=== PATIENT | female | born 1940 | race Caucasian/White ===

== ENCOUNTER → 2018-05-16 | Outpatient (CLI) | payer BC, MEDICARE ==
[2018-05-16 10:31] VITALS: BP 137/64; PULSE 66; BMI 21.2
--- NOTE | 2018-05-16 11:10 | P.GSHP ---
History of Present Illness H&P Date: 05/16/18 Mrs. Mccauley is a 77-year-old white female who presents with a mammographic abnormality in her right breast. The patient has punctate calcifications in the 9:00 middle position which are considered suspicious BIRADS 4B. Of significance is the fact that the patient is status post left mastectomy approximately 30 years ago, she had an axillary disectionas well done when the patient was 48. She states that this was done for a pea-sized invasive cancer and she did not have any chemo or radiation therapy. She had been taking premarin and her tumor was ER positive. She took tamoxifen for 7 years after her left mastectomy. At this time the patient does not feel anything of concern in her right breast. She has no pain in her breast. She has no nipple discharge or changes of concern. Family history: 1. Only the patient with a left breast cancer Past surgical history: 1. Left mastectomy axillary node dissection 2. 3. Hysterectomy with bilateral oophorectomy for endometriosis at age of 45 4. Cholecystectomy and appendectomy 5. Cervical fusion 6. Hemorrhoidectomy 7. Ureteral surgery to reroute the ureter following her surgery for endometriosis 8. Right kidney stone retrieved with a stone basket Past medical history: 1. Diabetic 2. Hypertension Hormonal History: menarche: 11 2, 2 live births, first at 19, breast fed: none menopause: hysterectomy at 45 BCP: 7 years Hormones: 3 years Social History: smoke: none Alcohol: Negative Drugs: Negative - Constitutional Constitutional: Denies chills, Denies fever - EENT Eyes: denies blurred vision, denies pain Ears: deny: decreased hearing, tinnitus Ears, nose, mouth and throat: Denies headache, Denies sore throat - Breasts Breasts: bilateral: as per HPI - Cardiovascular Comment: Cardiac cath in the past everything was fine Cardiovascular: Denies chest pain, Denies shortness of breath - Respiratory Respiratory: Denies cough, Denies 7 - Gastrointestinal Gastrointestinal: Denies abdominal pain, Denies diarrhea, Denies nausea, Denies vomiting - Genitourinary (Female) Genitourinary: Reports kidney stones - Menstruation Comment: endometriosis Menstruation: Reports post hysterectomy - Musculoskeletal Comment: arthritis, has seen a cardiac technician - Integumentary Integumentary: Denies pruritus, Denies rash - Neurological Comment: 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 Neurological: Reports numbness, Denies weakness - Psychiatric Psychiatric: Denies anxiety, Denies depression - Endocrine Comment: diabetes for 23 years - Hematologic/Lymphatic Comment: none - Allergic/Immunologic Allergic/Immunologic: Reports seasonal allergies Past Medical History Smoking Status: Never smoker Medications and Allergies Home Medications Medication Instructions Recorded Confirmed Type Calcium Citrate 250 mg PO DAILY 05/16/18 05/16/18 History Fosinopril Sodium 10 tab PO DAILY 05/16/18 05/16/18 History Gabapentin [Neurontin] 400 mg PO BID 05/16/18 05/16/18 History Hydrochlorothiazide [Hydrodiuril] 12.5 caplet PO DAILY 05/16/18 05/16/18 History Insulin Glargine,Hum.rec.anlog 20 unit SQ DAILY 05/16/18 05/16/18 History [Lantus Solostar] Insulin Lispro [humaLOG Kwikpen] 100 unit SQ DAILY 05/16/18 05/16/18 History L.acidoph,Paracasei, B.lactis 1 each PO DAILY 05/16/18 05/16/18 History [Probiotic] Montelukast [Singulair] 10 mg PO DAILY 05/16/18 05/16/18 History Propranolol HCl [Inderal LA] 160 caplet PO DAILY 05/16/18 05/16/18 History amLODIPine BESYLATE [Norvasc] 10 tab PO DAILY 05/16/18 05/16/18 History Surgical - Exam Vital Signs Pulse BP Pulse Ox 66 137/64 97 05/16/18 10:23 05/16/18 10:23 05/16/18 10:23 - General well developed, well nourished, no distress - Eyes normal ocular movement, no icteric - ENT no hearing loss, no congestion - Neck no masses, trachea midline - Respiratory normal respiratory effort, clear to auscultation - Cardiovascular Rhythm: regular Heart Sounds: normal: S1, S2 - Abdomen Abdomen: soft, non tender, no guarding, no rigid, no rebound - Neurologic no disoriented, no combative - Musculoskeletal normal gait, normal posture - Psychiatric oriented to time, oriented to person, oriented to place, speech is normal, memory intact Breast Exam: Right breast: Multiple positional exam no dominant masses or nodules of concern Right axilla: No adenopathy of concern Left chest wall: No evidence of recurrent disease Left axilla: No adenopathy of concern Results review reports of mammogram Assessment and Plan Assessment: Impression: 1. diabetic 2. abnormal mammogram right breast 3. history of left breast cancer 4. HTN 5. arthritis 6. history of endometriosis, status post hysterectomy in past 7. history of kidney stones Plan: 1. sterobiopsy of right breast 2. medical management of medical problems The risk and benefits as well as any alternatives of the stereo biopsy were discussed with the patient. Risks include bleeding infection and inability to identify the lesion and possible need for needle local excisional biopsy. The patient understands these and wishes to proceed. CC: Dr. Ramirez
== END | disposition home or self-care (01) ==
LOC: WWCWWP 09:51
PROVIDERS: ATTEND Surgery
DX: Z53.9 Procedure and treatment not carried out, unspecified reason (principal)

== ENCOUNTER → 2018-05-29 | Day surgery (SDC) | payer MEDICARE ==
[2018-05-29 07:20] VITALS: RESP 16; BMI 21.4
--- NOTE | 2018-05-29 09:40 | WWPCN ---
[facility] - PROCEDURE NOTE PRE PROCEDURE DIAGNOSIS: Mammographic abnormality, right breast. POSTPROCEDURE DIAGNOSIS: Mammographic abnormality, right breast. INDICATIONS FOR PROCEDURE: The patient is a 77-year-old white female who is status post left mastectomy for malignancy. She on a routine mammogram was noted to have an increasing calcifications in the 9 o'clock position of the right breast. Stereotactic core biopsy was recommended. On physical examination, no dominant mass or nodules of concern were noted in the right breast. No axillary adenopathy of concern was noted. No evidence of recurrent disease in the left chest wall was identified. The patient was recommended to undergo a stereotactic core biopsy. The risks and benefits of the procedure were discussed with the patient. The patient was taken to the stereotactic suite and the decision was made to approach the lesion as a cc from below. The patient was placed on the stereotactic table and the area of concern was identified. The breast was prepped using Betadine; 1% lidocaine was used to anesthetize the area of concern. The needle was driven to the correct coordinates. The needle was a 9-gauge petite vacuum-assisted core biopsy needle. Approximately 20 mL of 1% lidocaine were utilized. The initial 10 mL at the site of insertion of the needle and the following 10 mL was attached to the tubing and automatically delivered as the procedure was performed. Again, the needle was driven to the correct coordinates and pre-firing films were obtained. The needle was fired and post-fire films were obtained as well. The needle was noted to be in the correct location. Multiple core biopsies were obtained from the 3 to 9 o'clock position. Radiograph of the specimen revealed the calcifications of concern had been adequately sampled. At this point, a top-hat secure marking device was placed. The patient tolerated the procedure in stable condition with no immediate complications. The specimen was sent to Pathology. MMODL / IJN: [id number] /
[2018-05-29 10:10] VITALS: BP 144/71; PULSE 60; TEMP 97.5
--- NOTE | 2018-05-30 17:19 | MM ---
EXAMINATION TYPE: MG stereo VAD BX RT DATE OF EXAM: 05/29/2018 COMPARISON: Outside mammogram 10/15/2017. CLINICAL HISTORY: Abnormal mammogram TECHNIQUE: Stereotactic guided core biopsy of right breast. FINDINGS: Radiology portion of the study was explained to the patient. Timeout was performed. [facility] pathway for biopsy was chosen. Dr. Alvares performed the targeting. Surgery performed in the biopsy. Specimen: Calcifications are within the specimen. IMPRESSION: 1. Successful stereotactic core biopsy right breast calcifications Recommendations: 1. Recommendations are pending pathology results. Pathology Results: Benign BREAST, RIGHT, STEREOTACTIC CORE BIOPSY: Fibroadenoma/fibroadenomatoid hyperplasia with hyalinization and calcifications. Background fibrocystic changes including fibrosis, small cysts and adenosis. Recommendation Follow up mammogram of the right breast in 6 months. LILIAN
== END ==
LOC: RADMAMWWP 07:01
PROVIDERS: ATTEND Surgery
DX: D24.1 Benign neoplasm of right breast (principal); R92.1 Mammographic calcification found on diagnostic imaging of breast; R92.8 Other abnormal and inconclusive findings on diagnostic imaging of breast
CPT/HCPCS: 88305; 19081; A4648; J2001

== ENCOUNTER → 2018-06-06 | Outpatient (CLI) | payer MEDICARE ==
[2018-06-06 11:05] VITALS: BP 123/59; PULSE 63; BMI 21.4
--- NOTE | 2018-06-06 11:09 | P.PN ---
Progress Note - Text Progress Note Date: 06/06/18 Patient is status post stero core biopsy of the right breast. The pathology was benign. Incision clean and dry. No evidence of infection. Impression: 1. benign stero biopsy of the right breast Plan: 1. follow up in 6 months for repeat right diagnostic mammogram and visit cc: Reynaldo Allen ( [place])
== END ==
LOC: WWCWWP 10:50
PROVIDERS: ATTEND Surgery
DX: Z53.9 Procedure and treatment not carried out, unspecified reason (principal)

== ENCOUNTER → 2018-12-23 | Outpatient (CLI) | payer MEDICARE ==
--- NOTE | 2018-12-23 12:23 | MM ---
Reason for exam: additional evaluation requested from prior study. Last mammogram was performed 7 months ago. History: Patient has history of breast cancer at age 48. Benign MG stereo VAD BX RT of the right breast, May 29, 2018. Mastectomy of the left breast, 1988. Took hormonal contraceptives for 6 years. Took estrogen for 3 years beginning at age 45. Physical Findings: Nurse did not find any significant physical abnormalities on exam. MG 3D Diag Mammo W/Cad RT CC and MLO view(s) were taken of the right breast. Prior study comparison: May 29, 2018, mammogram. The breast tissue is extremely dense which could obscure a lesion on mammography. There are benign appearing round calcifications in the right breast. Previous mammotome biopsy in the right breast. There is no discrete abnormality. These results were verbally communicated with the patient and result sheet given to the patient on 12/23/18. ASSESSMENT: Benign, BI-RAD 2 RECOMMENDATION: Follow-up diagnostic mammogram of the right breast in 1 year.
== END | disposition home or self-care (01) ==
LOC: RADMAMWWP 10:56
PROVIDERS: ATTEND Surgery
DX: R92.8 Other abnormal and inconclusive findings on diagnostic imaging of breast (principal)
CPT/HCPCS: 77065; G0279; 77061

== ENCOUNTER → 2019-01-01 | Outpatient (CLI) | payer MEDICARE ==
[2019-01-01 12:53] VITALS: BP 136/70; PULSE 65; RESP 16; BMI 21.2
--- NOTE | 2019-01-01 13:16 | P.PN ---
Subjective Progress Note Date: 01/01/19 Principal diagnosis: fibroadenoma right breast Oma is a 78-year-old white female who presented initially with a mammographic abnormality in her right breast. The patient had punctate calcifications in the 9 o'clock position which were considered suspicious BIRADS 4B. The patient is status post left mastectomy approximately 30 years ago she had an axillary node dissection done when she was 48. She states that this was done for a pea-sized invasive cancer and she did not have any chemo or radiation therapy. She had been taking Premarin and her tumor was ER positive. She then took tamoxifen for 7 years after her left mastectomy. The patient's core biopsy was done on . Pathology revealed fibroadenoma/fibroadenomatoid hyperplasia with hyalinization and calcifications. The patient at this time does not complain of any lumps or masses in her breast. She denies any nipple discharge or pain in her breasts. She does not have any recent history of trauma or infection of the breast. She had a repeat right breast mammogram performed [id number] which was felt to be a benign BIRADS 2. Family History: patient: left breast cancer Past surgical history: 1. Left mastectomy axillary node dissection 2. 3. Hysterectomy with bilateral salpingo-oophorectomy for endometriosis at the age of 45 4. Cholecystectomy and appendectomy 5. Cervical fusion 6. Hemorrhoidectomy 7. Ureteral surgery to remove that the ureter following her surgery for en dometriosis 8. Kidney stone retrieved with a stone basket Past medical history: 1. Diabetes 2. Hypertension ROS: HEENT: none Lungs: negative heart: HTN Gu: status post hysterectomy GI: status post cholcystectomy Musculoskeletal: Arthritis Psychiatric: Negative Social History: Smoking: Negative Alcohol: Occasional Drugs: Negative Objective - Vital Signs Vital signs: Vital Signs Temp Pulse 65 01/01/19 12:47 Resp 16 01/01/19 12:47 BP 136/70 01/01/19 12:47 Pulse Ox 99 01/01/19 12:47 Intake & Output 12/31/18 01/01/19 01/01/19 18:59 06:59 18:59 Weight 49.442 kg - Exam BMI 21.3 - Constitutional General appearance: Present: average body habitus - EENT Eyes: Present: EOMI ENT: Present: hearing grossly normal - Neck Neck: Present: normal ROM - Respiratory Respiratory: - Cardiovascular Rhythm: regular Heart sounds: - Gastrointestinal Gastrointestinal Comment(s): well healed scar from prior surgery General gastrointestinal: Present: soft - Integumentary Integumentary: Present: normal turgor - Musculoskeletal Musculoskeletal: Present: gait normal - Psychiatric Psychiatric: Present: A&O x's 3, appropriate affect, intact judgment & insight - Additional findings Additional findings: Breasts: Multiple positional exam no dominant masses or nodules of concern Well-healed scars from prior biopsies No nipple discharge or skin changes of concern Left chest wall: No evidence of recurrent disease incision clean and dry and well-healed Left axilla: No adenopathy of concern Right axilla: No adenopathy of concern Assessment and Plan Assessment: Treatment impression: 1. Right breast fibrocystic breast changes 2. Right breast fibroadenoma/fibroadenomatoid change 3. Left mastectomy for invasive ductal carcinoma by history 4. Hypertension 5. Arthritis 6. History of endometriosis status post hysterectomy in past 7. History of kidney stones Plan: 1. Repeat left breast mammogram in 1 year 2. Patient to follow up sooner if she sees anything of concern 3. Follow-up. One year 4. Medical management of medical conditions CC: Dr. Reynaldo Allen, Dr. Ramirez
== END | disposition home or self-care (01) ==
LOC: WWCWWP 12:24
PROVIDERS: ATTEND Surgery
DX: Z53.9 Procedure and treatment not carried out, unspecified reason (principal)

== ENCOUNTER 2019-06-15 19:17 | Emergency (ER) | payer MEDICARE ==
[2019-06-15 20:00] VITALS: RESP 18
[2019-06-15] MEDS ORDERED: SODIUM CHLORIDE 0.9% 500 ML 500 ML IV ONE (20:51)
[2019-06-15 21:34] LABS: Appearance,Urine Clear (Clear); Basophils % (A) 0 %; Bilirubin,Urine Negative (Negative); Blood,Urine Negative (Negative); Color,Urine Light Yellow; Eosinophils # (A) 0.1 k/uL (0-0.7); Eosinophils % (A) 1 %; Glucose,Urine (UA) 4+ (Negative); HCT 39.9 % (34.0-46.0); HGB 13.3 gm/dL (11.4-16.0); Ketones,Urine Negative (Negative); Leukocyte Esterase,Urine Negative (Negative); Lymphocytes # (A) 2.3 k/uL (1.0-4.8); Lymphocytes % (A) 24 %; MCH 30.6 pg (25.0-35.0); MCHC 33.3 g/dL (31.0-37.0); MCV 91.8 fL (80.0-100.0); Mean Platelet Volume 7.6; Monocytes # (A) 0.6 k/uL (0-1.0); Monocytes % (A) 6 %; Neutrophils # (A) 6.2 k/uL (1.3-7.7); Neutrophils % (A) 66 %; Nitrite,Urine Negative (Negative); PH, Urine 5.5 (5.0-8.0); Platelet Count 275 k/uL (150-450); Protein,Urine Negative (Negative); RBC 4.34 m/uL (3.80-5.40); RDW 12.4 % (11.5-15.5); Specific Gravity,Urine 1.006 (1.001-1.035); Urobilinogen,Urine <2.0 mg/dL (<2.0); WBC 9.4 k/uL (3.8-10.6)
[2019-06-15 21:42] LABS: ALT 32 U/L (9-52); AST 21 U/L (14-36); African American GFR (CKD) >90 (>60 ml/min/1.73 sqM); Albumin 4.3 g/dL (3.5-5.0); Alkaline Phosphatase 68 U/L (38-126); Anion Gap 11 mmol/L; Blood Urea Nitrogen 24 mg/dL (7-17); Carbon Dioxide 26 mmol/L (22-30); Chloride 90 mmol/L (98-107); Glucose 283 mg/dL (74-99); Potassium 3.9 mmol/L (3.5-5.1); Sodium 127 mmol/L (137-145); Total Bilirubin 0.6 mg/dL (0.2-1.3); Total Protein 7.5 g/dL (6.3-8.2)
--- NOTE | 2019-06-15 23:04 | CT ---
History: ITS.REASON CT Reason: Pain Exam: CT ABDOMEN + PELVIS With Contrast Technique more: CTDI is 6.5 mGy and DLP is 517.6 mGy-cm. Technique more: This CT exam was performed using one or more of the following dose reduction techniques: automated exposure control, adjustment of the mA and/or kV according to patient size, and/or use of iterative reconstruction technique. Comparison: None available FINDINGS: Lung bases are clear. A few hepatic cysts. Sequela of previous granulomatous disease with areas of liver and splenic calcified granulomas. Multiple small low-density foci within the body and tail of the pancreas measuring around 6 mm for example coronal 21, 24 and 30 are nonspecific. Renal cysts. The bladder is partially distended and there is right greater than left renal collecting system dilation. No ureteral stone identified. Right renal atrophy and diffuse cortical thinning. The other abdominal solid organs and abdominal aorta appear within limits. No bowel dilation or free air. Moderate colonic stool without wall thickening or pericolonic inflammatory change. The gallbladder and appendix are not identified, no secondary signs. Status post apparent hysterectomy with pelvic clips. No free fluid. Multilevel lumbar spondylosis/discogenic change. IMPRESSION: The bladder is partially distended and there is right greater than left renal collecting system dilation. No ureteral stone identified. Right renal atrophy and diffuse cortical thinning. Multiple small low-density foci within the body and tail of the pancreas measuring around 6 mm for example coronal 21, 24 and 30 are nonspecific. Moderate colonic stool without wall thickening or pericolonic inflammatory change.
--- NOTE | 2019-06-15 23:37 | ED ---
General Adult HPI - General Chief complaint: Back Pain/Injury Stated complaint: Lower Back/Tailbone Pain Time Seen by Provider: 06/15/19 20:07 Source: patient Mode of arrival: ambulatory Limitations: no limitations - History of Present Illness Initial comments: 78-year-old female patient presents to the emergency department today for evaluation of increased low back pain and dizziness. The patient states that she has been receiving physical therapy for her back over the last several weeks. Patient states that at the beginning of April she had ultrasound therapy done to her back and is concerned there may have been damaged to her spinal cord. States that she is having some radiation of the pain into her upper buttocks. She is reporting radiation down the right leg. Denies any numbness or tingling to the lower extremities. Denies any saddle anesthesia or loss of bowel or bladder control. She states she is having some burning pain to her l ower abdomen. Denies any hematuria, dysuria, urinary frequency, urinary urgency. She denies any fever or chills. Denies any injury to the back. Patient reports that the dizziness started today. States that she just felt like her equilibrium was off. She denies any room spinning or spinning sen sation. Denies any nausea or vomiting. Denies headache, blurred vision, or double vision. Patient denies any recent rash, shortness breath, chest pain, diarrhea, constipation, back pain, dizziness, weakness, hematuria, dysuria, urinary urgency, urinary frequency, headache, visual changes, or any other complaints. - Related Data Home Medications Medication Instructions Recorded Confirmed Fosinopril Sodium 10 mg PO BID 05/16/18 06/15/19 Gabapentin [Neurontin] 400 mg PO TID 05/16/18 06/15/19 Hydrochlorothiazide [Hydrodiuril] 12.5 mg PO DAILY 05/16/18 06/15/19 Insulin Glargine,Hum.rec.anlog 20 unit SQ HS 05/16/18 06/15/19 [Lantus Solostar] Insulin Lispro [humaLOG Kwikpen] 3 unit SQ TID-W/MEALS 05/16/18 06/15/19 L.acidoph,Paracasei, B.lactis 1 cap PO DAILY 05/16/18 06/15/19 [Probiotic] Montelukast [Singulair] 10 mg PO DAILY 05/16/18 06/15/19 Propranolol HCl [Inderal LA] 160 mg PO DAILY 05/16/18 06/15/19 amLODIPine BESYLATE [Norvasc] 10 mg PO DAILY 05/16/18 06/15/19 Calcium/Vit D3 1200mg/1000iu 1 tab PO DAILY 06/15/19 06/15/19 Turmeric 538mg 538 mg PO DAILY 06/15/19 06/15/19 Allergies Allergy/AdvReac Type Severity Reaction Status Date / Time Penicillins Allergy Itching Verified 06/15/19 20:25 acetaminophen AdvReac Nausea & Verified 06/15/19 20:25 [From Darvocet-N] Vomiting codeine AdvReac Nausea & Verified 06/15/19 20:25 [From Tylenol-Codeine #3] Vomiting erythromycin base AdvReac Nausea & Verified 06/15/19 20:25 Vomiting propoxyphene AdvReac Nausea & Verified 06/15/19 20:25 [From Darvocet-N] Vomiting Review of Systems ROS Statement: Those systems with pertinent positive or pertinent negative responses have been documented in the HPI. ROS Other: All systems not noted in ROS Statement are negative. Past Medical History Past Medical History: Cancer, Diabetes Mellitus, Hypertension Additional Past Medical History / Comment(s): Left breast cancer diagnosed in 1987, History of Any Multi-Drug Resistant Organisms: None Reported Past Surgical History: Breast Surgery, Section, Cholecystectomy, Heart Catheterization, Hysterectomy, Orthopedic Surgery Additional Past Surgical History / Comment(s): Cervical Fusion 8 years ago, h emroidectomy, left mastectomy, benign needle biopsys right breast , kidney stone removed, right ureter surgery, Past Anesthesia/Blood Transfusion Reactions: Postoperative Nausea & Vomiting (PONV) Past Psychological History: No Psychological Hx Reported Smoking Status: Never smoker Past Alcohol Use History: None Reported Past Drug Use History: None Reported - Past Family History Mother Family Medical History: No Reported History Father Additional Family Medical History / Comment(s): Stroke, heart disease General Exam Limitations: no limitations General appearance: alert, in no apparent distress, other (Physical well- developed, well-nourished elderly female patient in no acute distress. Vital signs upon presentation are temperature 98.6F, pulse 77, respirations 18, blood pressure 131/71, pulse ox 98% on room air.) Eye exam: Present: normal appearance, PERRL, EOMI. Absent: scleral icterus, conjunctival injection, periorbital swelling ENT exam: Present: normal exam, normal oropharynx, mucous membranes moist Respiratory exam: Present: normal lung sounds bilaterally. Absent: respiratory distress, wheezes, rales, rhonchi, stridor Cardiovascular Exam: Present: regular rate, normal rhythm, normal heart sounds. Absent: systolic murmur, diastolic murmur, rubs, gallop, clicks GI/Abdominal exam: Present: soft, normal bowel sounds. Absent: distended, tenderness, guarding, rebound, rigid Extremities exam: Present: full ROM, normal capillary refill, other (Skin to the lower extremities is pink, warm, dry. Cap refills less than 3 seconds. Pedal and posttibial pulses are 2+ and equal bilaterally.). Absent: normal inspection, tenderness, pedal edema, joint swelling, calf tenderness Back exam: Present: normal inspection. Absent: vertebral tenderness Neurological exam: Present: alert, oriented X3, CN II-XII intact, other (Strength in all 4 extremities is 5/5.) Psychiatric exam: Present: normal affect, normal mood Skin exam: Present: warm, dry, intact, normal color. Absent: rash Course Vital Signs 06/15/19 06/15/19 06/15/19 19:52 21:00 23:00 Temperature 98.6 F Pulse Rate 77 78 69 Respiratory 18 20 18 Rate Blood Pressure 131/71 122/56 113/63 O2 Sat by Pulse 98 98 98 Oximetry 06/15/19 23:57 Temperature 98.2 F Pulse Rate 72 Respiratory 18 Rate Blood Pressure 124/62 O2 Sat by Pulse 98 Oximetry EKG Findings - EKG Comments: EKG Findings:: EKG obtained at 2112 shows sinus rhythm with PACs, ventricular rate of 66, [place] interval 124, QRS duration 94, QTC 440, QTc 461. No evidence of ST elevation or depression. Medical Decision Making - Medical Decision Making 78-year-old female patient percents to the emergency department today for evaluation of low back pain and dizziness. Physical examination is unremarkable. She is neurologically intact with no focal deficits. She has no concerning symptoms for cauda equina. Labs reviewed and did reveal elevated blood sugar at 283 and decreased sodium at 227, corrected sodium is 131. I did discuss findings and results with the patient. She does have degenerative disc disease as seen on computed tomography scan. She is currently receiving physical therapy for this. She is urged to continue this. She is instructed to follow-up with her primary care physician, she does have an appointment on Saturday. Return parameters were discussed in detail. She verbalizes understa nding and agrees this plan. - Lab Data Result diagrams: 06/15/19 20:15 06/15/19 20:15 Lab Results 06/15/19 06/15/19 06/15/19 Range/Units 20:15 20:15 20:15 WBC 9.4 (3.8-10.6) k/uL RBC 4.34 (3.80-5.40) m/uL Hgb 13.3 (11.4-16.0) gm/dL Hct 39.9 (34.0-46.0) % MCV 91.8 (80.0-100.0) fL MCH 30.6 (25.0-35.0) pg MCHC 33.3 (31.0-37.0) g/dL RDW 12.4 (11.5-15.5) % Plt Count 275 (150-450) k/uL Neutrophils % 66 % Lymphocytes % 24 % Monocytes % 6 % Eosinophils % 1 % Basophils % 0 % Neutrophils # 6.2 (1.3-7.7) k/uL Lymphocytes # 2.3 (1.0-4.8) k/uL Monocytes # 0.6 (0-1.0) k/uL Eosinophils # 0.1 (0-0.7) k/uL Basophils # 0.0 (0-0.2) k/uL Sodium 127 L (137-145) mmol/L Potassium 3.9 (3.5-5.1) mmol/L Chloride 90 L (98-107) mmol/L Carbon Dioxide 26 (22-30) mmol/L Anion Gap 11 mmol/L BUN 24 H (7-17) mg/dL Creatinine 0.71 (0.52-1.04) mg/dL Est GFR (CKD-EPI)AfAm >90 (>60 ml/min/1.73 sqM) Est GFR (CKD-EPI)NonAf 82 (>60 ml/min/1.73 sqM) Glucose 283 H (74-99) mg/dL Calcium 10.0 (8.4-10.2) mg/dL Total Bilirubin 0.6 (0.2-1.3) mg/dL AST 21 (14-36) U/L ALT 32 (9-52) U/L Alkaline Phosphatase 68 (38-126) U/L Total Protein 7.5 (6.3-8.2) g/dL Albumin 4.3 (3.5-5.0) g/dL Urine Color Light Yellow Urine Appearance Clear (Clear) Urine pH 5.5 (5.0-8.0) Ur Specific [place] 1.006 (1.001-1.035) Urine Protein Negative (Negative) Urine Glucose (UA) 4+ H (Negative) Urine Ketones Negative (Negative) Urine Blood Negative (Negative) Urine Nitrite Negative (Negative) Urine Bilirubin Negative (Negative) Urine Urobilinogen <2.0 (<2.0) mg/dL Ur Leukocyte Esterase Negative (Negative) - Radiology Data Radiology results: report reviewed, image reviewed Pelvis with contrast was obtained. Report was reviewed in its entirety. Impression by Dr. Wu shows bladder is partially distended and there is right greater than left renal collecting system dilation. No ureteral stone identified. Right renal atrophy and diffuse cortical thinning. Multiple small low density foci within the body and tail of the pancreas measuring about 6 mm for example coronal 21, 24 and 30 are nonspecific. Moderate colonic stool without wall thickening or pericolonic inflammatory change. Disposition Clinical Impression: Low back pain, Dizziness, Hyponatremia Disposition: HOME SELF-CARE Condition: Good Instructions (If sedation given, give patient instructions): Hyponatremia (ED), Acute Low Back Pain (ED), Dizziness (ED) Additional Instructions: Add salt to meals. Increase fluid intake. Follow-up with your primary care physician for recheck in 1-2 days. Return to the emergency department immediately for any new, worsening, or concerning symptoms. Is patient prescribed a controlled substance at d/c from ED?: No Referrals: Reynaldo Putnam MD [Primary Care Provider] - 1-2 days Time of Disposition: 23:36
[2019-06-15 23:59] VITALS: BP 124/62; PULSE 72; TEMP 98.2
== END 2019-06-15 23:57 | disposition home or self-care (01) ==
LOC: EC 19:17
DX: M54.5 Low back pain (principal); R42 Dizziness and giddiness; E87.1 Hypo-osmolality and hyponatremia; E11.65 Type 2 diabetes mellitus with hyperglycemia; I10 Essential (primary) hypertension; Z79.4 Long term (current) use of insulin; Z79.899 Other long term (current) drug therapy; Z88.0 Allergy status to penicillin; Z88.6 Allergy status to analgesic agent; Z88.1 Allergy status to other antibiotic agents; Z88.5 Allergy status to narcotic agent; Z85.3 Personal history of malignant neoplasm of breast; Z95.818 Presence of other cardiac implants and grafts; Z90.12 Acquired absence of left breast and nipple
CPT/HCPCS: 36415; 93005; 80053; 85025; 81003; 74177; 99284; Q9967

== ENCOUNTER 2019-09-17 17:11 | Inpatient (IN) | payer MEDICARE ==
[2019-09-17] MEDS ORDERED: MAG HYDROX/AL HYDROX/SIMETH 30 ML CUP PO PRN (19:28)
[2019-09-17 20:04] LABS: Glucose,Whole Blood 274 mg/dL (75-99)
[2019-09-17] MEDS ORDERED: TRIAMCINOLONE ACET 0.1% OINTMENT 15 GM TUBE TOPICAL PRN (20:42)
[2019-09-17] MEDS ORDERED: INSULIN DETEMIR (LEVEMIR) 100 UNIT/ML SYR SQ SCH (21:00)
[2019-09-17] MEDS: INSULIN ASPART (NovoLOG) 100 UNIT/ML VIAL SQ SCH ×2 (21:13→21:15)
[2019-09-17] MEDS: LISINOPRIL 20 MG TAB PO SCH (21:18)
[2019-09-17] MEDS: INSULIN DETEMIR (LEVEMIR) 100 UNIT/ML SYR SQ SCH (22:13)
[2019-09-18] MEDS ORDERED: cloNIDine HCL 0.1 MG TAB PO STA ×2 (00:28→09:04)
[2019-09-18] MEDS ORDERED: traZODone HCL 50 MG TAB PO STA (00:28)
[2019-09-18] MEDS ORDERED: BENZOCAINE/MENTHOL LOZENG 1 EACH LOZENGE MUCOUS MEM PRN (01:52)
--- NOTE | 2019-09-18 02:17 | P.CONS ---
History of Present Illness - Reason for Consult Consult date: 09/18/19 - History of Present Illness The patient is a 79 yo F with a PMH of HTN and DM who was transferred from another facility due to suspected suicidal ideation with xanax overdose. The patient notes that she "accidentally" took too many of her xanax pills. She denied suicidal ideation. She isn't able to recall exactly how many she may have taken. She otherwise noted feeling well and denied any additional complaints. Denied chest pain, SOB, fever, chills, nausea, vomiting, abdominal pain, or diarrhea. She notes compliance with her other medications at home including her insulin. Review of Systems Pertinent positives and negatives as discussed in HPI, a complete review of systems was performed and all other systems are negative. Past Medical History Past Medical History: Cancer, Diabetes Mellitus, Hypertension Additional Past Medical History / Comment(s): Left breast cancer diagnosed in 1987, History of Any Multi-Drug Resistant Organisms: None Reported Past Surgical History: Breast Surgery, Section, Cholecystectomy, Heart Catheterization, Hysterectomy, Orthopedic Surgery Additional Past Surgical History / Comment(s): Cervical Fusion 8 years ago, hemroidectomy, left mastectomy, benign needle biopsys right breast , kidney stone removed, right ureter surgery, Past Anesthesia/Blood Transfusion Reactions: Postoperative Nausea & Vomiting (PONV) Smoking Status: Never smoker - Past Family History Mother Family Medical History: No Reported History Father Additional Family Medical History / Comment(s): Stroke, heart disease Medications and Allergies Home Medications Medication Instructions Recorded Confirmed Type Fosinopril Sodium 10 mg PO BID 05/16/18 09/17/19 History Gabapentin [Neurontin] 400 mg PO TID 05/16/18 09/17/19 History Hydrochlorothiazide [Hydrodiuril] 12.5 mg PO DAILY 05/16/18 09/17/19 History Insulin Glargine,Hum.rec.anlog See Protocol SQ HS 05/16/18 09/17/19 History [Lantus Solostar] Insulin Lispro [humaLOG Kwikpen] 3 unit SQ TID-W/MEALS 05/16/18 09/17/19 History Propranolol HCl [Inderal LA] 160 mg PO DAILY 05/16/18 09/17/19 History amLODIPine BESYLATE [Norvasc] 10 mg PO DAILY 05/16/18 09/17/19 History Calcium/Vit D3 1200mg/1000iu 1 tab PO DAILY 06/15/19 09/17/19 History Doxycycline Hyclate 100 mg PO BID 09/17/19 09/17/19 History Triamcinolone 0.1% Ointment 1 applic TOPICAL BID PRN 09/17/19 09/17/19 History [Kenalog 0.1% Ointment] Allergies Allergy/AdvReac Type Severity Reaction Status Date / Time Penicillins Allergy Itching Verified 09/17/19 20:03 acetaminophen AdvReac Nausea & Verified 09/17/19 20:03 [From Darvocet-N] Vomiting codeine AdvReac Nausea & Verified 09/17/19 20:03 [From Tylenol-Codeine #3] Vomiting erythromycin base AdvReac Nausea & Verified 09/17/19 20:03 Vomiting propoxyphene AdvReac Nausea & Verified 09/17/19 20:03 [From Darvocet-N] Vomiting Physical Exam Vitals: Vital Signs Temp Pulse Pulse Resp BP BP Pulse Ox 09/18/19 00:22 98.0 F 75 14 164/73 09/17/19 21:15 97 F L 66 16 119/62 97 09/17/19 19:34 98.3 F 78 16 143/88 97 Intake and Output 09/17/19 09/17/19 09/18/19 14:59 22:59 06:59 Other: Weight 49.7 kg General: non toxic, no distress, appears at stated age, normal weight Derm: no unusual rashes/lesions no unusual ecchymoses, warm, dry Head: atraumatic, normocephalic, symmetric Eyes: EOMI, no lid lag, anicteric sclera, pupils equal round reactive to light ENT: Nose and ears atraumatic, no thrush, no pharyngeal erythema Neck: No thyromegaly, no cervical lymphadenopathy, trachea midline, supple Mouth: no lip lesion, mucus membranes moist Cardiovascular: S1S2 reg, no murmur, positive posterior tibial pulse bilateral, no edema, capillary refill less than 2 seconds Lungs: CTA bilateral, no rhonchi, no rales , no accessory muscle use Abdominal: soft, nontender to palpation, no guarding, no appreciable organomegaly, normal bowel sounds Ext: no gross muscle atrophy, muscle strength 5 out of 5 in all 4 extremities grossly, no contractures, Neuro: CN II-XI grossly intact, light touch intact all 4 extremities, finger to nose within normal limits, Psych: Alert, oriented, appropriate affect Results Labs: Abnormal Lab Results - Last 24 Hours (Table) 09/17/19 Range/Units 20:02 POC Glucose (mg/dL) 274 H (75-99) mg/dL Assessment and Plan Plan: HTN -C/w home meds: Norvasc, HCTZ and ACEI Type 2 DM -Pt reports taking 10-20 U of Lantus qhs with 3 U TIDAC Lispro at home -Will c/w Levemir 10 U qhs with 3 U TIDAC Lispro for now ?Depression w/ overdose -As per psychiatry Thank you for allowing us to participate in the care of this patient. We will follow peripherally. Do not hesitate to contact us with questions. Someone can be reached from the [facility] hospitalist group at all hours of the day at [phone].
[2019-09-18 07:42] LABS: Glucose,Whole Blood 70 mg/dL (75-99)
[2019-09-18] MEDS: amLODIPine 10 MG TAB PO SCH (07:46)
[2019-09-18] MEDS: CALCIUM CARB-VIT D 500MG-200UN 1 EACH TAB PO SCH (07:47)
[2019-09-18] MEDS: PROPRANOLOL LA 60 MG CAP.SA.24H PO SCH (07:47)
[2019-09-18] MEDS: INSULIN ASPART (NovoLOG) 100 UNIT/ML VIAL SQ SCH ×7 (07:48→21:37)
[2019-09-18 09:22] LABS: Basophils % (A) 0 %; Eosinophils % (A) 1 %; HCT 37.7 % (34.0-46.0); Lymphocytes % (A) 15 %; MCH 32.9 pg (25.0-35.0); MCHC 34.5 g/dL (31.0-37.0); MCV 95.3 fL (80.0-100.0); Mean Platelet Volume 7.2; Monocytes # (A) 0.3 k/uL (0-1.0); Monocytes % (A) 5 %; Neutrophils % (A) 77 %; Platelet Count 237 k/uL (150-450); RBC 3.95 m/uL (3.80-5.40); RDW 12.8 % (11.5-15.5); WBC 6.4 k/uL (3.8-10.6)
[2019-09-18 09:37] LABS: ALT 54 U/L (9-52); AST 35 U/L (14-36); African American GFR (CKD) >90 (>60 ml/min/1.73 sqM); Albumin 3.8 g/dL (3.5-5.0); Alkaline Phosphatase 55 U/L (38-126); Anion Gap 8 mmol/L; Blood Urea Nitrogen 12 mg/dL (7-17); Calcium 9.7 mg/dL (8.4-10.2); Carbon Dioxide 33 mmol/L (22-30); Chloride 96 mmol/L (98-107); Cholesterol 163 mg/dL (<200); Glucose 172 mg/dL (74-99); HDL Cholesterol 56 mg/dL (40-60); LDL Cholesterol,Calculated 82 mg/dL (0-99); Non-African American GFR(CKD) 87 (>60 ml/min/1.73 sqM); Potassium 3.3 mmol/L (3.5-5.1); Sodium 137 mmol/L (137-145); Total Bilirubin 0.6 mg/dL (0.2-1.3); Triglycerides 127 mg/dL (<150)
[2019-09-18] MEDS: POTASSIUM CHLORIDE ER 20 MEQ TAB.ER PO STA ×2 (10:54→11:40)
[2019-09-18] MEDS ORDERED: busPIRone HCl 5 MG TAB PO PRN (12:10)
[2019-09-18] MEDS: SERTRALINE 25 MG TAB PO SCH (12:24)
[2019-09-18 12:31] LABS: Glucose,Whole Blood 210 mg/dL (75-99)
--- NOTE | 2019-09-18 12:36 | P.HP ---
Psychiatric H&P - . H&P Date: 09/18/19 History & Physical: Allergies Allergy/AdvReac Type Severity Reaction Status Date / Time Penicillins Allergy Itching Verified 09/17/19 20:03 acetaminophen AdvReac Nausea & Verified 09/17/19 20:03 From Darvocet-N Vomiting codeine AdvReac Nausea & Verified 09/17/19 20:03 From Tylenol-Codeine #3 Vomiting erythromycin base AdvReac Nausea & Verified 09/17/19 20:03 Vomiting propoxyphene AdvReac Nausea & Verified 09/17/19 20:03 From Darvocet-N Vomiting Vital Signs Temp 98.0 F 09/18/19 00:22 Pulse 77 09/18/19 10:38 Resp 16 09/18/19 07:49 BP 153/69 09/18/19 10:38 Pulse Ox 97 09/17/19 21:15 Intake & Output 09/17/19 09/18/19 09/18/19 18:59 06:59 18:59 Weight 49.7 kg Laboratory Last Values WBC 6.4 k/uL (3.8-10.6) 09/18/19 08:40 RBC 3.95 m/uL (3.80-5.40) 09/18/19 08:40 Hgb 13.0 gm/dL (11.4-16.0) 09/18/19 08:40 Hct 37.7 % (34.0-46.0) 09/18/19 08:40 MCV 95.3 fL (80.0-100.0) 09/18/19 08:40 MCH 32.9 pg (25.0-35.0) 09/18/19 08:40 MCHC 34.5 g/dL (31.0-37.0) 09/18/19 08:40 RDW 12.8 % (11.5-15.5) 09/18/19 08:40 Plt Count 237 k/uL (150-450) 09/18/19 08:40 Neutrophils % 77 % 09/18/19 08:40 Lymphocytes % 15 % 09/18/19 08:40 Monocytes % 5 % 09/18/19 08:40 Eosinophils % 1 % 09/18/19 08:40 Basophils % 0 % 09/18/19 08:40 Neutrophils # 5.0 k/uL (1.3-7.7) 09/18/19 08:40 Lymphocytes # 1.0 k/uL (1.0-4.8) 09/18/19 08:40 Monocytes # 0.3 k/uL (0-1.0) 09/18/19 08:40 Eosinophils # 0.0 k/uL (0-0.7) 09/18/19 08:40 Basophils # 0.0 k/uL (0-0.2) 09/18/19 08:40 Sodium 137 mmol/L (137-145) 09/18/19 08:40 Potassium 3.3 mmol/L (3.5-5.1) L 09/18/19 08:40 Chloride 96 mmol/L (98-107) L 09/18/19 08:40 Carbon Dioxide 33 mmol/L (22-30) H 09/18/19 08:40 Anion Gap 8 mmol/L 09/18/19 08:40 BUN 12 mg/dL (7-17) 09/18/19 08:40 Creatinine 0.60 mg/dL (0.52-1.04) 09/18/19 08:40 Est GFR (CKD-EPI)AfAm >90 (>60 ml/min/1.73 sqM) 09/18/19 08:40 Est GFR (CKD-EPI)NonAf 87 (>60 ml/min/1.73 sqM) 09/18/19 08:40 Glucose 172 mg/dL (74-99) H 09/18/19 08:40 POC Glucose (mg/dL) 70 mg/dL (75-99) L 09/18/19 07:40 POC Glu Trucking Contractor Sangeetha Engle 09/18/19 07:40 Calcium 9.7 mg/dL (8.4-10.2) 09/18/19 08:40 Total Bilirubin 0.6 mg/dL (0.2-1.3) 09/18/19 08:40 AST 35 U/L (14-36) 09/18/19 08:40 ALT 54 U/L (9-52) H 09/18/19 08:40 Alkaline Phosphatase 55 U/L (38-126) 09/18/19 08:40 Total Protein 7.0 g/dL (6.3-8.2) 09/18/19 08:40 Albumin 3.8 g/dL (3.5-5.0) 09/18/19 08:40 Triglycerides 127 mg/dL (<150) 09/18/19 08:40 Cholesterol 163 mg/dL (<200) 09/18/19 08:40 LDL Cholesterol, Calc 82 mg/dL (0-99) 09/18/19 08:40 HDL Cholesterol 56 mg/dL (40-60) 09/18/19 08:40 TSH 0.697 mIU/L (0.465-4.680) 09/18/19 08:40 09/18/19 12:25 IDENTIFYING DATA: Patient is a 79-year-old female who currently lives alone in a house is and has 2 kids and for grandchildren collects Social Security and pension and works part-time as a ballroom golf instructor. HPI: Patient presented to the hospital as a transfer from [facility] due to an overdose on her medications. Patient was transferred on petition and certification yesterday. Patient's petition was filled out by a nurse who states that patient talk 5 Xanax and tramadol with the intent to to kill herself and that patient has been going through financial and personal stressors. When assembly instructions writer spoke with patient, she was calm and directable however denied what was stated in the petition. Patient states that she has a difficult time remembering what occurred prior to coming to the hospital. She states that she was planning a birthday democrat for herself and a daughter and made dinner re servations in [facility] for the next day however patient states that she was not sleeping well and decided to take more of her Xanax to help her sleep. Patient states that she did not remember what occurred afterwards and woke up in the hospital confused. She states that "all I wanted to do was have a good night rest for the next day" and denies it being a suicide attempt. Patient did endorse having depression and anxiety and states that she has been having poor sleep approximately 3-4 hours per night. Patient claims that she has a decrease in her appetite. She endorses other stressors regarding her health as she had recent back injury and also plantar fasciitis and dealing with the pain. She admitted to some financial stressors. Patient claims that she started taking Xanax 2 weeks ago prescribed by her PCP. Patient denies any suicidal or homicidal ideations intent or plan. At this time patient denies any auditory or visual hallucinations. Patient denies any flight of ideas racing thoughts and increased in goal directed behavior. Patient denies using any recreational drugs at this time and denies any alcohol or nicotine products. PAST PSYCHIATRIC HISTORY: Patient states that she has a history of depression and anxiety along with difficulty sleeping. Patient denies seeing a psychiatrist in the past and denies any previous psychiatric hospitalizations. She denies any previous suicide attempts. Patient claims that she's been on Xanax for the past 2 weeks prescribed by her PCP for anxiety. PMH: Hypertension, diabetes mellitus, history of breast cancer with a mastectomy 31 years ago, currently in remission. ALLERGIES: as per EMR CHEMICAL DEPENDENCY HISTORY: Denies FAMILY PSYCHIATRIC/SUBSTANCE USE HISTORY: denies SOCIAL HISTORY: She states that she was born and raised in [place] [facility] and completed up to the 12th grade of school. 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 She has 2 kids and 4 grandchildren. She currently lives alone in a house is collects Social Security and pension and teaches ballroom dancing. MENTAL STATUS EXAM: General Appearance: Patient appears to be stated age is thin and short in stature, alert, and directable. Fair hygiene and grooming. Behavior: Patient is calmly seated without any agitated behavior. Speech: Patient's speech is fluent and nonpressured. Soft tone. Mood/Affect: Patient reports their mood is depressed and anxious, affect is congruent and constricted. Suicidality/Homicidality: Patient denies having any suicidal or homicidal ideation intent or plan. Perceptions: Patient denies any auditory or visual hallucinations. Though content/process: There is no evidence of any delusional thought content and thought process is linear and goal-directed. Anxious about being on the unit and focused on discharge. Memory and concentration: AOX3, grossly intact for the purposes of this session. Can spell "WORLD" backwards Judgment and insight: Limited STRENGTHS/WEAKNESSES: strength is that patient has good support system, weaknesses that patient has limited insight. INTELLECT: average IMPRESSIONS: Major depressive disorder, without psychotic features Anxiety disorder unspecified PLAN: -Patient is admitted under voluntary status to [facility] for stabilization of psychiatric symptoms and safety. Patient signed adult voluntary form and m edication consent and is placed in patient's chart. -Medications : Will start patient on Zoloft 25 mg daily for mood/anxiety. We'll also start patient on trazodone 25 mg daily at bedtime for insomnia/mood. BuSpar 7.5 mg twice a day when necessary for anxiety. Melatonin when necessary for sleep. -Patient's blood pressure has been elevated since admission, restarted home medications as per medicine recommendations however still remains elevated. Patient has been given 2 doses of Catapres 0.1 mg with mild improvement. Will ask medicine to give further recommendations to improve blood pressure control and to continue monitoring closely. -Patient was informed of the risks, benefits and side effects of the medication and patient verbally consented to taking the medications. Patient signed med consent form and was placed in chart. -NRT -not need his patient does not smoke. -VIC on board for discharge planning
[2019-09-18 15:33] VITALS: BMI 19.5
[2019-09-18 17:44] LABS: Glucose,Whole Blood 252 mg/dL (75-99)
[2019-09-18 18:39] LABS: Hemoglobin A1C 8.2 % (4.0-6.0)
[2019-09-18 20:23] LABS: Glucose,Whole Blood 219 mg/dL (75-99)
[2019-09-18] MEDS: INSULIN DETEMIR (LEVEMIR) 100 UNIT/ML SYR SQ SCH (21:40)
[2019-09-18] MEDS: traZODone HCL 50 MG TAB PO SCH (21:40)
[2019-09-18] MEDS: LISINOPRIL 20 MG TAB PO SCH (21:41)
[2019-09-19] MEDS: amLODIPine 10 MG TAB PO SCH (06:16)
[2019-09-19 07:34] LABS: Glucose,Whole Blood 87 mg/dL (75-99)
[2019-09-19] MEDS: INSULIN ASPART (NovoLOG) 100 UNIT/ML VIAL SQ SCH ×7 (07:40→21:20)
[2019-09-19] MEDS: PROPRANOLOL LA 60 MG CAP.SA.24H PO SCH (08:49)
[2019-09-19] MEDS: CALCIUM CARB-VIT D 500MG-200UN 1 EACH TAB PO SCH (08:49)
[2019-09-19] MEDS: SERTRALINE 25 MG TAB PO SCH (08:49)
--- NOTE | 2019-09-19 11:01 | P.PN ---
Progress Note - Text Progress Note Date: 09/19/19 Over history: Patient seen in cross coverage today. She says she slept better last night. She says she has been eating here on the unit. She talks of circumstances regarding her admission. She relates she took too many pills. Mental status exam: She is alert and cooperative with the interview. Her mood is described as" anxious." She denies any thoughts of harm to self others. They have seen the evidence of psychosis symptoms. Her thought processes are organized. She does not show any agitation. Plan: Patient will be maintained on current psychotropic medication regimen. Continue to monitor for any medication side effects and monitor her ongoing response to treatment.
[2019-09-19 12:36] LABS: Glucose,Whole Blood 219 mg/dL (75-99)
[2019-09-19 17:26] LABS: Glucose,Whole Blood 281 mg/dL (75-99)
[2019-09-19 20:09] LABS: Glucose,Whole Blood 261 mg/dL (75-99)
[2019-09-19] MEDS: INSULIN DETEMIR (LEVEMIR) 100 UNIT/ML SYR SQ SCH (21:22)
[2019-09-19] MEDS: LISINOPRIL 20 MG TAB PO SCH (21:22)
[2019-09-19] MEDS: traZODone HCL 50 MG TAB PO SCH (21:22)
[2019-09-19] MEDS: MAGNESIUM HYDROXIDE 2,400 MG/10 ML CUP PO PRN (21:22)
[2019-09-19] MEDS: MELATONIN 5 MG TABLET PO PRN (23:43)
[2019-09-20 01:51] LABS: Glucose,Whole Blood 44 mg/dL (75-99)
[2019-09-20 02:06] LABS: Glucose,Whole Blood 74 mg/dL (75-99)
[2019-09-20] MEDS: INSULIN ASPART (NovoLOG) 100 UNIT/ML VIAL SQ SCH ×7 (07:51→20:29)
[2019-09-20 07:56] LABS: Glucose,Whole Blood 130 mg/dL (75-99)
[2019-09-20] MEDS: CALCIUM CARB-VIT D 500MG-200UN 1 EACH TAB PO SCH (08:26)
[2019-09-20] MEDS: amLODIPine 10 MG TAB PO SCH (08:26)
[2019-09-20] MEDS: SERTRALINE 25 MG TAB PO SCH (08:27)
[2019-09-20] MEDS: PROPRANOLOL LA 60 MG CAP.SA.24H PO SCH (08:27)
[2019-09-20 12:37] LABS: Glucose,Whole Blood 260 mg/dL (75-99)
--- NOTE | 2019-09-20 14:50 | P.PN ---
Progress Note - Text Progress Note Date: 09/20/19 Interval history: Patient is seen again in cross coverage today. She says she slept only about 3 hours last night so kind of had a difficult night. She describes she had some anxiety about goal setting this morning and was concerned about how she filled out the paperwork for a certain time. We discussed that she is able to ask questions if she needs to. She says she feels less anxious now and her mood is improved currently. She also makes reference to her blood sugar dropping last night and was given something to help it. Mental status exam: She is alert and cooperative with the interview. She does not show any agitation. Her mood she describes currently is better. She denies any thoughts of harm to self or others. There is no evidence of active psychosis. Plan: Patient will be maintained on current psychotropic medication regimen. Continue to monitor for any medication side effects and monitor her ongoing response to treatment.
[2019-09-20 17:31] LABS: Glucose,Whole Blood 251 mg/dL (75-99)
[2019-09-20 20:06] LABS: Glucose,Whole Blood 246 mg/dL (75-99)
[2019-09-20] MEDS: INSULIN DETEMIR (LEVEMIR) 100 UNIT/ML SYR SQ SCH (20:31)
[2019-09-20] MEDS: LISINOPRIL 20 MG TAB PO SCH (20:31)
[2019-09-20] MEDS: traZODone HCL 50 MG TAB PO SCH (20:31)
[2019-09-20] MEDS: MAGNESIUM HYDROXIDE 2,400 MG/10 ML CUP PO PRN (21:55)
[2019-09-20] MEDS: MELATONIN 5 MG TABLET PO PRN (23:55)
[2019-09-21 07:46] LABS: Glucose,Whole Blood 199 mg/dL (75-99)
[2019-09-21] MEDS: INSULIN ASPART (NovoLOG) 100 UNIT/ML VIAL SQ SCH ×7 (07:52→19:54)
[2019-09-21] MEDS: amLODIPine 10 MG TAB PO SCH (08:02)
[2019-09-21] MEDS: PROPRANOLOL LA 60 MG CAP.SA.24H PO SCH (08:02)
[2019-09-21] MEDS: CALCIUM CARB-VIT D 500MG-200UN 1 EACH TAB PO SCH (08:02)
[2019-09-21] MEDS: SERTRALINE 25 MG TAB PO SCH (08:02)
--- NOTE | 2019-09-21 09:02 | CT ---
EXAMINATION TYPE: CT brain wo con DATE OF EXAM: 09/21/2019 COMPARISON: None INDICATION: Rt facial droop DLP: 1036 mGycm, Automated exposure control for dose reduction was used. CONTRAST: None CT of the brain is performed utilizing 3 mm thick sections through the posterior fossa and 3 mm thick sections through the remaining calvarium. Study is performed within 24 hours of arrival to the hosp ital. No abnormal hyperdensity is present to suggest an acute intracranial hemorrhage. No mass lesion is evident. No acute infarcts are evident. Some periventricular white matter hypodensity is present, likely on th e basis of chronic white matter ischemic changes. Ventricles and sulci are appropriate for the patient age. Paranasal sinuses and mastoid air cells within the [id number] are clear. IMPRESSIONS: 1. Chronic appearing periventricular white matter ischemic type changes.
--- NOTE | 2019-09-21 10:49 | US ---
EXAMINATION TYPE: US carotid duplex BILAT DATE OF EXAM: 09/21/2019 COMPARISON: CT CLINICAL HISTORY: facial droop. EXAM MEASUREMENTS: RIGHT: Peak Systolic Velocity (PSV) cm/sec ----- Right CCA: 72.8 ----- Right ICA: 72.8 ----- Right ECA: 91.5 ICA/CCA ratio: 1.0 RIGHT: End Diastole cm/sec ----- Right CCA: 13.4 ----- Right ICA: 15.9 ----- Right ECA: 0.0 LEFT: Peak Systolic Velocity (PSV) cm/sec ----- Left CCA: 71.1 ----- Left ICA: 74.5 ----- Left ECA: 83.3 ICA/CCA ratio: 1.0 LEFT: End Diastole cm/sec ----- Left CCA: 12.8 ----- Left ICA: 12.8 ----- Left ECA: 10.6 VERTEBRALS (direction of flow): Right Vertebral: Antegrade Left Vertebral: Antegrade Rhythm: Normal Mild, calcified wall plaques noted a bilateral carotid bifurcation, but PSV is wnl bilaterally. Incidental finding of bilateral thyroid nodules seen: largest right complex cystic thyroid nodule = 0 .9 x 1.0 x 0.9cm; largest left thyroid mixed nodule = 1.1 x 1.0 x 1.2cm. IMPRESSION: 1. Atheromatous plaquing appears greatest at the left carotid bifurcation. Significant flow-limiting stenosis however is not evident. 2. Note is made of thyroid nodules, the largest on the left measuring 1.0 cm. Complete thyroid evalua tion with ultrasound is recommended. Criteria for Assigning % of Stenosis / Diameter reduction (Estimation based on the indirect measurements of the internal carotid artery velocities (ICA PSV). 1. Normal (no stenosis)=ICA PSV < 125 cm/s: ratio < 2.0: ICA EDV<40 cm/s. 2. Less than 50% stenosis=ICA PSV < 125 cm/s: ratio < 2.0: ICA EDV<40 cm/s. 3. 50 to 69% stenosis=ICA PSV of 125 to 230 cm/s: ration 2.0 ? 4.0: ICA EDV 40-100 cm/s. 4. Greater than 70% stenosis to near occlusion= ICA PSV > 230 cm/s: ratio > 4.0: ICA EDV > 100 cm/s. 5. Near occlusion= ICA PSV velocities may be low or undetectable: variable ratio and ICA EDV. 6. Total occlusion=unable to detect flow.
[2019-09-21] MEDS ORDERED: SERTRALINE 25 MG TAB PO ONE (11:30)
--- NOTE | 2019-09-21 11:41 | P.PN ---
Progress Note - Text Progress Note Date: 09/21/19 Interval History: Patient was seen taking part in group this morning and was directable and agre eable to speak to feature writer. Patient was reflecting on her weekend with feature writer and states that she is attending to participate more with groups and finding it helpful. She complimented the nursing staff and other staff on the unit and states that everyone has been very nice to her. She did state that on Saturday or Saturday she noted that she did have a very mild left lip droop and claims that she didn't tell anybody until Saturday and denied any other neurological symptoms. Patient was concerned about her appearance and the mirror and spoke about usually taking better care of her appearance and states that it is difficult to do so on the unit. She states that she is feeling much better with regards to her mood and anxiety. She claims that she is sleeping approximately 3-4 hours a night and requested to have her melatonin increased. She claims to have good energy and fair appetite at this time. At this time patient denies any suicidal or homical ideations, intent or plan. Patient denies any auditory, visual hallucinations and denies any paranoia or delusions. Patient denies any side effects from the medications and has been compliant with meds. Mental Status Exam: General Appearance: Patient appears to be stated age is thin and short in stature, alert, and directable. Fair hygiene and grooming. Behavior: Patient is calmly seated without any agitated behavior. Speech: Patient's speech is fluent and nonpressured. Soft tone. Mood/Affect: Patient reports their mood is improving, affect is congruent Suicidality/Homicidality: Patient denies having any suicidal or homicidal i deation intent or plan. Perceptions: Patient denies any auditory or visual hallucinations. Though content/process: There is no evidence of any delusional thought content and thought process is linear and goal-directed. Focused on discharge. Memory and concentration: AOX3, grossly intact for the purposes of this session. Judgment and insight: improving mildly. Assessment Major depressive disorder, without psychotic features Anxiety disorder unspecified Plan: -Patient continues to meet criteria for inpatient psychiatric admission for symptom stabilization and safety. Patient has signed adult voluntary form and medication consent and was placed in patient's chart. -Medications: Will increase Zoloft to 50 mg daily for mood/anxiety. We'll continue with trazodone 25 mg nightly for insomnia/mood. Continue with BuSpar 7.5 mg twice a day for anxiety PRN. Melatonin increased to 10 mg daily at bedtime for sleep at patient's request. -Patient had a carotid Doppler and computed tomography scan of her head completed on 09/21/19. Doppler showed atheromatous plaquing her greatest on the left carotid bifurcation and also a thyroid nodule on the left side which may require further thyroid evaluation with ultrasound. CT head showed chronic appearing periventricular white matter with ischemic changes. -Will consult neurology for left facial droop. Will await clearance for discharge. -NRT - not need his patient does not smoke. -Patient's blood pressure has improved significantly over the weekend. Continue to monitor. -SW on board for discharge planning. Manufacturer will attempt to speak with patient's son Eldon at [phone] at patient's request. Likely plan for discharge tomorrow if patient is cleared by neurology
[2019-09-21] MEDS ORDERED: ASPIRIN 325 MG TAB PO STA (11:57)
[2019-09-21 12:43] LABS: Glucose,Whole Blood 208 mg/dL (75-99)
--- NOTE | 2019-09-21 13:21 | P.PN ---
Subjective Progress Note Date: 09/21/19 Notified early this morning by nursing that the patient was complaining of left- sided facial droop. Patient seen and examined she is a [id number] 79-year-old female that reported onset of left-sided facial droop yesterday evening, she denied any slurred speech, denied confusion, denied any weakness of her extremities. The patient reported that her daughter was visiting but did not notice any facial droop, this a.m. the patient reported that the facial droop was still there and then I was subsequently notified. Patient having intermittent episodes of elevated blood pressure, reports that she is stressed out at being admitted to the mental health unit. She reports history of panic disorder Objective - Vital Signs Vital signs: Vital Signs Temp 97.9 F 09/21/19 05:13 Pulse 79 09/21/19 10:37 Resp 18 09/21/19 10:37 BP 130/57 09/21/19 10:37 Pulse Ox 97 09/21/19 08:00 - Exam Constitutional: No acute distress, conversant, pleasant Eyes: Anicteric sclerae, moist conjunctiva, no lid-lag, PERRLA ENMT: NC/AT,Oropharynx clear, no erythema, exudates Neck:Supple, FROM, no masses, or JVD, No carotid bruits; No thyromegaly Lungs: Clear to auscultation, Clear to percussion, Normal respiratory effort, no accessory muscle use Cardiovascular: Heart regular in rate and rhythm, No murmurs, gallops, or rubs no peripheral edema Abdominal: Soft Nontender, nom distended, no guarding, no rebound or rigidity, Normoactive bowel sounds No hepatomegaly, No splenomegaly, No palpable mass No abdominal wall hernia noted Skin: Normal temperature, tone, texture, turgor, No induration No subcutaneous nodules, No rash, lesions, No ulcers Extremities:No digital cyanosis No clubbing, Pedal pulses intact and symmetrical Radial pulses intact and symmetrical Normal gait and station, No calf tenderness Psychiatric: Alert and oriented to person, place and time, Appropriate affect Intact judgement Neuro: Muscles Strength 5/5 in all 4 extremities, Sensation to light touch grossly present throughout, Cranial nerves II-XII grossly intact. No dysarthria or expressive aphasia, left-sided facial droop mild - Labs CBC & Chem 7: 09/18/19 08:40 09/18/19 08:40 Labs: Abnormal Lab Results - Last 24 Hours (Table) 09/20/19 09/20/19 09/21/19 Range/Units 17:26 20:04 07:45 POC Glucose (mg/dL) 251 H 246 H 199 H (75-99) mg/dL 09/21/19 Range/Units 12:42 POC Glucose (mg/dL) 208 H (75-99) mg/dL Assessment and Plan Assessment: Left-sided facial droop * CT of the head without contrast ordered to rule out CVA and chronic appearing periventricular white matter ischemic type changes were noted * The patient was started on aspirin , will check lipid panel, neurology consultation, will order carotid Dopplers * We'll continue her antihypertensive regimen that she was taken home and monitor her blood pressures more closely * Patient CVA risk factors include diabetes hypertension essential HTN * continue current regimen * monitor BP more closely q 4
[2019-09-21 17:38] LABS: Glucose,Whole Blood 267 mg/dL (75-99)
--- NOTE | 2019-09-21 19:35 | P.CNNES ---
History of Present Illness Consult date: 09/21/19 Reason for Consult: L facial weakness Chief complaint: Mild L lip droop since Saturday/Saturday History of Present Illness: HISTORY OF PRESENT ILLNESS: Thank you for allowing me to evaluate Ms. Prisca Mccauley. Ms. Mccauley is a 79-year-old woman with past medical history of diabetes, hypertension, left breast cancer diagnosed in 1987, who presented to [facility] for a major depressive episode, admitted to the psychiatric [facility], consulting neurology for a new onset left facial droop. Patient states that she thinks she started seeing L facial droop on Saturday. Her daughter was visiting, a nd her daughter did not mention anything about her face being asymmetric, so she didn't bother to tell her physicians about it. Patient denies ever having similar symptoms. Patient denies having slurred speech, word-finding difficulty. Denies any recent sickness, headache, double/blurry vision, weakness, numbness or tingling. Patient does report that she had noticed that her LE were looking for swollen than before. Patient also has some burning sensation in her LE, which patient states is from her DM PAST MEDICAL HISTORY: diabetes, hypertension, left breast cancer diagnosed in 1987 PAST SURGICAL HISTORY: , cholecystectomy, heart catheterization, hysterectomy, cervical fusion, hemorrhoidectomy, left mastectomy, right ureter surgery HOME MEDICATIONS: Fosinopril, gabapentin, hydrochlorothiazide, insulin, montelukast, propranolol, amlodipine, calcium/vitamin D, turmeric ALLERGIES: Penicillin, acetaminophen, codeine, erythromycin, propoxyphene SOCIAL HISTORY: Never smoker FAMILY HISTORY: Father had a stroke, heart disease. REVIEW OF SYSTEMS: The 14 systems are reviewed and no additional points are identified compared to the review of systems documented history and physical PHYSICAL EXAMINATION: VITAL SIGNS: T 97.9 HR 85 RR 14 BP 147/64 O2 sat 97% on RA GEN.: NAD, pleasant and cooperative HEENT: NCAT, sclera without icterus NECK: Supple SKIN AND EXTREMITIES: Warm to touch, no edema NEURO: MENTAL STATUS: Patient alert and oriented to self, place, time. Able to name the current president. Speech fluent, able to name and repeat, following all commands readily. No right and left disorientation, neglect CRANIAL NERVES II THROUGH XII: II: Pupils are equal and reactive to light symmetrically. No afferent pupillary defect. Visual gill are intact. III, IV, : No ptosis. Extraocular movements full. No nystagmus. V: Facial sensation intact from V1-3. VII. L facial droop. Eyebrow raise, frowning face symmetric. VIII: Hearing intact to finger rub bilaterally. IX, X: Symmetric palate elevation. XI: Shoulder shrug intact. XII: Tongue midline without fasciculation or atrophy. MOTOR: Normal bulk/tone. No pronator drift or tremor. Strength is 5/5 throughout all 4 extremities. SENSORY: Intact to light touch in all 4 extremities. Reports burning sensation below mid dove bilaterally. Romberg is negative. REFLEXES: 2+ throughout. Toes are downgoing. COORDINATION: Finger to nose intact. No dysmetria. GAIT: Narrow-based and stable. Able to toe/heel/tandem walk DIAGNOSTIC TESTING: LABORATORY: 09/18/19: WBC 6.4 hemoglobin 13.0 platelet 237 sodium 137 potassium 3.3 chloride 96 bicarb 33 BUN and CREATININE 0.60 glucose 172 A1c 8.2 AST 35 ALT 54 alk phos 55 Total cholesterol 163 LDL 82 HDL 56 triglycerides 127 TSH 0.697 IMAGING: CT head without contrast 09/21/2019: Chronic appearing periventricular white matter ischemic changes. Carotid ultrasound bilateral 09/21/2019: Atheromatous plaquing appears greatest at the left carotid bifurcation. Significant flow limiting stenosis however is not evident. Thyroid nodules, the largest on the left measuring 1.0 cm. Complete thyroid ev aluation with ultrasound is recommended ASSESSMENT: 79-year-old woman with past medical history of diabetes, hypertension, left breast cancer diagnosed in 1987, who presented to [facility] for a major depressive episode, admitted to the psychiatric [facility], consulting neurology for a new onset left facial droop. Droop only involves lower face. No other neuro deficits. Patient has been having the symptom for ~3 days. Patient with risk factors for stroke such as DM, HTN and hx of breast cancer. Will initiate stroke work-up and management. Okay to transfer patient to telemetry unit on 09/22/19. RECOMMENDATIONS: 1. MRI brain without contrast 2. Transthoracic echocardiogram 3. Cardiac monitoring 4. ASA 81mg qday and Plavix 75mg qday (dual antiplatelet therapy for 3 weeks per POINT trial, then Aspirin 81mg qday only) 5. Atorvastatin 80mg qhs (patient refusing atorvastatin until there's MRI brain finding of stroke) 6. Discussed with patient about stroke prevention guidelines. Medication compliance, hypertension/diabetes control, lifestyle changes including no smoking, drinking in moderation, losing weight, exercising, eating healthier 7. Neurology will continue to follow 8. Patient needs to follow up with neurologist as outpatient with her 1-2 weeks of discharge Past Medical History Past Medical History: Cancer, Diabetes Mellitus, Hypertension Additional Past Medical History / Comment(s): Left breast cancer diagnosed in 1987, History of Any Multi-Drug Resistant Organisms: None Reported Past Surgical History: Breast Surgery, Section, Cholecystectomy, Heart Catheterization, Hysterectomy, Orthopedic Surgery Additional Past Surgical History / Comment(s): Cervical Fusion 8 years ago, hemroidectomy, left mastectomy, benign needle biopsys right breast , kid feliciano stone removed, right ureter surgery, Past Anesthesia/Blood Transfusion Reactions: Postoperative Nausea & Vomiting (PONV) Smoking Status: Never smoker - Past Family History Mother Family Medical History: No Reported History Father Additional Family Medical History / Comment(s): Stroke, heart disease Medications and Allergies Home Medications Medication Instructions Recorded Confirmed Type Fosinopril Sodium 10 mg PO BID 05/16/18 09/17/19 History Gabapentin [Neurontin] 400 mg PO TID 05/16/18 09/17/19 History Hydrochlorothiazide [Hydrodiuril] 12.5 mg PO DAILY 05/16/18 09/17/19 History Insulin Glargine,Hum.rec.anlog See Protocol SQ HS 05/16/18 09/17/19 History [Lantus Solostar] Insulin Lispro [humaLOG Kwikpen] 3 unit SQ TID-W/MEALS 05/16/18 09/17/19 History Propranolol HCl [Inderal LA] 160 mg PO DAILY 05/16/18 09/17/19 History amLODIPine BESYLATE [Norvasc] 10 mg PO DAILY 05/16/18 09/17/19 History Calcium/Vit D3 1200mg/1000iu 1 tab PO DAILY 06/15/19 09/17/19 History Doxycycline Hyclate 100 mg PO BID 09/17/19 09/17/19 History Triamcinolone 0.1% Ointment 1 applic TOPICAL BID PRN 09/17/19 09/17/19 History [Kenalog 0.1% Ointment] Allergies Allergy/AdvReac Type Severity Reaction Status Date / Time Penicillins Allergy Itching Verified 09/17/19 20:03 acetaminophen AdvReac Nausea & Verified 09/17/19 20:03 [From Darvocet-N] Vomiting codeine AdvReac Nausea & Verified 09/17/19 20:03 [From Tylenol-Codeine #3] Vomiting erythromycin base AdvReac Nausea & Verified 09/17/19 20:03 Vomiting propoxyphene AdvReac Nausea & Verified 09/17/19 20:03 [From Darvocet-N] Vomiting Physical Examination - Vital Signs Vital Signs: Vital Signs Temp Pulse Pulse Resp BP Pulse Ox 09/21/19 10:37 79 18 130/57 09/21/19 08:00 80 16 187/83 97 09/21/19 05:13 97.9 F 85 14 147/64 09/20/19 20:37 97 F L 66 132/68 Results - Laboratory Findings CBC and BMP: 09/18/19 08:40 09/18/19 08:40 Abnormal Lab Findings: Abnormal Labs 09/17/19 09/18/19 09/18/19 20:02 07:40 08:40 Potassium Chloride Carbon Dioxide Glucose POC Glucose (mg/dL) 274 H 70 L Hemoglobin A1c 8.2 H ALT 09/18/19 09/18/19 09/18/19 08:40 12:28 17:36 Potassium 3.3 L Chloride 96 L Carbon Dioxide 33 H Glucose 172 H POC Glucose (mg/dL) 210 H 252 H Hemoglobin A1c ALT 54 H 09/18/19 09/19/19 09/19/19 20:18 12:34 17:20 Potassium Chloride Carbon Dioxide Glucose POC Glucose (mg/dL) 219 H 219 H 281 H Hemoglobin A1c ALT 09/19/19 09/20/19 09/20/19 20:07 01:47 02:04 Potassium Chloride Carbon Dioxide Glucose POC Glucose (mg/dL) 261 H 44 L 74 L Hemoglobin A1c ALT 09/20/19 09/20/19 09/20/19 07:44 12:36 17:26 Potassium Chloride Carbon Dioxide Glucose POC Glucose (mg/dL) 130 H 260 H 251 H Hemoglobin A1c ALT 09/20/19 09/21/19 09/21/19 20:04 07:45 12:42 Potassium Chloride Carbon Dioxide Glucose POC Glucose (mg/dL) 246 H 199 H 208 H Hemoglobin A1c ALT
[2019-09-21 19:41] LABS: Glucose,Whole Blood 287 mg/dL (75-99)
[2019-09-21] MEDS: INSULIN DETEMIR (LEVEMIR) 100 UNIT/ML SYR SQ SCH (19:54)
[2019-09-21] MEDS ORDERED: MELATONIN 5 MG TABLET PO SCH (21:00)
[2019-09-21] MEDS: LISINOPRIL 20 MG TAB PO SCH (21:11)
[2019-09-22 05:02] LABS: Glucose,Whole Blood 114 mg/dL (75-99)
[2019-09-22 05:02] LABS: Glucose,Whole Blood 60 mg/dL (75-99)
[2019-09-22 05:37] VITALS: RESP 16
[2019-09-22 07:42] LABS: Glucose,Whole Blood 146 mg/dL (75-99)
[2019-09-22] MEDS: INSULIN ASPART (NovoLOG) 100 UNIT/ML VIAL SQ SCH ×2 (07:56→07:57)
[2019-09-22] MEDS ORDERED: ASPIRIN 81 MG PO SCH (09:00)
[2019-09-22] MEDS ORDERED: CLOPIDOGREL 75 MG TAB PO SCH (09:00)
[2019-09-22] MEDS ORDERED: ASPIRIN 325 MG TAB PO SCH (09:00)
[2019-09-22] MEDS ORDERED: SERTRALINE 50 MG TAB PO SCH (09:00)
[2019-09-22] MEDS: amLODIPine 10 MG TAB PO SCH (09:01)
[2019-09-22] MEDS: CALCIUM CARB-VIT D 500MG-200UN 1 EACH TAB PO SCH (09:01)
[2019-09-22] MEDS: PROPRANOLOL LA 60 MG CAP.SA.24H PO SCH (09:02)
--- NOTE | 2019-09-22 09:54 | P.DS ---
Providers Date of admission: 09/17/19 19:01 Expected date of discharge: 09/22/19 Attending physician: Prince Pimentel MD Consults: 09/17/19 19:28 Consult Physician Routine Consulting Provider: Rina Rondon Consult Reason/Comments: Medical Management Do you want consulting provider notified?: Already Contacted 09/21/19 11:03 Consult Physician Routine Consulting Provider: Nuvia Kathleen Consult Reason/Comments: left sided facial droop Do you want consulting provider notified?: Yes Primary care physician: Reynaldo Putnam - Discharge Diagnosis(es) (1) Major depressive disorder without psychotic features Current Visit: Yes Status: Acute Priority: High (2) Anxiety disorder Current Visit: Yes Status: Acute Priority: Medium Hospital Course: Admission HPI: Patient is a 79-year-old female who currently lives alone in a house is and has 2 kids and for grandchildren collects Social Security and pension and works part-time as a ballroom sociology instructor. Patient presented to the hospital as a transfer from [facility] due to an overdose on her medications. Patient was transferred on petition and certification yesterday. Patient's petition was filled out by a nurse who states that patient took 5 Xanax and tramadol with the intent to to kill herself and that patient has been going through financial and personal stressors. When mortgage underwriter spoke with patient, she was calm and directable however denied what was stated in the petition. Patient states that she has a difficult time remembering what occurred prior to coming to the hospital. She states that she was planning a birthday alliance party for herself and a daughter and made dinner reservations in [facility] for the next day however patient states that she was not sleeping w ell and decided to take more of her Xanax to help her sleep. Patient states that she did not remember what occurred afterwards and woke up in the hospital confused. She states that "all I wanted to do was have a good night rest for the next day" and denies it being a suicide attempt. Patient did endorse having depression and anxiety and states that she has been having poor sleep approximately 3-4 hours per night. Patient claims that she has a decrease in her appetite. She endorses other stressors regarding her health as she had recent back injury and also plantar fasciitis and dealing with the pain. She admitted to some financial stressors. Patient claims that she started taking Xanax 2 weeks ago prescribed by her PCP. Patient denies any suicidal or homicidal ideations intent or plan. At this time patient denies any auditory or visual hallucinations. Patient denies any flight of ideas racing thoughts and increased in goal directed behavior. Patient denies using any recreational drugs at this time and denies any alcohol or nicotine products. Hospital course: Upon admission to the unit patient was initially depressed & anxious. Patient was however directable and agreeable to commence treatment. Patient got along well with other patients on the unit and followed unit protocol. Patient was compliant with the medications and denied any side effects throughout hospital course. Patient was started on Zoloft and titrated up to a dose of 50 mg daily for mood/anxiety. Patient was also started on trazodone 25 mg nightly for insomnia/mood. Patient was started on BuSpar 7.5 mg twice a day for anxiety when necessary however patient did not take any of this medication. Patient was also started on melatonin which dose was increased to 10 mg daily at bedtime for sleep. Patient spoke of her stressors and engaged in therapy both group and individual. Patient was also seen by medical team for history and physical exam. Patient was noted to have a left lip droop during her hospitalization and medicine and neurology were asked to evaluate the patient. Patient had a carotid Doppler which showed atheromatous plaquing her greatest on the left carotid bifurcation and also a thyroid nodule on the left side which may require further thyroid evaluation with ultrasound. Patient also had a computed tomography scan of her head which showed chronic appearing periventricular white matter ischemic changes. Neurology consultation on 09/21/[address] Kathleen recommended to initiate stroke workup and management along with transfer to telemetry unit upon discharge. Further recommendations by neurology included MRI brain without contrast, transthoracic echocardiogram, cardiac monitoring, aspirin 81 mg daily, Plavix 75 mg daily, atorvastatin 80 mg daily at bedtime and diabetes/hypertension control. Throughout the course of the hospitalization patient gradually improved with regards to mood, anxiety, sleep and became future oriented with improved insight and judgment. On the day of discharge patient denied any suicidal or homicidal ideations intent or plan denied any auditory or visual hallucinations. Patient endorsed wanting to live for her health and her supportive family. The patient denied any access to guns or weapons. Patient denied any paranoia and did not endorse any delusions. Patient does not have a significant history of substance abuse however was counseled on abstaining from all substances including alcohol and marijuana. Patient was also counseled on the medications and need for regular compliance and was encouraged to follow-up with their outpatient appointment for mental health and also for primary care. Mental status exam: General Appearance: Patient appears to be stated age is thin and short in stature, alert, pleasant, and cooperative. Patient is in no acute distress and has fair hygiene and grooming Behavior: Patient is calmly seated without any agitated behavior. Appropriate. Speech: Patient's speech is fluent and nonpressured. Mood/Affect: Patient reports their mood is "good", affect is congruent and euthymic. Suicidality/Homicidality: Patient denies having any suicidal or homicidal ideation intent or plan. Perceptions: Patient denies any auditory or visual hallucinations. Though content/process: There is no evidence of any delusional thought content and thought process is linear and goal-directed. Memory and concentration: AOX3, grossly intact for the purposes of this session. Can spell "WORLD" backwards correctly. Judgment and insight: fair, improved Impression: Major depressive disorder without psychotic features Anxiety disorder unspecified Plan: -Continue with discharge today as patient has improved and stabilized psychiatrically and is not currently an imminent threat to herself and/or others. -Continue medications: Zoloft 50 mg daily for mood/anxiety, trazodone 25 mg daily at bedtime for insomnia/mood. Melatonin 10 mg nightly for sleep. -Patient was counseled on the need for medication compliance and appropriate follow-up at mental health and also primary care for medical issues. Patient verbalized understanding and agreed. -Social work also to arrange for patients follow up appointments for psychiatric care along with follow up with primary care provider. -Patient will be arranged to be transferred to the medical floors for further stroke workup/management as recommended by neurology and internal medicine. -Patient counseled on abstaining from recreational drugs and marijuana and alcohol. Was informed/educated on the adverse effects on their physical and mental health. Patient was also counseled on lifestyle and care for her hypertension and diabetes along with appropriate diet. Patient verbally agreed and understood. -Patient was instructed to return to the hospital or seek immediate medical care if their psychiatric or medical symptoms do worsen or reoccur. Allergies Allergy/AdvReac Type Severity Reaction Status Date / Time Penicillins Allergy Itching Verified 09/17/19 20:03 acetaminophen AdvReac Nausea & Verified 09/17/19 20:03 [From Darvocet-N] Vomiting codeine AdvReac Nausea & Verified 09/17/19 20:03 [From Tylenol-Codeine #3] Vomiting erythromycin base AdvReac Nausea & Verified 09/17/19 20:03 Vomiting propoxyphene AdvReac Nausea & Verified 09/17/19 20:03 [From Darvocet-N] Vomiting Laboratory Results WBC 6.4 k/uL (3.8-10.6) 09/18/19 08:40 RBC 3.95 m/uL (3.80-5.40) 09/18/19 08:40 Hgb 13.0 gm/dL (11.4-16.0) 09/18/19 08:40 Hct 37.7 % (34.0-46.0) 09/18/19 08:40 MCV 95.3 fL (80.0-100.0) 09/18/19 08:40 MCH 32.9 pg (25.0-35.0) 09/18/19 08:40 MCHC 34.5 g/dL (31.0-37.0) 09/18/19 08:40 RDW 12.8 % (11.5-15.5) 09/18/19 08:40 Plt Count 237 k/uL (150-450) 09/18/19 08:40 Neutrophils % 77 % 09/18/19 08:40 Lymphocytes % 15 % 09/18/19 08:40 Monocytes % 5 % 09/18/19 08:40 Eosinophils % 1 % 09/18/19 08:40 Basophils % 0 % 09/18/19 08:40 Neutrophils # 5.0 k/uL (1.3-7.7) 09/18/19 08:40 Lymphocytes # 1.0 k/uL (1.0-4.8) 09/18/19 08:40 Monocytes # 0.3 k/uL (0-1.0) 09/18/19 08:40 Eosinophils # 0.0 k/uL (0-0.7) 09/18/19 08:40 Basophils # 0.0 k/uL (0-0.2) 09/18/19 08:40 Sodium 137 mmol/L (137-145) 09/18/19 08:40 Potassium 3.3 mmol/L (3.5-5.1) L 09/18/19 08:40 Chloride 96 mmol/L (98-107) L 09/18/19 08:40 Carbon Dioxide 33 mmol/L (22-30) H 09/18/19 08:40 Anion Gap 8 mmol/L 09/18/19 08:40 BUN 12 mg/dL (7-17) 09/18/19 08:40 Creatinine 0.60 mg/dL (0.52-1.04) 09/18/19 08:40 Est GFR (CKD-EPI)AfAm >90 (>60 ml/min/1.73 sqM) 09/18/19 08:40 Est GFR (CKD-EPI)NonAf 87 (>60 ml/min/1.73 sqM) 09/18/19 08:40 Glucose 172 mg/dL (74-99) H 09/18/19 08:40 POC Glucose (mg/dL) 146 mg/dL (75-99) H 09/22/19 07:34 POC Glu [employer] Control Clerk ID Marcella Daugherty 09/22/19 07:[address] Glu mg/dL 189 09/18/19 08:40 Hemoglobin A1c 8.2 % (4.0-6.0) H 09/18/19 08:40 Calcium 9.7 mg/dL (8.4-10.2) 09/18/19 08:40 Total Bilirubin 0.6 mg/dL (0.2-1.3) 09/18/19 08:40 AST 35 U/L (14-36) 09/18/19 08:40 ALT 54 U/L (9-52) H 09/18/19 08:40 Alkaline Phosphatase 55 U/L (38-126) 09/18/19 08:40 Total Protein 7.0 g/dL (6.3-8.2) 09/18/19 08:40 Albumin 3.8 g/dL (3.5-5.0) 09/18/19 08:40 Triglycerides 127 mg/dL (<150) 09/18/19 08:40 Cholesterol 163 mg/dL (<200) 09/18/19 08:40 LDL Cholesterol, Calc 82 mg/dL (0-99) 09/18/19 08:40 HDL Cholesterol 56 mg/dL (40-60) 09/18/19 08:40 TSH 0.697 mIU/L (0.465-4.680) 09/18/19 08:40 Vital Signs Temp 98.1 F 09/22/19 06:12 Pulse 80 09/22/19 06:12 Resp 16 09/22/19 06:12 BP 149/72 09/22/19 06:12 Pulse Ox 98 09/22/19 06:12 Patient Condition at Discharge: Stable Plan - Discharge Summary Discharge Rx Participant: No New Discharge Prescriptions: No Action Gabapentin [Neurontin] 400 mg PO TID Insulin Lispro [humaLOG Kwikpen] 3 unit SQ TID-W/MEALS Fosinopril Sodium 10 mg PO BID Hydrochlorothiazide [Hydrodiuril] 12.5 mg PO DAILY amLODIPine BESYLATE [Norvasc] 10 mg PO DAILY Propranolol HCl [Inderal LA] 160 mg PO DAILY Insulin Glargine,Hum.rec.anlog [Lantus Solostar] See Protocol SQ HS Calcium/Vit D3 1200mg/1000iu 1 tab PO DAILY Triamcinolone 0.1% Ointment [Kenalog 0.1% Ointment] 1 applic TOPICAL BID PRN PRN Reason: DRY HANDS Doxycycline Hyclate 100 mg PO BID Discharge Medication List Fosinopril Sodium 10 mg PO BID 05/16/18 [History] Gabapentin [Neurontin] 400 mg PO TID 05/16/18 [History] Hydrochlorothiazide [Hydrodiuril] 12.5 mg PO DAILY 05/16/18 [History] Insulin Glargine,Hum.rec.anlog [Lantus Solostar] See Protocol SQ HS 05/16/18 [History] Insulin Lispro [humaLOG Kwikpen] 3 unit SQ TID-W/MEALS 05/16/18 [History] Propranolol HCl [Inderal LA] 160 mg PO DAILY 05/16/18 [History] amLODIPine BESYLATE [Norvasc] 10 mg PO DAILY 05/16/18 [History] Calcium/Vit D3 1200mg/1000iu 1 tab PO DAILY 06/15/19 [History] Doxycycline Hyclate 100 mg PO BID 09/17/19 [History] Triamcinolone 0.1% Ointment [Kenalog 0.1% Ointment] 1 applic TOPICAL BID PRN 09/17/19 [History] Discharge Disposition: OTHER INSTITUTION NOT DEFINED
[2019-09-22 11:29] VITALS: BP 138/68; PULSE 77; TEMP 97.6
--- NOTE | 2019-09-22 11:48 | P.PN ---
Progress Note - Text Progress Note Date: 09/22/19 SUBJECTIVE/INTERVAL EVENTS: No acute overnight events. Patient with no complaints. She doesn't believe that she had a stroke. Discussed with patient about how I am concerned about patient having had a stroke even if the MRI brain were to be negative, and I would like for patient to continue taking ASA and atorvastatin. PHYSICAL EXAMINATION: VITAL SIGNS: T 98.1 HR 80 RR 16 BP 149/72 O2 sat 98% on RA GEN.: NAD, pleasant and cooperative HEENT: NCAT, sclera without icterus NECK: Supple SKIN AND EXTREMITIES: Warm to touch, no edema NEURO: MENTAL STATUS: Patient alert and oriented to self, place, time. Able to name the current president. Speech fluent, able to name and repeat, following all commands readily. No right and left disorientation, neglect CRANIAL NERVES II THROUGH XII: II: Pupils are equal and reactive to light symmetrically. No afferent pupillary defect. Visual gill are intact. III, IV, : No ptosis. Extraocular movements full. No nystagmus. V: Facial sensation intact from V1-3. VII. L facial droop. Eyebrow raise, frowning face symmetric. VIII: Hearing intact to finger rub bilaterally. IX, X: Symmetric palate elevation. XI: Shoulder shrug intact. XII: Tongue midline without fasciculation or atrophy. MOTOR: Normal bulk/tone. No pronator drift or tremor. Strength is 5/5 throughout all 4 extremities. SENSORY: Intact to light touch in all 4 extremities. Reports burning sensation below mid dove bilaterally. Romberg is negative. REFLEXES: 2+ throughout. Toes are downgoing. COORDINATION: Finger to nose intact. No dysmetria. GAIT: Narrow-based and stable. Able to toe/heel/tandem walk DIAGNOSTIC TESTING: LABORATORY: 09/18/19: WBC 6.4 hemoglobin 13.0 platelet 237 sodium 137 potassium 3.3 chloride 96 bicarb 33 BUN and CREATININE 0.60 glucose 172 A1c 8.2 AST 35 ALT 54 alk phos 55 Total cholesterol 163 LDL 82 HDL 56 triglycerides 127 TSH 0.697 IMAGING: CT head without contrast 09/21/2019: Chronic appearing periventricular white matter ischemic changes. Carotid ultrasound bilateral 09/21/2019: Atheromatous plaquing appears greatest at the left carotid bifurcation. Significant flow limiting stenosis however is not evident. Thyroid nodules, the largest on the left measuring 1.0 cm. Complete thyroid evaluation with ultrasound is recommended ASSESSMENT: 79-year-old woman with past medical history of diabetes, hypertension, left breast cancer diagnosed in 1987, who presented to [facility] for a major depressive episode, admitted to the psychiatric [facility], consulting neurology for a new onset left facial droop. Droop only involves lower face. No other neuro deficits. Patient has been having the symptom for ~3 days. Patient with risk factors for stroke such as DM, HTN and hx of breast cancer. Will initiate stroke work-up and management. RECOMMENDATIONS: 1. MRI brain without contrast 2. Transthoracic echocardiogram 3. Cardiac monitoring 4. ASA 81mg qday and Plavix 75mg qday (dual antiplatelet therapy for 3 weeks per POINT trial, then Aspirin 81mg qday only) 5. Atorvastatin 80mg qhs (patient refusing atorvastatin until there's MRI brain finding of stroke) 6. Discussed with patient about stroke prevention guidelines. Medication compliance, hypertension/diabetes control, lifestyle changes including no smoking, drinking in moderation, losing weight, exercising, eating healthier 7. Neurology will continue to follow 8. Patient needs to follow up with neurologist as outpatient with her 1-2 weeks of discharge
--- NOTE | 2019-09-22 17:18 | ECHOF ---
Referral Reason:L facial droop, concern for stroke MEASUREMENTS -------- HEIGHT: 152.4 cm WEIGHT: 49.4 kg BP: 149/72 RVIDd: 2.8 cm (< 3.3) IVSd: 1.0 cm (0.6 - 1.1) LVIDd: 3.6 cm (3.9 - 5.3) LVPWd: 0.8 cm (0.6 - 1.1) IVSs: 1.1 cm LVIDs: 2.3 cm LVPWs: 1.3 cm LA Diam: 3.2 cm (2.7 - 3.8) Ao Diam: 2.5 cm (2.0 - 3.7) AV Cusp: 1.6 cm (1.5 - 2.6) LA Diam: 2.9 cm (2.7 - 3.8) MV EXCURSION: 14.794 mm (> 18.000) MV EF SLOPE: 57 mm/s (70 - 150) EPSS: 0.2 cm MV E Fercho: 1.02 m/s MV DecT: 173 ms MV A Fercho: 1.08 m/s MV E/A Ratio: 0.94 RAP: 5.00 mmHg RVSP: 53.32 mmHg TAPSE: 23.69 mm FINDINGS -------- Sinus rhythm. This was a technically good study. LV size, wall thickness and systolic function are normal, with an EF greater than 55%. The left ariana tricular size is normal. The right ventricle is normal in size. The left atrial size is normal. The right atrial size is normal. There is mild aortic valve sclerosis. There is mild aortic regurgitation. Mild mitral annular calcification present. [id number] mitral regurgitation is present. Moderate tricuspid regurgitation present. There is moderate pulmonary hypertension. The right ariana tricular systolic pressure, as measured by Doppler, is 53.32mmHg. There is no pulmonic regurgitation present. The aortic root size is normal. There is no pericardial effusion. CONCLUSIONS -------- 1. Sinus rhythm. 2. This was a technically good study. 3. LV size, wall thickness and systolic function are normal, with an EF greater than 55%. 4. The left ventricular size is normal. 5. The right ventricle is normal in size. 6. The left atrial size is normal. 7. The right atrial size is normal. 8. There is mild aortic valve sclerosis. 9. There is mild aortic regurgitation. 10. Mild mitral annular calcification present. 11. Mpda-tl-wealyezd mitral regurgitation is present. 12. Moderate tricuspid regurgitation present. 13. There is moderate pulmonary hypertension. 14. The right ventricular systolic pressure, as measured by Doppler, is 53.32mmHg. 15. There is no pulmonic regurgitation present. 16. The aortic root size is normal. 17. There is no pericardial effusion. [employer]CHANIC: Dana Sage RDCS
== END 2019-09-22 11:55 | disposition home health service (06) | DRG 881 ==
LOC: 3MHU 19:01
PROVIDERS: ADMIT Psychiatry & Neurology Psychiatry; ATTEND Psychiatry & Neurology Psychiatry
DX: F32.9 Major depressive disorder, single episode, unspecified (principal); E11.9 Type 2 diabetes mellitus without complications; F41.0 Panic disorder [episodic paroxysmal anxiety]; G47.00 Insomnia, unspecified; I10 Essential (primary) hypertension; R29.810 Facial weakness; Z79.02 Long term (current) use of antithrombotics/antiplatelets; Z79.4 Long term (current) use of insulin; Z79.82 Long term (current) use of aspirin; Z88.1 Allergy status to other antibiotic agents; Z88.5 Allergy status to narcotic agent; Z88.0 Allergy status to penicillin; Z88.8 Allergy status to other drugs, medicaments and biological substances; Z79.899 Other long term (current) drug therapy; Z82.3 Family history of stroke; Z85.3 Personal history of malignant neoplasm of breast; Z87.442 Personal history of urinary calculi; Z90.12 Acquired absence of left breast and nipple; Z90.710 Acquired absence of both cervix and uterus
CPT/HCPCS: 70450; 80053; 80061; 83036; 84443; 85025; 93306; 93880

== ENCOUNTER 2019-09-22 09:01 | Inpatient (IN) | payer MEDICARE ==
[2019-09-22] MEDS ORDERED: ONDANSETRON 4 MG/2 ML VIAL IVP PRN (12:55)
[2019-09-22] MEDS ORDERED: ACETAMINOPHEN TAB 325 MG TAB PO PRN (12:55)
[2019-09-22] MEDS ORDERED: NALOXONE 0.4 MG/ML 1 ML VIAL IV PRN (12:55)
[2019-09-22 13:50] LABS: Basophils # (A) 0.1 k/uL (0-0.2); Basophils % (A) 1 %; Eosinophils # (A) 0.1 k/uL (0-0.7); Eosinophils % (A) 1 %; HCT 38.8 % (34.0-46.0); HGB 12.7 gm/dL (11.4-16.0); Lymphocytes # (A) 1.1 k/uL (1.0-4.8); Lymphocytes % (A) 12 %; MCH 31.8 pg (25.0-35.0); MCHC 32.7 g/dL (31.0-37.0); MCV 97.5 fL (80.0-100.0); Mean Platelet Volume 7.3; Monocytes # (A) 0.4 k/uL (0-1.0); Monocytes % (A) 5 %; Neutrophils # (A) 7.2 k/uL (1.3-7.7); Neutrophils % (A) 79 %; Platelet Count 288 k/uL (150-450); RBC 3.98 m/uL (3.80-5.40); RDW 12.9 % (11.5-15.5); WBC 9.1 k/uL (3.8-10.6)
[2019-09-22 14:08] LABS: ALT 68 U/L (9-52); AST 34 U/L (14-36); African American GFR (CKD) >90 (>60 ml/min/1.73 sqM); Albumin 4.5 g/dL (3.5-5.0); Alkaline Phosphatase 72 U/L (38-126); Anion Gap 11 mmol/L; Blood Urea Nitrogen 18 mg/dL (7-17); Calcium 9.9 mg/dL (8.4-10.2); Carbon Dioxide 30 mmol/L (22-30); Chloride 92 mmol/L (98-107); Glucose 197 mg/dL (74-99); Non-African American GFR(CKD) 87 (>60 ml/min/1.73 sqM); Potassium 3.4 mmol/L (3.5-5.1); Sodium 133 mmol/L (137-145); Total Bilirubin 0.7 mg/dL (0.2-1.3); Total Protein 7.6 g/dL (6.3-8.2)
[2019-09-22 14:31] VITALS: BMI 19.7
[2019-09-22] MEDS ORDERED: Potassium Replacement Protocol 1 EACH MISC MISCELLANE PRN (15:04)
--- NOTE | 2019-09-22 15:37 | P.HPIM ---
History of Present Illness H&P Date: 09/22/19 Chief Complaint: Left facial droop 79-year-old female with PMH of diabetes, hypertension, left breast cancer diagnosed in 1987, cervical fusion surgery was initially admitted to mental health unit for major depressive episode on 09/18/2019. She was visited by her granddaughter on Saturday who did not notice anything out of the ordinary. Patient states that after her granddaughter left, she developed left-sided facial droop which has been ongoing since Saturday. Patient denies any slurred speech, difficulty finding words. She denies any difficulty swallowing or confusion. She denies any dizziness, numbness/weakness/tingling of the extremities. Patient denies any headaches, nausea or vomiting, fever or chills, cough, chest pain, shortness of breath, palpitations, changes in urination or bowel habits. No changes in appetite or weight. Neurology did evaluate the patient while in mental health and recommended stroke workup. Review of Systems Pertinent positives and negatives as discussed in HPI, a complete review of systems was performed and all other systems are negative. Past Medical History Past Medical History: Cancer, Diabetes Mellitus, Hypertension Additional Past Medical History / Comment(s): Left breast cancer diagnosed in , History of Any Multi-Drug Resistant Organisms: None Reported Past Surgical History: Breast Surgery, Section, Cholecystectomy, Heart Catheterization, Hysterectomy, Orthopedic Surgery Additional Past Surgical History / Comment(s): Cervical Fusion 8 years ago, hemroidectomy, left mastectomy, benign needle biopsys right breast , kidney stone removed, right ureter surgery, Past Anesthesia/Blood Transfusion Reactions: Postoperative Nausea & Vomiting (PONV) Past Psychological History: No Psychological Hx Reported Additional Psychological History / Comment(s): Newly stressed;since retiring in 2015 Smoking Status: Never smoker Past Alcohol Use History: None Reported Past Drug Use History: None Reported - Past Family History Mother Family Medical History: No Reported History Father Additional Family Medical History / Comment(s): Stroke, heart disease Medications and Allergies Home Medications Medication Instructions Recorded Confirmed Type Aspirin 81 mg PO DAILY chew 09/22/19 09/22/19 Rx Benzocaine/Menthol Lozeng [Cepacol 1 lozenge MUCOUS MEM Q4HR PRN 09/22/19 09/22/19 History lozenge] Calcium Carb-Vit D 500Mg-200Un 1 tab PO DAILY 09/22/19 09/22/19 History [Oscal 500+D] Clopidogrel [Plavix] 75 mg PO DAILY tab 09/22/19 09/22/19 Rx INSULIN ASPART (NovoLOG) [NovoLOG 3 unit SQ TID-W/MEALS vial 09/22/19 09/22/19 Rx (formulary)] INSULIN ASPART (NovoLOG) [NovoLOG See Protocol SQ ACHS 09/22/19 09/22/19 History (formulary)] Insulin Detemir (Levemir) [Levemir] 7 unit SQ HS syr 09/22/19 09/22/19 Rx Lisinopril [Zestril] 20 mg PO HS tab 09/22/19 09/22/19 Rx Melatonin 10 mg PO HS 28 Days tablet 09/22/19 09/22/19 Rx Propranolol LA [Inderal LA] 60 mg PO DAILY #0 cap.sa.24h 09/22/19 09/22/19 Rx Sertraline [Zoloft] 50 mg PO DAILY 28 Days tab 09/22/19 09/22/19 Rx amLODIPine [Norvasc] 10 mg PO DAILY tab 09/22/19 09/22/19 Rx Allergies Allergy/AdvReac Type Severity Reaction Status Date / Time Penicillins Allergy Itching Verified 09/22/19 13:37 acetaminophen AdvReac Nausea & Verified 09/22/19 13:37 [From Darvocet-N] Vomiting codeine AdvReac Nausea & Verified 09/22/19 13:37 [From Tylenol-Codeine #3] Vomiting erythromycin base AdvReac Nausea & Verified 09/22/19 13:37 Vomiting propoxyphene AdvReac Nausea & Verified 09/22/19 13:37 [From Darvocet-N] Vomiting Physical Exam Vitals: Vital Signs Temp Pulse Resp BP Pulse Ox 09/22/19 12:22 96.0 F L 96 18 174/70 99 Intake and Output 09/21/19 09/22/19 09/22/19 22:59 06:59 14:59 Other: Weight 45.813 kg General: [non toxic], [no distress], [appears at stated age] Derm: [warm], [dry] Head: [atraumatic], [normocephalic], [symmetric] Eyes: [EOMI], [no lid lag], [anicteric sclera] Mouth: [no lip lesion], [mucus membranes moist] Cardiovascular: [S1S2 reg], [no murmur], [positive DP pulse bilateral], Lungs: [CTA bilateral], [no rhonchi, no rales] , [no accessory muscle use] Abdominal: [soft], [ nontender to palpation], [no guarding], [no appreciable organomegaly] Ext: [no gross muscle atrophy], [no edema], [no contractures] Neuro: [ CN II-XI grossly intact except left sided lower facial droop], [no focal neuro deficits, strength 5/5 and sensation intact in all 4 extremities] Psych: [Alert], [oriented], [appropriate affect] Results CBC & Chem 7: 09/22/19 13:26 09/22/19 13:26 Thrombosis Risk Factor Assmnt - Choose All That Apply Other Risk Factors: Yes Each Risk Factor Represents 3 Points: Age 75 years or older Other congenital or acquired thrombophilia - If yes, enter type in comment: No Thrombosis Risk Factor Assessment Total Risk Factor Score: 3 Thrombosis Risk Factor Assessment Level: Moderate Risk Assessment and Plan Assessment: Assessment and plan Left-sided facial droop rule out CVA Hypokalemia Diabetes mellitus Hypertension Major depression CT brain showing chronic findings. Carotid duplex negative. Lipid panel within normal limits. A1c 8.2. Plans: Initiate stroke workup. Follow-up MRI brain. Follow carotid ultrasound. Telemetry monitoring. Follow PT/OT/ST. Follow neurology consultation. Potassium 3.4. Plans: Replace via protocol. A1c 8.2. Plans: Insulin sliding scale. Continue Levamir 7 units at bedtime. Hypoglycemic precautions. Regular Accu-Cheks. BP 174/70. Plans: Continue amlodipine, lisinopril and propranolol. Monitor vitals, adjust medications as necessary. Plans: Cleared by Psychiatry for discharge. DVT prophylaxis: [Heparin] Discussed with: [Patient] Anticipated discharge: [1-2 days] Anticipated discharge place: [Mental health unit] A total of [45] minutes was spent on the care of this complex patient more than 50% of the time was spent in counseling and care coordination. Patient will be full code at this time.
--- NOTE | 2019-09-22 15:42 | MR ---
MR brain without contrast HISTORY: Facial numbness Multiplanar multisequence imaging through the brain. Fast brain protocol utilized due to patient's in ability to cooperate with exam. Correlation to CT brain 09/21/2019 There is no restricted diffusion to suggest subacute ischemia. Cerebellopontine angles, corpus callos um, pituitary, cervical medullary junction are normal. There is no hemorrhage or hydrocephalus. Orbit s show symmetric appearance. There are normal vascular flow voids. Paranasal sinuses are well aerated with only minimal inflammatory change inferior aspect left maxillary sinus, mastoid air cells show m inimal inflammatory change on the left. There is mild cortical atrophy. Periventricular confluent and scattered hyperintensities on inversion recovery and T2-weighted sequences are noted. IMPRESSION: Age-related atrophy and nonspecific white matter demyelination likely due to chronic smal l vessel ischemic changes
[2019-09-22] MEDS: ATORVASTATIN 40 MG TAB PO SCH (16:12)
[2019-09-22 17:12] LABS: Glucose,Whole Blood 411 mg/dL (75-99)
[2019-09-22] MEDS ORDERED: INSULIN ASPART (NovoLOG) 100 UNIT/ML VIAL SQ ONE (17:32)
[2019-09-22 20:59] LABS: Glucose,Whole Blood 88 mg/dL (75-99)
[2019-09-22] MEDS ORDERED: LISINOPRIL 20 MG TAB PO SCH (21:00)
[2019-09-22] MEDS ORDERED: MELATONIN 5 MG TABLET PO SCH (21:00)
[2019-09-22] MEDS ORDERED: INSULIN DETEMIR (LEVEMIR) 100 UNIT/ML SYR SQ SCH (21:00)
[2019-09-22] MEDS: HEPARIN SODIUM,PORCINE 5,000 UNIT/ML 1 ML VIAL SQ SCH (21:38)
[2019-09-22] MEDS: INSULIN ASPART (NovoLOG) 100 UNIT/ML VIAL SQ SCH (21:43)
[2019-09-23 02:08] LABS: Cholesterol 180 mg/dL (<200); HDL Cholesterol 77 mg/dL (40-60); LDL Cholesterol,Calculated 78 mg/dL (0-99); Triglycerides 124 mg/dL (<150)
[2019-09-23 06:31] LABS: Glucose,Whole Blood 87 mg/dL (75-99)
[2019-09-23 07:53] VITALS: BP 133/62; PULSE 79; RESP 16; TEMP 96.6
[2019-09-23] MEDS: INSULIN ASPART (NovoLOG) 100 UNIT/ML VIAL SQ SCH ×2 (07:55→12:38)
[2019-09-23] MEDS ORDERED: CLOPIDOGREL 75 MG TAB PO SCH (09:00)
[2019-09-23] MEDS ORDERED: SERTRALINE 50 MG TAB PO SCH (09:00)
[2019-09-23] MEDS ORDERED: ASPIRIN 81 MG PO SCH (09:00)
[2019-09-23] MEDS ORDERED: PROPRANOLOL LA 60 MG CAP.SA.24H PO SCH (09:00)
[2019-09-23] MEDS ORDERED: amLODIPine 10 MG TAB PO SCH (09:00)
[2019-09-23] MEDS: ATORVASTATIN 40 MG TAB PO SCH (09:44)
[2019-09-23] MEDS: HEPARIN SODIUM,PORCINE 5,000 UNIT/ML 1 ML VIAL SQ SCH (09:44)
[2019-09-23] MEDS ORDERED: POTASSIUM CHLORIDE ER 20 MEQ TAB.ER PO STA (09:45)
[2019-09-23 11:55] LABS: Glucose,Whole Blood 266 mg/dL (75-99)
--- NOTE | 2019-09-23 12:03 | P.DS ---
Providers Date of admission: 09/22/19 12:09 Expected date of discharge: 09/23/19 Attending physician: Rachel Friedman DO Consults: 09/22/19 12:56 Consult Physician Routine Consulting Provider: Nuvia Kathleen Reason/Comments: CVA Do you want consulting provider notified?: Yes Primary care physician: Stated None Hospital Course: Discharge diagnoses left facial droop Type 2 diabetes with hyperglycemia Essential hypertension Hypokalemia Major depression thyroid nodules Valve disease Hospital course The patient is a 79-year-old female that was admitted to telemetry and put on observation status for concern for acute CVA after she presented with left-sided facial droop. The patient complained of onset of her symptoms outside of the window for which TPA was indicated hence it was felt inappropriate to call the code stroke. Workup with CT of the head only showed chronic appearing periventricular white matter ischemic type changes, carotid Dopplers were negative for any clinically significant stenosis, but did show some thyroid nodules. MRI showed age-related atrophy and nonspecific white matter demyelination likely due to his chronic small vessel ischemic changes. Echocardiogram showed an ejection fraction of 55% without any intracardiac shunt, there is moderate pulmonary hypertension and moderate TR and mild to moderate MR. patient was continued on her home medications her blood pressure was relatively well controlled, her potassium was replaced and she was subsequently discharged home in stable condition after previously being cleared and discharged by psychiatry. Discharge process took approximately 35 minutes focused exam Neuro: Left facial droop otherwise cranial nerves grossly intact Patient Condition at Discharge: Good Plan - Discharge Summary Discharge Rx Participant: No New Discharge Prescriptions: Continue Propranolol LA [Inderal LA] 60 mg PO DAILY #0 cap.sa.24h Insulin Detemir (Levemir) [Levemir] 7 unit SQ HS syr Melatonin 10 mg PO HS 28 Days tablet amLODIPine [Norvasc] 10 mg PO DAILY tab INSULIN ASPART (NovoLOG) [NovoLOG (formulary)] 3 unit SQ TID-W/MEALS vial Clopidogrel [Plavix] 75 mg PO DAILY tab Lisinopril [Zestril] 20 mg PO HS tab Sertraline [Zoloft] 50 mg PO DAILY 28 Days tab INSULIN ASPART (NovoLOG) [NovoLOG (formulary)] See Protocol SQ ACHS Calcium Carb-Vit D 500Mg-200Un [Oscal 500+D] 1 tab PO DAILY Benzocaine/Menthol Lozeng [Cepacol lozenge] 1 lozenge MUCOUS MEM Q4HR PRN PRN Reason: Sore Throat Discontinued Aspirin 81 mg PO DAILY chew Discharge Medication List Benzocaine/Menthol Lozeng [Cepacol lozenge] 1 lozenge MUCOUS MEM Q4HR PRN 09/22/19 [History] Calcium Carb-Vit D 500Mg-200Un [Oscal 500+D] 1 tab PO DAILY 09/22/19 [History] Clopidogrel [Plavix] 75 mg PO DAILY tab 09/22/19 [Rx] INSULIN ASPART (NovoLOG) [NovoLOG (formulary)] 3 unit SQ TID-W/MEALS vial 09/22/19 [Rx] INSULIN ASPART (NovoLOG) [NovoLOG (formulary)] See Protocol SQ ACHS 09/22/19 [History] Insulin Detemir (Levemir) [Levemir] 7 unit SQ HS syr 09/22/19 [Rx] Lisinopril [Zestril] 20 mg PO HS tab 09/22/19 [Rx] Melatonin 10 mg PO HS 28 Days tablet 09/22/19 [Rx] Propranolol LA [Inderal LA] 60 mg PO DAILY #0 cap.sa.24h 09/22/19 [Rx] Sertraline [Zoloft] 50 mg PO DAILY 28 Days tab 09/22/19 [Rx] amLODIPine [Norvasc] 10 mg PO DAILY tab 09/22/19 [Rx]
--- NOTE | 2019-09-23 14:02 | P.PN ---
Progress Note - Text Progress Note Date: 09/23/19 SUBJECTIVE/INTERVAL EVENTS: No acute overnight events. Patient with no complaints. She doesn't believe that she had a stroke. Discussed with patient about how I am concerned about patient having had a stroke even if the MRI brain were to be negative, and I would like for patient to continue taking ASA and atorvastatin. PHYSICAL EXAMINATION: VITAL SIGNS: T 96.6 HR 79 RR 16 BP 133/62 P2 sat 98% on RA GEN.: NAD, pleasant and cooperative HEENT: NCAT, sclera without icterus NECK: Supple SKIN AND EXTREMITIES: Warm to touch, no edema NEURO: MENTAL STATUS: Patient alert and oriented to self, place, time. Able to name the current president. Speech fluent, able to name and repeat, following all commands readily. No right and left disorientation, neglect CRANIAL NERVES II THROUGH XII: II: Pupils are equal and reactive to light symmetrically. No afferent pupillary defect. Visual gill are intact. III, IV, : No ptosis. Extraocular movements full. No nystagmus. V: Facial sensation intact from V1-3. VII. L facial droop. Eyebrow raise, frowning face symmetric. VIII: Hearing intact to finger rub bilaterally. IX, X: Symmetric palate elevation. XI: Shoulder shrug intact. XII: Tongue midline without fasciculation or atrophy. MOTOR: Normal bulk/tone. No pronator drift or tremor. Strength is 5/5 throughout all 4 extremities. SENSORY: Intact to light touch in all 4 extremities. Reports burning sensation below mid dove bilaterally. Romberg is negative. REFLEXES: 2+ throughout. Toes are downgoing. COORDINATION: Finger to nose intact. No dysmetria. GAIT: Narrow-based and stable. Able to toe/heel/tandem walk DIAGNOSTIC TESTING: LABORATORY: 09/18/19: WBC 6.4 hemoglobin 13.0 platelet 237 sodium 137 potassium 3.3 chloride 96 bicarb 33 BUN and CREATININE 0.60 glucose 172 A1c 8.2 AST 35 ALT 54 alk phos 55 Total cholesterol 163 LDL 82 HDL 56 triglycerides 127 TSH 0.697 IMAGING: CT head without contrast 09/21/2019: Chronic appearing periventricular white matter ischemic changes. Carotid ultrasound bilateral 09/21/2019: Atheromatous plaquing appears greatest at the left carotid bifurcation. Significant flow limiting stenosis however is not evident. Thyroid nodules, the largest on the left measuring 1.0 cm. Complete thyroid evaluation with ultrasound is recommended TTE 09/22/19: SR. LV, RV, LA, RA sizes are normal. EF <55%. Cardiac monitoring: no atrial arrhythmia since admission ASSESSMENT: 79-year-old woman with past medical history of diabetes, hypertension, left breast cancer diagnosed in 1987, who presented to [facility] for a major depressive episode, [facility] the [facility], consulting neurology for a new onset left facial droop. Droop only involves lower face. No other neuro deficits. Patient has been having the symptom for ~3 days. Patient with risk factors for stroke such as DM, HTN and hx of breast cancer. Will initiate stroke work-up and management. MRI brain w/o contrast with no acute or old stroke. However, patient with noticeable L lower face drop, concerning for a small stroke and patient with risk factors. Discussed with patient about medical management for stroke prevention. Patient agrees to ASA and plavix but no atorvastatin. RECOMMENDATIONS: 1. ASA 81mg qday and Plavix 75mg qday (dual antiplatelet therapy for 3 weeks per POINT trial, then Aspirin 81mg qday only) 2. Atorvastatin 80mg qhs (patient refusing atorvastatin until there's MRI brain finding of stroke) 3. Discussed with patient about stroke prevention guidelines. Medication compliance, hypertension/diabetes control, lifestyle changes including no smoking, drinking in moderation, losing weight, exercising, eating healthier 4. Neurology will sign off at this time. Please feel free to contact Neurology again if with additional questions or concerns. 5. Patient needs to follow up with neurologist as outpatient with her 1-2 weeks of discharge
== END 2019-09-23 15:59 | disposition home or self-care (01) | DRG 93 ==
LOC: 3SCARD 12:09
PROVIDERS: ADMIT Internal Medicine; ATTEND Internal Medicine
DX: R29.810 Facial weakness (principal); E04.2 Nontoxic multinodular goiter; E11.65 Type 2 diabetes mellitus with hyperglycemia; E87.6 Hypokalemia; F32.9 Major depressive disorder, single episode, unspecified; I10 Essential (primary) hypertension; Z79.02 Long term (current) use of antithrombotics/antiplatelets; Z79.4 Long term (current) use of insulin; Z79.82 Long term (current) use of aspirin; Z79.899 Other long term (current) drug therapy; Z82.3 Family history of stroke; Z85.3 Personal history of malignant neoplasm of breast; Z87.442 Personal history of urinary calculi; Z90.12 Acquired absence of left breast and nipple; Z90.710 Acquired absence of both cervix and uterus; Z98.1 Arthrodesis status; Z90.49 Acquired absence of other specified parts of digestive tract; Z88.1 Allergy status to other antibiotic agents; Z88.5 Allergy status to narcotic agent; Z88.0 Allergy status to penicillin; Z88.8 Allergy status to other drugs, medicaments and biological substances
CPT/HCPCS: 70551; 80053; 80061; 85025

== ENCOUNTER 2019-09-26 11:25 | Emergency (ER) | payer MEDICARE ==
[2019-09-26 11:35] VITALS: BP 137/71; RESP 18; TEMP 98.1
--- NOTE | 2019-09-26 12:07 | ED ---
Psych HPI - General Chief Complaint: Psychiatric Symptoms Stated Complaint: MENTAL HEALTH Time Seen by Provider: 09/26/19 11:39 Source: patient, RN notes reviewed Mode of arrival: ambulatory - History of Present Illness Initial Comments: This is a 78-year-old female with a recent admission to [facility] for evaluation and was performed by psychiatry who is back today with family she complains that she has been feeling upset recently. She feels like she may have some contagious disease on her skin she apparently has been telling family members she may soon she also complains of feeling like she has cancer though apparently she's been worked up and that has been found thus far. She did call family today's stated she was concerned about her mental health. She states her whole body was burning. She was just discharged 2 days ago from the [facility]. No changes in her status other than she apparently was feeling somewhat weak per family members. MD Complaint: other - Related Data Home Medications Medication Instructions Recorded Confirmed Benzocaine/Menthol Lozeng [Cepacol 1 lozenge MUCOUS MEM Q4HR PRN 09/22/19 09/22/19 lozenge] Calcium Carb-Vit D 500Mg-200Un 1 tab PO DAILY 09/22/19 09/22/19 [Oscal 500+D] INSULIN ASPART (NovoLOG) [NovoLOG See Protocol SQ ACHS 09/22/19 09/22/19 (formulary)] Previous Rx's Medication Instructions Recorded INSULIN ASPART (NovoLOG) [NovoLOG 3 unit SQ TID-W/MEALS vial 09/22/19 (formulary)] Insulin Detemir (Levemir) [Levemir] 7 unit SQ HS syr 09/22/19 Melatonin 10 mg PO HS 28 Days tablet 09/22/19 amLODIPine [Norvasc] 10 mg PO DAILY tab 09/22/19 Aspirin 81 mg PO DAILY #30 chew 09/23/19 Clopidogrel [Plavix] 75 mg PO DAILY #21 tab 09/23/19 Lisinopril [Zestril] 20 mg PO HS #30 tab 09/23/19 Propranolol LA [Inderal LA] 60 mg PO DAILY #30 cap.sa.24h 09/23/19 Sertraline [Zoloft] 50 mg PO DAILY 28 Days #28 tab 09/23/19 Allergies Allergy/AdvReac Type Severity Reaction Status Date / Time Penicillins Allergy Itching Verified 09/26/19 11:30 acetaminophen AdvReac Nausea & Verified 09/26/19 11:30 [From Darvocet-N] Vomiting codeine AdvReac Nausea & Verified 09/26/19 11:30 [From Tylenol-Codeine #3] Vomiting erythromycin base AdvReac Nausea & Verified 09/26/19 11:30 Vomiting propoxyphene AdvReac Nausea & Verified 09/26/19 11:30 [From Darvocet-N] Vomiting Review of Systems ROS Statement: Those systems with pertinent positive or pertinent negative responses have been documented in the HPI. ROS Other: All systems not noted in ROS Statement are negative. Past Medical History Past Medical History: Cancer, Diabetes Mellitus, Hypertension Additional Past Medical History / Comment(s): Left breast cancer diagnosed in 1987, History of Any Multi-Drug Resistant Organisms: None Reported Past Surgical History: Breast Surgery, Section, Cholecystectomy, Heart Catheterization, Hysterectomy, Orthopedic Surgery Additional Past Surgical History / Comment(s): Cervical Fusion 8 years ago, hemroidectomy, left mastectomy, benign needle biopsys right breast , kidney stone removed, right ureter surgery, Past Anesthesia/Blood Transfusion Reactions: Postoperative Nausea & Vomiting (PO NV) Past Psychological History: Anxiety, Depression Smoking Status: Never smoker Past Alcohol Use History: None Reported Past Drug Use History: None Reported - Past Family History Mother Family Medical History: No Reported History Father Additional Family Medical History / Comment(s): Stroke, heart disease General Exam - General Exam Comments Initial Comments: This is a well-developed asthenic appearing female who is awake alert oriented 3 Limitations: no limitations General appearance: alert, in no apparent distress Head exam: Present: atraumatic, normocephalic, normal inspection Eye exam: Present: normal appearance, PERRL, EOMI. Absent: scleral icterus, conjunctival injection, periorbital swelling ENT exam: Present: mucous membranes dry Neck exam: Present: normal inspection. Absent: tenderness, meningismus, lymphadenopathy Respiratory exam: Present: normal lung sounds bilaterally. Absent: respiratory distress, wheezes, rales, rhonchi, stridor Cardiovascular Exam: Present: regular rate, normal rhythm, normal heart sounds. Absent: systolic murmur, diastolic murmur, rubs, gallop, clicks GI/Abdominal exam: Present: soft, normal bowel sounds. Absent: distended, tenderness, guarding, rebound, rigid Extremities exam: Present: full ROM, normal capillary refill, other (Arthritic changes). Absent: tenderness, pedal edema, joint swelling, calf tenderness Back exam: Present: normal inspection Neurological exam: Present: alert, oriented X3, CN II-XII intact Psychiatric exam: Present: depressed, flat affect. Absent: suicidal ideation Skin exam: Present: warm, dry, intact, other (Couple small bruises noted on her dorsal forearms. The patient does have some small petechial hemorrhages noted on the ankles with trace edema. This is improved the patient states). Absent: rash Course Vital Signs 09/26/19 11:31 Temperature 98.1 F Pulse Rate 80 Respiratory 18 Rate Blood Pressure 137/71 O2 Sat by Pulse 97 Oximetry Medical Decision Making - Medical Decision Making The patient was evaluated by the psychiatric service he is not a resource of renal else he'll be discharged home with outpatient follow-up she has been on Zoloft for a short period time. She will follow-up with her doctor and her family is in agreement. - Lab Data Lab Results 09/26/19 Range/Units 12:00 Urine Opiates Screen Not Detected (NotDetected) Ur Oxycodone Screen Not Detected (NotDetected) Urine Methadone Screen Not Detected (NotDetected) Ur Propoxyphene Screen Not Detected (NotDetected) Ur Barbiturates Screen Not Detected (NotDetected) U Tricyclic Antidepress Not Detected (NotDetected) Ur Phencyclidine Scrn Not Detected (NotDetected) Ur Amphetamines Screen Not Detected (NotDetected) U Methamphetamines Scrn Not Detected (NotDetected) U Benzodiazepines Scrn Not Detected (NotDetected) Urine Cocaine Screen Not Detected (NotDetected) U Marijuana (THC) Screen Not Detected (NotDetected) Disposition Clinical Impression: Depression Disposition: HOME SELF-CARE Condition: Good Instructions (If sedation given, give patient instructions): Depression (ED) Is patient prescribed a controlled substance at d/c from ED?: No Referrals: Reynaldo Putnam MD [Primary Care Provider] - 1-2 days
[2019-09-26 12:58] LABS: Amphetamine Screen,Urine Not Detected (NotDetected); Barbiturate Screen,Urine Not Detected (NotDetected); Benzodiazepines Screen,Urine Not Detected (NotDetected); Cocaine Screen,Urine Not Detected (NotDetected); Methadone Screen, Urine Not Detected (NotDetected); Opiate Screen,Urine Not Detected (NotDetected); Oxycodone Screen, Urine Not Detected (NotDetected); Phencyclidine Screen,Urine Not Detected (NotDetected); Tricyclic Antidepressant,Urine Not Detected (NotDetected); Urn Cannabinoid Scrn Not Detected (NotDetected)
[2019-09-26 13:41] VITALS: PULSE 88
== END 2019-09-26 13:30 | disposition home or self-care (01) ==
LOC: EC 11:25
DX: F32.9 Major depressive disorder, single episode, unspecified (principal); E11.9 Type 2 diabetes mellitus without complications; I10 Essential (primary) hypertension; Z79.4 Long term (current) use of insulin; Z88.0 Allergy status to penicillin; Z88.1 Allergy status to other antibiotic agents; Z88.5 Allergy status to narcotic agent; Z88.6 Allergy status to analgesic agent; Z85.3 Personal history of malignant neoplasm of breast; Z90.12 Acquired absence of left breast and nipple
CPT/HCPCS: 80306; 82075; 99283

== ENCOUNTER 2019-10-25 17:18 | Emergency (ER) | payer MEDICARE ==
[2019-10-25 17:26] VITALS: TEMP 97.5
[2019-10-25] MEDS ORDERED: SODIUM CHLORIDE 0.9% 1,000 ML IV ONE (17:40)
[2019-10-25] MEDS ORDERED: SODIUM CHLORIDE 0.9% 500 ML 500 ML IV ONE (17:40)
[2019-10-25 17:46] LABS: Glucose,Whole Blood 255 mg/dL (75-99)
--- NOTE | 2019-10-25 17:48 | ED ---
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 Patient had recent hospital admission at an outside hospital with overdose on benzodiazepines and Lexapro. She was apneic at that time she was resuscitated and transferred to this facility for psychiatric evaluation. Patient has had hallucinations and delusions for approximately one month. She denies any pain complaints. Denies focal numbness or weakness. Denies headache. Denies chest pain or abdominal pain. No nausea vomiting. She is accompanied by her daughter who states she has not been eating or drinking at all. She is increased weakness and difficulty ambulating. - Related Data Home Medications Medication Instructions Recorded Confirmed Benzocaine/Menthol Lozeng [Cepacol 1 lozenge MUCOUS MEM Q4HR PRN 09/22/19 10/26/19 lozenge] Calcium Carb-Vit D 500Mg-200Un 1 tab PO DAILY 09/22/19 10/26/19 [Oscal 500+D] INSULIN ASPART (NovoLOG) [NovoLOG See Protocol SQ ACHS 09/22/19 10/26/19 (formulary)] INSULIN ASPART (NovoLOG) [NovoLOG 3 unit SQ AC-TID 10/26/19 10/26/19 (formulary)] Previous Rx's Medication Instructions Recorded Insulin Detemir (Levemir) [Levemir] 7 unit SQ HS syr 09/22/19 Melatonin 10 mg PO HS 28 Days tablet 09/22/19 amLODIPine [Norvasc] 10 mg PO DAILY tab 09/22/19 Aspirin 81 mg PO DAILY #30 chew 09/23/19 Clopidogrel [Plavix] 75 mg PO DAILY #21 tab 09/23/19 Lisinopril [Zestril] 20 mg PO HS #30 tab 09/23/19 Propranolol LA [Inderal LA] 60 mg PO DAILY #30 cap.sa.24h 09/23/19 Sertraline [Zoloft] 50 mg PO DAILY 28 Days #28 tab 09/23/19 Allergies Allergy/AdvReac Type Severity Reaction Status Date / Time Penicillins Allergy Itching Verified 10/26/19 09:33 acetaminophen AdvReac Nausea & Verified 10/26/19 09:33 [From Darvocet-N] Vomiting codeine AdvReac Nausea & Verified 10/26/19 09:33 [From Tylenol-Codeine #3] Vomiting erythromycin base AdvReac Nausea & Verified 10/26/19 09:33 Vomiting propoxyphene AdvReac Nausea & Verified 10/26/19 09:33 [From Darvocet-N] Vomiting Review of Systems ROS Statement: Those systems with pertinent positive or pertinent negative responses have been documented in the HPI. ROS Other: All systems not noted in ROS Statement are negative. Past Medical History Past Medical History: Cancer, Diabetes Mellitus, Hypertension Additional Past Medical History / Comment(s): Left breast cancer diagnosed in 1987, History of Any Multi-Drug Resistant Organisms: None Reported Past Surgical History: Breast Surgery, Section, Cholecystectomy, Heart Catheterization, Hysterectomy, Orthopedic Surgery Additional Past Surgical History / Comment(s): Cervical Fusion 8 years ago, hemr oidectomy, left mastectomy, benign needle biopsys right breast , kidney stone removed, right ureter surgery, Past Anesthesia/Blood Transfusion Reactions: Postoperative Nausea & Vomiting (PONV) Past Psychological History: Anxiety, Depression Smoking Status: Never smoker Past Alcohol Use History: None Reported Past Drug Use History: None Reported - Past Family History Mother Family Medical History: No Reported History Father Additional Family Medical History / Comment(s): Stroke, heart disease General Exam Limitations: altered mental status General appearance: alert, in no apparent distress Head exam: Present: atraumatic, normocephalic Eye exam: Present: normal appearance, PERRL ENT exam: Present: mucous membranes dry Neck exam: Present: normal inspection. Absent: tenderness, meningismus Respiratory exam: Present: normal lung sounds bilaterally. Absent: respiratory distress, wheezes Cardiovascular Exam: Present: regular rate, normal rhythm GI/Abdominal exam: Present: soft. Absent: distended, tenderness, guarding, rebound Extremities exam: Present: normal inspection, normal capillary refill. Absent: pedal edema Neurological exam: Present: alert, oriented X3. Absent: motor sensory deficit Psychiatric exam: Present: flat affect Skin exam: Present: warm, dry, intact. Absent: cyanosis, diaphoretic Course Vital Signs 10/25/19 10/25/19 10/25/19 17:23 18:23 23:00 Temperature 97.5 F L Pulse Rate 100 82 89 Respiratory 16 16 18 Rate Blood Pressure 151/71 157/66 121/61 O2 Sat by Pulse 98 99 98 Oximetry 10/26/19 10/26/19 10/26/19 02:00 06:00 12:45 Temperature Pulse Rate 89 89 71 Respiratory 18 17 16 Rate Blood Pressure 120/65 132/92 132/41 O2 Sat by Pulse 99 98 99 Oximetry - Reevaluation(s) Reevaluation #1: 10/25/19 19:07 Patient presenting with symptoms concerning for dementia with psychotic features. She is medically cleared, no metabolic evidence for mental status changes. Will be evaluated by [facility]. Reevaluation #2: 10/25/19 20:15 Patient later does admit to suicidal ideation. She is evaluated by [facility]. EKG Findings - EKG Comments: EKG Findings:: EKG: Sinus rhythm, short MN, rate of 87, MN interval 92, QRS duration 74 to QTC 469, no ST segment elevation Medical Decision Making - Medical Decision Making Patient will be transferred to geriatric psychiatric facility. She had been evaluated by [facility] emergency department and felt that she would benefit from inpatient psychiatric evaluation treatment. Family is agreeable with this plan. I completed a clinical certification on this patient as she is suicidal and has features of acute psychosis. - Lab Data Result diagrams: 10/25/19 17:44 10/25/19 17:44 Lab Results 10/25/19 10/25/19 10/25/19 Range/Units 16:27 17:44 17:44 WBC 8.0 (3.8-10.6) k/uL RBC 4.96 (3.80-5.40) m/uL Hgb 15.5 (11.4-16.0) gm/dL Hct 47.5 H (34.0-46.0) % MCV 95.7 (80.0-100.0) fL MCH 31.3 (25.0-35.0) pg MCHC 32.7 (31.0-37.0) g/dL RDW 11.9 (11.5-15.5) % Plt Count 181 (150-450) k/uL Neutrophils % 83 % Lymphocytes % 10 % Monocytes % 4 % Eosinophils % 1 % Basophils % 0 % Neutrophils # 6.6 (1.3-7.7) k/uL Lymphocytes # 0.8 L (1.0-4.8) k/uL Monocytes # 0.3 (0-1.0) k/uL Eosinophils # 0.1 (0-0.7) k/uL Basophils # 0.0 (0-0.2) k/uL PT (9.0-12.0) sec INR (<1.2) APTT (22.0-30.0) sec Sodium (137-145) mmol/L Potassium (3.5-5.1) mmol/L Chloride (98-107) mmol/L Carbon Dioxide (22-30) mmol/L Anion Gap mmol/L BUN (7-17) mg/dL Creatinine (0.52-1.04) mg/dL Est GFR (CKD-EPI)AfAm (>60 ml/min/1.73 sqM) Est GFR (CKD-EPI)NonAf (>60 ml/min/1.73 sqM) Glucose (74-99) mg/dL POC Glucose (mg/dL) 255 H (75-99) mg/dL POC Glu [employer] ID Kaylene Llanos Calcium (8.4-10.2) mg/dL Total Bilirubin (0.2-1.3) mg/dL AST (14-36) U/L ALT (4-34) U/L Alkaline Phosphatase (38-126) U/L Total Protein (6.3-8.2) g/dL Albumin (3.5-5.0) g/dL Urine Color Yellow Urine Appearance Clear (Clear) Urine pH 6.0 (5.0-8.0) Ur Specific [place] 1.021 (1.001-1.035) Urine Protein Negative (Negative) Urine Glucose (UA) 4+ H (Negative) Urine Ketones 2+ H (Negative) Urine Blood Negative (Negative) Urine Nitrite Negative (Negative) Urine Bilirubin Negative (Negative) Urine Urobilinogen <2.0 (<2.0) mg/dL Ur Leukocyte Esterase Negative (Negative) Urine Opiates Screen Not Detected (NotDetected) Ur Oxycodone Screen Not Detected (NotDetected) Urine Methadone Screen Not Detected (NotDetected) Ur Propoxyphene Screen Not Detected (NotDetected) Ur Barbiturates Screen Not Detected (NotDetected) U Tricyclic Antidepress Not Detected (NotDetected) Ur Phencyclidine Scrn Not Detected (NotDetected) Ur Amphetamines Screen Not Detected (NotDetected) U Methamphetamines Scrn Not Detected (NotDetected) U Benzodiazepines Scrn Not Detected (NotDetected) Urine Cocaine Screen Not Detected (NotDetected) U Marijuana (THC) Screen Not Detected (NotDetected) 10/25/19 10/25/19 Range/Units 17:44 17:44 WBC (3.8-10.6) k/uL RBC (3.80-5.40) m/uL Hgb (11.4-16.0) gm/dL Hct (34.0-46.0) % MCV (80.0-100.0) fL MCH (25.0-35.0) pg MCHC (31.0-37.0) g/dL RDW (11.5-15.5) % Plt Count (150-450) k/uL Neutrophils % % Lymphocytes % % Monocytes % % Eosinophils % % Basophils % % Neutrophils # (1.3-7.7) k/uL Lymphocytes # (1.0-4.8) k/uL Monocytes # (0-1.0) k/uL Eosinophils # (0-0.7) k/uL Basophils # (0-0.2) k/uL PT 10.5 (9.0-12.0) sec INR 1.0 (<1.2) APTT 20.2 L (22.0-30.0) sec Sodium 137 (137-145) mmol/L Potassium 4.8 (3.5-5.1) mmol/L Chloride 99 (98-107) mmol/L Carbon Dioxide 24 (22-30) mmol/L Anion Gap 14 mmol/L BUN 27 H (7-17) mg/dL Creatinine 0.66 (0.52-1.04) mg/dL Est GFR (CKD-EPI)AfAm >90 (>60 ml/min/1.73 sqM) Est GFR (CKD-EPI)NonAf 84 (>60 ml/min/1.73 sqM) Glucose 285 H (74-99) mg/dL POC Glucose (mg/dL) (75-99) mg/dL POC Glu [employer] ID Calcium 9.8 (8.4-10.2) mg/dL Total Bilirubin 1.3 (0.2-1.3) mg/dL AST 27 (14-36) U/L ALT 28 (4-34) U/L Alkaline Phosphatase 87 (38-126) U/L Total Protein 8.0 (6.3-8.2) g/dL Albumin 4.7 (3.5-5.0) g/dL Urine Color Urine Appearance (Clear) Urine pH (5.0-8.0) Ur Specific [place] (1.001-1.035) Urine Protein (Negative) Urine Glucose (UA) (Negative) Urine Ketones (Negative) Urine Blood (Negative) Urine Nitrite (Negative) Urine Bilirubin (Negative) Urine Urobilinogen (<2.0) mg/dL Ur Leukocyte Esterase (Negative) Urine Opiates Screen (NotDetected) Ur Oxycodone Screen (NotDetected) Urine Methadone Screen (NotDetected) Ur Propoxyphene Screen (NotDetected) Ur Barbiturates Screen (NotDetected) U Tricyclic Antidepress (NotDetected) Ur Phencyclidine Scrn (NotDetected) Ur Amphetamines Screen (NotDetected) U Methamphetamines Scrn (NotDetected) U Benzodiazepines Scrn (NotDetected) Urine Cocaine Screen (NotDetected) U Marijuana (THC) Screen (NotDetected) Disposition Clinical Impression: Depression, Dementia, Suicidal ideation Disposition: OTHER INSTITUTION NOT DEFINED Condition: Stable Is patient prescribed a controlled substance at d/c from ED?: No Referrals: Reynaldo Putnam MD [Primary Care Provider] - 1-2 days - Out of Hospital Transfer - Req. Specs Out of Hospital Transfer - Requested Specifics: Psychiatric Non-ICU ([facility])
[2019-10-25 18:06] LABS: ALT 28 U/L (4-34); AST 27 U/L (14-36); African American GFR (CKD) >90 (>60 ml/min/1.73 sqM); Albumin 4.7 g/dL (3.5-5.0); Alkaline Phosphatase 87 U/L (38-126); Anion Gap 14 mmol/L; Blood Urea Nitrogen 27 mg/dL (7-17); Calcium 9.8 mg/dL (8.4-10.2); Carbon Dioxide 24 mmol/L (22-30); Chloride 99 mmol/L (98-107); Glucose 285 mg/dL (74-99); Non-African American GFR(CKD) 84 (>60 ml/min/1.73 sqM); Potassium 4.8 mmol/L (3.5-5.1); Sodium 137 mmol/L (137-145); Total Bilirubin 1.3 mg/dL (0.2-1.3)
[2019-10-25 18:17] LABS: Basophils % (A) 0 %; Eosinophils # (A) 0.1 k/uL (0-0.7); Eosinophils % (A) 1 %; HCT 47.5 % (34.0-46.0); HGB 15.5 gm/dL (11.4-16.0); Lymphocytes # (A) 0.8 k/uL (1.0-4.8); Lymphocytes % (A) 10 %; MCH 31.3 pg (25.0-35.0); MCHC 32.7 g/dL (31.0-37.0); MCV 95.7 fL (80.0-100.0); Mean Platelet Volume 9.8; Monocytes # (A) 0.3 k/uL (0-1.0); Monocytes % (A) 4 %; Neutrophils # (A) 6.6 k/uL (1.3-7.7); Neutrophils % (A) 83 %; Platelet Count 181 k/uL (150-450); RBC 4.96 m/uL (3.80-5.40); RDW 11.9 % (11.5-15.5)
[2019-10-25 18:21] LABS: Partial Thromboplastin Time 20.2 sec (22.0-30.0); Prothrombin Time 10.5 sec (9.0-12.0)
--- NOTE | 2019-10-25 18:24 | XR ---
EXAMINATION TYPE: XR chest 2V DATE OF EXAM: 10/25/2019 COMPARISON: NONE HISTORY: Altered mental status TECHNIQUE: 2 views FINDINGS: There is no heart failure nor confluent pneumonic infiltrate. There is spur slight blunting left costophrenic angle. There are no hilar masses. There are chest leads. There is cervical spine f usion surgery. IMPRESSION: Minimal fluid or pleural reaction lateral left lung base. Normal heart.
--- NOTE | 2019-10-25 18:26 | CT ---
EXAMINATION TYPE: CT brain wo con DATE OF EXAM: 10/25/2019 COMPARISON: 09/21/2019 HISTORY: Weakness, confusion CT DLP: 1099.4 mGycm Automated exposure control for dose reduction was used. There is mild cerebral atrophy. There is no mass effect nor midline shift. There is no sign of intrac ranial hemorrhage. Calvarium is intact. IMPRESSION: Mild atrophy. No acute intracranial abnormality. No change.
[2019-10-25 18:53] LABS: Appearance,Urine Clear (Clear); Bilirubin,Urine Negative (Negative); Blood,Urine Negative (Negative); Color,Urine Yellow; Glucose,Urine (UA) 4+ (Negative); Leukocyte Esterase,Urine Negative (Negative); Nitrite,Urine Negative (Negative); Protein,Urine Negative (Negative); Specific Gravity,Urine 1.021 (1.001-1.035); Urobilinogen,Urine <2.0 mg/dL (<2.0)
[2019-10-25 19:00] LABS: Amphetamine Screen,Urine Not Detected (NotDetected); Barbiturate Screen,Urine Not Detected (NotDetected); Benzodiazepines Screen,Urine Not Detected (NotDetected); Cocaine Screen,Urine Not Detected (NotDetected); Methadone Screen, Urine Not Detected (NotDetected); Opiate Screen,Urine Not Detected (NotDetected); Oxycodone Screen, Urine Not Detected (NotDetected); Phencyclidine Screen,Urine Not Detected (NotDetected); Tricyclic Antidepressant,Urine Not Detected (NotDetected); Urn Cannabinoid Scrn Not Detected (NotDetected)
[2019-10-25 19:05] LABS: Ketones,Urine 2+ (Negative)
[2019-10-25] MEDS ORDERED: LORazepam 2 MG/ML INJ IV STA (20:46)
[2019-10-26 12:47] VITALS: BP 132/41; PULSE 71; RESP 16
== END 2019-10-26 12:45 | disposition short-term general hospital (02) ==
LOC: EC 17:18
DX: F32.9 Major depressive disorder, single episode, unspecified (principal); F03.90 Unspecified dementia, unspecified severity, without behavioral disturbance, psychotic disturbance, mood disturbance, and anxiety; R45.851 Suicidal ideations; F23 Brief psychotic disorder; R53.1 Weakness; R26.2 Difficulty in walking, not elsewhere classified; E11.9 Type 2 diabetes mellitus without complications; Z88.0 Allergy status to penicillin; Z88.1 Allergy status to other antibiotic agents; Z88.5 Allergy status to narcotic agent; Z88.6 Allergy status to analgesic agent; Z79.4 Long term (current) use of insulin; Z85.3 Personal history of malignant neoplasm of breast; Z90.12 Acquired absence of left breast and nipple
CPT/HCPCS: 36415; 93005; 80053; 85025; 85610; 85730; 81003; 80306; 71046; 70450; 99285; 96374; 96361 ×3; J2060

== ENCOUNTER 2020-03-06 06:49 | Emergency (ER) | payer MEDICARE ==
[2020-03-06 07:09] VITALS: TEMP 98.1
--- NOTE | 2020-03-06 07:25 | ED ---
General Adult HPI - General Chief complaint: Abdominal Pain Stated complaint: abd pain Time Seen by Provider: 03/06/20 07:00 Source: patient, RN notes reviewed, old records reviewed Mode of arrival: ambulatory Limitations: no limitations - History of Present Illness Initial comments: This is a 79-year-old female presents emergency Department complaining of a three-day history of abdominal bloating and some urinary frequency. Patient states she is a diabetic and her sugars been running in the 200s. Patient denies any nausea vomiting or diarrhea. Patient denies any fever chills or cough. Patient states the bloating is in the suprapubic region. Patient denies any chest pain difficulty breathing. Patient states it feels like gas pains. Patient denies any lightheadedness dizziness. Patient isn't swollen to the legs. Patient states she is eating and drinking normally. - Related Data Home Medications Medication Instructions Recorded Confirmed Benzocaine/Menthol Lozeng [Cepacol 1 lozenge MUCOUS MEM Q4HR PRN 09/22/19 10/26/19 lozenge] Calcium Carb-Vit D 500Mg-200Un 1 tab PO DAILY 09/22/19 10/26/19 [Oscal 500+D] INSULIN ASPART (NovoLOG) [NovoLOG See Protocol SQ ACHS 09/22/19 10/26/19 (formulary)] INSULIN ASPART (NovoLOG) [NovoLOG 3 unit SQ AC-TID 10/26/19 10/26/19 (formulary)] Previous Rx's Medication Instructions Recorded Insulin Detemir (Levemir) [Levemir] 7 unit SQ HS syr 09/22/19 Melatonin 10 mg PO HS 28 Days tablet 09/22/19 amLODIPine [Norvasc] 10 mg PO DAILY tab 09/22/19 Aspirin 81 mg PO DAILY #30 chew 09/23/19 Clopidogrel [Plavix] 75 mg PO DAILY #21 tab 09/23/19 Lisinopril [Zestril] 20 mg PO HS #30 tab 09/23/19 Propranolol LA [Inderal LA] 60 mg PO DAILY #30 cap.sa.24h 09/23/19 Sertraline [Zoloft] 50 mg PO DAILY 28 Days #28 tab 09/23/19 Allergies Allergy/AdvReac Type Severity Reaction Status Date / Time Penicillins Allergy Itching Verified 03/06/20 06:58 acetaminophen AdvReac Nausea & Verified 03/06/20 06:58 [From Darvocet-N] Vomiting codeine AdvReac Nausea & Verified 03/06/20 06:58 [From Tylenol-Codeine #3] Vomiting erythromycin base AdvReac Nausea & Verified 03/06/20 06:58 Vomiting propoxyphene AdvReac Nausea & Verified 03/06/20 06:58 [From Darvocet-N] Vomiting Review of Systems ROS Statement: Those systems with pertinent positive or pertinent negative responses have been documented in the HPI. ROS Other: All systems not noted in ROS Statement are negative. Past Medical History Past Medical History: Cancer, Diabetes Mellitus, Hypertension Additional Past Medical History / Comment(s): Left breast cancer diagnosed in 1987, History of Any Multi-Drug Resistant Organisms: None Reported Past Surgical History: Breast Surgery, Section, Cholecystectomy, Heart Catheterization, Hysterectomy, Orthopedic Surgery Additional Past Surgical History / Comment(s): Cervical Fusion 8 years ago, hemroidectomy, left mastectomy, benign needle biopsys right breast , kidney stone removed, right ureter surgery, Past Anesthesia/Blood Transfusion Reactions: Postoperative Nausea & Vomiting (PONV) Past Psychological History: Anxiety, Depression Smoking Status: Never smoker Past Alcohol Use History: None Reported Past Drug Use History: None Reported - Past Family History Mother Family Medical History: No Reported History Father Additional Family Medical History / Comment(s): Stroke, heart disease General Exam - General Exam Comments Initial Comments: GENERAL: Patient is well-developed and well-nourished. Patient is nontoxic and well- hydrated and is in mild distress. ENT: Neck is soft and supple. No significant lymphadenopathy is noted. Oropharynx is clear. Moist mucous membranes. Neck has full range of motion without elici ting any pain. EYES: The sclera were anicteric and conjunctiva were pink and moist. Extraocular mo vements were intact and pupils were equal round and reactive to light. Eyelids were unremarkable. PULMONARY: Unlabored respirations. Good breath sounds bilaterally. No audible rales rhonchi or wheezing was noted. CARDIOVASCULAR: There is a regular rate and rhythm without any murmurs gallops or rubs. ABDOMEN: Suprapubic distention mild tenderness no rebound SKIN: Skin is clear with no lesions or rashes and otherwise unremarkable. NEUROLOGIC: Patient is alert and oriented x3. Cranial nerves II through XII are grossly intact. Motor and sensory are also intact. Normal speech, volume and content. Symmetrical smile. MUSCULOSKELETAL: Normal extremities with adequate strength and full range of motion. No lower extremity swelling or edema. No calf tenderness. LYMPHATICS: No significant lymphadenopathy is noted PSYCHIATRIC: Normal psychiatric evaluation. Limitations: no limitations Course Vital Signs 03/06/20 06:55 Temperature 98.1 F Pulse Rate 80 Respiratory 18 Rate Blood Pressure 204/96 O2 Sat by Pulse 100 Oximetry Medical Decision Making - Medical Decision Making Patient's sugar was elevated emergency department she received 4 units of NovoLog. Patient states she was recently taken off of insulin home and put on Januvia and metformin. I will begin the room to reexamine the patient abdomen was nontender to palpation and she stated this has been ongoing for over a month but worse the last 3 days. Patient states she already sees Dr. Ramirez she'll follow-up with Dr. zavaleta. - Lab Data Result diagrams: 03/06/20 07:28 03/06/20 07:28 Lab Results 03/06/20 03/06/20 03/06/20 Range/Units 07:28 07:28 07:28 WBC 8.8 (3.8-10.6) k/uL RBC 4.49 (3.80-5.40) m/uL Hgb 13.1 (11.4-16.0) gm/dL Hct 39.6 (34.0-46.0) % MCV 88.2 (80.0-100.0) fL MCH 29.2 (25.0-35.0) pg MCHC 33.1 (31.0-37.0) g/dL RDW 13.2 (11.5-15.5) % Plt Count 246 (150-450) k/uL Neutrophils % 80 % Lymphocytes % 10 % Monocytes % 5 % Eosinophils % 2 % Basophils % 0 % Neutrophils # 7.1 (1.3-7.7) k/uL Lymphocytes # 0.9 L (1.0-4.8) k/uL Monocytes # 0.4 (0-1.0) k/uL Eosinophils # 0.2 (0-0.7) k/uL Basophils # 0.0 (0-0.2) k/uL Sodium 131 L (137-145) mmol/L Potassium 4.1 (3.5-5.1) mmol/L Chloride 95 L (98-107) mmol/L Carbon Dioxide 26 (22-30) mmol/L Anion Gap 10 mmol/L BUN 21 H (7-17) mg/dL Creatinine 0.39 L (0.52-1.04) mg/dL Est GFR (CKD-EPI)AfAm >90 (>60 ml/min/1.73 sqM) Est GFR (CKD-EPI)NonAf >90 (>60 ml/min/1.73 sqM) Glucose 314 H (74-99) mg/dL POC Glucose (mg/dL) (75-99) mg/dL POC Glu [employer] ID Plasma Lactic Acid Colin (0.7-2.0) mmol/L Calcium 9.2 (8.4-10.2) mg/dL Total Bilirubin 0.4 (0.2-1.3) mg/dL AST 19 (14-36) U/L ALT 19 (4-34) U/L Alkaline Phosphatase 118 (38-126) U/L Total Protein 7.5 (6.3-8.2) g/dL Albumin 4.0 (3.5-5.0) g/dL Amylase 83 (30-110) U/L Lipase 170 (23-300) U/L Urine Color Light Yellow Urine Appearance Cloudy H (Clear) Urine pH 8.0 (5.0-8.0) Ur Specific [place] 1.010 (1.001-1.035) Urine Protein 1+ H (Negative) Urine Glucose (UA) 4+ H (Negative) Urine Ketones Negative (Negative) Urine Blood Negative (Negative) Urine Nitrite Negative (Negative) Urine Bilirubin Negative (Negative) Urine Urobilinogen <2.0 (<2.0) mg/dL Ur Leukocyte Esterase Negative (Negative) Urine RBC 1 (0-5) /hpf Urine WBC 1 (0-5) /hpf Ur Squamous Epith Cells <1 (0-4) /hpf Amorphous Sediment Occasional H (None) /hpf Acetone, Qual Negative (Negative) 03/06/20 03/06/20 Range/Units 07:28 07:38 WBC (3.8-10.6) k/uL RBC (3.80-5.40) m/uL Hgb (11.4-16.0) gm/dL Hct (34.0-46.0) % MCV (80.0-100.0) fL MCH (25.0-35.0) pg MCHC (31.0-37.0) g/dL RDW (11.5-15.5) % Plt Count (150-450) k/uL Neutrophils % % Lymphocytes % % Monocytes % % Eosinophils % % Basophils % % Neutrophils # (1.3-7.7) k/uL Lymphocytes # (1.0-4.8) k/uL Monocytes # (0-1.0) k/uL Eosinophils # (0-0.7) k/uL Basophils # (0-0.2) k/uL Sodium (137-145) mmol/L Potassium (3.5-5.1) mmol/L Chloride (98-107) mmol/L Carbon Dioxide (22-30) mmol/L Anion Gap mmol/L BUN (7-17) mg/dL Creatinine (0.52-1.04) mg/dL Est GFR (CKD-EPI)AfAm (>60 ml/min/1.73 sqM) Est GFR (CKD-EPI)NonAf (>60 ml/min/1.73 sqM) Glucose (74-99) mg/dL POC Glucose (mg/dL) 278 H (75-99) mg/dL POC Glu [employer] ID Isabella Borrego Plasma Lactic Acid Colin 0.9 (0.7-2.0) mmol/L Calcium (8.4-10.2) mg/dL Total Bilirubin (0.2-1.3) mg/dL AST (14-36) U/L ALT (4-34) U/L Alkaline Phosphatase (38-126) U/L Total Protein (6.3-8.2) g/dL Albumin (3.5-5.0) g/dL Amylase (30-110) U/L Lipase (23-300) U/L Urine Color Urine Appearance (Clear) Urine pH (5.0-8.0) Ur Specific [place] (1.001-1.035) Urine Protein (Negative) Urine Glucose (UA) (Negative) Urine Ketones (Negative) Urine Blood (Negative) Urine Nitrite (Negative) Urine Bilirubin (Negative) Urine Urobilinogen (<2.0) mg/dL Ur Leukocyte Esterase (Negative) Urine RBC (0-5) /hpf Urine WBC (0-5) /hpf Ur Squamous Epith Cells (0-4) /hpf Amorphous Sediment (None) /hpf Acetone, Qual (Negative) Disposition Clinical Impression: Abdominal pain, Hyperglycemia Disposition: HOME SELF-CARE Instructions (If sedation given, give patient instructions): Abdominal Pain (ED) Is patient prescribed a controlled substance at d/c from ED?: No Referrals: Reynaldo Putnam MD [Primary Care Provider] - 1-2 days Time of Disposition: 08:29
[2020-03-06 07:38] LABS: Basophils % (A) 0 %; Eosinophils # (A) 0.2 k/uL (0-0.7); Eosinophils % (A) 2 %; HCT 39.6 % (34.0-46.0); HGB 13.1 gm/dL (11.4-16.0); Lymphocytes # (A) 0.9 k/uL (1.0-4.8); Lymphocytes % (A) 10 %; MCH 29.2 pg (25.0-35.0); MCHC 33.1 g/dL (31.0-37.0); MCV 88.2 fL (80.0-100.0); Mean Platelet Volume 8.8; Monocytes # (A) 0.4 k/uL (0-1.0); Monocytes % (A) 5 %; Neutrophils # (A) 7.1 k/uL (1.3-7.7); Neutrophils % (A) 80 %; Platelet Count 246 k/uL (150-450); RBC 4.49 m/uL (3.80-5.40); RDW 13.2 % (11.5-15.5); WBC 8.8 k/uL (3.8-10.6)
[2020-03-06 07:40] LABS: Glucose,Whole Blood 278 mg/dL (75-99)
[2020-03-06 07:44] LABS: Amorphous Sediment,Urine Occasional /hpf; Appearance,Urine Cloudy (Clear); Bilirubin,Urine Negative (Negative); Blood,Urine Negative (Negative); Color,Urine Light Yellow; Glucose,Urine (UA) 4+ (Negative); Ketones,Urine Negative (Negative); Leukocyte Esterase,Urine Negative (Negative); Nitrite,Urine Negative (Negative); Protein,Urine 1+ (Negative); RBC,Urine 1 /hpf (0-5); Squamous Epithelial Cell,Urine <1 /hpf (0-4); Urobilinogen,Urine <2.0 mg/dL (<2.0); WBC,Urine 1 /hpf (0-5)
--- NOTE | 2020-03-06 07:46 | XR ---
EXAMINATION TYPE: XR KUB , ONE VIEW DATE OF EXAM ORDERED: 03/06/2020 HISTORY: abdominal pain. COMPARISON: None. FINDINGS: The lung bases are clear. Within the abdomen, there is been previous right lower quadrant surgery. The abdominal gas pattern is normal. There is no evidence of obstruction or free air. No unusual calcifications are seen. IMPRESSION: NO ACUTE INTRA-ABDOMINAL ABNORMALITY.
[2020-03-06] MEDS ORDERED: MAG HYDROX/AL HYDROX/SIMETH 30 ML, HYOSCYAMINE ELIXIR 10 ML, LIDOCAINE VISCOUS 2% 10 ML PO STA ×3 (07:59)
[2020-03-06 08:03] LABS: ALT 19 U/L (4-34); AST 19 U/L (14-36); African American GFR (CKD) >90 (>60 ml/min/1.73 sqM); Alkaline Phosphatase 118 U/L (38-126); Amylase 83 U/L (30-110); Anion Gap 10 mmol/L; Blood Urea Nitrogen 21 mg/dL (7-17); Calcium 9.2 mg/dL (8.4-10.2); Carbon Dioxide 26 mmol/L (22-30); Chloride 95 mmol/L (98-107); Glucose 314 mg/dL (74-99); Non-African American GFR(CKD) >90 (>60 ml/min/1.73 sqM); Potassium 4.1 mmol/L (3.5-5.1); Sodium 131 mmol/L (137-145); Total Bilirubin 0.4 mg/dL (0.2-1.3); Total Protein 7.5 g/dL (6.3-8.2)
[2020-03-06] MEDS ORDERED: DICYCLOMINE 10 MG/ML 2 ML AMP IM STA (08:26)
[2020-03-06] MEDS ORDERED: INSULIN ASPART (NovoLOG) 100 UNIT/ML VIAL SQ ONE (08:26)
[2020-03-06 08:41] VITALS: BP 132/76; PULSE 76; RESP 16
== END 2020-03-06 08:54 | disposition home or self-care (01) ==
LOC: EC 06:49
DX: E11.65 Type 2 diabetes mellitus with hyperglycemia (principal); R10.9 Unspecified abdominal pain; R14.0 Abdominal distension (gaseous); I10 Essential (primary) hypertension; Z79.4 Long term (current) use of insulin; Z88.0 Allergy status to penicillin; Z88.6 Allergy status to analgesic agent; Z88.1 Allergy status to other antibiotic agents; Z88.5 Allergy status to narcotic agent; Z88.8 Allergy status to other drugs, medicaments and biological substances; Z98.1 Arthrodesis status; Z85.3 Personal history of malignant neoplasm of breast; Z90.12 Acquired absence of left breast and nipple
CPT/HCPCS: 51798; 36415; 80053; 82150; 82009; 83605; 83690; 85025; 81001; 74018; 99284; 96372; J0500

== ENCOUNTER 2020-03-10 07:43 | Inpatient (IN) | payer MEDICARE ==
[2020-03-10] MEDS ORDERED: DICYCLOMINE 10 MG CAP PO STA (08:21)
--- NOTE | 2020-03-10 08:33 | ED ---
Abdominal Pain HPI - General Chief Complaint: Abdominal Pain Stated Complaint: Abd pain Time Seen by Provider: 03/10/20 07:50 Source: patient Mode of arrival: wheelchair - History of Present Illness Initial Comments: The patient is a 79-year-old female presents emergency department with reported epigastric abdominal pain that radiates around to her back. The patient was seen in the emergency department on the for similar complaint. She states that her pain started one week prior. Evaluation in the ER failed to diagnose any pathology. She states that her pain has become constant and worsens in severity. States it feels as a sharp shooting pain which radiates up into her chest. She has associated nausea. Denies any vomiting. No cough or hemoptysis. No fevers or chills. Admits to constipation. No rectal bleeding. Denies to dysuria, hematuria or difficulty voiding. No lower extremity edema. No back or flank pain. No previous history of cardiac disease. There are no alleviating, precipitating or modifying factors - Related Data Home Medications Medication Instructions Recorded Confirmed Furosemide [Lasix] 20 mg PO DAILY 03/10/20 03/10/20 Lisinopril [Zestril] 40 mg PO DAILY 03/10/20 03/10/20 Propranolol HCl [Propranolol HCl 60 mg PO DAILY 03/10/20 03/10/20 ER] Rivastigmine Tartrate [Exelon] 3 mg PO BID 03/10/20 03/10/20 Sertraline [Zoloft] 200 mg PO DAILY 03/10/20 03/10/20 metFORMIN HCL [Glucophage] 500 mg PO TID 03/10/20 03/10/20 risperiDONE 3 mg PO BID 03/10/20 03/10/20 sitaGLIPtin PHOSPHATE [Januvia] 100 mg PO DAILY 03/10/20 03/10/20 traZODone HCL [Desyrel] 50 mg PO HS 03/10/20 03/10/20 Previous Rx's Medication Instructions Recorded Clopidogrel [Plavix] 75 mg PO DAILY #21 tab 09/23/19 Allergies Allergy/AdvReac Type Severity Reaction Status Date / Time Penicillins Allergy Itching Verified 03/10/20 10:35 codeine AdvReac Nausea & Verified 03/10/20 10:35 [From Tylenol-Codeine #3] Vomiting erythromycin base AdvReac Nausea & Verified 03/10/20 10:35 Vomiting propoxyphene AdvReac Nausea & Verified 03/10/20 10:35 [From Darvocet-N] Vomiting Review of Systems ROS Statement: Those systems with pertinent positive or pertinent negative responses have been documented in the HPI. ROS Other: All systems not noted in ROS Statement are negative. Past Medical History Past Medical History: Cancer, Diabetes Mellitus, Hypertension Additional Past Medical History / Comment(s): Left breast cancer diagnosed in 1987, History of Any Multi-Drug Resistant Organisms: None Reported Past Surgical History: Breast Surgery, Section, Cholecystectomy, Heart Catheterization, Hysterectomy, Orthopedic Surgery Additional Past Surgical History / Comment(s): Cervical Fusion 8 years ago, hemroidectomy, left mastectomy, benign needle biopsys right breast , kidney stone removed, right ureter surgery, Past Anesthesia/Blood Transfusion Reactions: Postoperative Nausea & Vomiting (PONV) Past Psychological History: Anxiety, Depression Smoking Status: Never smoker Past Alcohol Use History: None Reported Past Drug Use History: None Reported - Past Family History Mother Family Medical History: No Reported History Father Additional Family Medical History / Comment(s): Stroke, heart disease General Exam General appearance: alert, in no apparent distress Head exam: Present: atraumatic, normocephalic, normal inspection Eye exam: Present: normal appearance, PERRL, EOMI. Absent: scleral icterus, conjunctival injection, periorbital swelling ENT exam: Present: normal exam, mucous membranes moist Neck exam: Present: normal inspection. Absent: tenderness, meningismus, lymphadenopathy Respiratory exam: Present: normal lung sounds bilaterally. Absent: respiratory distress, wheezes, rales, rhonchi, stridor Cardiovascular Exam: Present: regular rate, normal rhythm, normal heart sounds. Absent: systolic murmur, diastolic murmur, rubs, gallop, clicks GI/Abdominal exam: Present: soft, tenderness (epigastric region. No peritoneal signs. No pulsatile mass. No palpable hernias. ). Absent: distended, guarding, rebound, rigid Extremities exam: Present: normal inspection, full ROM, normal capillary refill, other (2+ radial and DP pulses bilaterally). Absent: tenderness, pedal edema, joint swelling, calf tenderness Back exam: Present: normal inspection Neurological exam: Present: alert, oriented X3, CN II-XII intact Psychiatric exam: Present: normal affect, normal mood Skin exam: Present: warm, dry, intact, normal color. Absent: rash Course Vital Signs 03/10/20 03/10/20 03/10/20 07:48 08:51 09:39 Temperature 98.0 F Pulse Rate 73 71 75 Respiratory 18 16 16 Rate Blood Pressure 221/87 205/89 203/87 O2 Sat by Pulse 100 97 97 Oximetry 03/10/20 03/10/20 10:08 11:31 Temperature Pulse Rate 69 76 Respiratory 16 16 Rate Blood Pressure 183/87 174/82 O2 Sat by Pulse 98 98 Oximetry Medical Decision Making - Medical Decision Making Upon arrival the patient was placed into room 1. A thorough history and physical exam is performed. She does report to chest pain with nausea. Also has abdominal pain. Peripheral IV was established. The patient is requesting medication that she "received during last ER visit. The patient had been given Bentyl and therefore I did give her a dose here in the emergency department. Laboratory studies were ordered as well as a urine. Lab studies are remarkable for sodium of 1:30. Likely pseudohyponatremia secondary to an elevated glucose of 355. Recently had changes made to her regimen. Patient went off of insulin and started Januvia and metformin. The patient did receive a 500 mL bolus followed by 75 mL per hour. Lipase mildly elevated at 533. First troponin is negative. Urinalysis shows 4+ glucose. I did perform a CT of the patient's thorax because of her elevated high blood pressure with chest and abdominal pain. Imaging shows fracture of L1 and possible sacral fracture. No aortic aneurysm or dissection. Atelectatic changes in the right lower lobe. Because the patient's chest pain I did recommend hospital admission to trend troponins. I will give the patient lactulose for her constipation. The patient agreed to this. I discussed the case with Dr. Mitchell who accepted admission. Patient awaiting a bed on the floor - Lab Data Result diagrams: 03/11/20 06:01 03/11/20 06:01 Lab Results 03/10/20 03/10/20 03/10/20 Range/Units 08:30 08:30 08:30 WBC 7.5 (3.8-10.6) k/uL RBC 4.43 (3.80-5.40) m/uL Hgb 13.3 (11.4-16.0) gm/dL Hct 39.1 (34.0-46.0) % MCV 88.3 (80.0-100.0) fL MCH 30.0 (25.0-35.0) pg MCHC 34.0 (31.0-37.0) g/dL RDW 13.1 (11.5-15.5) % Plt Count 234 (150-450) k/uL Neutrophils % 81 % Lymphocytes % 11 % Monocytes % 4 % Eosinophils % 1 % Basophils % 1 % Neutrophils # 6.1 (1.3-7.7) k/uL Lymphocytes # 0.8 L (1.0-4.8) k/uL Monocytes # 0.3 (0-1.0) k/uL Eosinophils # 0.1 (0-0.7) k/uL Basophils # 0.0 (0-0.2) k/uL PT 10.3 (9.0-12.0) sec INR 1.0 (<1.2) APTT 22.0 (22.0-30.0) sec Sodium 130 L (137-145) mmol/L Potassium 4.1 (3.5-5.1) mmol/L Chloride 95 L (98-107) mmol/L Carbon Dioxide 28 (22-30) mmol/L Anion Gap 7 mmol/L BUN 18 H (7-17) mg/dL Creatinine 0.42 L (0.52-1.04) mg/dL Est GFR (CKD-EPI)AfAm >90 (>60 ml/min/1.73 sqM) Est GFR (CKD-EPI)NonAf >90 (>60 ml/min/1.73 sqM) Glucose 355 H (74-99) mg/dL Plasma Lactic Acid Colin (0.7-2.0) mmol/L Calcium 9.0 (8.4-10.2) mg/dL Total Bilirubin 0.6 (0.2-1.3) mg/dL AST 26 (14-36) U/L ALT 22 (4-34) U/L Alkaline Phosphatase 87 (38-126) U/L Troponin I (0.000-0.034) ng/mL Total Protein 7.4 (6.3-8.2) g/dL Albumin 3.9 (3.5-5.0) g/dL Amylase 156 H (30-110) U/L Lipase 533 H (23-300) U/L Urine Color Urine Appearance (Clear) Urine pH (5.0-8.0) Ur Specific [place] (1.001-1.035) Urine Protein (Negative) Urine Glucose (UA) (Negative) Urine Ketones (Negative) Urine Blood (Negative) Urine Nitrite (Negative) Urine Bilirubin (Negative) Urine Urobilinogen (<2.0) mg/dL Ur Leukocyte Esterase (Negative) Urine RBC (0-5) /hpf Urine WBC (0-5) /hpf Amorphous Sediment (None) /hpf Urine Mucus (None) /hpf 03/10/20 03/10/20 03/10/20 Range/Units 08:30 08:30 08:30 WBC (3.8-10.6) k/uL RBC (3.80-5.40) m/uL Hgb (11.4-16.0) gm/dL Hct (34.0-46.0) % MCV (80.0-100.0) fL MCH (25.0-35.0) pg MCHC (31.0-37.0) g/dL RDW (11.5-15.5) % Plt Count (150-450) k/uL Neutrophils % % Lymphocytes % % Monocytes % % Eosinophils % % Basophils % % Neutrophils # (1.3-7.7) k/uL Lymphocytes # (1.0-4.8) k/uL Monocytes # (0-1.0) k/uL Eosinophils # (0-0.7) k/uL Basophils # (0-0.2) k/uL PT (9.0-12.0) sec INR (<1.2) APTT (22.0-30.0) sec Sodium (137-145) mmol/L Potassium (3.5-5.1) mmol/L Chloride (98-107) mmol/L Carbon Dioxide (22-30) mmol/L Anion Gap mmol/L BUN (7-17) mg/dL Creatinine (0.52-1.04) mg/dL Est GFR (CKD-EPI)AfAm (>60 ml/min/1.73 sqM) Est GFR (CKD-EPI)NonAf (>60 ml/min/1.73 sqM) Glucose (74-99) mg/dL Plasma Lactic Acid Colin 1.1 (0.7-2.0) mmol/L Calcium (8.4-10.2) mg/dL Total Bilirubin (0.2-1.3) mg/dL AST (14-36) U/L ALT (4-34) U/L Alkaline Phosphatase (38-126) U/L Troponin I <0.012 (0.000-0.034) ng/mL Total Protein (6.3-8.2) g/dL Albumin (3.5-5.0) g/dL Amylase (30-110) U/L Lipase (23-300) U/L Urine Color Yellow Urine Appearance Cloudy H (Clear) Urine pH 7.5 (5.0-8.0) Ur Specific [place] 1.017 (1.001-1.035) Urine Protein 1+ H (Negative) Urine Glucose (UA) 4+ H (Negative) Urine Ketones Trace H (Negative) Urine Blood Negative (Negative) Urine Nitrite Negative (Negative) Urine Bilirubin Negative (Negative) Urine Urobilinogen <2.0 (<2.0) mg/dL Ur Leukocyte Esterase Negative (Negative) Urine RBC 1 (0-5) /hpf Urine WBC 1 (0-5) /hpf Amorphous Sediment Rare H (None) /hpf Urine Mucus Rare H (None) /hpf - EKG Data EKG Comments: EKG demonstrates a normal sinus rhythm with a ventricular rate of 73. KS inte rval 122. QRS 84. QTC 42. Mild J-point elevation in V2 and V3 with P T-wave in V3. No reciprocal depressions. Disposition Clinical Impression: Chest pain, Hyperglycemia, Abdominal pain, Constipation, L1 vertebral fracture, Hypertension Disposition: ADMITTED IP TO THIS HOSP Condition: Stable Is patient prescribed a controlled substance at d/c from ED?: No Decision to Admit Reason: Admit from EC Decision Date: 03/10/20 Decision Time: 10:47
[2020-03-10 08:57] LABS: Basophils % (A) 1 %; Eosinophils # (A) 0.1 k/uL (0-0.7); Eosinophils % (A) 1 %; HCT 39.1 % (34.0-46.0); HGB 13.3 gm/dL (11.4-16.0); Lymphocytes # (A) 0.8 k/uL (1.0-4.8); Lymphocytes % (A) 11 %; MCV 88.3 fL (80.0-100.0); Mean Platelet Volume 9.1; Monocytes # (A) 0.3 k/uL (0-1.0); Monocytes % (A) 4 %; Neutrophils # (A) 6.1 k/uL (1.3-7.7); Neutrophils % (A) 81 %; Platelet Count 234 k/uL (150-450); RBC 4.43 m/uL (3.80-5.40); RDW 13.1 % (11.5-15.5); WBC 7.5 k/uL (3.8-10.6)
[2020-03-10 08:59] LABS: Prothrombin Time 10.3 sec (9.0-12.0)
[2020-03-10 09:00] LABS: Amorphous Sediment,Urine Rare /hpf; Appearance,Urine Cloudy (Clear); Bilirubin,Urine Negative (Negative); Blood,Urine Negative (Negative); Color,Urine Yellow; Glucose,Urine (UA) 4+ (Negative); Ketones,Urine Trace (Negative); Leukocyte Esterase,Urine Negative (Negative); Mucus,Urine Rare /hpf; Nitrite,Urine Negative (Negative); PH, Urine 7.5 (5.0-8.0); Protein,Urine 1+ (Negative); RBC,Urine 1 /hpf (0-5); Specific Gravity,Urine 1.017 (1.001-1.035); Urobilinogen,Urine <2.0 mg/dL (<2.0); WBC,Urine 1 /hpf (0-5)
[2020-03-10 09:09] LABS: ALT 22 U/L (4-34); AST 26 U/L (14-36); African American GFR (CKD) >90 (>60 ml/min/1.73 sqM); Albumin 3.9 g/dL (3.5-5.0); Alkaline Phosphatase 87 U/L (38-126); Amylase 156 U/L (30-110); Anion Gap 7 mmol/L; Blood Urea Nitrogen 18 mg/dL (7-17); Carbon Dioxide 28 mmol/L (22-30); Chloride 95 mmol/L (98-107); Glucose 355 mg/dL (74-99); Non-African American GFR(CKD) >90 (>60 ml/min/1.73 sqM); Sodium 130 mmol/L (137-145); Total Bilirubin 0.6 mg/dL (0.2-1.3); Total Protein 7.4 g/dL (6.3-8.2)
[2020-03-10 09:13] LABS: Potassium 4.1 mmol/L (3.5-5.1)
[2020-03-10] MEDS ORDERED: SODIUM CHLORIDE 0.9% 500 ML 500 ML IV ONE (09:20)
[2020-03-10] MEDS ORDERED: MORPHINE SULFATE 4 MG/ML SYRINGE IVP STA (09:27)
[2020-03-10] MEDS ORDERED: ONDANSETRON 4 MG/2 ML VIAL IVP STA (09:27)
--- NOTE | 2020-03-10 10:38 | CT ---
EXAMINATION TYPE: CT angio thor/abd pel aorta DATE OF EXAM: 03/10/2020 COMPARISON: Prior CT 06/15/2019 HISTORY: Abd pain CT DLP: 759.2 mGycm. Automated Exposure Control for Dose Reduction was Utilized. CONTRAST: CT scan of the thorax, abdomen and pelvis is performed without and with IV Contrast, patient injected with 100 mL of Isovue 370. Three-dimensional reconstructions on an alternate workstation. FINDINGS: Postop changes noted in the cervical spine. LUNGS: The lungs are remarkable for a bandlike area of increased attenuation within the right lower l obe likely some atelectatic change along the fissure.. There is no pleural effusion or pneumothorax seen. The tracheobronchial tree is patent. MEDIASTINUM: There are no greater than 1 cm hilar or mediastinal lymph nodes. No pericardial effusi on is seen. No filling defect within the visualized pulmonary arteries to suggest pulmonary embolism . There are coronary artery calcifications. Calcifications present in the right hilum. OTHER: Aorta shows atheromatous change. There is no evident aneurysm or dissection. There are 3 super aortic branch vessels. Left and right common carotid, left and right clavian, innominate, left and r ight vertebral arteries are patent. The celiac axis, renal arteries, superior mesenteric artery, infe rior mesenteric artery are patent, the common iliac, internal and external iliac arteries are patent. LIVER/GB: No significant abnormality is appreciated. PANCREAS: No significant interval change is seen, cystic foci are noted associated with the body the pancreas and in the pancreatic tail. SPLEEN: No significant abnormality is seen. ADRENALS: No significant abnormality is seen. KIDNEYS: No significant interval change is seen. BOWEL: No significant abnormality is seen. GENITAL ORGANS: No gross abnormality seen. LYMPH NODES: No greater than 1cm abdominal or pelvic lymph nodes are appreciated. OSSEOUS STRUCTURES: No significant abnormality is seen.No significant abnormality is seen. Compression deformity is noted at L1 with some retropulsion of the superior endplate of approximately 6-7 mm which has developed in the interval. Loss of height of approximately 50% of the superior endp late. Degenerative disc changes are present in the visualized spine. Some cortical irregularity at th e sacrococcygeal junction seen on sagittal image #55, difficult to exclude a fracture at this level. OTHER: Urinary bladder is distended. IMPRESSION: Interval fractures as described, L1, possible sacrum, bone scan or MRI may be of benefit. No aortic aneurysm or dissection. There are probable atelectatic changes in the right lower lobe. A dditional findings above.
[2020-03-10] MEDS ORDERED: MAGNESIUM CITRATE 296 ML BOTTLE PO ONE (10:48)
[2020-03-10] MEDS ORDERED: NALOXONE 0.4 MG/ML 1 ML VIAL IV PRN (10:57)
[2020-03-10] MEDS ORDERED: LACTULOSE 20 GM/30 ML CUP PO ONE (10:57)
[2020-03-10] MEDS ORDERED: hydrALAZINE HCL 20 MG/ML 1 ML VIAL IVP STA (11:23)
[2020-03-10] MEDS: SODIUM CHLORIDE 0.9% 1,000 ML IV SCH ×2 (11:37→18:20)
[2020-03-10 12:13] LABS: Glucose,Whole Blood 320 mg/dL (75-99)
[2020-03-10] MEDS: ACETAMINOPHEN TAB 325 MG TAB PO PRN ×2 (13:47→20:51)
[2020-03-10] MEDS: metFORMIN 500 MG TAB PO SCH ×2 (13:51→18:18)
[2020-03-10 17:19] LABS: Glucose,Whole Blood 327 mg/dL (75-99)
[2020-03-10] MEDS: CALCIUM CARBONATE LIQUID 500 MG/5 ML CUP PO SCH ×2 (18:18→20:42)
[2020-03-10] MEDS: INSULIN ASPART (NovoLOG) 100 UNIT/ML VIAL SQ SCH ×2 (18:18→20:42)
[2020-03-10 20:35] LABS: Glucose,Whole Blood 375 mg/dL (75-99)
[2020-03-10] MEDS: traZODone HCL 50 MG TAB PO SCH (20:42)
[2020-03-10] MEDS: risperiDONE 1 MG TAB PO SCH (20:42)
[2020-03-10] MEDS ORDERED: IOPAMIDOL CONTRAST (ORAL USE) VIAL PO PRN (21:35)
--- NOTE | 2020-03-10 21:35 | P.HPIM ---
History of Present Illness H&P Date: 03/10/20 Chief Complaint: Abdominal pain Presenting complaint: Abdominal pain History of presenting complaint: This is a 79-year-old patient of Dr. Reynaldo Allen. Chronic stable medical conditions include diabetes, hypertension, depression. Patient for 6 weeks for depression and anxiety was at [facility]. In the mental unit. And she was discharged from the on January 27 and came to stay with her son and [id number]. She notices that her abdomen has been bloated for about a month. She has a bowel movement every other day. Her appetite has not been good. Has lost about 4-5 pounds. Patient been having epigastric pain more so localized to some diet is going to the back. Denies any nausea vomiting. No fever no chills. No edema. No diarrhea. Presented to the ER. Review of systems: GEN.: Tired, some weight loss EYES: None HEENT: None NECK: None RESPIRATORY: None CARDIOVASCULAR: None GASTROINTESTINAL: As above GENITOURINARY: None MUSCULOSKELETAL: None LYMPHATICS: None HEMATOLOGICAL: None PSYCHIATRY: Depression and anxiety, controlled NEUROLOGICAL: None Past medical history to include: Diabetes, hypertension, left breast cancer, anxiety, depression Social history: Currently living with her son and [id number]. Does not smoke or drink a lcohol. Physical examination: VITAL SIGNS: 98, 85, 16, heart and 30/72, 98% on room air GENERAL: BMI 30.8, sitting up, tired. EYES: [Pupils equal. Conjunctiva pale. HEENT: External appearance of nose and ears normal, oral cavity grossly normal. NECK: JVD not raised; masses not palpable. HEART: First and second heart sounds are normal; no edema. LUNGS: Respiratory rate normal; clear to auscultation. ABDOMEN: Soft, distended, mild diffuse tenderness, no guarding or rigidity, liver spleen not palpable, no masses palpable. PSYCH: [Alert and oriented x3; mood and affect slightly anxious l. NEUROLOGICAL: Cranial nerves grossly intact; no facial asymmetry, power and sensation grossly intact. LYMPHATICS: No lymph nodes palpable in the axilla and neck INVESTIGATIONS, reviewed in the clinical context: White count 7.5 hemoglobin 13.3 sodium 1:30 progression 4.1 bun 18 and creatinin e 0.4 to glucose 355 amylase 156 lipase 533 EKG tracing personally reviewed by me-normal sinus rhythm Thoracic aorta. Computed tomography scan-interval fracture of L1 possible sacrum Assessment: -This is a patient presents with abdominal bloating for about a month some "constipation t recently, decreased appetite as well as weight loss. Need to rule out underlying malignancy. -Mild pancreatitis but need to rule out any obstruction -Mild protein calorie malnutrition with a BMI of 17.8 -Diabetes mellitus type 2, uncontrolled with hyperglycemia -Essential hypertension -Depression and anxiety not otherwise specified -L1 and compression fracture possibly chronic Plan: We'll do a computed tomography scan of the abdomen and pelvis with contrast. Home medications are renewed. Lovenox for DVT prophylaxis. GI service consulted. We need a endoscopy depending on the computed tomography scan results. Care was discussed with the patient. Questions were answered. Past Medical History Past Medical History: Cancer, Diabetes Mellitus, Hypertension Additional Past Medical History / Comment(s): Left breast cancer diagnosed in History of Any Multi-Drug Resistant Organisms: None Reported Past Surgical History: Breast Surgery, Section, Cholecystectomy, Heart Catheterization, Hysterectomy, Orthopedic Surgery Additional Past Surgical History / Comment(s): Cervical Fusion 8 years ago, hemroidectomy, left mastectomy 1987, benign needle biopsys right breast , kidney stone removed, right ureter surgery Past Anesthesia/Blood Transfusion Reactions: Postoperative Nausea & Vomiting (PONV) Past Psychological History: Anxiety, Depression Additional Psychological History / Comment(s): takes medication for depression - zoloft Smoking Status: Never smoker Past Alcohol Use History: None Reported Past Drug Use History: None Reported - Past Family History Mother Family Medical History: No Reported History Father Additional Family Medical History / Comment(s): Stroke, heart disease Medications and Allergies Home Medications Medication Instructions Recorded Confirmed Type Clopidogrel [Plavix] 75 mg PO DAILY #21 tab 09/23/19 03/10/20 Rx Furosemide [Lasix] 20 mg PO DAILY 03/10/20 03/10/20 History Lisinopril [Zestril] 40 mg PO DAILY 03/10/20 03/10/20 History Propranolol HCl [Propranolol HCl 60 mg PO DAILY 03/10/20 03/10/20 History ER] Rivastigmine Tartrate [Exelon] 3 mg PO BID 03/10/20 03/10/20 History Sertraline [Zoloft] 200 mg PO DAILY 03/10/20 03/10/20 History metFORMIN HCL [Glucophage] 500 mg PO TID 03/10/20 03/10/20 History risperiDONE 3 mg PO BID 03/10/20 03/10/20 History sitaGLIPtin PHOSPHATE [Januvia] 100 mg PO DAILY 03/10/20 03/10/20 History traZODone HCL [Desyrel] 50 mg PO HS 03/10/20 03/10/20 History Allergies Allergy/AdvReac Type Severity Reaction Status Date / Time Penicillins Allergy Itching Verified 03/10/20 10:35 codeine AdvReac Nausea & Verified 03/10/20 10:35 [From Tylenol-Codeine #3] Vomiting erythromycin base AdvReac Nausea & Verified 03/10/20 10:35 Vomiting propoxyphene AdvReac Nausea & Verified 03/10/20 10:35 [From Darvocet-N] Vomiting Physical Exam Vitals: Vital Signs Temp Pulse Pulse Resp BP BP Pulse Ox 03/10/20 20:32 98.8 F 92 20 171/77 97 03/10/20 13:00 98.0 F 85 16 130/72 98 03/10/20 11:31 76 16 174/82 98 03/10/20 10:08 69 16 183/87 98 03/10/20 09:39 75 16 203/87 97 03/10/20 08:51 71 16 205/89 97 03/10/20 07:48 98.0 F 73 18 221/87 100 Intake and Output 03/10/20 03/10/20 03/10/20 06:59 14:59 22:59 Intake Total 80 Balance 80 Intake: Intake, IV Titration 80 Amount Sodium Chloride 0.9% 1, 80 000 ml @ 80 mls/hr IV . [id number] [facility] Rx#:[id number] Other: # Voids 1 Weight 41.277 kg 41.277 kg Results CBC & Chem 7: 03/10/20 08:30 03/10/20 08:30 Labs: Abnormal Lab Results - Last 24 Hours (Table) 03/10/20 03/10/20 03/10/20 Range/Units 08:30 08:30 08:30 Lymphocytes # 0.8 L (1.0-4.8) k/uL Sodium 130 L (137-145) mmol/L Chloride 95 L (98-107) mmol/L BUN 18 H (7-17) mg/dL Creatinine 0.42 L (0.52-1.04) mg/dL Glucose 355 H (74-99) mg/dL POC Glucose (mg/dL) (75-99) mg/dL Amylase 156 H (30-110) U/L Lipase 533 H (23-300) U/L Urine Appearance Cloudy H (Clear) Urine Protein 1+ H (Negative) Urine Glucose (UA) 4+ H (Negative) Urine Ketones Trace H (Negative) Amorphous Sediment Rare H (None) /hpf Urine Mucus Rare H (None) /hpf 03/10/20 03/10/20 03/10/20 Range/Units 12:12 17:18 20:35 Lymphocytes # (1.0-4.8) k/uL Sodium (137-145) mmol/L Chloride (98-107) mmol/L BUN (7-17) mg/dL Creatinine (0.52-1.04) mg/dL Glucose (74-99) mg/dL POC Glucose (mg/dL) 320 H 327 H 375 H (75-99) mg/dL Amylase (30-110) U/L Lipase (23-300) U/L Urine Appearance (Clear) Urine Protein (Negative) Urine Glucose (UA) (Negative) Urine Ketones (Negative) Amorphous Sediment (None) /hpf Urine Mucus (None) /hpf Thrombosis Risk Factor Assmnt - Choose All That Apply Any of the Below Risk Factors Present?: No Other Risk Factors: Yes Each Risk Factor Represents 3 Points: Age 75 years or older Other congenital or acquired thrombophilia - If yes, enter type in comment: No Thrombosis Risk Factor Assessment Total Risk Factor Score: 3 Thrombosis Risk Factor Assessment Level: Moderate Risk
[2020-03-11] MEDS: SODIUM CHLORIDE 0.9% 1,000 ML IV SCH ×3 (04:51→17:57)
[2020-03-11 06:42] LABS: Basophils % (A) 0 %; Eosinophils # (A) 0.1 k/uL (0-0.7); Eosinophils % (A) 2 %; HCT 35.5 % (34.0-46.0); HGB 11.2 gm/dL (11.4-16.0); Lymphocytes % (A) 11 %; MCH 28.4 pg (25.0-35.0); MCHC 31.6 g/dL (31.0-37.0); MCV 89.8 fL (80.0-100.0); Mean Platelet Volume 8.5; Monocytes # (A) 0.4 k/uL (0-1.0); Monocytes % (A) 5 %; Neutrophils # (A) 7.1 k/uL (1.3-7.7); Neutrophils % (A) 80 %; Platelet Count 212 k/uL (150-450); RBC 3.96 m/uL (3.80-5.40); RDW 13.4 % (11.5-15.5); WBC 8.8 k/uL (3.8-10.6)
[2020-03-11 06:57] LABS: African American GFR (CKD) >90 (>60 ml/min/1.73 sqM); Anion Gap 1 mmol/L; Blood Urea Nitrogen 16 mg/dL (7-17); Calcium 9.6 mg/dL (8.4-10.2); Carbon Dioxide 33 mmol/L (22-30); Chloride 98 mmol/L (98-107); Glucose 87 mg/dL (74-99); Non-African American GFR(CKD) 87 (>60 ml/min/1.73 sqM); Sodium 132 mmol/L (137-145)
[2020-03-11 07:01] LABS: Glucose,Whole Blood 112 mg/dL (75-99)
[2020-03-11] MEDS: INSULIN ASPART (NovoLOG) 100 UNIT/ML VIAL SQ SCH ×4 (08:55→20:56)
[2020-03-11] MEDS: risperiDONE 1 MG TAB PO SCH ×2 (08:59→20:55)
[2020-03-11] MEDS: CALCIUM CARBONATE LIQUID 500 MG/5 ML CUP PO SCH ×4 (08:59→20:55)
[2020-03-11] MEDS: SERTRALINE 100 MG TAB PO SCH (08:59)
[2020-03-11] MEDS: LINAGLIPTIN 5 MG TABLET PO SCH (08:59)
[2020-03-11] MEDS: CLOPIDOGREL 75 MG TAB PO SCH (08:59)
[2020-03-11] MEDS: PROPRANOLOL LA 60 MG CAP.SA.24H PO SCH (08:59)
[2020-03-11] MEDS: metFORMIN 500 MG TAB PO SCH ×3 (08:59→17:54)
[2020-03-11] MEDS: FUROSEMIDE 20 MG TAB PO SCH (08:59)
[2020-03-11] MEDS: LISINOPRIL 20 MG TAB PO SCH (08:59)
[2020-03-11] MEDS: DONEPEZIL 10 MG TAB PO SCH (08:59)
[2020-03-11] MEDS ORDERED: DOCUSATE 100 MG CAP PO SCH (09:00)
[2020-03-11] MEDS: ACETAMINOPHEN TAB 325 MG TAB PO PRN ×2 (09:06→21:01)
[2020-03-11 09:41] VITALS: BMI 17.7
--- NOTE | 2020-03-11 10:58 | XR ---
EXAMINATION TYPE: XR abdomen 1V DATE OF EXAM: 03/11/2020 COMPARISON: 03/06/2020 HISTORY: : TECHNIQUE: One view abdominal series FINDINGS: The osseous structures are intact. The bowel gas pattern is nonspecific. Curvature the spine with mu ltilevel degenerative disc disease. Surgical clips are noted. Calcifications in the pelvis are nonspe cific but likely vascular. IMPRESSION: 1. Nonspecific abdomen. Extensive retained fecal debris throughout the colon correlate for constipat ion.
[2020-03-11 11:21] LABS: Glucose,Whole Blood 278 mg/dL (75-99)
[2020-03-11] MEDS ORDERED: PEG 3350-NA SULF,BICARB,CL/KCL 4,000 ML BOTTLE PO ONE (11:23)
[2020-03-11] MEDS: PANTOPRAZOLE 40 MG TABLET PO SCH ×2 (12:28→17:54)
[2020-03-11 16:54] LABS: Glucose,Whole Blood 203 mg/dL (75-99)
[2020-03-11 20:14] LABS: Glucose,Whole Blood 244 mg/dL (75-99)
--- NOTE | 2020-03-11 20:15 | P.PN ---
Progress Note - Text Progress Note Date: 03/11/20 Presenting complaint: Abdominal pain History of presenting complaint: This is a 79-year-old patient of Dr. Reynaldo Allen. Chronic stable medical conditions include diabetes, hypertension, depression. Patient for 6 weeks for depression and anxiety was at [facility]. In the mental unit. And she was discharged from the on January 27 and came to stay with her son and [id number]. She notices that her abdomen has been bloated for about a month. She has a bowel movement every other day. Her appetite has not been good. Has lost about 4-5 pounds. Patient been having epigastric pain more so localized to some diet is going to the back. Denies any nausea vomiting. No fever no chills. No edema. No diarrhea. Presented to the ER. Today-still has some, bloating. Had a bowel movement. Some abdominal discomfort. No nausea vomiting. Review of systems: Was done for constitutional, cardiovascular, GI, pulmonary. relevant finding as above Active Medications Acetaminophen (Tylenol Tab) 650 mg PO Q4HR PRN PRN Reason: Fever and/ or Pain Last Admin: 03/11/20 09:06 Dose: 650 mg Documented by: Calcium Carbonate/Glycine (Tums Liquid) 500 mg PO [facility] Last Admin: 03/11/20 17:54 Dose: 500 mg Documented by: Clopidogrel Bisulfate (Plavix) 75 mg PO DAILY [facility] Last Admin: 03/11/20 08:59 Dose: 75 mg Documented by: Donepezil HCl (Aricept) 10 mg PO DAILY [facility] Last Admin: 03/11/20 08:59 Dose: 10 mg Documented by: Furosemide (Lasix) 20 mg PO DAILY [facility] Last Admin: 03/11/20 08:59 Dose: 20 mg Documented by: Sodium Chloride (Saline 0.9%) 1,000 mls @ 100 mls/hr IV .Q10H [facility] Last Admin: 03/11/20 17:57 Dose: 100 mls/hr Documented by: Insulin Aspart (Novolog) 0 unit SQ [facility]; Protocol Last Admin: 03/11/20 17:54 Dose: 2 unit Documented by: Iopamidol (Isovue-300 (For Oral Use)) 30 ml PO Q60M PRN PRN Reason: CT Scan Stop: 03/11/20 21:36 Linagliptin (Tradjenta) 5 mg PO DAILY [facility] Last Admin: 03/11/20 08:59 Dose: 5 mg Documented by: Lisinopril (Zestril) 40 mg PO DAILY [facility] Last Admin: 03/11/20 08:59 Dose: 40 mg Documented by: Metformin HCl (Glucophage) 500 mg PO AC-TID [facility] Last Admin: 03/11/20 17:54 Dose: 500 mg Documented by: Naloxone HCl (Narcan) 0.2 mg IV Q2M PRN PRN Reason: Opioid Reversal Pantoprazole Sodium (Protonix) 40 mg PO AC-BID [facility] Last Admin: 03/11/20 17:54 Dose: 40 mg Documented by: Propranolol HCl (Inderal La) 60 mg PO DAILY [facility] Last Admin: 03/11/20 08:59 Dose: 60 mg Documented by: Risperidone (Risperdal) 3 mg PO BID [facility] Last Admin: 03/11/20 08:59 Dose: 3 mg Documented by: Sertraline HCl (Zoloft) 200 mg PO DAILY [facility] Last Admin: 03/11/20 08:59 Dose: 200 mg Documented by: Trazodone HCl (Desyrel) 50 mg PO HS [facility] Last Admin: 03/10/20 20:42 Dose: 50 mg Documented by: Physical examination: VITAL SIGNS: 97.9, 81, 18, 155/72, peripheral percent on room air GENERAL: Sitting up, awake. EYES: [Pupils equal. Conjunctiva pale. HEENT: External appearance of nose and ears normal, oral cavity grossly normal. NECK: JVD not raised; masses not palpable. HEART: First and second heart sounds are normal; no edema. LUNGS: Respiratory rate normal; clear to auscultation. ABDOMEN: Soft, distended, mild diffuse tenderness, no guarding or rigidity, liver spleen not palpable, no masses palpable. PSYCH: [Alert and oriented x3; mood and affect slightly anxious l. INVESTIGATIONS, reviewed in the clinical context: White count 8.8 hemoglobin 11.2 progression 4 creatinine 0.60 Previous testing White count 7.5 hemoglobin 13.3 sodium 1:30 progression 4.1 bun 18 and creatinine 0.4 to glucose 355 amylase 156 lipase 533 EKG tracing personally reviewed by me-normal sinus rhythm Thoracic aorta. Computed tomography scan-interval fracture of L1 possible sacrum Assessment: -This is a patient presents with abdominal bloating for about a month some " constipation t recently, decreased appetite as well as weight loss. -Mild pancreatitis but need to rule out any obstruction -Mild protein calorie malnutrition with a BMI of 17.8 -Diabetes mellitus type 2, uncontrolled with hyperglycemia -Essential hypertension -Depression and anxiety not otherwise specified -L1 and compression fracture possibly chronic Plan: Discussed the patient. Continue current medication due to plan. Awaiting GI input.
[2020-03-11] MEDS: traZODone HCL 50 MG TAB PO SCH (20:55)
[2020-03-12] MEDS: SODIUM CHLORIDE 0.9% 1,000 ML IV SCH ×3 (05:47→23:12)
[2020-03-12 07:14] LABS: Glucose,Whole Blood 142 mg/dL (75-99)
[2020-03-12] MEDS: PROPRANOLOL LA 60 MG CAP.SA.24H PO SCH (08:05)
[2020-03-12] MEDS: PANTOPRAZOLE 40 MG TABLET PO SCH ×2 (08:05→17:32)
[2020-03-12] MEDS: SERTRALINE 100 MG TAB PO SCH (08:05)
[2020-03-12] MEDS: CALCIUM CARBONATE LIQUID 500 MG/5 ML CUP PO SCH ×4 (08:05→20:05)
[2020-03-12] MEDS: risperiDONE 1 MG TAB PO SCH ×2 (08:06→20:06)
[2020-03-12] MEDS: CLOPIDOGREL 75 MG TAB PO SCH (08:06)
[2020-03-12] MEDS: INSULIN ASPART (NovoLOG) 100 UNIT/ML VIAL SQ SCH ×4 (08:06→20:05)
[2020-03-12] MEDS: LISINOPRIL 20 MG TAB PO SCH (08:06)
[2020-03-12] MEDS: metFORMIN 500 MG TAB PO SCH ×3 (08:06→17:32)
[2020-03-12] MEDS: DONEPEZIL 10 MG TAB PO SCH (08:06)
[2020-03-12] MEDS: FUROSEMIDE 20 MG TAB PO SCH (08:07)
[2020-03-12] MEDS: LINAGLIPTIN 5 MG TABLET PO SCH (08:07)
[2020-03-12] MEDS: PSYLLIUM HUSK 100% 6 GM PACKET PO SCH ×2 (11:05→20:06)
[2020-03-12 11:39] LABS: Glucose,Whole Blood 291 mg/dL (75-99)
[2020-03-12 11:57] VITALS: RESP 16
[2020-03-12] MEDS: ACETAMINOPHEN TAB 325 MG TAB PO PRN (11:57)
[2020-03-12 17:26] LABS: Glucose,Whole Blood 204 mg/dL (75-99)
--- NOTE | 2020-03-12 18:49 | P.CONS ---
History of Present Illness - Reason for Consult Consult date: 03/12/20 Abdominal pain Requesting physician: Yeison Mitchell - Chief Complaint Bloated, abdominal pain - History of Present Illness 79-year-old female with medical history significant for diabetes mellitus, hypertension and depression who presented to the hospital after recent hosp italization where she was seen in the mental health unit for anxiety and depression with complaints of abdominal pain and bloating. The patient reports increasing abdominal distention and bloating over the past month. She feels that this is been worsening. She reports that at baseline her bowel movements are every day however bowel movements have become less frequent and are occurring every 2-3 days. She is not had a bowel movement in 3 days prior to presentation. Last colonoscopy was approximately 56 years ago and normal per her recollection. No associated nausea or vomiting. CT of the chest on presentation was unremarkable. X-ray performed in evaluation did showed extensive colonic debris Review of Systems REVIEW OF SYSTEMS: CONSTITUTIONAL: Denies any fevers, chills, weight change or fatigue. CARDIOVASCULAR: Denies any chest pain, palpitations high or low blood pressures RESPIRATORY: Denies any shortness of breath, hemoptysis or cough. GENITOURINARY: No dysuria or hematuria. MUSCULOSKELETAL: No weakness reported. SKIN: Denies any new rashes or lesions, jaundice or pallor. PSYCHIATRIC: History of anxiety and depression with recent hospitalization for the same. NEUROLOGY: Denies headache, denies any new focal deficits. EARS/NOSE/THROAT: No recent hearing change, congestion, nasal discharge or sore throat. EYES: No pain in eyes, discharge or change in vision. GASTROINTESTINAL: As per HPI. Past Medical History Past Medical History: Cancer, Diabetes Mellitus, Hypertension Additional Past Medical History / Comment(s): Left breast cancer diagnosed in 1987, History of Any Multi-Drug Resistant Organisms: None Reported Past Surgical History: Breast Surgery, Section, Cholecystectomy, Heart Catheterization, Hysterectomy, Orthopedic Surgery Additional Past Surgical History / Comment(s): Cervical Fusion 8 years ago, hemroidectomy, left mastectomy, benign needle biopsys right breast , kidney stone removed, right ureter surgery, Past Anesthesia/Blood Transfusion Reactions: Postoperative Nausea & Vomiting (PONV) Past Psychological History: Anxiety, Depression Smoking Status: Never smoker Past Alcohol Use History: None Reported Past Drug Use History: None Reported - Past Family History Mother Family Medical History: No Reported History Father Additional Family Medical History / Comment(s): Stroke, heart disease Medications and Allergies Home Medications Medication Instructions Recorded Confirmed Type Clopidogrel [Plavix] 75 mg PO DAILY #21 tab 09/23/19 03/10/20 Rx Furosemide [Lasix] 20 mg PO DAILY 03/10/20 03/10/20 History Lisinopril [Zestril] 40 mg PO DAILY 03/10/20 03/10/20 History Propranolol HCl [Propranolol HCl 60 mg PO DAILY 03/10/20 03/10/20 History ER] Rivastigmine Tartrate [Exelon] 3 mg PO BID 03/10/20 03/10/20 History Sertraline [Zoloft] 200 mg PO DAILY 03/10/20 03/10/20 History metFORMIN HCL [Glucophage] 500 mg PO TID 03/10/20 03/10/20 History risperiDONE 3 mg PO BID 03/10/20 03/10/20 History sitaGLIPtin PHOSPHATE [Januvia] 100 mg PO DAILY 03/10/20 03/10/20 History traZODone HCL [Desyrel] 50 mg PO HS 03/10/20 03/10/20 History Allergies Allergy/AdvReac Type Severity Reaction Status Date / Time Penicillins Allergy Itching Verified 03/10/20 10:35 codeine AdvReac Nausea & Verified 03/10/20 10:35 [From Tylenol-Codeine #3] Vomiting erythromycin base AdvReac Nausea & Verified 03/10/20 10:35 Vomiting propoxyphene AdvReac Nausea & Verified 03/10/20 10:35 [From Darvocet-N] Vomiting Physical Exam Vitals: Vital Signs Temp Pulse Resp BP Pulse Ox 03/12/20 06:30 98.3 F 104 H 20 177/76 96 03/11/20 21:07 98.9 F 77 16 163/76 97 03/11/20 12:20 97.9 F 81 18 155/72 95 Intake and Output 03/11/20 03/12/20 03/12/20 22:59 06:59 14:59 Intake Total 350 800 Output Total 1 Balance 350 799 Intake: Intake, IV Titration 350 800 Amount Sodium Chloride 0.9% 1, 350 800 000 ml @ 100 mls/hr IV . Q10H [facility] Rx#:[id number] Output: Urine 1 Other: Voiding Method Toilet # Voids 1 # Bowel Movements 1 1 1 On physical examination, patient appears comfortable in no apparent distress. HEAD: Normocephalic, atraumatic. EYES: No scleral icterus. No conjunctival injection. MOUTH: No lesions, tongue midline. NECK: Trachea midline, no gross abnormalities. CHEST: Clear to auscultation with no wheezing or rhonchi appreciated. HEART: Regular rate and rhythm. ABDOMEN: Soft, moderately distended. Bowel sounds are positive. No organomegaly. No guarding or rigidity. EXTREMITIES: No pedal edema. SKIN: No rashes, no jaundice. NEUROLOGIC: Alert and oriented x3. No focal deficits. Results CBC & Chem 7: 03/11/20 06:01 03/11/20 06:01 Labs: Abnormal Lab Results - Last 24 Hours (Table) 03/11/20 03/11/20 03/11/20 Range/Units 11:20 16:53 20:13 POC Glucose (mg/dL) 278 H 203 H 244 H (75-99) mg/dL 03/12/20 Range/Units 07:12 POC Glucose (mg/dL) 142 H (75-99) mg/dL Abdominal x-ray: report reviewed (Extensive colonic debris on x-ray of the abdomen) Assessment and Plan (1) Abdominal pain Narrative/Plan: 79-year-old female who presented to the hospital with complaints of increasing abdominal pain and swelling. The patient reports daily bowel movements at baseline however has been increasingly constipated over the past month. No bowel movements 3-4 days prior to presentation she had x-ray of the abdomen with extensive colonic debris noted. Current Visit: Yes Status: Acute Code(s): R10.9 - UNSPECIFIED ABDOMINAL PAIN SNOMED Code(s): 78997851 (2) Constipation Current Visit: Yes Status: Acute Code(s): K59.00 - CONSTIPATION, UNSPECIFIED SNOMED Code(s): 79610940 Plan: Supportive care Okay for diet X-ray abdomen reviewed GoLYTELY bowel prep and enema ordered yesterday with patient reporting multiple bowel movements Nightly MiraLAX added Will repeat x-ray of the abdomen tomorrow for evaluation of fecal debris Follow-up after discharge with consideration for colonoscopy Protonix twice daily Thank you for allowing us to participate in the care of this patient
[2020-03-12 19:55] LABS: Glucose,Whole Blood 236 mg/dL (75-99)
[2020-03-12 19:56] LABS: Glucose,Whole Blood 224 mg/dL (75-99)
[2020-03-12] MEDS: traZODone HCL 50 MG TAB PO SCH (20:06)
--- NOTE | 2020-03-12 20:07 | P.PN ---
Progress Note - Text Progress Note Date: 03/12/20 Presenting complaint: Abdominal pain History of presenting complaint: This is a 79-year-old patient of Dr. Reynaldo Allen. Chronic stable medical conditions include diabetes, hypertension, depression. Patient for 6 weeks for depression and anxiety was at [facility]. In the mental unit. And she was discharged from the on January 27 and came to stay with her son and [id number]. She notices that her abdomen has been bloated for about a month. She has a bowel movement every other day. Her appetite has not been good. Has lost about 4-5 pounds. Patient been having epigastric pain more so localized to some diet is going to the back. Denies any nausea vomiting. No fever no chills. No edema. No diarrhea. Presented to the ER. Admitted with a diagnosis of severe constipation Today-patient received laxatives yesterday. Had good bowel movements. Abdomen less distended. Started to eat better Review of systems: Was done for constitutional, cardiovascular, GI, pulmonary. relevant finding as above Active Medications Acetaminophen (Tylenol Tab) 650 mg PO Q4HR PRN PRN Reason: Fever and/ or Pain Last Admin: 03/12/20 11:57 Dose: 650 mg Documented by: Calcium Carbonate/Glycine (Tums Liquid) 500 mg PO [facility] Last Admin: 03/12/20 17:31 Dose: 500 mg Documented by: Clopidogrel Bisulfate (Plavix) 75 mg PO DAILY [facility] Last Admin: 03/12/20 08:06 Dose: 75 mg Documented by: Donepezil HCl (Aricept) 10 mg PO DAILY [facility] Last Admin: 03/12/20 08:06 Dose: 10 mg Documented by: Sodium Chloride (Saline 0.9%) 1,000 mls @ 100 mls/hr IV .Q10H [facility] Last Admin: 03/12/20 12:00 Dose: 100 mls/hr Documented by: Insulin Aspart (Novolog) 0 unit SQ [facility]; Protocol Last Admin: 03/12/20 17:31 Dose: 2 unit Documented by: Linagliptin (Tradjenta) 5 mg PO DAILY [facility] Last Admin: 03/12/20 08:07 Dose: 5 mg Documented by: Lisinopril (Zestril) 40 mg PO DAILY [facility] Last Admin: 03/12/20 08:06 Dose: 40 mg Documented by: Metformin HCl (Glucophage) 500 mg PO AC-TID [facility] Last Admin: 03/12/20 17:32 Dose: 500 mg Documented by: Naloxone HCl (Narcan) 0.2 mg IV Q2M PRN PRN Reason: Opioid Reversal Pantoprazole Sodium (Protonix) 40 mg PO AC-BID [facility] Last Admin: 03/12/20 17:32 Dose: 40 mg Documented by: Polyethylene Glycol (Miralax) 17 gm PO [facility] Propranolol HCl (Inderal La) 60 mg PO DAILY [facility] Last Admin: 03/12/20 08:05 Dose: 60 mg Documented by: Psyllium Hydrophilic Mucilloid (Metamucil) 6 gm PO BID [facility] Last Admin: 03/12/20 11:05 Dose: 6 gm Documented by: Risperidone (Risperdal) 3 mg PO BID [facility] Last Admin: 03/12/20 08:06 Dose: 3 mg Documented by: Sertraline HCl (Zoloft) 200 mg PO DAILY [facility] Last Admin: 03/12/20 08:05 Dose: 200 mg Documented by: Trazodone HCl (Desyrel) 50 mg PO [facility] Last Admin: 03/11/20 20:55 Dose: 50 mg Documented by: Physical examination: VITAL SIGNS: 98, 99, 16, 158-70, 96% on room air GENERAL: Propped up in bed, more comfortable. EYES: [Pupils equal. Conjunctiva pale. HEENT: External appearance of nose and ears normal, oral cavity grossly normal. NECK: JVD not raised; masses not palpable. HEART: First and second heart sounds are normal; no edema. LUNGS: Respiratory rate normal; clear to auscultation. ABDOMEN: Soft, distention gone down,, no guarding or rigidity, liver spleen not palpable, no masses palpable. PSYCH: [Alert and oriented x3; mood and affect slightly anxious l. INVESTIGATIONS, reviewed in the clinical context: White count 8.8 hemoglobin 11.2 progression 4 creatinine 0.60 Previous testing White count 7.5 hemoglobin 13.3 sodium 1:30 progression 4.1 bun 18 and creatinine 0.4 to glucose 355 amylase 156 lipase 533 EKG tracing personally reviewed by me-normal sinus rhythm Thoracic aorta. Computed tomography scan-interval fracture of L1 possible sacrum Assessment: -Abdominal distention from severe constipation which has responded well to laxatives. After multiple bowel movements yesterday. -Mild pancreatitis -Mild protein calorie malnutrition with a BMI of 17.8 -Diabetes mellitus type 2, uncontrolled with hyperglycemia -Essential hypertension -Depression and anxiety not otherwise specified -L1 and compression fracture possibly chronic Plan: Discussed with Dr. Pelletier from GI. Okay to discharge the patient. Discussed with the patient. She feels a bit weak we'll like to go home tomorrow.
[2020-03-12] MEDS ORDERED: POLYETHYLENE GLYCOL 3350 17 GM POWD.PACK PO SCH (21:00)
[2020-03-12] MEDS: METOPROLOL TARTRATE 50 MG TAB PO SCH (21:44)
[2020-03-13] MEDS: ACETAMINOPHEN TAB 325 MG TAB PO PRN (00:40)
[2020-03-13 06:33] LABS: African American GFR (CKD) >90 (>60 ml/min/1.73 sqM); Anion Gap 6 mmol/L; Blood Urea Nitrogen 11 mg/dL (7-17); Carbon Dioxide 29 mmol/L (22-30); Chloride 99 mmol/L (98-107); Glucose 201 mg/dL (74-99); Non-African American GFR(CKD) >90 (>60 ml/min/1.73 sqM); Potassium 3.2 mmol/L (3.5-5.1); Sodium 134 mmol/L (137-145)
[2020-03-13 07:07] LABS: Glucose,Whole Blood 240 mg/dL (75-99)
[2020-03-13] MEDS: SERTRALINE 100 MG TAB PO SCH (08:04)
[2020-03-13] MEDS: METOPROLOL TARTRATE 50 MG TAB PO SCH (08:04)
[2020-03-13] MEDS: LISINOPRIL 20 MG TAB PO SCH (08:04)
[2020-03-13] MEDS: metFORMIN 500 MG TAB PO SCH ×2 (08:04→12:23)
[2020-03-13] MEDS: CLOPIDOGREL 75 MG TAB PO SCH (08:04)
[2020-03-13] MEDS: PANTOPRAZOLE 40 MG TABLET PO SCH (08:04)
[2020-03-13] MEDS: PSYLLIUM HUSK 100% 6 GM PACKET PO SCH (08:04)
[2020-03-13] MEDS: LINAGLIPTIN 5 MG TABLET PO SCH (08:05)
[2020-03-13] MEDS: CALCIUM CARBONATE LIQUID 500 MG/5 ML CUP PO SCH ×2 (08:05→12:23)
--- NOTE | 2020-03-13 08:05 | XR ---
EXAMINATION TYPE: XR abdomen 1V , ONE VIEW DATE OF EXAM ORDERED: 03/13/2020 HISTORY: Abdominal pain,stool burden. COMPARISON: Previous study dated 03/11/2020. FINDINGS: The lung bases are clear. Within the abdomen, there are multiple surgical clips in the rig ht side of the pelvis. The abdominal gas pattern is within normal limits. There is no evidence of obs truction or free air. There is a mild dextroscoliosis. No unusual calcifications are seen. IMPRESSION: NO ACUTE INTRA-ABDOMINAL ABNORMALITY.
[2020-03-13] MEDS: risperiDONE 1 MG TAB PO SCH (08:06)
[2020-03-13] MEDS: DONEPEZIL 10 MG TAB PO SCH (08:07)
[2020-03-13] MEDS: INSULIN ASPART (NovoLOG) 100 UNIT/ML VIAL SQ SCH ×2 (08:07→12:23)
[2020-03-13 11:16] LABS: Glucose,Whole Blood 371 mg/dL (75-99)
[2020-03-13] MEDS: SODIUM CHLORIDE 0.9% 1,000 ML IV SCH (11:16)
[2020-03-13 11:44] VITALS: BP 168/74
[2020-03-13 11:58] VITALS: PULSE 77; TEMP 96.2
[2020-03-13] MEDS ORDERED: REPAGLINIDE 1 MG TAB PO SCH (12:30)
--- NOTE | 2020-03-13 13:16 | P.PN ---
Subjective Progress Note Date: 03/13/20 Principal diagnosis: Abdominal pain, constipation Lying in bed reporting that she is tolerating her diet. Did report further small bowel movement this morning. No nausea or vomiting. Objective - Vital Signs Vital signs: Vital Signs Temp 96.2 F L 03/13/20 11:12 Pulse 77 03/13/20 11:12 Resp 16 03/13/20 11:12 BP 168/74 03/13/20 11:43 Pulse Ox 97 03/13/20 11:12 Intake & Output 03/12/20 03/13/20 03/13/20 18:59 06:59 18:59 Intake Total 2790 1280 Output Total 1 Balance 2789 1280 Intake: Intake, IV Titration 1200 Amount Sodium Chloride 0.9% 1, 1200 000 ml @ 100 mls/hr IV . Q10H [facility] Rx#:[id number] Oral 1590 1280 Output: Urine 1 Other: Voiding Method Bedside Commode Toilet # Voids 2 1 # Bowel Movements 1 1 - Exam On physical examination, patient appears comfortable in no apparent distress. HEAD: Normocephalic, atraumatic. EYES: No scleral icterus. No conjunctival injection. MOUTH: No lesions, tongue midline. NECK: Trachea midline, no gross abnormalities. ABDOMEN: Soft, nontender to palpation. Bowel sounds are positive. No organomegaly. No guarding or rigidity. EXTREMITIES: No pedal edema. SKIN: No rashes, no jaundice. NEUROLOGIC: Alert and oriented. No focal deficits. - Labs CBC & Chem 7: 03/11/20 06:01 03/13/20 05:20 Labs: Abnormal Lab Results - Last 24 Hours (Table) 03/12/20 03/12/20 03/12/20 Range/Units 17:22 19:53 19:55 Sodium (137-145) mmol/L Potassium (3.5-5.1) mmol/L Creatinine (0.52-1.04) mg/dL Glucose (74-99) mg/dL POC Glucose (mg/dL) 204 H 236 H 224 H (75-99) mg/dL 03/13/20 03/13/20 03/13/20 Range/Units 05: 07:06 11:15 Sodium 134 L (137-145) mmol/L Potassium 3.2 L (3.5-5.1) mmol/L Creatinine 0.51 L (0.52-1.04) mg/dL Glucose 201 H (74-99) mg/dL POC Glucose (mg/dL) 240 H 371 H (75-99) mg/dL Assessment and Plan (1) Abdominal pain Narrative/Plan: 79-year-old female who presented to the hospital with complaints of increasing abdominal pain and swelling. The patient reports daily bowel movements at base line however has been increasingly constipated over the past month. No bowel movements 3-4 days prior to presentation she had x-ray of the abdomen with extensive colonic debris noted. Status: Acute Code(s): R10.9 - UNSPECIFIED ABDOMINAL PAIN SNOMED Code(s): 92769692 (2) Constipation Status: Acute Code(s): K59.00 - CONSTIPATION, UNSPECIFIED SNOMED Code(s): 63984323 Plan: Supportive care Okay for diet X-ray abdomen with less stool today Nightly MiraLAX Follow-up after discharge with consideration for colonoscopy Protonix twice daily Thank you for allowing us to participate in the care of this patient
--- NOTE | 2020-03-13 18:02 | P.DS ---
Providers Date of admission: 03/12/20 09:36 Expected date of discharge: 03/13/20 Attending physician: Yeison Mitchell Consults: 03/10/20 13:44 Consult Physician Routine Consulting Provider: Manisha Ramirez Consult Reason/Comments: acute epigastric pain Do you want consulting provider notified?: Yes Primary care physician: [facility] Course: Presenting complaint: Abdominal pain History of presenting complaint: This is a 79-year-old patient of Dr. Reynaldo Allen. Chronic stable medical conditions include diabetes, hypertension, depression. Patient for 6 weeks for depression and anxiety was at [facility]. In the mental unit. And she was discharged from the on January 27 and came to stay with her son and [id number]. She notices that her abdomen has been bloated for about a month. She has a bowel movement every other day. Her appetite has not been good. Has lost about 4-5 pounds. Patient been having epigastric pain more so localized to some diet is going to the back. Denies any nausea vomiting. No fever no chills. No edema. No diarrhea. Presented to the ER. Admitted with a diagnosis of severe constipation. Also mild pancreatitis. Responded well to laxatives. Had multiple bowel movements. Also uncontrolled blood pressure. Medications adjusted. Today-Feeling better. Discussed with the patient. Cleared by GI for discharge. Abdominal pain. Abdomen soft. The discharged on Lopressor and Zestoretic. Discussed with the nurse. Discussion and discharge planning more than 35 minutes Consultation: Dr. Pelletier from GI Physical examination: VITAL SIGNS: On 6.2, 77, 16, 168/74, 97% on room air GENERAL: Propped up in bed, more comfortable. EYES: [Pupils equal. Conjunctiva pale. HEENT: External appearance of nose and ears normal, oral cavity grossly normal. NECK: JVD not raised; masses not palpable. HEART: First and second heart sounds are normal; no edema. LUNGS: Respiratory rate normal; clear to auscultation. ABDOMEN: Soft, distention gone down,, no guarding or rigidity, liver spleen not palpable, no masses palpable. PSYCH: [Alert and oriented x3; mood and affect slightly anxious l. INVESTIGATIONS, reviewed in the clinical context: White count 8.8 hemoglobin 11.2 progression 4 creatinine 0.60 Previous testing White count 7.5 hemoglobin 13.3 sodium 1:30 progression 4.1 bun 18 and creatinine 0.4 to glucose 355 amylase 156 lipase 533 EKG tracing personally reviewed by me-normal sinus rhythm Thoracic aorta. Computed tomography scan-interval fracture of L1 possible sacrum Assessment: -Abdominal distention from severe constipation which has responded well to laxatives. After multiple bowel movements yesterday. -Mild pancreatitis -Mild protein calorie malnutrition with a BMI of 17.8 -Diabetes mellitus type 2, uncontrolled with hyperglycemia -Essential hypertension-acute urgency -Depression and anxiety not otherwise specified -L1 and compression fracture possibly chronic Disposition: Home Patient Condition at Discharge: Stable Plan - Discharge Summary Discharge Rx Participant: No New Discharge Prescriptions: New Metoprolol Tartrate [Lopressor] 50 mg PO BID #60 tab Psyllium Husk 100% [Metamucil Packet] 6 gm PO BID #60 packet metFORMIN HCL 1,000 mg PO BID #60 tab Repaglinide [Prandin] 1 mg PO AC-TID #90 tablet Lisinopril-Hctz 20-12.5 mg [Zestoretic 20-12.5] 1 tab PO BID #60 tab Continue Clopidogrel [Plavix] 75 mg PO DAILY #21 tab Sertraline [Zoloft] 200 mg PO DAILY risperiDONE 3 mg PO BID traZODone HCL [Desyrel] 50 mg PO HS sitaGLIPtin PHOSPHATE [Januvia] 100 mg PO DAILY Rivastigmine Tartrate [Exelon] 3 mg PO BID Discontinued metFORMIN HCL [Glucophage] 500 mg PO TID Propranolol HCl [Propranolol HCl ER] 60 mg PO DAILY Lisinopril [Zestril] 40 mg PO DAILY Furosemide [Lasix] 20 mg PO DAILY Discharge Medication List Clopidogrel [Plavix] 75 mg PO DAILY #21 tab 09/23/19 [Rx] Rivastigmine Tartrate [Exelon] 3 mg PO BID 03/10/20 [History] Sertraline [Zoloft] 200 mg PO DAILY 03/10/20 [History] risperiDONE 3 mg PO BID 03/10/20 [History] sitaGLIPtin PHOSPHATE [Januvia] 100 mg PO DAILY 03/10/20 [History] traZODone HCL [Desyrel] 50 mg PO HS 03/10/20 [History] Lisinopril-Hctz 20-12.5 mg [Zestoretic 20-12.5] 1 tab PO BID #60 tab 03/13/20 [Rx] Metoprolol Tartrate [Lopressor] 50 mg PO BID #60 tab 03/13/20 [Rx] Psyllium Husk 100% [Metamucil Packet] 6 gm PO BID #60 packet 03/13/20 [Rx] Repaglinide [Prandin] 1 mg PO AC-TID #90 tablet 03/13/20 [Rx] metFORMIN HCL 1,000 mg PO BID #60 tab 03/13/20 [Rx] Follow up Appointment(s)/Referral(s): Reynaldo [facility] MD [Primary Care Provider] - 1-2 Days (call on Saturday to schedule hospital follow up appointment) King Perales MD [STAFF PHYSICIAN] - 1 Week Patient Instructions/Handouts: Metoprolol (By mouth), Laxative, Bulk-forming (By mouth), Metformin (By mouth), Repaglinide (By mouth), Lisinopril/Hydrochlorothiazide (By mouth), Chest Pain (DC), Constipation (DC), Acute Abdominal Pain (DC), Diabetic Hyperglycemia (DC) Discharge Disposition: HOME SELF-CARE
== END 2020-03-13 12:48 | disposition home or self-care (01) | DRG 391 ==
LOC: EC 07:43 → 5NMEDONC 10:57 → OBSVTOIN 03-12 09:36
PROVIDERS: ADMIT Hospitalist; ATTEND Hospitalist
DX: K59.00 Constipation, unspecified (principal); K85.90 Acute pancreatitis without necrosis or infection, unspecified; E44.1 Mild protein-calorie malnutrition; Z68.1 Body mass index [BMI] 19.9 or less, adult; S32.019A Unspecified fracture of first lumbar vertebra, initial encounter for closed fracture; E11.65 Type 2 diabetes mellitus with hyperglycemia; Z11.59 Encounter for screening for other viral diseases; I16.0 Hypertensive urgency; I10 Essential (primary) hypertension; F32.9 Major depressive disorder, single episode, unspecified; F41.9 Anxiety disorder, unspecified; Z79.02 Long term (current) use of antithrombotics/antiplatelets; Z79.84 Long term (current) use of oral hypoglycemic drugs; Z79.899 Other long term (current) drug therapy; Z90.12 Acquired absence of left breast and nipple; Z85.3 Personal history of malignant neoplasm of breast; Z87.442 Personal history of urinary calculi; Z90.49 Acquired absence of other specified parts of digestive tract; Z90.710 Acquired absence of both cervix and uterus; Z98.891 History of uterine scar from previous surgery; Z98.890 Other specified postprocedural states; Z98.1 Arthrodesis status; Z88.1 Allergy status to other antibiotic agents; Z88.5 Allergy status to narcotic agent; Z88.0 Allergy status to penicillin; Z82.3 Family history of stroke; Z82.49 Family history of ischemic heart disease and other diseases of the circulatory system
CPT/HCPCS: 36415; 71275; 74018; 74174; 80048; 80053; 81001; 82150; 83036; 83605; 83690; 84484; 85025; 85610; 85730; 87635; 93005; 96361; 96374; 96375; 99285

== ENCOUNTER 2020-04-13 07:53 | Emergency (ER) | payer MEDICARE ==
[2020-04-13 08:02] VITALS: RESP 18; TEMP 97.7
[2020-04-13] MEDS ORDERED: SODIUM CHLORIDE 0.9% 1,000 ML IV STA (08:28)
[2020-04-13] MEDS ORDERED: MORPHINE SULFATE 2 MG/ML SYRINGE IVP ONE (08:29)
[2020-04-13] MEDS ORDERED: ONDANSETRON 4 MG/2 ML VIAL IVP STA (08:29)
--- NOTE | 2020-04-13 08:59 | ED ---
Abdominal Pain HPI - General Chief Complaint: Abdominal Pain Stated Complaint: weakness Time Seen by Provider: 04/13/20 08:09 Source: patient, RN notes reviewed Mode of arrival: wheelchair Limitations: no limitations - History of Present Illness Initial Comments: This a 79-year-old female presents emergency dept chief complaint abdominal pain. Patient's been seen several times for this abdominal pain worsening pain. Patient is here with family states that she is not eating or drinking any more she's been falling multiple times. Patient states that she's been diagnosed with IBS for the pain is worsened that uncontrolled Bentyl. Patient denies any melena hematochezia. No dysuria no hematuria. She's been having chronic nausea and vomiting. Patient has had hospitalization for dehydration and hyponatremia. Patient also states from her falls that she had struck her face recently increased. Routine, on Plavix. - Related Data Home Medications Medication Instructions Recorded Confirmed Rivastigmine Tartrate [Exelon] 3 mg PO BID 03/10/20 04/13/20 Sertraline [Zoloft] 200 mg PO DAILY 03/10/20 04/13/20 risperiDONE 3 mg PO BID 03/10/20 04/13/20 sitaGLIPtin PHOSPHATE [Januvia] 100 mg PO DAILY 03/10/20 04/13/20 traZODone HCL [Desyrel] 50 mg PO HS 03/10/20 04/13/20 Dicyclomine [Bentyl] 10 mg PO QID 04/13/20 04/13/20 Previous Rx's Medication Instructions Recorded Clopidogrel [Plavix] 75 mg PO DAILY #21 tab 09/23/19 Lisinopril-Hctz 20-12.5 mg 1 tab PO BID #60 tab 03/13/20 [Zestoretic 20-12.5] Metoprolol Tartrate [Lopressor] 50 mg PO BID #60 tab 03/13/20 Psyllium Husk 100% [Metamucil 6 gm PO BID #60 packet 03/13/20 Packet] Repaglinide [Prandin] 1 mg PO AC-TID #90 tablet 03/13/20 metFORMIN HCL 1,000 mg PO BID #60 tab 03/13/20 Docusate [Colace] 100 mg PO BID #14 capsule 04/13/20 Allergies Allergy/AdvReac Type Severity Reaction Status Date / Time Penicillins Allergy Itching Verified 04/13/20 11:09 codeine AdvReac Nausea & Verified 04/13/20 11:09 [From Tylenol-Codeine #3] Vomiting erythromycin base AdvReac Nausea & Verified 04/13/20 11:09 Vomiting propoxyphene AdvReac Nausea & Verified 04/13/20 11:09 [From Darvocet-N] Vomiting Review of Systems ROS Statement: Those systems with pertinent positive or pertinent negative responses have been documented in the HPI. ROS Other: All systems not noted in ROS Statement are negative. Past Medical History Past Medical History: Cancer, Diabetes Mellitus, Hypertension Additional Past Medical History / Comment(s): Left breast cancer diagnosed in 1987, IBS History of Any Multi-Drug Resistant Organisms: None Reported Past Surgical History: Breast Surgery, Section, Cholecystectomy, Heart Catheterization, Hysterectomy, Orthopedic Surgery Additional Past Surgical History / Comment(s): Cervical Fusion 8 years ago, hemroidectomy, left mastectomy, benign needle biopsys right breast , kidney stone removed, right ureter surgery, Past Anesthesia/Blood Transfusion Reactions: Postoperative Nausea & Vomiting (PONV) Past Psychological History: Anxiety, Depression Smoking Status: Never smoker Past Alcohol Use History: None Reported Past Drug Use History: None Reported - Past Family History Mother Family Medical History: No Reported History Father Additional Family Medical History / Comment(s): Stroke, heart disease General Exam Limitations: no limitations General appearance: alert, in no apparent distress Head exam: Present: atraumatic, normocephalic, normal inspection Eye exam: Present: normal appearance, PERRL, EOMI. Absent: scleral icterus, conjunctival injection, periorbital swelling ENT exam: Present: normal exam, normal oropharynx, mucous membranes moist, other Neck exam: Present: normal inspection, full ROM. Absent: tenderness, meningismus, lymphadenopathy Respiratory exam: Present: normal lung sounds bilaterally. Absent: respiratory distress, wheezes, rales, rhonchi, stridor Cardiovascular Exam: Present: regular rate, normal rhythm, normal heart sounds. Absent: systolic murmur, diastolic murmur, rubs, gallop, clicks GI/Abdominal exam: Present: soft, tenderness, normal bowel sounds. Absent: distended, guarding, rebound, rigid Back exam: Absent: CVA tenderness (R), CVA tenderness (L) Neurological exam: Present: alert, oriented X3 Skin exam: Present: warm, dry, intact, normal color. Absent: rash Course Vital Signs 04/13/20 04/13/20 07:59 11:44 Temperature 97.7 F Pulse Rate 93 82 Respiratory 18 18 Rate Blood Pressure 173/71 159/72 O2 Sat by Pulse 98 97 Oximetry Medical Decision Making - Medical Decision Making 79-year-old female presented to [facility] from for abdominal pain, decreased oral intake. Patient was hydrated she has mild hyponatremia to though she has no symptoms of treatment. Patient CT her brain and C-spine are negative CT abdomen and pelvis shows severe constipation, old fracture patient knows about. She has no red flag symptoms. Patient did receive an enema which he graded feels improved. I do feel that she has some underlying IBS with constipation. Patient will be started on a stool softener she is advised to increase her oral intake and follow-up with her PCP. - Lab Data Result diagrams: 04/13/20 08:19 04/13/20 08:19 Lab Results 04/13/20 04/13/20 04/13/20 Range/Units 08:19 08:19 08:19 WBC 6.3 (3.8-10.6) k/uL RBC 4.30 (3.80-5.40) m/uL Hgb 13.1 (11.4-16.0) gm/dL Hct 37.8 (34.0-46.0) % MCV 87.8 (80.0-100.0) fL MCH 30.5 (25.0-35.0) pg MCHC 34.7 (31.0-37.0) g/dL RDW 13.9 (11.5-15.5) % Plt Count 270 (150-450) k/uL Neutrophils % 82 % Lymphocytes % 11 % Monocytes % 5 % Eosinophils % 1 % Basophils % 0 % Neutrophils # 5.1 (1.3-7.7) k/uL Lymphocytes # 0.7 L (1.0-4.8) k/uL Monocytes # 0.3 (0-1.0) k/uL Eosinophils # 0.1 (0-0.7) k/uL Basophils # 0.0 (0-0.2) k/uL Sodium 128 L (137-145) mmol/L Potassium 4.3 (3.5-5.1) mmol/L Chloride 89 L (98-107) mmol/L Carbon Dioxide 29 (22-30) mmol/L Anion Gap 10 mmol/L BUN 20 H (7-17) mg/dL Creatinine 0.41 L (0.52-1.04) mg/dL Est GFR (CKD-EPI)AfAm >90 (>60 ml/min/1.73 sqM) Est GFR (CKD-EPI)NonAf >90 (>60 ml/min/1.73 sqM) Glucose 358 H (74-99) mg/dL Plasma Lactic Acid Colin 1.9 (0.7-2.0) mmol/L Calcium 9.3 (8.4-10.2) mg/dL Magnesium 1.0 L (1.6-2.3) mg/dL Total Bilirubin 0.6 (0.2-1.3) mg/dL AST 26 (14-36) U/L ALT 25 (4-34) U/L Alkaline Phosphatase 72 (38-126) U/L Total Protein 7.4 (6.3-8.2) g/dL Albumin 4.0 (3.5-5.0) g/dL Amylase 141 H (30-110) U/L Lipase 207 (23-300) U/L Urine Color Urine Appearance (Clear) Urine pH (5.0-8.0) Ur Specific [place] (1.001-1.035) Urine Protein (Negative) Urine Glucose (UA) (Negative) Urine Ketones (Negative) Urine Blood (Negative) Urine Nitrite (Negative) Urine Bilirubin (Negative) Urine Urobilinogen (<2.0) mg/dL Ur Leukocyte Esterase (Negative) 04/13/20 Range/Units 10:11 WBC (3.8-10.6) k/uL RBC (3.80-5.40) m/uL Hgb (11.4-16.0) gm/dL Hct (34.0-46.0) % MCV (80.0-100.0) fL MCH (25.0-35.0) pg MCHC (31.0-37.0) g/dL RDW (11.5-15.5) % Plt Count (150-450) k/uL Neutrophils % % Lymphocytes % % Monocytes % % Eosinophils % % Basophils % % Neutrophils # (1.3-7.7) k/uL Lymphocytes # (1.0-4.8) k/uL Monocytes # (0-1.0) k/uL Eosinophils # (0-0.7) k/uL Basophils # (0-0.2) k/uL Sodium (137-145) mmol/L Potassium (3.5-5.1) mmol/L Chloride (98-107) mmol/L Carbon Dioxide (22-30) mmol/L Anion Gap mmol/L BUN (7-17) mg/dL Creatinine (0.52-1.04) mg/dL Est GFR (CKD-EPI)AfAm (>60 ml/min/1.73 sqM) Est GFR (CKD-EPI)NonAf (>60 ml/min/1.73 sqM) Glucose (74-99) mg/dL Plasma Lactic Acid Colin (0.7-2.0) mmol/L Calcium (8.4-10.2) mg/dL Magnesium (1.6-2.3) mg/dL Total Bilirubin (0.2-1.3) mg/dL AST (14-36) U/L ALT (4-34) U/L Alkaline Phosphatase (38-126) U/L Total Protein (6.3-8.2) g/dL Albumin (3.5-5.0) g/dL Amylase (30-110) U/L Lipase (23-300) U/L Urine Color Light Yellow Urine Appearance Clear (Clear) Urine pH 7.0 (5.0-8.0) Ur Specific [place] 1.027 (1.001-1.035) Urine Protein Negative (Negative) Urine Glucose (UA) 4+ H (Negative) Urine Ketones Negative (Negative) Urine Blood Negative (Negative) Urine Nitrite Negative (Negative) Urine Bilirubin Negative (Negative) Urine Urobilinogen <2.0 (<2.0) mg/dL Ur Leukocyte Esterase Negative (Negative) Disposition Clinical Impression: Constipation, L1 vertebral fracture Disposition: HOME SELF-CARE Condition: Stable Instructions (If sedation given, give patient instructions): Constipation (ED) Additional Instructions: Please return to the Emergency Department if symptoms worsen or any other concerns. Prescriptions: Docusate [Colace] 100 mg PO BID #14 capsule Is patient prescribed a controlled substance at d/c from ED?: No Referrals: Reynaldo Putnam MD [Primary Care Provider] - 1-2 days Time of Disposition: 12:43
[2020-04-13 09:08] LABS: ALT 25 U/L (4-34); AST 26 U/L (14-36); African American GFR (CKD) >90 (>60 ml/min/1.73 sqM); Alkaline Phosphatase 72 U/L (38-126); Amylase 141 U/L (30-110); Anion Gap 10 mmol/L; Blood Urea Nitrogen 20 mg/dL (7-17); Calcium 9.3 mg/dL (8.4-10.2); Carbon Dioxide 29 mmol/L (22-30); Chloride 89 mmol/L (98-107); Glucose 358 mg/dL (74-99); Non-African American GFR(CKD) >90 (>60 ml/min/1.73 sqM); Potassium 4.3 mmol/L (3.5-5.1); Sodium 128 mmol/L (137-145); Total Bilirubin 0.6 mg/dL (0.2-1.3); Total Protein 7.4 g/dL (6.3-8.2)
[2020-04-13 09:09] LABS: Basophils % (A) 0 %; Eosinophils # (A) 0.1 k/uL (0-0.7); Eosinophils % (A) 1 %; HCT 37.8 % (34.0-46.0); HGB 13.1 gm/dL (11.4-16.0); Lymphocytes # (A) 0.7 k/uL (1.0-4.8); Lymphocytes % (A) 11 %; MCH 30.5 pg (25.0-35.0); MCHC 34.7 g/dL (31.0-37.0); MCV 87.8 fL (80.0-100.0); Mean Platelet Volume 7.5; Monocytes # (A) 0.3 k/uL (0-1.0); Monocytes % (A) 5 %; Neutrophils # (A) 5.1 k/uL (1.3-7.7); Neutrophils % (A) 82 %; Platelet Count 270 k/uL (150-450); RDW 13.9 % (11.5-15.5); WBC 6.3 k/uL (3.8-10.6)
[2020-04-13] MEDS ORDERED: MORPHINE SULFATE 4 MG/ML SYRINGE IVP STA (09:29)
--- NOTE | 2020-04-13 10:24 | CT ---
EXAMINATION TYPE: CT abdomen pelvis w con DATE OF EXAM: 04/13/2020 HISTORY: Fall,pain CT DLP: 449.7mGycm Automated Exposure Control for Dose Reduction was Utilized. CONTRAST: CT scan of the abdomen and pelvis is performed with IV Contrast, patient injected with 100 ml mL of I sovue 300. COMPARISON: CT February 13, 2019 FINDINGS: LUNG BASES: Stable 3 mm calcified lateral right lower lobe nodule image 4. Linear and slightly more t hicker right lower lobe atelectasis and/or consolidation. Trace right pleural fluid collection near t his level. Trace left-sided basilar pleural fusion LIVER/GB: Stable 1.5 x 0.9 cm oval hypodense lesion right hepatic lobe axial image 15 favoring simple thin-walled cyst. Subcentimeter lesion right hepatic axial image 28 also redemonstrated presumed destinee ign. Gallbladder not identified presumably surgically absent similar to prior. There is new mild cent ral and left-sided intrahepatic lung with extrahepatic biliary dilatation for reference measuring up to 14 mm near apoorva hepatis on image 26. There is abrupt cut off near the duodenal ampulla. Ampulla measures roughly 6 mm coronal image 30 similar to prior study. Liver overall upper limits of normal in size and stable. PANCREAS: Persistent visualization of pancreatic duct in both coronal image 23 measuring upper limits of normal in size to perhaps mildly dilated. There are few subcentimeter hypodense lesions throughou t the pancreas redemonstrated for reference anterior distal body axial 21. They were present on prior study. Additional lesion for reference midbody axial image 28. SPLEEN: Scattered tiny calcifications throughout the spleen consistent with old granulomatous disease . ADRENALS: Low-dose technique and both adrenal glands reveals benign lipid rich hyperplasia. KIDNEYS: Asymmetric diminished size to right kidney with cortical volume loss redemonstrated. Symmetr ic cortical medullary uptake and excretion without hydronephrosis seen bilaterally. Simple appearing thin-walled cysts scattered throughout both kidneys greater in number in the right kidney. BOWEL: No suspicious small or large bowel dilatation. Moderate prominence of fecal material througho ut the colon on current study. UTERUS/ADNEXA: Uterus surgically absent or markedly atrophic similar to prior. Surgical clips in the right pelvis are redemonstrated. LYMPH NODES: No greater than 1cm abdominal or pelvic lymph nodes are appreciated. OSSEOUS STRUCTURES: Lucency and sclerosis consistent with moderate compression type fracture superior L1 endplate. Some posterior retropulsion measures 6 mm into the anterior spinal canal sagittal image 63 noted. Persistent dextroconvex convex scoliosis centered at L3 level. Persistent moderate to jordan re spurring and disc space narrowing greatest left L3-L4 level. Persistent multilevel disc herniation s efface the anterior thecal sac to lower lumbar spine. Facet arthropathy lower lumbar levels redemon strated. OTHER: Moderate calcified plaque of the aorta extends into branch vessels. Mild diffuse soft tissue a nasarca on current study IMPRESSION: 1. No acute posttraumatic finding identified. 2. New trace bilateral pleural effusions. New Right basilar atelectasis and/or limited consolidation, correlate clinically. 3. Stable several subcentimeter low dense lesions throughout pancreas, differential includes cystic m asses or neoplasm, follow-up advised. No significant change from prior. 4. New mild central intrahepatic and extrahepatic biliary dilatation is thought present, correlate cl inically and with liver lab values to determine need for possible further workup with MRCP/ERCP study . 5. Overall nonobstructive bowel gas pattern. Fairly marked to borderline severe diffuse colonic fecal stasis noted. Correlate clinically. 6. Suspected subacute moderate compression type fracture L1 level with 6 mm posterior retropulsion in to the spinal canal. 7. Evidence of chronic medical renal disease with increased findings to the right kidney versus left kidney redemonstrated.
--- NOTE | 2020-04-13 10:24 | CT ---
EXAMINATION TYPE: CT brain tomaszine wo con DATE OF EXAM: 04/13/2020 COMPARISON: CT brain 10/25/2019 HISTORY: Pain, fall, trauma CT DLP: 1101.3 mGycm Automated exposure control for dose reduction was used. TECHNIQUE: CT scan of the head and cervical spine are performed without contrast. FINDINGS: There is no acute intracranial hemorrhage, mass effect, or midline shift identified. The ventricles and sulci are within normal limits in size. White matter demyelination changes are again noted. The globes are intact and the visualized sinuses are clear. Cervical spine is visualized in its entirety from C1 through upper thoracic levels and demonstrates n ear anatomic alignment without evidence of acute fracture or dislocation. Patient is status post ante rior cervical fusion and discectomy at C5-C7. There is minimal anterolisthesis grade 1 C2-3, C3-4, re trolisthesis grade 1 C4-5, anterolisthesis grade 1 C7-T1. Loss of disc height is present C2-3, C3-4, C4-5, C7-T1, T1-T2 and T2-3. There is a spinal curvature present. Multilevel uncovertebral joint hype rtrophy changes are present. There is multilevel foraminal encroachment. Posterior disc herniation is present at C4-5, C3-4 shows posterior extension of endplate disc complex. Prevertebral soft tissue a ppears within normal limits. The C1-C2 articulation is unremarkable. IMPRESSION: 1. There is no acute fracture or dislocation evident in the cervical spine. Postop changes, degenerat papo disc disease, foraminal encroachment and spinal curvature. 2. No acute intracranial hemorrhage, mass effect, or midline shift is seen.
[2020-04-13 10:37] LABS: Appearance,Urine Clear (Clear); Bilirubin,Urine Negative (Negative); Blood,Urine Negative (Negative); Color,Urine Light Yellow; Glucose,Urine (UA) 4+ (Negative); Ketones,Urine Negative (Negative); Leukocyte Esterase,Urine Negative (Negative); Nitrite,Urine Negative (Negative); Protein,Urine Negative (Negative); Specific Gravity,Urine 1.027 (1.001-1.035); Urobilinogen,Urine <2.0 mg/dL (<2.0)
[2020-04-13] MEDS ORDERED: MAGNESIUM SULFATE-D5W PMX 1 GM in DEXTROSE/WATER 1 100ML.BAG IVPB ONE (10:53)
[2020-04-13 11:45] VITALS: PULSE 82
[2020-04-13 13:54] VITALS: BP 152/72
== END 2020-04-13 13:47 | disposition home or self-care (01) ==
LOC: EC 07:53
DX: K59.00 Constipation, unspecified (principal); K58.9 Irritable bowel syndrome, unspecified; M48.56XD Collapsed vertebra, not elsewhere classified, lumbar region, subsequent encounter for fracture with routine healing; A49.02 Methicillin resistant Staphylococcus aureus infection, unspecified site; E87.1 Hypo-osmolality and hyponatremia; E11.9 Type 2 diabetes mellitus without complications; I10 Essential (primary) hypertension; F41.9 Anxiety disorder, unspecified; F32.9 Major depressive disorder, single episode, unspecified; Z79.84 Long term (current) use of oral hypoglycemic drugs; Z79.899 Other long term (current) drug therapy; Z90.12 Acquired absence of left breast and nipple; Z88.0 Allergy status to penicillin; Z88.5 Allergy status to narcotic agent; Z88.1 Allergy status to other antibiotic agents; Z88.8 Allergy status to other drugs, medicaments and biological substances; Z85.3 Personal history of malignant neoplasm of breast; Z98.1 Arthrodesis status; Z90.49 Acquired absence of other specified parts of digestive tract; Z95.5 Presence of coronary angioplasty implant and graft
CPT/HCPCS: 99284; 96365; 96375 ×2; 96376; 96361 ×3; 36415; 80053; 82150; 83605; 83690; 83735; 85025; 81003; 72125; 70450; 74177; J2270 ×2; J2405; J3475; Q9967

== ENCOUNTER 2020-04-19 08:33 | Emergency (ER) | payer MEDICARE ==
[2020-04-19 08:39] VITALS: TEMP 98.8
[2020-04-19] MEDS ORDERED: DOCUSATE 283 MG/5 ML ENEMA RECTAL STA (08:51)
--- NOTE | 2020-04-19 08:56 | ED ---
Abdominal Pain HPI - General Chief Complaint: Abdominal Pain Stated Complaint: Constipation, Abd pain Time Seen by Provider: 04/19/20 08:41 Source: patient, RN notes reviewed, old records reviewed Mode of arrival: ambulatory Limitations: no limitations - History of Present Illness Initial Comments: Patient is a 79 year old female with CC of constipation and nausea. Patient reports that she's had multiple stool softeners and milk of magnesia at home but has not been able have a bowel movement. She reports she feels very full. She denies vomiting. Patient denies any fevers or chills. She reports she feels a hard ball of stool in her rectum.Patient denies any recent fever, chills, shortness of breath, chest pain, back pain, numbness or tingling, dysuria or hematuria, constipation or diarrhea, headaches or visual changes, or any other current symptoms - Related Data Home Medications Medication Instructions Recorded Confirmed Rivastigmine Tartrate [Exelon] 3 mg PO BID 03/10/20 04/13/20 Sertraline [Zoloft] 200 mg PO DAILY 03/10/20 04/13/20 risperiDONE 3 mg PO BID 03/10/20 04/13/20 sitaGLIPtin PHOSPHATE [Januvia] 100 mg PO DAILY 03/10/20 04/13/20 traZODone HCL [Desyrel] 50 mg PO HS 03/10/20 04/13/20 Dicyclomine [Bentyl] 10 mg PO QID 04/13/20 04/13/20 Previous Rx's Medication Instructions Recorded Clopidogrel [Plavix] 75 mg PO DAILY #21 tab 09/23/19 Lisinopril-Hctz 20-12.5 mg 1 tab PO BID #60 tab 03/13/20 [Zestoretic 20-12.5] Metoprolol Tartrate [Lopressor] 50 mg PO BID #60 tab 03/13/20 Psyllium Husk 100% [Metamucil 6 gm PO BID #60 packet 03/13/20 Packet] Repaglinide [Prandin] 1 mg PO AC-TID #90 tablet 03/13/20 metFORMIN HCL 1,000 mg PO BID #60 tab 03/13/20 Docusate [Colace] 100 mg PO BID #14 capsule 04/13/20 Allergies Allergy/AdvReac Type Severity Reaction Status Date / Time Penicillins Allergy Itching Verified 04/19/20 08:39 codeine AdvReac Nausea & Verified 04/19/20 08:39 [From Tylenol-Codeine #3] Vomiting erythromycin base AdvReac Nausea & Verified 04/19/20 08:39 Vomiting propoxyphene AdvReac Nausea & Verified 04/19/20 08:39 [From Darvocet-N] Vomiting Review of Systems ROS Statement: Those systems with pertinent positive or pertinent negative responses have been documented in the HPI. ROS Other: All systems not noted in ROS Statement are negative. Past Medical History Past Medical History: Cancer, Diabetes Mellitus, Hypertension Additional Past Medical History / Comment(s): Left breast cancer diagnosed in 1987, IBS History of Any Multi-Drug Resistant Organisms: None Reported Past Surgical History: Breast Surgery, Section, Cholecystectomy, Heart Catheterization, Hysterectomy, Orthopedic Surgery Additional Past Surgical History / Comment(s): Cervical Fusion 8 years ago, hemroidectomy, left mastectomy, benign needle biopsys right breast , kidney stone removed, right ureter surgery, Past Anesthesia/Blood Transfusion Reactions: Postoperative Nausea & Vomiting (PONV) Past Psychological History: Anxiety, Depression Smoking Status: Never smoker Past Alcohol Use History: None Reported Past Drug Use History: None Reported - Past Family History Mother Family Medical History: No Reported History Father Additional Family Medical History / Comment(s): Stroke, heart disease General Exam - General Exam Comments Initial Comments: 79-year-old female. Alert and oriented 3. Limitations: no limitations General appearance: alert, in no apparent distress Head exam: Present: atraumatic, normocephalic, normal inspection Eye exam: Present: normal appearance, PERRL, EOMI. Absent: scleral icterus, conjunctival injection, periorbital swelling ENT exam: Present: normal exam, mucous membranes moist Neck exam: Present: normal inspection. Absent: tenderness, meningismus, lymphadenopathy Respiratory exam: Present: normal lung sounds bilaterally. Absent: respiratory distress, wheezes, rales, rhonchi, stridor Cardiovascular Exam: Present: regular rate, normal rhythm, normal heart sounds. Absent: systolic murmur, diastolic murmur, rubs, gallop, clicks GI/Abdominal exam: Present: soft, distended Extremities exam: Present: normal inspection, full ROM, normal capillary refill. Absent: tenderness, pedal edema, joint swelling, calf tenderness Back exam: Present: normal inspection Neurological exam: Present: alert Psychiatric exam: Present: normal affect, normal mood Skin exam: Present: warm, dry, intact, normal color. Absent: rash Course Vital Signs 04/19/20 08:35 Temperature 98.8 F Pulse Rate 87 Respiratory 18 Rate Blood Pressure 187/85 O2 Sat by Pulse 99 Oximetry - Reevaluation(s) Reevaluation #1: 04/19/20 09:47 Patient had Therevac enema and when I went to disimpact Patient she had a large bowel movement all over the bed and on her legs. Patient's been clean off, cyanosis or milk and molasses enema. Medical Decision Making - Medical Decision Making 79-year-old female presents emergency room today with complaints of constipation. Patient has been using at home oral stool softeners and had a hard ball of stool in the rectum. She is given Therevac enema. Patient was reevaluated and had a large bowel movement. She is somewhat better with complaint of some nausea. Her x-ray did show still moderate stool pattern but no sign of obstruction. Patient is feeling better after an Therevac and having a large bowel movement. I advised Patient to just use the daily fiber Metamucil forward. I discussed the Patient should follow-up with her primary care doctor. Questions were answered. - Radiology Data Radiology results: report reviewed Disposition Clinical Impression: Constipation Disposition: HOME SELF-CARE Condition: Good Instructions (If sedation given, give patient instructions): Constipation (ED) Additional Instructions: Patient is to continue daily fiber supplement. Increase her water intake. Return to the emergency department if any alarming signs or symptoms occur. Is patient prescribed a controlled substance at d/c from ED?: No Referrals: Reynaldo Putnam MD [Primary Care Provider] - 1-2 days Time of Disposition: 10:13
--- NOTE | 2020-04-19 09:10 | XR ---
EXAMINATION TYPE: XR KUB DATE OF EXAM: 04/19/2020 9:03 AM CLINICAL HISTORY: Abdominal pain and bloating. TECHNIQUE: Single supine KUB upright image of the abdomen is obtained. COMPARISON: CT abdomen and pelvis 6 days ago.. FINDINGS: Air-fluid level in nondistended stomach. Scattered gas is seen in non-distended small bowel loops. Gas and fecal material is seen in non-distended colon. Improvement in amount of colonic fecal material noted from recent CT. Correlate clinically. Surgical clips redemonstrated over the right pe lvis. Underlying scoliotic curvature with moderate compression type fracture superior L1 endplate red emonstrated. No pneumoperitoneum. IMPRESSION: Overall nonobstructive bowel gas pattern currently.
[2020-04-19] MEDS ORDERED: ONDANSETRON 4 MG TAB PO STA (09:11)
[2020-04-19 10:39] VITALS: BP 122/86; PULSE 80; RESP 16
== END 2020-04-19 10:38 | disposition home or self-care (01) ==
LOC: EC 08:33
DX: K59.00 Constipation, unspecified (principal); R11.0 Nausea; E11.9 Type 2 diabetes mellitus without complications; F32.9 Major depressive disorder, single episode, unspecified; K58.9 Irritable bowel syndrome, unspecified; F41.9 Anxiety disorder, unspecified; Z79.899 Other long term (current) drug therapy; Z79.84 Long term (current) use of oral hypoglycemic drugs; Z88.0 Allergy status to penicillin; Z88.5 Allergy status to narcotic agent; Z88.1 Allergy status to other antibiotic agents; Z88.6 Allergy status to analgesic agent; Z87.442 Personal history of urinary calculi; Z90.49 Acquired absence of other specified parts of digestive tract; Z90.710 Acquired absence of both cervix and uterus; Z85.3 Personal history of malignant neoplasm of breast; Z90.12 Acquired absence of left breast and nipple
CPT/HCPCS: 74018; 99284

== ENCOUNTER 2020-04-25 15:14 | Inpatient (IN) | payer MEDICARE ==
[2020-04-25] MEDS ORDERED: SODIUM CHLORIDE 0.9% 500 ML 500 ML IV STA (17:22)
[2020-04-25 17:39] LABS: Basophils % (A) 0 %; Eosinophils % (A) 0 %; HCT 41.2 % (34.0-46.0); HGB 13.7 gm/dL (11.4-16.0); Lymphocytes # (A) 0.7 k/uL (1.0-4.8); Lymphocytes % (A) 10 %; MCH 29.9 pg (25.0-35.0); MCHC 33.3 g/dL (31.0-37.0); MCV 89.5 fL (80.0-100.0); Mean Platelet Volume 7.3; Monocytes # (A) 0.3 k/uL (0-1.0); Monocytes % (A) 4 %; Neutrophils # (A) 6.5 k/uL (1.3-7.7); Neutrophils % (A) 84 %; Platelet Count 356 k/uL (150-450); RDW 14.6 % (11.5-15.5); WBC 7.7 k/uL (3.8-10.6)
[2020-04-25 17:49] LABS: Partial Thromboplastin Time 22.1 sec (22.0-30.0); Prothrombin Time 10.6 sec (9.0-12.0)
[2020-04-25 17:51] LABS: ALT 30 U/L (4-34); AST 28 U/L (14-36); African American GFR (CKD) >90 (>60 ml/min/1.73 sqM); Albumin 4.6 g/dL (3.5-5.0); Alkaline Phosphatase 61 U/L (38-126); Anion Gap 14 mmol/L; Blood Urea Nitrogen 22 mg/dL (7-17); Calcium 10.1 mg/dL (8.4-10.2); Carbon Dioxide 25 mmol/L (22-30); Chloride 93 mmol/L (98-107); Glucose 73 mg/dL (74-99); Magnesium 1.3 mg/dL (1.6-2.3); Non-African American GFR(CKD) 81 (>60 ml/min/1.73 sqM); Potassium 3.4 mmol/L (3.5-5.1); Sodium 132 mmol/L (137-145); Total Bilirubin 0.7 mg/dL (0.2-1.3); Total Protein 8.1 g/dL (6.3-8.2)
--- NOTE | 2020-04-25 18:01 | XR ---
EXAMINATION TYPE: XR chest 2V DATE OF EXAM: 04/25/2020 COMPARISON: 10/25/2019 HISTORY: Chest pain TECHNIQUE: FINDINGS: There is no heart failure nor confluent pneumonic infiltrate. There is some linear density over the right midlung field that could be some pleural or pulmonary scarring. There are no hilar mas ses. There are chest leads. There is no sign of pleural effusion. There is mild pulmonary hyperinflat ion. Thoracic aorta is atheromatous. IMPRESSION: COPD. Minimal linear density in the right lung appears new compared to old exam and could be some pleural and pulmonary scarring.
--- NOTE | 2020-04-25 18:03 | XR ---
EXAMINATION TYPE: XR Hip LT and AP Pelvis DATE OF EXAM: 04/25/2020 COMPARISON: NONE HISTORY: Left hip pain TECHNIQUE: 3 views FINDINGS: The pelvic ring is intact. Proximal left femur and hip joint appear intact. There is no sig n of hip dysplasia. Sacroiliac joints appear intact. IMPRESSION: Negative pelvis and left hip exam. No fracture.
[2020-04-25 19:13] LABS: Appearance,Urine Clear (Clear); Bilirubin,Urine Negative (Negative); Blood,Urine Negative (Negative); Color,Urine Yellow; Glucose,Urine (UA) Negative (Negative); Hyaline Casts,Urine 8 /lpf (0-2); Ketones,Urine 1+ (Negative); Leukocyte Esterase,Urine Negative (Negative); Mucus,Urine Rare /hpf; Nitrite,Urine Negative (Negative); PH, Urine 5.5 (5.0-8.0); Protein,Urine 1+ (Negative); RBC,Urine <1 /hpf (0-5); Specific Gravity,Urine 1.019 (1.001-1.035); Squamous Epithelial Cell,Urine 1 /hpf (0-4); Urobilinogen,Urine <2.0 mg/dL (<2.0); WBC,Urine 1 /hpf (0-5)
[2020-04-25 19:14] LABS: Amphetamine Screen,Urine Not Detected (NotDetected); Benzodiazepines Screen,Urine Not Detected (NotDetected); Cocaine Screen,Urine Not Detected (NotDetected); Opiate Screen,Urine Not Detected (NotDetected); Phencyclidine Screen,Urine Not Detected (NotDetected); Tricyclic Antidepressant,Urine Not Detected (NotDetected); Urn Cannabinoid Scrn Detected (NotDetected)
[2020-04-25 19:15] LABS: Barbiturate Screen,Urine Not Detected (NotDetected); Methadone Screen, Urine Not Detected (NotDetected); Oxycodone Screen, Urine Not Detected (NotDetected)
--- NOTE | 2020-04-25 19:29 | XR ---
EXAMINATION TYPE: XR KUB DATE OF EXAM: 04/25/2020 COMPARISON: 04/19/2020 HISTORY: Constipation left side pain TECHNIQUE: FINDINGS: Single view supine shows no sign of intestinal obstruction or pneumoperitoneum. Fecal patte rn is normal. There is no evidence of a mass. There are surgical clips in the pelvis on the right sydni e. IMPRESSION: Nonacute abdomen. No evidence of constipation. There is decreased fecal material compared to old exam.
--- NOTE | 2020-04-25 19:31 | XR ---
EXAMINATION TYPE: XR ribs LT DATE OF EXAM: 04/25/2020 COMPARISON: Chest x-ray 10/25/2019 HISTORY: Pain TECHNIQUE: 4 views FINDINGS: There is no pleural effusion or pneumothorax. Left lung is clear of infiltrate. I see no ev idence of a rib fracture. IMPRESSION: Negative left rib exam.
[2020-04-25] MEDS ORDERED: ACETAMINOPHEN TAB 325 MG TAB PO STA (20:24)
--- NOTE | 2020-04-25 20:25 | ED ---
General Adult HPI - General Source: patient, family, RN notes reviewed, old records reviewed Mode of arrival: wheelchair Limitations: physical limitation <Cristobal Mcfadden - Last Filed: 04/25/20 22:18> <Kimo Marie - Last Filed: 04/25/20 23:49> - General Chief complaint: Fall Stated complaint: falls,bowel issues,and altered Time Seen by Provider: 04/25/20 16:39 - History of Present Illness Initial comments: 79-year-old female patient presents to ED for multiple complaints. Patient reports that she has had multiple falls within the last few weeks. She reports that she has poor balance. She states that approximately 2 weeks ago she fell on her left side. She has had left rib pain since then. Also reports that she has frequent constipaton. Son is with patient in the room. He states that she is paranoid in delusional. She states that patient is not eating at all. Has been losing weight. She is to eat or drink. Denies any other complaints. Systemic: Pt denies fatigue, fever/chills, rash. Pt denies weakness, night sweats, weight loss. Neuro: Pt denies headache, visual disturbances, syncope or pre-syncope. HEENT: Pt denies ocular discharge or irritation, otalgia, rhinorrhea, pharyngitis or notable lymphadenopathy. Cardiopulmonary: Pt denies chest pain, SOB, heart palpitations, dyspnea on exertion. Abdominal/GI: Pt denies abdominal pain, n/v/d. : Pt denies dysuria, burning w/ urination, frequency/urgency. Denies new onset urinary or bowel incontinence. MSK: Pt denies myalgia, loss of strength or function in extremities. Neuro: Pt denies new onset weakness, paresthesias. (Cristobal Mcfadden) - Related Data Home Medications Medication Instructions Recorded Confirmed Sertraline [Zoloft] 200 mg PO DAILY 03/10/20 04/25/20 risperiDONE 3 mg PO BID 03/10/20 04/25/20 sitaGLIPtin PHOSPHATE [Januvia] 100 mg PO DAILY 03/10/20 04/25/20 traZODone HCL [Desyrel] 50 mg PO HS 03/10/20 04/25/20 Dicyclomine [Bentyl] 10 mg PO QID 04/13/20 04/25/20 Rivastigmine Tartrate [Exelon] 3 mg PO BID 04/25/20 04/25/20 Previous Rx's Medication Instructions Recorded Clopidogrel [Plavix] 75 mg PO DAILY #21 tab 09/23/19 Lisinopril-Hctz 20-12.5 mg 1 tab PO BID #60 tab 03/13/20 [Zestoretic 20-12.5] Metoprolol Tartrate [Lopressor] 50 mg PO BID #60 tab 03/13/20 Psyllium Husk 100% [Metamucil 6 gm PO BID #60 packet 03/13/20 Packet] Repaglinide [Prandin] 1 mg PO AC-TID #90 tablet 03/13/20 metFORMIN HCL 1,000 mg PO BID #60 tab 03/13/20 Docusate [Colace] 100 mg PO BID #14 capsule 04/13/20 Allergies Allergy/AdvReac Type Severity Reaction Status Date / Time Penicillins Allergy Itching Verified 04/25/20 18:29 codeine AdvReac Nausea & Verified 04/25/20 18:29 [From Tylenol-Codeine #3] Vomiting erythromycin base AdvReac Nausea & Verified 04/25/20 18:29 Vomiting propoxyphene AdvReac Nausea & Verified 04/25/20 18:29 [From Darvocet-N] Vomiting Review of Systems ROS Other: All systems not noted in ROS Statement are negative. <Cristobal Mcfadden - Last Filed: 04/25/20 22:18> ROS Other: All systems not noted in ROS Statement are negative. <Kimo Marie - Last Filed: 04/25/20 23:49> ROS Statement: Those systems with pertinent positive or pertinent negative responses have been documented in the HPI. Past Medical History Past Medical History: Cancer, Diabetes Mellitus, Hypertension Additional Past Medical History / Comment(s): Left breast cancer diagnosed in 1987, IBS History of Any Multi-Drug Resistant Organisms: None Reported Past Surgical History: Breast Surgery, Section, Cholecystectomy, Heart Catheterization, Hysterectomy, Orthopedic Surgery Additional Past Surgical History / Comment(s): Cervical Fusion 8 years ago, hemroidectomy, left mastectomy, benign needle biopsys right breast , kidney stone removed, right ureter surgery, Past Anesthesia/Blood Transfusion Reactions: Postoperative Nausea & Vomiting (PONV) Past Psychological History: Anxiety, Depression Smoking Status: Never smoker Past Alcohol Use History: None Reported Past Drug Use History: None Reported - Past Family History Mother Family Medical History: No Reported History Father Additional Family Medical History / Comment(s): Stroke, heart disease <Cristobal Mcfadden - Last Filed: 04/25/20 22:18> General Exam Limitations: physical limitation <Cristobal Mcfadden - Last Filed: 04/25/20 22:18> - General Exam Comments Initial Comments: Constitutional: NAD, AOX3, Pt has pleasant affect. HEENT: NC/AT, trachea midline, neck supple, no lymphadenopathy. Posterior pharynx non erythematous, without exudates. External ears appear normal, without discharge. Mucous membranes moist. Eyes PERRLA, EOM intact. There is no scleral icterus. No pallor noted. Cardiopulmonary: RRR, no murmurs, rubs or gallops, no JVD noted. Lungs CTAB in anterior and posterior gill. No peripheral edema. Abdominal exam: Abdomen soft and non-distended. Abdomen non-tender to palpation in all 4 quadrants. Bowel sounds active in LLQ. No hepatosplenomegaly. No ecchymosis Neuro: CN II-XII intact. No nuchal rigidity. No raccon eyes, no nolasco sign, no hemotympanum. No cervical spinal tenderness. Some older appearing ecchymosis to left temporal region. MSK: Left lateral rib region nontender palpation. No external skin changes. Full active ROM in upper and lower extremities, 5/5 stregnth. (Cristobal Mcfadden) Course <FrankKimo - Last Filed: 04/25/20 23:49> Vital Signs 04/25/20 04/25/20 04/25/20 16:05 16:28 17:00 Temperature 98.3 F Pulse Rate 92 80 Respiratory 18 17 Rate Blood Pressure 175/86 170/66 O2 Sat by Pulse 99 99 100 Oximetry 04/25/20 04/25/20 04/25/20 18:42 19:59 23:00 Temperature 98 F 98 F Pulse Rate 80 85 81 Respiratory 16 17 17 Rate Blood Pressure 157/73 171/77 159/81 O2 Sat by Pulse 98 99 81 L Oximetry - Reevaluation(s) Reevaluation #1: 04/25/20 23:46 Patient was endorsed me at our shift change pending EPS evaluation patient currently is not a candidate for [facility] inpatient treatment she will be admitted to medicine. Case is discussed with Dr. Franco. Patient does demonstrate evidence of failure to thrive and dehydration hypokalemia hypomagnesemia. (Kimo Marie) Medical Decision Making - Lab Data Result diagrams: 04/25/20 17:26 04/25/20 17:26 - EKG Data -: EKG Interpreted by Me (and Dr. Marie ) <Cristobal Mcfadden - Last Filed: 04/25/20 22:18> - Lab Data Result diagrams: 04/25/20 17:26 04/25/20 17:26 - Radiology Data Radiology results: report reviewed (I did review the imaging and report no acute findings), image reviewed <Kimo Marie - Last Filed: 04/25/20 23:49> - Medical Decision Making 79-year-old female patient presents to ED for multiple complaints. Patient rep orts that she has had multiple falls within the last few weeks. She reports that she has poor balance. She states that approximately 2 weeks ago she fell on her left side. She has had left rib pain since then. Also reports that she has frequent constipaton. Son is with patient in the room. He states that she is paranoid in delusional. She states that patient is not eating at all. Has been losing weight. She is to eat or drink. Denies any other complaints. Patient also has a stable, afebrile. Physical exam is a mild tenderness left lateral rib region. No skin changes. Neurologic exam is intact. EKG is nonischemic. Laboratory investigations were noncompressive. Plain films dis played no acute fracture. Patient denies any recent trauma to head or neck. Patient did have a fall and she hit her head a number of weeks ago, she reportedly did have a CT after that. Patient will be evaluated by emergency psychiatric services. Signed out to Dr. Marie pending EPS evaluation. (Cristobal Mcfadden) - Lab Data Lab Results 04/25/20 04/25/20 04/25/20 Range/Units 17:26 17:26 17:26 WBC 7.7 (3.8-10.6) k/uL RBC 4.60 (3.80-5.40) m/uL Hgb 13.7 (11.4-16.0) gm/dL Hct 41.2 (34.0-46.0) % MCV 89.5 (80.0-100.0) fL MCH 29.9 (25.0-35.0) pg MCHC 33.3 (31.0-37.0) g/dL RDW 14.6 (11.5-15.5) % Plt Count 356 (150-450) k/uL Neutrophils % 84 % Lymphocytes % 10 % Monocytes % 4 % Eosinophils % 0 % Basophils % 0 % Neutrophils # 6.5 (1.3-7.7) k/uL Lymphocytes # 0.7 L (1.0-4.8) k/uL Monocytes # 0.3 (0-1.0) k/uL Eosinophils # 0.0 (0-0.7) k/uL Basophils # 0.0 (0-0.2) k/uL PT 10.6 (9.0-12.0) sec INR 1.0 (<1.2) APTT 22.1 (22.0-30.0) sec Sodium 132 L (137-145) mmol/L Potassium 3.4 L (3.5-5.1) mmol/L Chloride 93 L (98-107) mmol/L Carbon Dioxide 25 (22-30) mmol/L Anion Gap 14 mmol/L BUN 22 H (7-17) mg/dL Creatinine 0.72 (0.52-1.04) mg/dL Est GFR (CKD-EPI)AfAm >90 (>60 ml/min/1.73 sqM) Est GFR (CKD-EPI)NonAf 81 (>60 ml/min/1.73 sqM) Glucose 73 L (74-99) mg/dL POC Glucose (mg/dL) (75-99) mg/dL POC Glu [employer] ID Calcium 10.1 (8.4-10.2) mg/dL Magnesium 1.3 L (1.6-2.3) mg/dL Total Bilirubin 0.7 (0.2-1.3) mg/dL AST 28 (14-36) U/L ALT 30 (4-34) U/L Alkaline Phosphatase 61 (38-126) U/L Troponin I (0.000-0.034) ng/mL Total Protein 8.1 (6.3-8.2) g/dL Albumin 4.6 (3.5-5.0) g/dL Urine Color Urine Appearance (Clear) Urine pH (5.0-8.0) Ur Specific [place] (1.001-1.035) Urine Protein (Negative) Urine Glucose (UA) (Negative) Urine Ketones (Negative) Urine Blood (Negative) Urine Nitrite (Negative) Urine Bilirubin (Negative) Urine Urobilinogen (<2.0) mg/dL Ur Leukocyte Esterase (Negative) Urine RBC (0-5) /hpf Urine WBC (0-5) /hpf Ur Squamous Epith Cells (0-4) /hpf Hyaline Casts (0-2) /lpf Urine Mucus (None) /hpf Urine Opiates Screen (NotDetected) Ur Oxycodone Screen (NotDetected) Urine Methadone Screen (NotDetected) Ur Propoxyphene Screen (NotDetected) Ur Barbiturates Screen (NotDetected) U Tricyclic Antidepress (NotDetected) Ur Phencyclidine Scrn (NotDetected) Ur Amphetamines Screen (NotDetected) U Methamphetamines Scrn (NotDetected) U Benzodiazepines Scrn (NotDetected) Urine Cocaine Screen (NotDetected) U Marijuana (THC) Screen (NotDetected) Serum Alcohol mg/dL 04/25/20 04/25/20 04/25/20 Range/Units 17:26 18:11 18:50 WBC (3.8-10.6) k/uL RBC (3.80-5.40) m/uL Hgb (11.4-16.0) gm/dL Hct (34.0-46.0) % MCV (80.0-100.0) fL MCH (25.0-35.0) pg MCHC (31.0-37.0) g/dL RDW (11.5-15.5) % Plt Count (150-450) k/uL Neutrophils % % Lymphocytes % % Monocytes % % Eosinophils % % Basophils % % Neutrophils # (1.3-7.7) k/uL Lymphocytes # (1.0-4.8) k/uL Monocytes # (0-1.0) k/uL Eosinophils # (0-0.7) k/uL Basophils # (0-0.2) k/uL PT (9.0-12.0) sec INR (<1.2) APTT (22.0-30.0) sec Sodium (137-145) mmol/L Potassium (3.5-5.1) mmol/L Chloride (98-107) mmol/L Carbon Dioxide (22-30) mmol/L Anion Gap mmol/L BUN (7-17) mg/dL Creatinine (0.52-1.04) mg/dL Est GFR (CKD-EPI)AfAm (>60 ml/min/1.73 sqM) Est GFR (CKD-EPI)NonAf (>60 ml/min/1.73 sqM) Glucose (74-99) mg/dL POC Glucose (mg/dL) (75-99) mg/dL POC Glu [employer] ID Calcium (8.4-10.2) mg/dL Magnesium (1.6-2.3) mg/dL Total Bilirubin (0.2-1.3) mg/dL AST (14-36) U/L ALT (4-34) U/L Alkaline Phosphatase (38-126) U/L Troponin I <0.012 (0.000-0.034) ng/mL Total Protein (6.3-8.2) g/dL Albumin (3.5-5.0) g/dL Urine Color Yellow Urine Appearance Clear (Clear) Urine pH 5.5 (5.0-8.0) Ur Specific [place] 1.019 (1.001-1.035) Urine Protein 1+ H (Negative) Urine Glucose (UA) Negative (Negative) Urine Ketones 1+ H (Negative) Urine Blood Negative (Negative) Urine Nitrite Negative (Negative) Urine Bilirubin Negative (Negative) Urine Urobilinogen <2.0 (<2.0) mg/dL Ur Leukocyte Esterase Negative (Negative) Urine RBC <1 (0-5) /hpf Urine WBC 1 (0-5) /hpf Ur Squamous Epith Cells 1 (0-4) /hpf Hyaline Casts 8 H (0-2) /lpf Urine Mucus Rare H (None) /hpf Urine Opiates Screen Not Detected (NotDetected) Ur Oxycodone Screen Not Detected (NotDetected) Urine Methadone Screen Not Detected (NotDetected) Ur Propoxyphene Screen Not Detected (NotDetected) Ur Barbiturates Screen Not Detected (NotDetected) U Tricyclic Antidepress Not Detected (NotDetected) Ur Phencyclidine Scrn Not Detected (NotDetected) Ur Amphetamines Screen Not Detected (NotDetected) U Methamphetamines Scrn Not Detected (NotDetected) U Benzodiazepines Scrn Not Detected (NotDetected) Urine Cocaine Screen Not Detected (NotDetected) U Marijuana (THC) Screen Detected H (NotDetected) Serum Alcohol <10 mg/dL 04/25/20 Range/Units 21:10 WBC (3.8-10.6) k/uL RBC (3.80-5.40) m/uL Hgb (11.4-16.0) gm/dL Hct (34.0-46.0) % MCV (80.0-100.0) fL MCH (25.0-35.0) pg MCHC (31.0-37.0) g/dL RDW (11.5-15.5) % Plt Count (150-450) k/uL Neutrophils % % Lymphocytes % % Monocytes % % Eosinophils % % Basophils % % Neutrophils # (1.3-7.7) k/uL Lymphocytes # (1.0-4.8) k/uL Monocytes # (0-1.0) k/uL Eosinophils # (0-0.7) k/uL Basophils # (0-0.2) k/uL PT (9.0-12.0) sec INR (<1.2) APTT (22.0-30.0) sec Sodium (137-145) mmol/L Potassium (3.5-5.1) mmol/L Chloride (98-107) mmol/L Carbon Dioxide (22-30) mmol/L Anion Gap mmol/L BUN (7-17) mg/dL Creatinine (0.52-1.04) mg/dL Est GFR (CKD-EPI)AfAm (>60 ml/min/1.73 sqM) Est GFR (CKD-EPI)NonAf (>60 ml/min/1.73 sqM) Glucose (74-99) mg/dL POC Glucose (mg/dL) 71 L (75-99) mg/dL POC Glu [employer] ID LalitNic Calcium (8.4-10.2) mg/dL Magnesium (1.6-2.3) mg/dL Total Bilirubin (0.2-1.3) mg/dL AST (14-36) U/L ALT (4-34) U/L Alkaline Phosphatase (38-126) U/L Troponin I (0.000-0.034) ng/mL Total Protein (6.3-8.2) g/dL Albumin (3.5-5.0) g/dL Urine Color Urine Appearance (Clear) Urine pH (5.0-8.0) Ur Specific [place] (1.001-1.035) Urine Protein (Negative) Urine Glucose (UA) (Negative) Urine Ketones (Negative) Urine Blood (Negative) Urine Nitrite (Negative) Urine Bilirubin (Negative) Urine Urobilinogen (<2.0) mg/dL Ur Leukocyte Esterase (Negative) Urine RBC (0-5) /hpf Urine WBC (0-5) /hpf Ur Squamous Epith Cells (0-4) /hpf Hyaline Casts (0-2) /lpf Urine Mucus (None) /hpf Urine Opiates Screen (NotDetected) Ur Oxycodone Screen (NotDetected) Urine Methadone Screen (NotDetected) Ur Propoxyphene Screen (NotDetected) Ur Barbiturates Screen (NotDetected) U Tricyclic Antidepress (NotDetected) Ur Phencyclidine Scrn (NotDetected) Ur Amphetamines Screen (NotDetected) U Methamphetamines Scrn (NotDetected) U Benzodiazepines Scrn (NotDetected) Urine Cocaine Screen (NotDetected) U Marijuana (THC) Screen (NotDetected) Serum Alcohol mg/dL - EKG Data EKG Comments: Ventricular rate 83, NM interval 112, QRS 86, QT/QTc 412/44. No concern, normal EKG, no concern for acute ischemia. (Cristobal Mcfadden) Disposition <Cristobal Mcfadden - Last Filed: 04/25/20 22:18> <Kimo Marie - Last Filed: 04/25/20 23:49> Clinical Impression: Fall, Depression, Failure to thrive in adult, Dehydration, Hypokalemia, Hypomagnesemia Disposition: ADMITTED IP TO THIS [facility] Condition: Fair Referrals: Reynaldo Putnam MD [Primary Care Provider] - 1-2 days
[2020-04-25] MEDS ORDERED: POTASSIUM CHLORIDE ER 10 MEQ TAB.ER.PRT PO STA (20:35)
[2020-04-25] MEDS ORDERED: MAGNESIUM OXIDE 400 MG TAB PO STA (20:35)
[2020-04-25 21:12] LABS: Glucose,Whole Blood 71 mg/dL (75-99)
[2020-04-25] MEDS ORDERED: DEXTROSE 50% SYRINGE 50 ML IVP STA (21:18)
--- NOTE | 2020-04-25 21:34 | CT ---
EXAMINATION TYPE: CT brain wo con DATE OF EXAM: 04/25/2020 COMPARISON: 04/13/2020 HISTORY: Altered mental status. CT DLP: 1099.4 mGycm Automated exposure control for dose reduction was used. There is some cerebral cortical atrophy. There is no mass effect nor midline shift. There is no sign of intracranial hemorrhage. Calvarium is intact. There is no evidence of cerebral edema. IMPRESSION: Mild atrophy appropriate for age. Otherwise negative exam. No change.
[2020-04-25] MEDS ORDERED: MORPHINE SULFATE 4 MG/ML SYRINGE IV STA (22:07)
[2020-04-25] MEDS ORDERED: MAGNESIUM SULFATE-D5W PMX 1 GM in DEXTROSE/WATER 1 100ML.BAG IVPB ONE (23:45)
[2020-04-25] MEDS ORDERED: NALOXONE 0.4 MG/ML 1 ML VIAL IV PRN (23:49)
[2020-04-26] MEDS: 0.9% NACL WITH KCL 20 MEQ/L 1,000 ML IV SCH ×2 (00:49→15:02)
[2020-04-26] MEDS: ACETAMINOPHEN TAB 325 MG TAB PO PRN ×2 (03:03→10:00)
[2020-04-26] MEDS ORDERED: ONDANSETRON 4 MG/2 ML VIAL IVP PRN (05:34)
[2020-04-26] MEDS ORDERED: metFORMIN 500 MG TAB PO SCH (09:00)
[2020-04-26] MEDS ORDERED: DOCUSATE 100 MG CAP PO SCH (09:00)
[2020-04-26] MEDS ORDERED: CLOPIDOGREL 75 MG TAB PO SCH (09:00)
[2020-04-26] MEDS: REPAGLINIDE 1 MG TAB PO SCH ×3 (09:27→16:54)
[2020-04-26] MEDS: LINAGLIPTIN 5 MG TABLET PO SCH ×2 (09:29→12:24)
[2020-04-26] MEDS: PSYLLIUM HUSK 100% 6 GM PACKET PO SCH ×2 (09:30→20:01)
[2020-04-26] MEDS: SERTRALINE 100 MG TAB PO SCH (09:32)
[2020-04-26] MEDS: DICYCLOMINE 10 MG CAP PO SCH ×4 (09:32→22:57)
[2020-04-26] MEDS: DONEPEZIL 10 MG TAB PO SCH (09:32)
[2020-04-26] MEDS: LISINOPRIL-HCTZ 20-12.5 MG 1 EACH TAB PO SCH ×2 (09:32→22:12)
[2020-04-26] MEDS: risperiDONE 1 MG TAB PO SCH ×2 (09:32→22:13)
[2020-04-26] MEDS: METOPROLOL TARTRATE 50 MG TAB PO SCH ×2 (09:33→22:11)
[2020-04-26 12:13] LABS: Glucose,Whole Blood 209 mg/dL (75-99)
[2020-04-26] MEDS: PANTOPRAZOLE 40 MG/10 ML VIAL IVP SCH ×2 (12:22→22:12)
[2020-04-26] MEDS: CALCIUM CARBONATE LIQUID 500 MG/5 ML CUP PO SCH ×3 (12:48→22:12)
--- NOTE | 2020-04-26 14:06 | P.CN ---
Psychiatric Consult - . Consult date: 04/26/20 Consult:: IDENTIFYING DATA: She is a 79-year-old female who presented to the emergency room with multiple complaints including abdominal pain and falling. According to her family she has not been eating, losing weight and not drinking fluids. The hospitalist consult to psychiatry for "depression and failure to thrive." HISTORY OF PRESENT ILLNESS: I reviewed the medical record and interviewed the patient. She described increasing pain, distress and disability over the last 3-4 months. During the interview she primary complained of gastrointestinal distress including abdominal pain, bloating, poor appetite, nausea and gas. When asked about her mood she talked about feeling frightened about her future. She is aware that her overall physical condition has deteriorated markedly over the last 8 months. Where she was formerly independent living in her own home she had to move in with her son and his in January of this year due to her inability to care for herself. She complained that her son told her that he could not "do this" anymore. She took this to mean that he and his could no longer provide her with personal care and she will go to a assisted. She stated that she needs assistance with dressing, washing herself and "sometimes" toileting. She is unable to shop, assist with housekeeping duties, wash clothing or cook. She expressed feelings of sadness regarding her increasing disability and expressed feelings of hopelessness about the future. She spontaneously remarked that she believes that "this is the end" i.e., that she is nearing the end of her life. She denied that she is experiencing suicidal ideation or wishes. She denied suicide intent or plan. She admitted to several symptoms of depression but attributed to the symptoms (including anhedonia, anergy, impaired concentration etc.,) to her general infirmity. She feels anxious about the future but denied periods of increased anxiety consistent with panic attack. She denied experiencing obsessions or compulsions. During our interview, she denied experiencing auditory, visual or olfactory hallucinations, ideas reference, thought insertion, thought broadcasting or thought control. She did not express paranoid ideation or delusional thoughts. She denied use of alcohol and other drugs including marijuana (her UDS was positive for marijuana). PAST PSYCHIATRIC HISTORY: She denied a history of of psychiatric illness prior to her admission to our psychiatric unit August 2019. Since her discharge she had 2 other admissions one of which was to [facility] in [place] where he received ECT. She complained that she developed double vision and foot drop as a result of the ECT. According to record she has history of depression and anxiety as well as impaired sleep treated by her primary care provider with [facility]. PAST MEDICAL HISTORY: According to the record, she has history of diabetes, hypertension and breast cancer. During her admission to psychiatric unit she developed left facial droop. We consulted neurologist who recommended MRI, transthoracic echocardiogram and cardiac monitoring. He also recommended dual platelet therapy. An MRI of brain was completed in August 2019 and showed age-related atrophic and nonspecific white matter white matter demyelination due to chronic small vessel ischemic changes. ALLERGIES: Penicillins, codeine and erythromycin propoxyphene SUBSTANCE USE HISTORY: As she denied a history of substance use problems. She's never been any substance abuse treatment program. FAMILY PSYCHIATRIC/SUBSTANCE USE HISTORY: Lilia mother had a history of depression SOCIAL HISTORY: She was born and raised in [place]. She graduated from high school. She is and twice. She has 2 children from the first marriage. She's been living independently since 1982. 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 She was living alone in her own home until January 2020. MENTAL STATUS EXAM: She presented as a thin, almost emaciated elderly female who was pleasant on approach. She made eye contact and attended the interview. She had abdominal distention. She had a distressed facial expression. She was aler t and oriented to person, place and time. She was tremulous. Her speech was spontaneous, slow and soft. Her affect was depressed. She denied suicidal ideation and wishes. She denied homicidal ideation. She expressed feelings of hopelessness and helplessness but denied feelings of worthlessness. She ruminated over her physical illness/illnesses as well as her increasing disability. She did not express ideas reference, paranoid ideation or delusions. Her thinking was concrete but his associations were coherent and logical. She denied hallucinations and did not appear to be responding to internal stimuli. We completed the Mini-Mental State Exam. Her total score was 27/30 indicating minimal cognitive impairment. She was fully oriented and had no impairment in attention short-term memory. She had no impairment in language skills. IMPRESSIONS: She is a 79-year-old female who was a history of a depressive disorder. She presented to the emergency room with complaints of falling, increase physical disability, declining ability to care of herself, and poor intake of food and fluids. She was anxious and tremulous and perseverated on her physical disability; particularly her gastrointestinal symptoms. She has symptoms depression accompanied by suicidality but the depressive symptoms are difficult to separate from the severity of her infirmity. I suspect that the primary problem is medical and not related to a primary depressive disorder. DIAGNOSIS: Failure to thrive, dehydration, history of a depressive disorder RECOMMENDATION: I do not recommend transfer to the psychiatric unit at this time. Decrease Risperdal to 1 mg by mouth twice a day but continue sertraline 200 mg daily. Psychiatry will follow. 04/26/20 13:37
[2020-04-26 17:00] LABS: Glucose,Whole Blood 208 mg/dL (75-99)
[2020-04-26 17:19] LABS: Glucose,Whole Blood 217 mg/dL (75-99)
[2020-04-26] MEDS ORDERED: LACTATED RINGERS 1,000 ML IV SCH (19:45)
[2020-04-26] MEDS: POLYETHYLENE GLYCOL 3350 17 GM POWD.PACK PO SCH (20:01)
[2020-04-26 20:13] LABS: Glucose,Whole Blood 328 mg/dL (75-99)
[2020-04-26] MEDS ORDERED: INSULIN ASPART (NovoLOG) 100 UNIT/ML VIAL SQ ONE (21:56)
[2020-04-26] MEDS: traZODone HCL 50 MG TAB PO SCH (22:11)
--- NOTE | 2020-04-26 22:40 | P.HPIM ---
History of Present Illness H&P Date: 04/26/20 Chief Complaint: Abdominal pain Presenting complaint: Abdominal pain History of presenting complaint: This is a 79-year-old patient of Dr. Reynaldo Allen. Chronic stable medical conditions include diabetes, hypertension, depression. Patient for 6 weeks for depression and anxiety was at [facility]- mental unit. discharged from the on January 27 and came to stay with her son and [id number]. She was admitted here in February of this year with mild pancreatitis and severe constipation. Also had uncontrolled blood pressure. Patient now presents with the same chronic abdominal pain is slightly worse. Does not have a good appetite. Some weight loss. Pain is much worse with eating food. Has not had any endoscopy. Has nausea. Normally has about 2 bowel movements a week with laxatives. Feeling rather tired and rundown. Review of systems: GEN.: Tired, weight loss EYES: None HEENT: None NECK: None RESPIRATORY: None CARDIOVASCULAR: None GASTROINTESTINAL: As above GENITOURINARY: None MUSCULOSKELETAL: None LYMPHATICS: None HEMATOLOGICAL: None PSYCHIATRY: Depression and anxiety, controlled NEUROLOGICAL: None Past medical history to include: Diabetes, hypertension, left breast cancer, anxiety, depression, mild pancreatitis Social history: Currently living with her son and [id number]. Does not smoke or drink alcohol. Physical examination: VITAL SIGNS: 97, 76, 18, 142/72, 98% room air GENERAL: BMI 16.4, sitting up in bed, uncomfortable EYES: [Pupils equal. Conjunctiva pale. HEENT: External appearance of nose and ears normal, oral cavity grossly normal. NECK: JVD not raised; masses not palpable. HEART: First and second heart sounds are normal; no edema. LUNGS: Respiratory rate normal; clear to auscultation. ABDOMEN: Soft, distended, mild diffuse tenderness, no guarding or rigidity, liver spleen not palpable, no masses palpable. PSYCH: [Alert and oriented x3; mood and affect slightly anxious NEUROLOGICAL: Cranial nerves grossly intact; no facial asymmetry, power and sensation grossly intact. LYMPHATICS: No lymph nodes palpable in the axilla and neck INVESTIGATIONS, reviewed in the clinical context: White count 7.7 hemoglobin 13.7 potassium 3.4 creatinine 0.7 to glucose 73 Urine drug screen positive for marijuana alcohol less than 10 EKG tracing personally reviewed by me-normal sinus rhythm Chest x-ray film personally reviewed by me-hyperinflation with some scarring Assessment: -Acute on chronic abdominal pain worsening possibly suggest of gastritis and peptic ulcer disease -Mild pancreatitis -Severe protein calorie malnutrition with a BMI of 16.4, from decreased oral intake -Diabetes mellitus type 2, uncontrolled with hypoglycemia from decreased oral intake -Essential hypertension- -Depression and anxiety not otherwise specified -L1 and compression fracture possibly chronic Plan: GI was consulted with a possible repeat EGD. Oral hypoglycemics will be held. Give IV fluids. Patient will need EGD. Start PPIs and liquid Tums. Care was discussed with the patient question answered. IV fluids. Psychiatry also consulted. Past Medical History Past Medical History: Cancer, Diabetes Mellitus, Hypertension Additional Past Medical History / Comment(s): Left breast cancer diagnosed in 1987, IBS History of Any Multi-Drug Resistant Organisms: None Reported Past Surgical History: Breast Surgery, Section, Cholecystectomy, Heart Catheterization, Hysterectomy, Orthopedic Surgery Additional Past Surgical History / Comment(s): Cervical Fusion 8 years ago, hemroidectomy, left mastectomy, benign needle biopsys right breast , kidney stone removed, right ureter surgery, Past Anesthesia/Blood Transfusion Reactions: Postoperative Nausea & Vomiting (PONV) Past Psychological History: Anxiety, Depression Smoking Status: Never smoker Past Alcohol Use History: None Reported Past Drug Use History: None Reported - Past Family History Mother Family Medical History: No Reported History Father Additional Family Medical History / Comment(s): Stroke, heart disease Medications and Allergies Home Medications Medication Instructions Recorded Confirmed Type Clopidogrel [Plavix] 75 mg PO DAILY #21 tab 09/23/19 04/25/20 Rx Sertraline [Zoloft] 200 mg PO DAILY 03/10/20 04/25/20 History risperiDONE 3 mg PO BID 03/10/20 04/25/20 History sitaGLIPtin PHOSPHATE [Januvia] 100 mg PO DAILY 03/10/20 04/25/20 History traZODone HCL [Desyrel] 50 mg PO HS 03/10/20 04/25/20 History Lisinopril-Hctz 20-12.5 mg 1 tab PO BID #60 tab 03/13/20 04/25/20 Rx [Zestoretic 20-12.5] Metoprolol Tartrate [Lopressor] 50 mg PO BID #60 tab 03/13/20 04/25/20 Rx Psyllium Husk 100% [Metamucil 6 gm PO BID #60 packet 03/13/20 04/25/20 Rx Packet] Repaglinide [Prandin] 1 mg PO AC-TID #90 tablet 03/13/20 04/25/20 Rx metFORMIN HCL 1,000 mg PO BID #60 tab 03/13/20 04/25/20 Rx Dicyclomine [Bentyl] 10 mg PO QID 04/13/20 04/25/20 History Docusate [Colace] 100 mg PO BID #14 capsule 04/13/20 04/25/20 Rx Rivastigmine Tartrate [Exelon] 3 mg PO BID 04/25/20 04/25/20 History Allergies Allergy/AdvReac Type Severity Reaction Status Date / Time Penicillins Allergy Itching Verified 04/25/20 18:29 codeine AdvReac Nausea & Verified 04/25/20 18:29 [From Tylenol-Codeine #3] Vomiting erythromycin base AdvReac Nausea & Verified 04/25/20 18:29 Vomiting propoxyphene AdvReac Nausea & Verified 04/25/20 18:29 [From Darvocet-N] Vomiting Physical Exam Vitals: Vital Signs Temp Pulse Resp BP Pulse Ox 04/26/20 08:37 97.0 F L 76 18 142/72 98 04/26/20 05:05 68 15 147/58 95 04/26/20 03:02 73 15 158/60 97 04/26/20 02:05 97.1 F L 78 17 161/70 97 04/25/20 23:00 98 F 81 17 159/81 93 L 04/25/20 19:59 98 F 85 17 171/77 99 04/25/20 18:42 80 16 157/73 98 04/25/20 17:00 80 17 170/66 100 04/25/20 16:28 99 04/25/20 16:05 98.3 F 92 18 175/86 99 Intake and Output 04/25/20 04/26/20 04/26/20 22:59 06:59 14:59 Other: Weight 38.102 kg Results CBC & Chem 7: 04/25/20 17:26 04/25/20 17:26 Labs: Abnormal Lab Results - Last 24 Hours (Table) 04/25/20 04/25/20 04/25/20 Range/Units 17:26 17:26 18:11 Lymphocytes # 0.7 L (1.0-4.8) k/uL Sodium 132 L (137-145) mmol/L Potassium 3.4 L (3.5-5.1) mmol/L Chloride 93 L (98-107) mmol/L BUN 22 H (7-17) mg/dL Glucose 73 L (74-99) mg/dL POC Glucose (mg/dL) (75-99) mg/dL Magnesium 1.3 L (1.6-2.3) mg/dL Urine Protein 1+ H (Negative) Urine Ketones 1+ H (Negative) Hyaline Casts 8 H (0-2) /lpf Urine Mucus Rare H (None) /hpf U Marijuana (THC) Screen Detected H (NotDetected) 04/25/20 Range/Units 21:10 Lymphocytes # (1.0-4.8) k/uL Sodium (137-145) mmol/L Potassium (3.5-5.1) mmol/L Chloride (98-107) mmol/L BUN (7-17) mg/dL Glucose (74-99) mg/dL POC Glucose (mg/dL) 71 L (75-99) mg/dL Magnesium (1.6-2.3) mg/dL Urine Protein (Negative) Urine Ketones (Negative) Hyaline Casts (0-2) /lpf Urine Mucus (None) /hpf U Marijuana (THC) Screen (NotDetected)
[2020-04-26] MEDS: INSULIN ASPART (NovoLOG) 100 UNIT/ML VIAL SQ SCH (22:58)
[2020-04-26] MEDS: LACTATED RINGERS 1,000 ML IV SCH (22:59)
[2020-04-26] MEDS: SODIUM CHLORIDE 0.9% 1,000 ML IV SCH (23:30)
[2020-04-27 01:34] LABS: Glucose,Whole Blood 74 mg/dL (75-99)
[2020-04-27] MEDS ORDERED: DEXTROSE 50% SYRINGE 50 ML IVP STA (01:50)
[2020-04-27 02:37] LABS: Glucose,Whole Blood 116 mg/dL (75-99)
--- NOTE | 2020-04-27 03:33 | P.CONS ---
History of Present Illness - Reason for Consult Consult date: 04/26/20 Abdominal pain, nausea Requesting physician: Yeison Mitchell - Chief Complaint Decreased oral intake, epigastric abdominal pain, weakness - History of Present Illness 79-year-old female with multiple medical comorbidities including GERD, hypertension, dyslipidemia, chronic constipation who presented to the hospital for a constellation of symptoms including poor balance, rib pain, weakness, decreased oral intake. The patient reports decreased oral intake occurring over the past few weeks. She reports decreased appetite. In addition she has epigastric discomfort. She has a known history of reflux disease but is not on any medications for her symptoms. She does take Bentyl at home for abdominal pain. Previously she was seen in the hospital due to concerns over chronic constipation with a large stool burden and MiraLAX therapy was started at that time. Currently she is taking the MiraLAX but feels that it causes some loose bowel movements. X-ray of the abdomen was performed with a nonacute abdomen and no large stool burden noted. Review of Systems REVIEW OF SYSTEMS: CONSTITUTIONAL: Denies any fevers, chills, but does report fatigue and weight loss associated with decreased oral intake.. CARDIOVASCULAR: Denies any chest pain, palpitations high or low blood pressures RESPIRATORY: Denies any shortness of breath, hemoptysis or cough. GENITOURINARY: No dysuria or hematuria. MUSCULOSKELETAL: No weakness reported. SKIN: Denies any new rashes or lesions, jaundice or pallor. PSYCHIATRIC: Does report a depressed mood. NEUROLOGY: Denies headache, denies any new focal deficits. EARS/NOSE/THROAT: No recent hearing change, congestion, nasal discharge or sore throat. EYES: No pain in eyes, discharge or change in vision. GASTROINTESTINAL: As per HPI. Past Medical History Past Medical History: Cancer, Diabetes Mellitus, Eye Disorder, GERD/Reflux, Hypertension, Renal Disease Additional Past Medical History / Comment(s): Pt recently admitted to [facility] on 03/12/20 with abdominal distention from severe constipation/mild pancreatitis, mild protein calorie malnutrition. Other hx: NIDDM type II, neuropathy in bilateral hands/lower legs and feet, falls, poor balance, recent L rib pain/abdominal pain/constipation which she treated with laxatives and now has been having loose stools, past IBS, nephrolithiasis with surgery, 1987 L breast cancer with mastectomy, current diplopia-saw Dr. Wright and is due for followup-not resolved, low back pain, scoliosis, L1 compression fracture, mitral valve disease/murmur, past L facial droop which resolved, thyroid nodules per past medical record/pt unaware. History of Any Multi-Drug Resistant Organisms: None Reported Past Surgical History: Breast Surgery, Section, Cholecystectomy, Heart Catheterization, Hysterectomy, Orthopedic Surgery Additional Past Surgical History / Comment(s): L mastectomy, bilateral breast biopsies, R breast benign lumpectomy x 2, cervical fusion, lithotripsy, R ureter rerouting, hemorrhoidectomy, BMB, EGDs, colonoscopies, bilateral cataract removals Past Anesthesia/Blood Transfusion Reactions: Postoperative Nausea & Vomiting (PONV) Smoking Status: Never smoker - Past Family History Mother Family Medical History: Dementia, Pneumonia Father Family Medical History: Coronary Artery Disease (CAD), CVA/TIA Additional Family Medical History / Comment(s): Stroke, heart disease Medications and Allergies Home Medications Medication Instructions Recorded Confirmed Type Clopidogrel [Plavix] 75 mg PO DAILY #21 tab 09/23/19 04/25/20 Rx Sertraline [Zoloft] 200 mg PO DAILY 03/10/20 04/25/20 History risperiDONE 3 mg PO BID 03/10/20 04/25/20 History sitaGLIPtin PHOSPHATE [Januvia] 100 mg PO DAILY 03/10/20 04/25/20 History traZODone HCL [Desyrel] 50 mg PO HS 03/10/20 04/25/20 History Lisinopril-Hctz 20-12.5 mg 1 tab PO BID #60 tab 03/13/20 04/25/20 Rx [Zestoretic 20-12.5] Metoprolol Tartrate [Lopressor] 50 mg PO BID #60 tab 03/13/20 04/25/20 Rx Psyllium Husk 100% [Metamucil 6 gm PO BID #60 packet 03/13/20 04/25/20 Rx Packet] Repaglinide [Prandin] 1 mg PO AC-TID #90 tablet 03/13/20 04/25/20 Rx metFORMIN HCL 1,000 mg PO BID #60 tab 03/13/20 04/25/20 Rx Dicyclomine [Bentyl] 10 mg PO QID 04/13/20 04/25/20 History Docusate [Colace] 100 mg PO BID #14 capsule 04/13/20 04/25/20 Rx Rivastigmine Tartrate [Exelon] 3 mg PO BID 04/25/20 04/25/20 History Allergies Allergy/AdvReac Type Severity Reaction Status Date / Time Penicillins Allergy Itching Verified 04/25/20 18:29 codeine AdvReac Nausea & Verified 04/25/20 18:29 [From Tylenol-Codeine #3] Vomiting erythromycin base AdvReac Nausea & Verified 04/25/20 18:29 Vomiting propoxyphene AdvReac Nausea & Verified 04/25/20 18:29 [From Darvocet-N] Vomiting Physical Exam Vitals: Vital Signs Temp Pulse Resp BP Pulse Ox 04/26/20 08:37 97.0 F L 76 18 142/72 98 04/26/20 05:05 68 15 147/58 95 04/26/20 03:02 73 15 158/60 97 04/26/20 02:05 97.1 F L 78 17 161/70 97 04/25/20 23:00 98 F 81 17 159/81 93 L 04/25/20 19:59 98 F 85 17 171/77 99 04/25/20 18:42 80 16 157/73 98 04/25/20 17:00 80 17 170/66 100 04/25/20 16:28 99 04/25/20 16:05 98.3 F 92 18 175/86 99 Intake and Output 04/25/20 04/26/20 04/26/20 22:59 06:59 14:59 Other: Weight 38.102 kg 38.102 kg On physical examination, patient appears comfortable in no apparent distress. HEAD: Normocephalic, atraumatic. EYES: No scleral icterus. No conjunctival injection. MOUTH: No lesions, tongue midline. NECK: Trachea midline, no gross abnormalities. CHEST: Decreased air entry in all lung gill. HEART: S1-S2 appreciated. ABDOMEN: Soft, thin. Bowel sounds are positive. No organomegaly. No guarding or rigidity. EXTREMITIES: No pedal edema. SKIN: No rashes, no jaundice. NEUROLOGIC: Alert and oriented. No focal deficits. Results CBC & Chem 7: 04/25/20 17:26 04/25/20 17:26 Labs: Abnormal Lab Results - Last 24 Hours (Table) 04/25/20 04/25/20 04/25/20 Range/Units 17:26 17:26 18:11 Lymphocytes # 0.7 L (1.0-4.8) k/uL Sodium 132 L (137-145) mmol/L Potassium 3.4 L (3.5-5.1) mmol/L Chloride 93 L (98-107) mmol/L BUN 22 H (7-17) mg/dL Glucose 73 L (74-99) mg/dL POC Glucose (mg/dL) (75-99) mg/dL Magnesium 1.3 L (1.6-2.3) mg/dL Urine Protein 1+ H (Negative) Urine Ketones 1+ H (Negative) Hyaline Casts 8 H (0-2) /lpf Urine Mucus Rare H (None) /hpf U Marijuana (THC) Screen Detected H (NotDetected) 04/25/20 04/26/20 Range/Units 21:10 12:10 Lymphocytes # (1.0-4.8) k/uL Sodium (137-145) mmol/L Potassium (3.5-5.1) mmol/L Chloride (98-107) mmol/L BUN (7-17) mg/dL Glucose (74-99) mg/dL POC Glucose (mg/dL) 71 L 209 H (75-99) mg/dL Magnesium (1.6-2.3) mg/dL Urine Protein (Negative) Urine Ketones (Negative) Hyaline Casts (0-2) /lpf Urine Mucus (None) /hpf U Marijuana (THC) Screen (NotDetected) Abdominal x-ray: report reviewed (Nonacute abdomen on KUB x-ray) Assessment and Plan (1) GERD (gastroesophageal reflux disease) Narrative/Plan: 79-year-old female presenting to the hospital with a constellation of symptoms including falls, weakness, decreased oral intake and epigastric discomfort. Patient has a previous history of chronic constipation seen in the hospital on prior admission she was started on MiraLAX therapy. X-ray of the abdomen on current presentation negative for a large stool burden or any acute intra-abdominal process. Patient does have GERD currently not on medical therapy. She also takes Bentyl for abdominal pain. Patient reports decreased oral intake with associated weight loss. Unclear etiology, may be related to uncontrolled reflux, depression, plan for EGD to rule out gastritis, esophagitis, peptic ulcer disease or other cause. Current Visit: Yes Status: Acute Code(s): K21.9 - GASTRO-ESOPHAGEAL REFLUX DISEASE WITHOUT ESOPHAGITIS SNOMED Code(s): 716223872 (2) Constipation Current Visit: No Status: Acute Code(s): K59.00 - CONSTIPATION, UNSPECIFIED SNOMED Code(s): 72798340 Plan: Supportive care Okay for diet as tolerated Continue to monitor CBC, BMP, LFTs Protonix 40 mg twice daily ordered MiraLAX therapy ordered Nothing by mouth after midnight Plan for EGD tomorrow for further evaluation Thank you for allowing us to participate in the care of the patient we will continue to follow
[2020-04-27 06:56] LABS: Glucose,Whole Blood 84 mg/dL (75-99)
[2020-04-27] MEDS ORDERED: INSULIN ASPART (NovoLOG) 100 UNIT/ML VIAL SQ SCH (07:30)
[2020-04-27] MEDS: INSULIN ASPART (NovoLOG) 100 UNIT/ML VIAL SQ SCH ×4 (07:47→22:04)
[2020-04-27] MEDS: LINAGLIPTIN 5 MG TABLET PO SCH (07:48)
[2020-04-27] MEDS: PSYLLIUM HUSK 100% 6 GM PACKET PO SCH ×2 (07:48→22:07)
[2020-04-27] MEDS: SODIUM CHLORIDE 0.9% 1,000 ML IV SCH ×3 (08:46→22:17)
[2020-04-27] MEDS: SERTRALINE 100 MG TAB PO SCH (08:47)
[2020-04-27] MEDS: METOPROLOL TARTRATE 50 MG TAB PO SCH ×2 (08:47→22:05)
[2020-04-27] MEDS: CALCIUM CARBONATE LIQUID 500 MG/5 ML CUP PO SCH ×4 (08:47→22:04)
[2020-04-27] MEDS: DONEPEZIL 10 MG TAB PO SCH (08:47)
[2020-04-27] MEDS: DICYCLOMINE 10 MG CAP PO SCH ×4 (08:47→22:08)
[2020-04-27] MEDS: risperiDONE 1 MG TAB PO SCH ×2 (08:48→22:07)
[2020-04-27] MEDS: PANTOPRAZOLE 40 MG/10 ML VIAL IVP SCH ×2 (08:48→22:05)
[2020-04-27] MEDS: LISINOPRIL-HCTZ 20-12.5 MG 1 EACH TAB PO SCH ×2 (08:49→22:05)
[2020-04-27 10:23] VITALS: BMI 16.4
[2020-04-27 11:39] LABS: Glucose,Whole Blood 227 mg/dL (75-99)
[2020-04-27] MEDS ORDERED: LIDOCAINE 1% INJ 10MG/ML (20 ML MDV) ONE (12:14)
[2020-04-27] MEDS ORDERED: PROPOFOL 10 MG/ML 20 ML VIAL IV ONE (12:14)
[2020-04-27] MEDS ORDERED: IV FLUID CONTINUATION 1,000 ML IV ONE (12:19)
--- NOTE | 2020-04-27 13:11 | P.PCN ---
Date of Procedure: 04/27/20 Description of Procedure: BRIEF HISTORY: 79-year-old female with multiple medical comorbidities including GERD, hypertension, dyslipidemia, chronic constipation who presented to the hospital for a constellation of symptoms including poor balance, rib pain, weakness, decreased oral intake. The patient reports decreased oral intake occurring over the past few weeks. She reports decreased appetite. In addition she has epigastric discomfort. She has a known history of reflux disease but is not on any medications for her symptoms. She does take Bentyl at home for abdominal pain. Previously she was seen in the hospital due to concerns over chronic constipation with a large stool burden and MiraLAX therapy was started at that time. Currently she is taking the MiraLAX but feels that it causes some loose bowel movements. X-ray of the abdomen was performed with a nonacute abdomen and no large stool burden noted. PROCEDURE PERFORMED: Esophagogastroduodenoscopy with biopsy. PREOPERATIVE DIAGNOSIS: Epigastric abdominal pain, nausea. ESTIMATED BLOOD LOSS: Minimal. IV sedation per anesthesia. PROCEDURE: After informed consent was obtained, the patient was brought into the endoscopy unit. IV sedation was administered by Anesthesia under continuous monitoring. In itially the Olympus GIF-190 video endoscope was inserted into the mouth. Esophagus intubated without any difficulty. It was gradually advanced into the stomach and duodenum and carefully examined. The bulb and the second part of the duodenum appeared normal, with biopsies taken to rule out celiac sprue. The scope at this time was withdrawn to the stomach, adequately insufflated with air, and upon careful examination, mucosa of the antrum, body, cardia and the fundus appeared normal, except for some mild scattered erythema in the antrum and body suggestive of mild gastritis with biopsies taken. The scope was then withdrawn into the esophagus. The GE junction was located at 36 cm from the incisors, with a 1 cm hiatal hernia noted and biopsies of the GE junction taken. The esophagus appeared normal. There were no erosions or ulcerations seen and the patient tolerated the procedure well. IMPRESSION: 1. Mild gastritis antrum and body, biopsied. 2. Small hiatal hernia. 3. Biopsies of the duodenum and GE junction. RECOMMENDATIONS: The findings of this examination were discussed with the patient. Okay to resume diet. Continue PPI therapy with Protonix. Continue antiemetics as nee ded. Await pathology from biopsies.
[2020-04-27 17:13] LABS: Glucose,Whole Blood 130 mg/dL (75-99)
[2020-04-27 17:14] LABS: Hemoglobin A1C 7.1 % (4.0-6.0)
--- NOTE | 2020-04-27 20:36 | P.PN ---
Progress Note - Text Progress Note Date: 04/27/20 Presenting complaint: Abdominal pain History of presenting complaint: This is a 79-year-old patient of Dr. Reynaldo Allen. Chronic stable medical conditions include diabetes, hypertension, depression. Patient for 6 weeks for depression and anxiety was at [facility]- mental unit. discharged from the on January 27 and came to stay with her son and [id number]. She was admitted here in February of this year with mild pancreatitis and severe constipation. Also had uncontrolled blood pressure. Patient now presents with the same chronic abdominal pain is slightly worse. Does not have a good appetite. Some weight loss. Pain is much worse with eating food. Has not had any endoscopy. Has nausea. Normally has about 2 bowel movements a week with laxatives. Feeling rather tired and rundown. Patient was started on PPI and liquid Tums. Today-sitting up in bed. Feeling a bit better. Less abdominal discomfort. Awaiting EGD this afternoon. Review of systems: Was done for constitutional, cardiovascular, GI, pulmonary. relevant finding as above Active Medications Acetaminophen (Tylenol Tab) 650 mg PO Q6HR PRN PRN Reason: Mild Pain or Fever > 100.5 Last Admin: 04/26/20 10:00 Dose: 650 mg Documented by: Calcium Carbonate/Glycine (Tums Liquid) 500 mg PO ACHS [facility] Last Admin: 04/27/20 17:05 Dose: 500 mg Documented by: Dicyclomine HCl (Bentyl) 10 mg PO QID [facility] Last Admin: 04/27/20 17:05 Dose: 10 mg Documented by: Donepezil HCl (Aricept) 10 mg PO DAILY [facility] Last Admin: 04/27/20 08:47 Dose: 10 mg Documented by: Lisinopril/HCTZ (Zestoretic 20-12.5) 1 each PO BID [facility] Last Admin: 04/27/20 08:49 Dose: 1 each Documented by: Lactated Ringer's (Lactated Ringers) 1,000 mls @ 20 mls/hr IV .Q24H [facility] Last Admin: 04/26/20 22:59 Dose: 20 mls/hr Documented by: Sodium Chloride (Saline 0.9%) 1,000 mls @ 130 mls/hr IV .Q7H42M [facility] Last Admin: 04/27/20 13:26 Dose: 130 mls/hr Documented by: Insulin Aspart (Novolog) 0 unit SQ ACHS [facility]; Protocol Last Admin: 04/27/20 17:34 Dose: Not Given Documented by: Linagliptin (Tradjenta) 5 mg PO DAILY [facility] Last Admin: 04/27/20 07:48 Dose: Not Given Documented by: Metoprolol Tartrate (Lopressor) 50 mg PO BID [facility] Last Admin: 04/27/20 08:47 Dose: 50 mg Documented by: Naloxone HCl (Narcan) 0.2 mg IV Q2M PRN PRN Reason: Opioid Reversal Ondansetron HCl (Zofran) 4 mg IVP Q6HR PRN PRN Reason: Nausea And Vomiting Last Admin: 04/26/20 05:52 Dose: 4 mg Documented by: Pantoprazole Sodium (Protonix) 40 mg IVP BID [facility] Last Admin: 04/27/20 08:48 Dose: 40 mg Documented by: Polyethylene Glycol (Miralax) 17 gm PO [facility] Last Admin: 04/26/20 20:01 Dose: Not Given Documented by: Psyllium Hydrophilic Mucilloid (Metamucil) 6 gm PO BID [facility] Last Admin: 04/27/20 07:48 Dose: Not Given Documented by: Risperidone (Risperdal) 1 mg PO BID [facility] Last Admin: 04/27/20 08:48 Dose: 1 mg Documented by: Sertraline HCl (Zoloft) 200 mg PO DAILY [facility] Last Admin: 04/27/20 08:47 Dose: 200 mg Documented by: Trazodone HCl (Desyrel) 50 mg PO [facility] Last Admin: 04/26/20 22:11 Dose: 50 mg Documented by: Physical examination: VITAL SIGNS: 97.9, 66, 16, 151/63, 98% room air GENERAL: Sitting up in bed, awake EYES: [Pupils equal. Conjunctiva pale. HEENT: External appearance of nose and ears normal, oral cavity grossly normal. NECK: JVD not raised; masses not palpable. HEART: First and second heart sounds are normal; no edema. LUNGS: Respiratory rate normal; clear to auscultation. ABDOMEN: Soft, distended, mild upper abdominal tenderness, no guarding or rigidity, liver spleen not palpable, no masses palpable. PSYCH: [Alert and oriented x3; mood and affect slightly anxious INVESTIGATIONS, reviewed in the clinical context: Accu-Cheks 84, 227, 130 Previous testing White count 7.7 hemoglobin 13.7 potassium 3.4 creatinine 0.7 to glucose 73 Urine drug screen positive for marijuana alcohol less than 10 EKG tracing personally reviewed by me-normal sinus rhythm Chest x-ray film personally reviewed by me-hyperinflation with some scarring Assessment: -Acute on chronic abdominal pain worsening possibly from gastritis -Mild pancreatitis -Severe protein calorie malnutrition with a BMI of 16.4, from decreased oral intake -Diabetes mellitus type 2, uncontrolled with hypoglycemia from decreased oral intake -Essential hypertension- -Depression and anxiety not otherwise specified -L1 and compression fracture possibly chronic Plan: Patient to be continued on Protonix and Tums. Patient later underwent EGD that showed evidence of some gastritis. Patient clinically is feeling a bit better. Patient does of Risperdal was decreased as per psychiatry.
[2020-04-27 20:56] LABS: Glucose,Whole Blood 255 mg/dL (75-99)
[2020-04-27] MEDS: POLYETHYLENE GLYCOL 3350 17 GM POWD.PACK PO SCH (22:06)
[2020-04-27] MEDS: traZODone HCL 50 MG TAB PO SCH (22:08)
[2020-04-27] MEDS: LACTATED RINGERS 1,000 ML IV SCH (22:18)
[2020-04-27] MEDS: ACETAMINOPHEN TAB 325 MG TAB PO PRN (22:54)
[2020-04-28] MEDS: ACETAMINOPHEN TAB 325 MG TAB PO PRN (05:31)
[2020-04-28] MEDS: SODIUM CHLORIDE 0.9% 1,000 ML IV SCH ×3 (06:17→21:08)
[2020-04-28 07:28] LABS: Glucose,Whole Blood 110 mg/dL (75-99)
[2020-04-28] MEDS: INSULIN ASPART (NovoLOG) 100 UNIT/ML VIAL SQ SCH ×4 (07:48→21:06)
[2020-04-28] MEDS: PANTOPRAZOLE 40 MG/10 ML VIAL IVP SCH ×3 (07:52→21:24)
[2020-04-28] MEDS: SERTRALINE 100 MG TAB PO SCH (07:55)
[2020-04-28] MEDS: CALCIUM CARBONATE LIQUID 500 MG/5 ML CUP PO SCH ×4 (07:55→21:06)
[2020-04-28] MEDS: DICYCLOMINE 10 MG CAP PO SCH ×4 (07:55→21:08)
[2020-04-28] MEDS: risperiDONE 1 MG TAB PO SCH ×2 (07:55→21:07)
[2020-04-28] MEDS: DONEPEZIL 10 MG TAB PO SCH (07:55)
[2020-04-28] MEDS: METOPROLOL TARTRATE 50 MG TAB PO SCH ×2 (07:55→21:07)
[2020-04-28] MEDS: LISINOPRIL-HCTZ 20-12.5 MG 1 EACH TAB PO SCH ×2 (07:55→21:07)
[2020-04-28] MEDS: PSYLLIUM HUSK 100% 6 GM PACKET PO SCH ×2 (07:56→21:24)
[2020-04-28] MEDS: LINAGLIPTIN 5 MG TABLET PO SCH (07:56)
[2020-04-28 11:11] LABS: Glucose,Whole Blood 263 mg/dL (75-99)
[2020-04-28 17:08] LABS: Glucose,Whole Blood 245 mg/dL (75-99)
[2020-04-28 20:47] LABS: Glucose,Whole Blood 240 mg/dL (75-99)
[2020-04-28] MEDS: traZODone HCL 50 MG TAB PO SCH (21:07)
[2020-04-28] MEDS: POLYETHYLENE GLYCOL 3350 17 GM POWD.PACK PO SCH (21:24)
--- NOTE | 2020-04-28 22:38 | P.PN ---
Progress Note - Text Progress Note Date: 04/28/20 Presenting complaint: Abdominal pain History of presenting complaint: This is a 79-year-old patient of Dr. Reynaldo Allen. Chronic stable medical conditions include diabetes, hypertension, depression. Patient for 6 weeks for depression and anxiety was at [facility]- mental unit. discharged from the on January 27 and came to stay with her son and [id number]. She was admitted here in February of this year with mild pancreatitis and severe constipation. Also had uncontrolled blood pressure. Patient now presents with the same chronic abdominal pain is slightly worse. Does not have a good appetite. Some weight loss. Pain is much worse with eating food. Has not had any endoscopy. Has nausea. Normally has about 2 bowel movements a week with laxatives. Feeling rather tired and rundown. Patient was started on PPI and liquid Tums. Admitted with acute and chronic gastritis. EGD confirmed same. Responded well to PPI and Tums. Today-appetite started improved. Getting anywhere from 25-50%. Weak and tired. Looking to go to inpatient rehab. Review of systems: Was done for constitutional, cardiovascular, GI, pulmonary. relevant finding as above Active Medications Acetaminophen (Tylenol Tab) 650 mg PO Q6HR PRN PRN Reason: Mild Pain or Fever > 100.5 Last Admin: 04/28/20 05:31 Dose: 650 mg Documented by: Calcium Carbonate/Glycine (Tums Liquid) 500 mg PO ACHS [facility] Last Admin: 04/28/20 21:06 Dose: 500 mg Documented by: Dicyclomine HCl (Bentyl) 10 mg PO QID [facility] Last Admin: 04/28/20 21:08 Dose: 10 mg Documented by: Donepezil HCl (Aricept) 10 mg PO DAILY [facility] Last Admin: 04/28/20 07:55 Dose: 10 mg Documented by: Lisinopril/HCTZ (Zestoretic 20-12.5) 1 each PO BID [facility] Last Admin: 04/28/20 21:07 Dose: 1 each Documented by: Lactated Ringer's (Lactated Ringers) 1,000 mls @ 20 mls/hr IV .Q24H [facility] Last Admin: 04/27/20 22:18 Dose: Not Given Documented by: Sodium Chloride (Saline 0.9%) 1,000 mls @ 130 mls/hr IV .Q7H42M [facility] Last Admin: 04/28/20 21:08 Dose: 130 mls/hr Documented by: Insulin Aspart (Novolog) 0 unit SQ ACHS [facility]; Protocol Last Admin: 04/28/20 21:06 Dose: 3 unit Documented by: Linagliptin (Tradjenta) 5 mg PO DAILY [facility] Last Admin: 04/28/20 07:56 Dose: 5 mg Documented by: Metoprolol Tartrate (Lopressor) 50 mg PO BID [facility] Last Admin: 04/28/20 21:07 Dose: 50 mg Documented by: Naloxone HCl (Narcan) 0.2 mg IV Q2M PRN PRN Reason: Opioid Reversal Ondansetron HCl (Zofran) 4 mg IVP Q6HR PRN PRN Reason: Nausea And Vomiting Last Admin: 04/26/20 05:52 Dose: 4 mg Documented by: Pantoprazole Sodium (Protonix) 40 mg IVP BID [facility] Last Admin: 04/28/20 21:24 Dose: Not Given Documented by: Polyethylene Glycol (Miralax) 17 gm PO [facility] Last Admin: 04/28/20 21:24 Dose: Not Given Documented by: Psyllium Hydrophilic Mucilloid (Metamucil) 6 gm PO BID [facility] Last Admin: 04/28/20 21:24 Dose: Not Given Documented by: Risperidone (Risperdal) 1 mg PO BID [facility] Last Admin: 04/28/20 21:07 Dose: 1 mg Documented by: Sertraline HCl (Zoloft) 200 mg PO DAILY [facility] Last Admin: 04/28/20 07:55 Dose: 200 mg Documented by: Trazodone HCl (Desyrel) 50 mg PO [facility] Last Admin: 04/28/20 21:07 Dose: 50 mg Documented by: Physical examination: VITAL SIGNS: 98, 78, 18, 1:30 was 6-7, 99% room air GENERAL: Sitting up awake EYES: [Pupils equal. Conjunctiva pale. HEENT: External appearance of nose and ears normal, oral cavity grossly normal. NECK: JVD not raised; masses not palpable. HEART: First and second heart sounds are normal; no edema. LUNGS: Respiratory rate normal; clear to auscultation. ABDOMEN: Soft, distended, decreased abdominal tenderness, no guarding or rigidity, liver spleen not palpable, no masses palpable. PSYCH: [Alert and oriented x3; mood and affect slightly anxious INVESTIGATIONS, reviewed in the clinical context: Accu-Cheks 263, 245, 240 Previous testing White count 7.7 hemoglobin 13.7 potassium 3.4 creatinine 0.7 to glucose 73 Urine drug screen positive for marijuana alcohol less than 10 EKG tracing personally reviewed by me-normal sinus rhythm Chest x-ray film personally reviewed by me-hyperinflation with some scarring Assessment: -Acute on chronic abdominal pain worsening possibly from gastritis -Mild pancreatitis -Severe protein calorie malnutrition with a BMI of 16.4, from decreased oral intake -Diabetes mellitus type 2, uncontrolled with hypoglycemia from decreased oral intake -Essential hypertension- -Depression and anxiety not otherwise specified -L1 and compression fracture possibly chronic Plan: -Patient started to eat better. Spoke to the pediatric social worker. Januvia and Prandin will be resumed.
--- NOTE | 2020-04-29 00:37 | P.PN ---
Subjective Progress Note Date: 04/28/20 Principal diagnosis: GERD, constipation, gastritis Patient is seen sitting bedside. Tolerated diet today. No abdominal pain. Objective - Vital Signs Vital signs: Vital Signs Temp 98.0 F 04/28/20 05:00 Pulse 65 04/28/20 11:49 Resp 16 04/28/20 11:49 BP 130/67 04/28/20 11:49 Pulse Ox 99 04/28/20 11:49 Intake & Output 04/27/20 04/28/20 04/28/20 18:59 06:59 18:59 Intake Total 100 1390 360 Balance 100 1390 360 Weight 38.102 kg Intake: IV 100 Intake, IV Titration 1040 Amount Sodium Chloride 0.9% 1, 1040 000 ml @ 130 mls/hr IV . Q7H42M [facility] Rx#:[id number] Oral 350 360 Other: Voiding Method Toilet Toilet Toilet Bedside Commode Bedside Commode Bedside Commode # Voids 1 2 2 # Bowel Movements 1 1 - Exam On physical examination, patient appears comfortable in no apparent distress. HEAD: Normocephalic, atraumatic. EYES: No scleral icterus. No conjunctival injection. MOUTH: No lesions, tongue midline. NECK: Trachea midline, no gross abnormalities. ABDOMEN: Soft, thin and nontender. Bowel sounds are positive. No organomegaly. No guarding or rigidity. EXTREMITIES: No pedal edema. SKIN: No rashes, no jaundice. NEUROLOGIC: Alert and oriented. - Labs CBC & Chem 7: 04/25/20 17:26 04/25/20 17:26 Labs: Abnormal Lab Results - Last 24 Hours (Table) 04/25/20 04/27/20 04/27/20 Range/Units 17:26 17:11 20:31 POC Glucose (mg/dL) 130 H 255 H (75-99) mg/dL Hemoglobin A1c 7.1 H (4.0-6.0) % 04/28/20 04/28/20 Range/Units 07:25 11:08 POC Glucose (mg/dL) 110 H 263 H (75-99) mg/dL Hemoglobin A1c (4.0-6.0) % Assessment and Plan (1) GERD (gastroesophageal reflux disease) Narrative/Plan: 79-year-old female presenting to the hospital with a constellation of symptoms including falls, weakness, decreased oral intake and epigastric discomfort. Patient has a previous history of chronic constipation seen in the hospital on prior admission she was started on MiraLAX therapy. X-ray of the abdomen on current presentation negative for a large stool burden or any acute intra- abdominal process. Patient does have GERD currently not on medical therapy. She also takes Bentyl for abdominal pain. Patient reports decreased oral intake with associated weight loss. Unclear etiology, may be related to uncontrolled reflux, depression, or other cause. EGD performed significant for small hiatal hernia and gastritis. Current Visit: Yes Status: Acute Code(s): K21.9 - GASTRO-ESOPHAGEAL REFLUX DISEASE WITHOUT ESOPHAGITIS SNOMED Code(s): 502700690 (2) Constipation Current Visit: No Status: Acute Code(s): K59.00 - CONSTIPATION, UNSPECIFIED SNOMED Code(s): 52815464 Plan: Supportive care Okay for diet as tolerated Continue to monitor CBC, BMP, LFTs Protonix 40 mg twice daily MiraLAX therapy ordered Thank you for allowing us to participate in the care of the patient, the GI service will stand by, please call us back with any questions or concerns
[2020-04-29 03:01] LABS: Glucose,Whole Blood 176 mg/dL (75-99)
[2020-04-29] MEDS: SODIUM CHLORIDE 0.9% 1,000 ML IV SCH ×2 (03:20→13:15)
[2020-04-29] MEDS: LACTATED RINGERS 1,000 ML IV SCH (04:07)
[2020-04-29 07:41] LABS: Glucose,Whole Blood 184 mg/dL (75-99)
[2020-04-29] MEDS: INSULIN ASPART (NovoLOG) 100 UNIT/ML VIAL SQ SCH ×2 (08:50→13:14)
[2020-04-29] MEDS: REPAGLINIDE 1 MG TAB PO SCH ×2 (08:50→13:12)
[2020-04-29] MEDS: CALCIUM CARBONATE LIQUID 500 MG/5 ML CUP PO SCH ×2 (08:50→13:12)
[2020-04-29] MEDS: LISINOPRIL-HCTZ 20-12.5 MG 1 EACH TAB PO SCH (08:50)
[2020-04-29] MEDS: METOPROLOL TARTRATE 50 MG TAB PO SCH (08:51)
[2020-04-29] MEDS: risperiDONE 1 MG TAB PO SCH (08:51)
[2020-04-29] MEDS: LINAGLIPTIN 5 MG TABLET PO SCH (08:51)
[2020-04-29] MEDS: SERTRALINE 100 MG TAB PO SCH (08:51)
[2020-04-29] MEDS: DONEPEZIL 10 MG TAB PO SCH (08:51)
[2020-04-29] MEDS: PANTOPRAZOLE 40 MG/10 ML VIAL IVP SCH (08:51)
[2020-04-29] MEDS: DICYCLOMINE 10 MG CAP PO SCH ×2 (08:51→13:14)
[2020-04-29] MEDS: PSYLLIUM HUSK 100% 6 GM PACKET PO SCH (08:52)
[2020-04-29 12:09] LABS: Glucose,Whole Blood 299 mg/dL (75-99)
[2020-04-29 12:57] VITALS: BP 137/70; PULSE 67; RESP 17; TEMP 98.5
--- NOTE | 2020-04-30 18:32 | P.DS ---
Providers Date of admission: 04/25/20 23:49 Expected date of discharge: 04/30/20 Attending physician: Yeison Mitchell Consults: 04/25/20 23:50 Consult Physician Routine Consulting Provider: Feliciano Ambrose Consult Reason/Comments: Depression, failure to thrive Do you want consulting provider notified?: Yes, Notify in am Primary care physician: Reynaldo Green [facility] Course: Presenting complaint: Abdominal pain History of presenting complaint: This is a 79-year-old patient of Dr. Reynaldo Allen. Chronic stable medical conditions include diabetes, hypertension, depression. Patient for 6 weeks for depression and anxiety was at [facility]- mental unit. discharged from the on January 27 and came to stay with her son and [id number]. She was admitted here in February of this year with mild pancreatitis and severe constipation. Also had uncontrolled blood pressure. Patient now presents with the same chronic abdominal pain is slightly worse. Does not have a good appetite. Some weight loss. Pain is much worse with eating food. Has not had any endoscopy. Has nausea. Normally has about 2 bowel movements a week with laxatives. Feeling rather tired and rundown. Patient was started on PPI and liquid Tums. Admitted with acute and chronic gastritis. EGD confirmed same. Responded well to PPI and Tums. Today-doing better. Eating much better. Seen by physical therapy. Will get outpatient therapy. Discussed with the patient. Walking better. Eating about 50%. Consultation: Dr. Pelletier from GI. Physical examination: VITAL SIGNS: 98.5, 67, 17, 137/70, 99% room air GENERAL: Sitting up, comfortable EYES: [Pupils equal. Conjunctiva pale. HEENT: External appearance of nose and ears normal, oral cavity grossly normal. NECK: JVD not raised; masses not palpable. HEART: First and second heart sounds are normal; no edema. LUNGS: Respiratory rate normal; clear to auscultation. ABDOMEN: Soft, distended, decreased abdominal tenderness, no guarding or rigidity, liver spleen not palpable, no masses palpable. PSYCH: [Alert and oriented x3; mood and affect slightly anxious INVESTIGATIONS, reviewed in the clinical context: Accu-Cheks 263, 245, 240 Previous testing White count 7.7 hemoglobin 13.7 potassium 3.4 creatinine 0.7 to glucose 73 Urine drug screen positive for marijuana alcohol less than 10 EKG tracing personally reviewed by me-normal sinus rhythm Chest x-ray film personally reviewed by me-hyperinflation with some scarring Assessment: -Acute on chronic abdominal pain worsening possibly from acute on chronic gastritis -Mild pancreatitis -Severe protein calorie malnutrition with a BMI of 16.4, from decreased oral intake -Diabetes mellitus type 2, uncontrolled with hypoglycemia from decreased oral intake -Essential hypertension- -Depression and anxiety not otherwise specified -L1 and compression fracture possibly chronic Disposition: Home Patient Condition at Discharge: Stable Plan - Discharge Summary Discharge Rx Participant: No New Discharge Prescriptions: New Omeprazole [PriLOSEC] 20 mg PO AC-BID #1 cap risperiDONE [RisperDAL] 1 mg PO BID #6 tab Continue Clopidogrel [Plavix] 75 mg PO DAILY #21 tab Sertraline [Zoloft] 200 mg PO DAILY traZODone HCL [Desyrel] 50 mg PO HS sitaGLIPtin PHOSPHATE [Januvia] 100 mg PO DAILY Metoprolol Tartrate [Lopressor] 50 mg PO BID #60 tab Psyllium Husk 100% [Metamucil Packet] 6 gm PO BID #60 packet Repaglinide [Prandin] 1 mg PO AC-TID #90 tablet Lisinopril-Hctz 20-12.5 mg [Zestoretic 20-12.5] 1 tab PO BID #60 tab Dicyclomine [Bentyl] 10 mg PO QID Rivastigmine Tartrate [Exelon] 3 mg PO BID Discontinued risperiDONE 3 mg PO BID metFORMIN HCL 1,000 mg PO BID #60 tab Docusate [Colace] 100 mg PO BID #14 capsule Discharge Medication List Clopidogrel [Plavix] 75 mg PO DAILY #21 tab 09/23/19 [Rx] Sertraline [Zoloft] 200 mg PO DAILY 03/10/20 [History] sitaGLIPtin PHOSPHATE [Januvia] 100 mg PO DAILY 03/10/20 [History] traZODone HCL [Desyrel] 50 mg PO HS 03/10/20 [History] Lisinopril-Hctz 20-12.5 mg [Zestoretic 20-12.5] 1 tab PO BID #60 tab 03/13/20 [Rx] Metoprolol Tartrate [Lopressor] 50 mg PO BID #60 tab 03/13/20 [Rx] Psyllium Husk 100% [Metamucil Packet] 6 gm PO BID #60 packet 03/13/20 [Rx] Repaglinide [Prandin] 1 mg PO AC-TID #90 tablet 03/13/20 [Rx] Dicyclomine [Bentyl] 10 mg PO QID 04/13/20 [History] Rivastigmine Tartrate [Exelon] 3 mg PO BID 04/25/20 [History] Omeprazole [PriLOSEC] 20 mg PO AC-BID #1 cap 04/28/20 [Rx] risperiDONE [RisperDAL] 1 mg PO BID #6 tab 04/28/20 [Rx] Follow up Appointment(s)/Referral(s): [facility], [NON-STAFF] - Reynaldo Putnam MD [Primary Care Provider] - 1-2 days (please call office to set up appt. time and date.) Activity/Diet/Wound Care/Special Instructions: OP- PT activity as tolerated consistent carb diet as tolerated homecare Discharge Disposition: HOME WITH HOME HEALTH SERVICES
== END 2020-04-29 15:33 | disposition home health service (06) | DRG 391 ==
LOC: EC 15:14 → 5NMEDONC 23:49
PROVIDERS: ADMIT Hospitalist; ATTEND Hospitalist
PROC: 0DB78ZX Excision of Stomach, Pylorus, Via Natural or Artificial Opening Endoscopic, Diagnostic (ICD-10-PCS; principal; 2020-04-27 12:00)
PROC: 0DB98ZX Excision of Duodenum, Via Natural or Artificial Opening Endoscopic, Diagnostic (ICD-10-PCS; principal; 2020-04-27 12:00)
PROC: 0DB68ZX Excision of Stomach, Via Natural or Artificial Opening Endoscopic, Diagnostic (ICD-10-PCS; principal; 2020-04-27 12:00)
DX: K29.00 Acute gastritis without bleeding (principal); E43 Unspecified severe protein-calorie malnutrition; K85.90 Acute pancreatitis without necrosis or infection, unspecified; S32.019A Unspecified fracture of first lumbar vertebra, initial encounter for closed fracture; Z68.1 Body mass index [BMI] 19.9 or less, adult; E11.649 Type 2 diabetes mellitus with hypoglycemia without coma; R62.7 Adult failure to thrive; E11.42 Type 2 diabetes mellitus with diabetic polyneuropathy; K29.50 Unspecified chronic gastritis without bleeding; Z11.59 Encounter for screening for other viral diseases; E78.5 Hyperlipidemia, unspecified; E83.42 Hypomagnesemia; E86.0 Dehydration; E87.6 Hypokalemia; F32.9 Major depressive disorder, single episode, unspecified; F41.9 Anxiety disorder, unspecified; G89.29 Other chronic pain; I05.9 Rheumatic mitral valve disease, unspecified; I10 Essential (primary) hypertension; K21.9 Gastro-esophageal reflux disease without esophagitis; K44.9 Diaphragmatic hernia without obstruction or gangrene; K58.1 Irritable bowel syndrome with constipation; M41.9 Scoliosis, unspecified; E04.2 Nontoxic multinodular goiter; R29.6 Repeated falls; K59.09 Other constipation; H53.2 Diplopia; Z79.02 Long term (current) use of antithrombotics/antiplatelets; Z79.84 Long term (current) use of oral hypoglycemic drugs; Z79.899 Other long term (current) drug therapy; Z88.1 Allergy status to other antibiotic agents; Z88.5 Allergy status to narcotic agent; Z88.0 Allergy status to penicillin; Z91.81 History of falling; Z90.710 Acquired absence of both cervix and uterus; Z90.12 Acquired absence of left breast and nipple; Z85.3 Personal history of malignant neoplasm of breast; Z87.442 Personal history of urinary calculi; Z90.49 Acquired absence of other specified parts of digestive tract; Z82.3 Family history of stroke; Z82.49 Family history of ischemic heart disease and other diseases of the circulatory system; W19.XXXA Unspecified fall, initial encounter
CPT/HCPCS: 36415; 43239; 70450; 71046; 73502; 74018; 80053; 80306; 80320; 81001; 83036; 83735; 84484; 85025; 85610; 85730; 88305; 93005; 96361; 96365; 96366; 96367; 96375; 99285

== ENCOUNTER 2020-06-04 11:18 | Inpatient (IN) | payer MEDICARE ==
[2020-06-04 12:11] LABS: ALT 20 U/L (4-34); AST 17 U/L (14-36); African American GFR (CKD) >90 (>60 ml/min/1.73 sqM); Alkaline Phosphatase 96 U/L (38-126); Anion Gap 11 mmol/L; Blood Urea Nitrogen 25 mg/dL (7-17); Carbon Dioxide 23 mmol/L (22-30); Chloride 92 mmol/L (98-107); Glucose 397 mg/dL (74-99); Non-African American GFR(CKD) 81 (>60 ml/min/1.73 sqM); Potassium 5.1 mmol/L (3.5-5.1); Sodium 126 mmol/L (137-145); Total Bilirubin 0.5 mg/dL (0.2-1.3)
[2020-06-04 12:17] LABS: Basophils % (A) 0 %; Eosinophils # (A) 0.2 k/uL (0-0.7); Eosinophils % (A) 1 %; HCT 41.4 % (34.0-46.0); HGB 13.7 gm/dL (11.4-16.0); Lymphocytes % (A) 7 %; MCH 30.8 pg (25.0-35.0); MCHC 33.2 g/dL (31.0-37.0); MCV 92.9 fL (80.0-100.0); Mean Platelet Volume 8.9; Monocytes # (A) 0.4 k/uL (0-1.0); Monocytes % (A) 3 %; Neutrophils # (A) 11.5 k/uL (1.3-7.7); Neutrophils % (A) 87 %; Platelet Count 320 k/uL (150-450); RBC 4.46 m/uL (3.80-5.40); RDW 13.3 % (11.5-15.5); WBC 13.3 k/uL (3.8-10.6)
[2020-06-04 12:25] LABS: Amorphous Sediment,Urine Occasional /hpf; Appearance,Urine Cloudy (Clear); Bacteria,Urine Occasional /hpf; Bilirubin,Urine Negative (Negative); Blood,Urine Small (Negative); Color,Urine Yellow; Glucose,Urine (UA) 4+ (Negative); Hyaline Casts,Urine 5 /lpf (0-2); Ketones,Urine Negative (Negative); Leukocyte Esterase,Urine Large (Negative); Nitrite,Urine Negative (Negative); PH, Urine 7.5 (5.0-8.0); Protein,Urine 1+ (Negative); RBC,Urine 14 /hpf (0-5); Specific Gravity,Urine 1.013 (1.001-1.035); Urobilinogen,Urine <2.0 mg/dL (<2.0); WBC,Urine >182 /hpf (0-5)
[2020-06-04] MEDS ORDERED: cefTRIAXone IN SWFI 1,000 MG/10 ML SYRINGE IVP STA (12:37)
[2020-06-04 12:39] LABS: Amphetamine Screen,Urine Not Detected (NotDetected); Benzodiazepines Screen,Urine Not Detected (NotDetected); Cocaine Screen,Urine Not Detected (NotDetected); Opiate Screen,Urine Not Detected (NotDetected); Phencyclidine Screen,Urine Not Detected (NotDetected); Tricyclic Antidepressant,Urine Not Detected (NotDetected); Urn Cannabinoid Scrn Detected (NotDetected)
[2020-06-04] MEDS ORDERED: ACETAMINOPHEN TAB 325 MG TAB PO STA (12:39)
[2020-06-04 12:40] LABS: Barbiturate Screen,Urine Not Detected (NotDetected); Methadone Screen, Urine Not Detected (NotDetected); Oxycodone Screen, Urine Not Detected (NotDetected)
[2020-06-04] MEDS ORDERED: SODIUM CHLORIDE 0.9% 1,000 ML IV ONE (12:42)
[2020-06-04] MEDS ORDERED: NALOXONE 0.4 MG/ML 1 ML VIAL IV PRN (12:45)
[2020-06-04] MEDS ORDERED: SODIUM CHLORIDE 0.9% 1,000 ML IV SCH (12:45)
--- NOTE | 2020-06-04 12:45 | ED ---
General Adult HPI - General Chief complaint: Psychiatric Symptoms Stated complaint: Mental Health Time Seen by Provider: 06/04/20 11:37 Source: patient, police, RN notes reviewed Mode of arrival: wheelchair Limitations: no limitations - History of Present Illness Initial comments: 79-year-old female presents emergency Department with police for psychiatric evaluation. Patient was picked up by a pickup order. Patient states that she's not exactly sure why she needs psychiatric treatment. Patient does complain of abdominal pain which is been chronic in nature she's had several admissions and ER visits for this. Patient reports no fevers or chills no chest pain or shortness of breath. Patient does not she does not eat or drink well. - Related Data Home Medications Medication Instructions Recorded Confirmed Sertraline [Zoloft] 200 mg PO DAILY 03/10/20 04/25/20 sitaGLIPtin PHOSPHATE [Januvia] 100 mg PO DAILY 03/10/20 04/25/20 traZODone HCL [Desyrel] 50 mg PO HS 03/10/20 04/25/20 Dicyclomine [Bentyl] 10 mg PO QID 04/13/20 04/25/20 Rivastigmine Tartrate [Exelon] 3 mg PO BID 04/25/20 04/25/20 Previous Rx's Medication Instructions Recorded Clopidogrel [Plavix] 75 mg PO DAILY #21 tab 09/23/19 Lisinopril-Hctz 20-12.5 mg 1 tab PO BID #60 tab 03/13/20 [Zestoretic 20-12.5] Metoprolol Tartrate [Lopressor] 50 mg PO BID #60 tab 03/13/20 Psyllium Husk 100% [Metamucil 6 gm PO BID #60 packet 03/13/20 Packet] Repaglinide [Prandin] 1 mg PO AC-TID #90 tablet 03/13/20 Omeprazole [PriLOSEC] 20 mg PO AC-BID #1 cap 04/28/20 risperiDONE [RisperDAL] 1 mg PO BID #6 tab 04/28/20 Allergies Allergy/AdvReac Type Severity Reaction Status Date / Time Penicillins Allergy Itching Verified 04/25/20 18:29 codeine AdvReac Nausea & Verified 04/25/20 18:29 [From Tylenol-Codeine #3] Vomiting erythromycin base AdvReac Nausea & Verified 04/25/20 18:29 Vomiting propoxyphene AdvReac Nausea & Verified 04/25/20 18:29 [From Rodrigue-N] Vomiting Review of Systems ROS Statement: Those systems with pertinent positive or pertinent negative responses have been documented in the HPI. ROS Other: All systems not noted in ROS Statement are negative. Past Medical History Past Medical History: Cancer, Diabetes Mellitus, Eye Disorder, GERD/Reflux, Hypertension, Renal Disease Additional Past Medical History / Comment(s): Pt recently admitted to [facility] on 03/12/20 with abdominal distention from severe constipation/mild pancreatitis, mild protein calorie malnutrition. Other hx: NIDDM type II, neuropathy in bilateral hands/lower legs and feet, falls, poor balance, recent L rib pain/abdominal pain/constipation which she treated with laxatives and now has been having loose stools, past IBS, nephrolithiasis with surgery, 1988 L breast cancer with mastectomy, current diplopia-saw Dr. Wright and is due for followup- not resolved, low back pain, scoliosis, L1 compression fracture, mitral valve disease/murmur, past L facial droop which resolved, thyroid nodules per past medical record/pt unaware. History of Any Multi-Drug Resistant Organisms: None Reported Past Surgical History: Breast Surgery, Section, Cholecystectomy, Heart Catheterization, Hysterectomy, Orthopedic Surgery Additional Past Surgical History / Comment(s): L mastectomy, bilateral breast biopsies, R breast benign lumpectomy x 2, cervical fusion, lithotripsy, R ureter rerouting, hemorrhoidectomy, BMB, EGDs, colonoscopies, bilateral cataract removals Past Anesthesia/Blood Transfusion Reactions: Postoperative Nausea & Vomiting (PONV) Past Psychological History: Anxiety, Depression Past Alcohol Use History: None Reported Past Drug Use History: None Reported - Past Family History Mother Family Medical History: Dementia, Pneumonia Father Family Medical History: Coronary Artery Disease (CAD), CVA/TIA Additional Family Medical History / Comment(s): Stroke, heart disease General Exam Limitations: no limitations General appearance: alert, in no apparent distress Head exam: Present: atraumatic, normocephalic, normal inspection Eye exam: Present: normal appearance, PERRL, EOMI. Absent: scleral icterus, conjunctival injection, periorbital swelling ENT exam: Present: normal exam, normal oropharynx, mucous membranes moist, TM's normal bilaterally Neck exam: Present: normal inspection, full ROM. Absent: tenderness, meningismus, lymphadenopathy Respiratory exam: Present: normal lung sounds bilaterally. Absent: respiratory distress, wheezes, rales, rhonchi, stridor Cardiovascular Exam: Present: regular rate, normal rhythm, normal heart sounds. Absent: systolic murmur, diastolic murmur, rubs, gallop, clicks GI/Abdominal exam: Present: soft, tenderness, normal bowel sounds. Absent: distended, guarding, rebound, rigid Back exam: Absent: CVA tenderness (R), CVA tenderness (L) Neurological exam: Present: alert, oriented X3, CN II-XII intact Course Vital Signs 06/04/20 11:28 Temperature 98.7 F Pulse Rate 84 Respiratory 16 Rate Blood Pressure 153/72 O2 Sat by Pulse 97 Oximetry Medical Decision Making - Medical Decision Making 70-year-old female presented for psychiatric evaluation upon lab work shows evidence of hyponatremia, urinary tract infection. Culture blood culture ordered Rocephin was ordered. Patient was given IV fluid bolus, IV fluid maintenance. Case discussed with Dr. Mitchell will be admitted with consult to psychiatric services. - Lab Data Result diagrams: 06/04/20 11:52 06/04/20 11:52 Lab Results 06/04/20 06/04/20 06/04/20 Range/Units 11:52 11:52 12:10 WBC 13.3 H (3.8-10.6) k/uL RBC 4.46 (3.80-5.40) m/uL Hgb 13.7 (11.4-16.0) gm/dL Hct 41.4 (34.0-46.0) % MCV 92.9 (80.0-100.0) fL MCH 30.8 (25.0-35.0) pg MCHC 33.2 (31.0-37.0) g/dL RDW 13.3 (11.5-15.5) % Plt Count 320 (150-450) k/uL Neutrophils % 87 % Lymphocytes % 7 % Monocytes % 3 % Eosinophils % 1 % Basophils % 0 % Neutrophils # 11.5 H (1.3-7.7) k/uL Lymphocytes # 1.0 (1.0-4.8) k/uL Monocytes # 0.4 (0-1.0) k/uL Eosinophils # 0.2 (0-0.7) k/uL Basophils # 0.0 (0-0.2) k/uL Sodium 126 L (137-145) mmol/L Potassium 5.1 (3.5-5.1) mmol/L Chloride 92 L (98-107) mmol/L Carbon Dioxide 23 (22-30) mmol/L Anion Gap 11 mmol/L BUN 25 H (7-17) mg/dL Creatinine 0.72 (0.52-1.04) mg/dL Est GFR (CKD-EPI)AfAm >90 (>60 ml/min/1.73 sqM) Est GFR (CKD-EPI)NonAf 81 (>60 ml/min/1.73 sqM) Glucose 397 H (74-99) mg/dL Calcium 11.0 H (8.4-10.2) mg/dL Total Bilirubin 0.5 (0.2-1.3) mg/dL AST 17 (14-36) U/L ALT 20 (4-34) U/L Alkaline Phosphatase 96 (38-126) U/L Total Protein 7.0 (6.3-8.2) g/dL Albumin 4.0 (3.5-5.0) g/dL Urine Color Urine Appearance (Clear) Urine pH (5.0-8.0) Ur Specific [place] (1.001-1.035) Urine Protein (Negative) Urine Glucose (UA) (Negative) Urine Ketones (Negative) Urine Blood (Negative) Urine Nitrite (Negative) Urine Bilirubin (Negative) Urine Urobilinogen (<2.0) mg/dL Ur Leukocyte Esterase (Negative) Urine RBC (0-5) /hpf Urine WBC (0-5) /hpf Amorphous Sediment (None) /hpf Urine Bacteria (None) /hpf Hyaline Casts (0-2) /lpf Urine Opiates Screen Not Detected (NotDetected) Ur Oxycodone Screen Not Detected (NotDetected) Urine Methadone Screen Not Detected (NotDetected) Ur Propoxyphene Screen Not Detected (NotDetected) Ur Barbiturates Screen Not Detected (NotDetected) U Tricyclic Antidepress Not Detected (NotDetected) Ur Phencyclidine Scrn Not Detected (NotDetected) Ur Amphetamines Screen Not Detected (NotDetected) U Methamphetamines Scrn Not Detected (NotDetected) U Benzodiazepines Scrn Not Detected (NotDetected) Urine Cocaine Screen Not Detected (NotDetected) U Marijuana (THC) Screen Detected H (NotDetected) 06/04/20 Range/Units 12:10 WBC (3.8-10.6) k/uL RBC (3.80-5.40) m/uL Hgb (11.4-16.0) gm/dL Hct (34.0-46.0) % MCV (80.0-100.0) fL MCH (25.0-35.0) pg MCHC (31.0-37.0) g/dL RDW (11.5-15.5) % Plt Count (150-450) k/uL Neutrophils % % Lymphocytes % % Monocytes % % Eosinophils % % Basophils % % Neutrophils # (1.3-7.7) k/uL Lymphocytes # (1.0-4.8) k/uL Monocytes # (0-1.0) k/uL Eosinophils # (0-0.7) k/uL Basophils # (0-0.2) k/uL Sodium (137-145) mmol/L Potassium (3.5-5.1) mmol/L Chloride (98-107) mmol/L Carbon Dioxide (22-30) mmol/L Anion Gap mmol/L BUN (7-17) mg/dL Creatinine (0.52-1.04) mg/dL Est GFR (CKD-EPI)AfAm (>60 ml/min/1.73 sqM) Est GFR (CKD-EPI)NonAf (>60 ml/min/1.73 sqM) Glucose (74-99) mg/dL Calcium (8.4-10.2) mg/dL Total Bilirubin (0.2-1.3) mg/dL AST (14-36) U/L ALT (4-34) U/L Alkaline Phosphatase (38-126) U/L Total Protein (6.3-8.2) g/dL Albumin (3.5-5.0) g/dL Urine Color Yellow Urine Appearance Cloudy H (Clear) Urine pH 7.5 (5.0-8.0) Ur Specific [place] 1.013 (1.001-1.035) Urine Protein 1+ H (Negative) Urine Glucose (UA) 4+ H (Negative) Urine Ketones Negative (Negative) Urine Blood Small H (Negative) Urine Nitrite Negative (Negative) Urine Bilirubin Negative (Negative) Urine Urobilinogen <2.0 (<2.0) mg/dL Ur Leukocyte Esterase Large H (Negative) Urine RBC 14 H (0-5) /hpf Urine WBC >182 H (0-5) /hpf Amorphous Sediment Occasional H (None) /hpf Urine Bacteria Occasional H (None) /hpf Hyaline Casts 5 H (0-2) /lpf Urine Opiates Screen (NotDetected) Ur Oxycodone Screen (NotDetected) Urine Methadone Screen (NotDetected) Ur Propoxyphene Screen (NotDetected) Ur Barbiturates Screen (NotDetected) U Tricyclic Antidepress (NotDetected) Ur Phencyclidine Scrn (NotDetected) Ur Amphetamines Screen (NotDetected) U Methamphetamines Scrn (NotDetected) U Benzodiazepines Scrn (NotDetected) Urine Cocaine Screen (NotDetected) U Marijuana (THC) Screen (NotDetected) Disposition Clinical Impression: Hyponatremia, Urinary tract infection, Depression Disposition: ADMITTED IP TO THIS [facility] Condition: Fair Referrals: Reynaldo Putnam MD [Primary Care Provider] - 1-2 days
[2020-06-04] MEDS: PSYLLIUM HUSK 100% 6 GM PACKET PO SCH ×2 (15:16→21:16)
[2020-06-04] MEDS: DICYCLOMINE 10 MG CAP PO SCH ×3 (15:16→21:23)
[2020-06-04] MEDS ORDERED: MELATONIN 3 MG TABLET PO PRN (15:21)
[2020-06-04] MEDS ORDERED: CALCIUM CARBONATE 500 MG CHEWABLE PO PRN (15:21)
[2020-06-04] MEDS ORDERED: MAGNESIUM HYDROXIDE 2,400 MG/10 ML CUP PO PRN (15:21)
[2020-06-04] MEDS ORDERED: ONDANSETRON 4 MG/2 ML VIAL IVP PRN (15:21)
[2020-06-04] MEDS ORDERED: LACTULOSE 20 GM/30 ML CUP PO PRN (15:21)
--- NOTE | 2020-06-04 15:21 | P.HPIM ---
History of Present Illness H&P Date: 06/04/20 Chief Complaint: pickup order Presenting complaint: Abdominal pain History of presenting complaint: This is a 79-year-old patient of Dr. Reynaldo Allen. Chronic stable medical conditions include diabetes, hypertension, depression, protein calorie malnutrition, L1 compression fracture. for 6 weeks for depression and anxiety was at [facility]- mental unit. discharged from on January 27 and came to stay with her son and [id number]. She was admitted here in February of this year with mild pancreatitis and severe constipation. Also had uncontrolled blood pressure. Then admitted from April 25 through April 30 with abdominal pain and found to have acute on chronic gastritis with EGD. Patient was now brought in by the police as a pickup order as apparently patient had not been on psychiatry appointments. Patient states that she is not sure why she needs that. Does not eat much. Has chronic lower back pain. No fever no chills. Weak and tired. Somewhat depressed. Review of systems: GEN.: Tired, weight loss EYES: None HEENT: None NECK: None RESPIRATORY: None CARDIOVASCULAR: None GASTROINTESTINAL: As above GENITOURINARY: None MUSCULOSKELETAL: None LYMPHATICS: None HEMATOLOGICAL: None PSYCHIATRY: Depression and anxiety NEUROLOGICAL: None Past medical history to include: Diabetes, hypertension, left breast cancer, anxiety, depression, mild pancre atitis, L1 compression fracture, protein calorie malnutrition Social history: Currently living with her son and [id number]. Does not smoke or drink alcohol. Physical examination: VITAL SIGNS: 98.7, 84, 16, 153/72, 97% room air GENERAL: BMI 16.2, laying in bed, somewhat depressed appearing EYES: Pupils equal. Conjunctiva pale. HEENT: External appearance of nose and ears normal, oral cavity grossly normal. NECK: JVD not raised; masses not palpable. HEART: First and second heart sounds are normal; no edema. LUNGS: Respiratory rate normal; clear to auscultation. MUSCULAR schedule: Generalized wasting of muscle loss of subcutaneous fat bony prominences ABDOMEN: Soft, nontender t, no guarding or rigidity, liver spleen not palpable, no masses palpable. PSYCH: [Alert and oriented x3; mood and affect depressed NEUROLOGICAL: Cranial nerves grossly intact; no facial asymmetry, power and sensation grossly intact. LYMPHATICS: No lymph nodes palpable in the axilla and neck INVESTIGATIONS, reviewed in the clinical context: White count 3.3 hemoglobin 13.7 platelets 320 sodium 126 creatinine 0.7 to glucose 397 calcium 11 UA positive for leukoesterase, WBC Urine drug screen positive for marijuana Assessment: -Symptomatic hyponatremia causing weakness likely hypoosmolar from decreased solute intake -Patient admitted with pickup order from the [facility] and brought in by the police, apparently not being compliant with her appointments -Chronic gastritis, causing chronic abdominal pain --Severe protein calorie malnutrition with a BMI of 16.2, from decreased oral intake -Diabetes mellitus type 2, uncontrolled with hyperglycemia f -Essential hypertension- -Depression and anxiety not otherwise specified -L1 and compression fracture possibly chronic -Chronic anorexia -Acute UTI from cystitis Plan: Home medications and resume. Add food supplement. Consult dietitian. Fluid restriction 1200 mL a day. Avoid clear liquids. Patient may have salty foods. Would also add salt tablets. Repeat labs in the morning. Add serum osmolality. Lovenox for DVT prophylaxis. Psychiatry consultation. Past Medical History Past Medical History: Cancer, Diabetes Mellitus, Eye Disorder, GERD/Reflux, Hypertension, Renal Disease Additional Past Medical History / Comment(s): Pt recently admitted to [facility] on 03/12/20 with abdominal distention from severe constipation/mild pancreatitis, mild protein calorie malnutrition. Other hx: NIDDM type II, neuropathy in bilateral hands/lower legs and feet, falls, poor balance, recent L rib pain/abdominal pain/constipation which she treated with laxatives and now has been having loose stools, past IBS, nephrolithiasis with surgery, 1987 L breast cancer with mastectomy,dilopia, low back pain, scoliosis, L1 compression fracture, mitral valve disease/murmur, past L facial droop which resolved, thyroid nodules per past medical record/pt unaware. History of Any Multi-Drug Resistant Organisms: None Reported Past Surgical History: Breast Surgery, Section, Cholecystectomy, Heart Catheterization, Hysterectomy, Orthopedic Surgery Additional Past Surgical History / Comment(s): L mastectomy, bilateral breast biopsies, R breast benign lumpectomy x 2, cervical fusion, lithotripsy, R ureter rerouting, hemorrhoidectomy, BMB, EGDs, colonoscopies, bilateral cataract removals Past Anesthesia/Blood Transfusion Reactions: Postoperative Nausea & Vomiting (PONV) Past Psychological History: Anxiety, Depression Additional Psychological History / Comment(s): Pt resides with her son and daughter in law. She uses a walker to ambulate. She no longer drives, family takes her to appts. Pt has depression which she states has been increased lately d/t health issues. She denies any thoughts/plans of suicide. Smoking Status: Never smoker Past Alcohol Use History: None Reported Past Drug Use History: None Reported - Past Family History Mother Family Medical History: Dementia, Pneumonia Father Family Medical History: Coronary Artery Disease (CAD), CVA/TIA Additional Family Medical History / Comment(s): Stroke, heart disease Medications and Allergies Home Medications Medication Instructions Recorded Confirmed Type Clopidogrel [Plavix] 75 mg PO DAILY #21 tab 09/23/19 04/25/20 Rx Sertraline [Zoloft] 200 mg PO DAILY 03/10/20 04/25/20 History sitaGLIPtin PHOSPHATE [Januvia] 100 mg PO DAILY 03/10/20 04/25/20 History traZODone HCL [Desyrel] 50 mg PO HS 03/10/20 04/25/20 History Lisinopril-Hctz 20-12.5 mg 1 tab PO BID #60 tab 03/13/20 04/25/20 Rx [Zestoretic 20-12.5] Metoprolol Tartrate [Lopressor] 50 mg PO BID #60 tab 03/13/20 04/25/20 Rx Psyllium Husk 100% [Metamucil 6 gm PO BID #60 packet 03/13/20 04/25/20 Rx Packet] Repaglinide [Prandin] 1 mg PO AC-TID #90 tablet 03/13/20 04/25/20 Rx Dicyclomine [Bentyl] 10 mg PO QID 04/13/20 04/25/20 History Rivastigmine Tartrate [Exelon] 3 mg PO BID 04/25/20 04/25/20 History Omeprazole [PriLOSEC] 20 mg PO AC-BID #1 cap 04/28/20 Rx risperiDONE [RisperDAL] 1 mg PO BID #6 tab 04/28/20 Rx Allergies Allergy/AdvReac Type Severity Reaction Status Date / Time Penicillins Allergy Itching Verified 04/25/20 18:29 codeine AdvReac Nausea & Verified 04/25/20 18:29 [From Tylenol-Codeine #3] Vomiting erythromycin base AdvReac Nausea & Verified 04/25/20 18:29 Vomiting propoxyphene AdvReac Nausea & Verified 04/25/20 18:29 [From Darvocet-N] Vomiting Physical Exam Vitals: Vital Signs Temp Pulse Resp BP Pulse Ox 06/04/20 11:28 98.7 F 84 16 153/72 97 Intake and Output 06/04/20 06/04/20 06/04/20 06:59 14:59 22:59 Other: Weight 37.648 kg Results CBC & Chem 7: 06/04/20 11:52 06/04/20 11:52 Labs: Abnormal Lab Results - Last 24 Hours (Table) 06/04/20 06/04/20 06/04/20 Range/Units 11:52 11:52 12:10 WBC 13.3 H (3.8-10.6) k/uL Neutrophils # 11.5 H (1.3-7.7) k/uL Sodium 126 L (137-145) mmol/L Chloride 92 L (98-107) mmol/L BUN 25 H (7-17) mg/dL Glucose 397 H (74-99) mg/dL Calcium 11.0 H (8.4-10.2) mg/dL Urine Appearance (Clear) Urine Protein (Negative) Urine Glucose (UA) (Negative) Urine Blood (Negative) Ur Leukocyte Esterase (Negative) Urine RBC (0-5) /hpf Urine WBC (0-5) /hpf Amorphous Sediment (None) /hpf Urine Bacteria (None) /hpf Hyaline Casts (0-2) /lpf U Marijuana (THC) Screen Detected H (NotDetected) 06/04/20 Range/Units 12:10 WBC (3.8-10.6) k/uL Neutrophils # (1.3-7.7) k/uL Sodium (137-145) mmol/L Chloride (98-107) mmol/L BUN (7-17) mg/dL Glucose (74-99) mg/dL Calcium (8.4-10.2) mg/dL Urine Appearance Cloudy H (Clear) Urine Protein 1+ H (Negative) Urine Glucose (UA) 4+ H (Negative) Urine Blood Small H (Negative) Ur Leukocyte Esterase Large H (Negative) Urine RBC 14 H (0-5) /hpf Urine WBC >182 H (0-5) /hpf Amorphous Sediment Occasional H (None) /hpf Urine Bacteria Occasional H (None) /hpf Hyaline Casts 5 H (0-2) /lpf U Marijuana (THC) Screen (NotDetected) Thrombosis Risk Factor Assmnt - Choose All That Apply Any of the Below Risk Factors Present?: Yes Other Risk Factors: Yes Each Risk Factor Represents 3 Points: Age 75 years or older Other congenital or acquired thrombophilia - If yes, enter type in comment: Yes Thrombosis Risk Factor Assessment Total Risk Factor Score: 3 Thrombosis Risk Factor Assessment Level: Moderate Risk
[2020-06-04 16:58] LABS: Glucose,Whole Blood 346 mg/dL (75-99)
[2020-06-04] MEDS: ENOXAPARIN 40 MG/0.4 ML SYRINGE SQ SCH ×2 (17:48→17:57)
[2020-06-04] MEDS: PANTOPRAZOLE 40 MG TABLET PO SCH (17:48)
[2020-06-04] MEDS: REPAGLINIDE 1 MG TAB PO SCH (17:49)
[2020-06-04] MEDS: INSULIN ASPART (NovoLOG) 100 UNIT/ML VIAL SQ SCH ×2 (17:49→21:17)
[2020-06-04] MEDS: SODIUM CHLORIDE 0.9% 1,000 ML IV SCH ×2 (17:51→23:05)
[2020-06-04] MEDS: MAG HYDROX/AL HYDROX/SIMETH 30 ML CUP PO PRN (17:59)
[2020-06-04 20:13] LABS: Glucose,Whole Blood 307 mg/dL (75-99)
[2020-06-04] MEDS ORDERED: traZODone HCL 50 MG TAB PO SCH (21:00)
[2020-06-04] MEDS: METOPROLOL TARTRATE 50 MG TAB PO SCH (21:16)
[2020-06-04] MEDS: DONEPEZIL 10 MG TAB PO SCH (21:16)
[2020-06-04] MEDS: risperiDONE 1 MG TAB PO SCH (21:16)
[2020-06-04] MEDS: LISINOPRIL-HCTZ 20-12.5 MG 1 EACH TAB PO SCH (21:16)
[2020-06-04] MEDS: ACETAMINOPHEN TAB 325 MG TAB PO PRN (21:19)
[2020-06-05 07:56] LABS: African American GFR (CKD) >90 (>60 ml/min/1.73 sqM); Anion Gap 6 mmol/L; Blood Urea Nitrogen 19 mg/dL (7-17); Calcium 9.3 mg/dL (8.4-10.2); Carbon Dioxide 29 mmol/L (22-30); Chloride 98 mmol/L (98-107); Glucose 187 mg/dL (74-99); Non-African American GFR(CKD) 85 (>60 ml/min/1.73 sqM); Potassium 3.7 mmol/L (3.5-5.1); Sodium 133 mmol/L (137-145)
[2020-06-05 08:00] LABS: Glucose,Whole Blood 197 mg/dL (75-99)
[2020-06-05] MEDS: ACETAMINOPHEN TAB 325 MG TAB PO PRN ×2 (08:13→21:40)
[2020-06-05] MEDS: DICYCLOMINE 10 MG CAP PO SCH ×4 (08:13→21:40)
[2020-06-05] MEDS: METOPROLOL TARTRATE 50 MG TAB PO SCH ×2 (08:13→21:40)
[2020-06-05] MEDS: INSULIN ASPART (NovoLOG) 100 UNIT/ML VIAL SQ SCH ×4 (08:14→20:08)
[2020-06-05] MEDS: ENOXAPARIN 40 MG/0.4 ML SYRINGE SQ SCH (08:14)
[2020-06-05] MEDS: SERTRALINE 100 MG TAB PO SCH (08:14)
[2020-06-05] MEDS: LINAGLIPTIN 5 MG TABLET PO SCH (08:14)
[2020-06-05] MEDS: PANTOPRAZOLE 40 MG TABLET PO SCH ×2 (08:14→16:49)
[2020-06-05] MEDS: CLOPIDOGREL 75 MG TAB PO SCH (08:14)
[2020-06-05] MEDS: LISINOPRIL-HCTZ 20-12.5 MG 1 EACH TAB PO SCH ×2 (08:15→21:41)
[2020-06-05] MEDS: PSYLLIUM HUSK 100% 6 GM PACKET PO SCH ×2 (08:15→21:37)
[2020-06-05] MEDS: risperiDONE 1 MG TAB PO SCH (08:15)
[2020-06-05] MEDS: REPAGLINIDE 1 MG TAB PO SCH ×3 (08:16→16:49)
[2020-06-05] MEDS: SODIUM CHLORIDE 0.9% 1,000 ML IV SCH ×2 (08:17→16:48)
[2020-06-05 11:57] VITALS: BMI 16.2
[2020-06-05 12:02] LABS: Glucose,Whole Blood 234 mg/dL (75-99)
--- NOTE | 2020-06-05 13:43 | P.CN ---
Psychiatric Consult - . Consult date: 06/05/20 Consult:: 06/05/20 12:45 IDENTIFYING DATA: Patient is a 79-year-old female who currently lives with her son and qezbwojk-jy-iqz in a house, has 2 kids and for grandchildren collects Social Security and pension. HPI: Patient presented to the hospital yesterday escorted by police for psychiatric evaluation. Patient was on a pickup order for apparently not going to her psychiatric appointment. Patient was found to have hyponatremia and urinary tract infection in the ER and her UDS was positive for marijuana. Patient was admitted to the medical floors and psychiatric consult was placed for evaluation. Patient was seen at the bedside and appeared to have a soft tone of voice however was calm and directable during conversation. She states that her mood has been "down" however states that "it's down on some days but up on other days". She states that she has been dealing with depression for a significant amount of time. She states that she has mild anxiety. She claims that she has discomfort in her back and her abdomen related to her UTI. She states that she missed an appointment with [facility] claiming that she forgot to cancel it. She states that she knows the importance of going to these appointments. She claims that her meds and then changed recently. She claims of a poor appetite and her sleep has been "fine". Patient denies any suicidal or homicidal ideations intent or plan. At this time patient denies any auditory or visual hallucinations. Patient denies any flight of ideas racing thoughts and increased in goal directed behavior. Patient denies using any recreational drugs at this time and denies any alcohol or nicotine products. she claims that she has been compliant with her medications. PAST PSYCHIATRIC HISTORY: Patient states that she has a history of depression and anxiety along with difficulty sleeping. Patient was admitted to the mental health unit last 6 weeks ago in [place]. She states that she follows up at [facility] however does not know the name of her psychiatrist. She denies any previous suicide attempts. Patient claims that she's currently taking Risperdal, Aricept, trazodone and Zoloft. PMH: Hypertension, diabetes mellitus, history of breast cancer with a mastectomy 31 years ago, currently in remission. ALLERGIES: as per EMR CHEMICAL DEPENDENCY HISTORY: Denies FAMILY PSYCHIATRIC/SUBSTANCE USE HISTORY: denies SOCIAL HISTORY: She states that she was born and raised in [place] [place] and completed up to the 12th grade of school. 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 She has 2 kids and 4 grandchildren. She currently lives alone in a house is collects Social Security and pension MENTAL STATUS EXAM: General Appearance: Patient appears to be stated age is thin and short in stature, alert, and directable. Fair hygiene and grooming. Behavior: Patient is laying in bed without any agitated behavior. timid Speech: Patient's speech is fluent and nonpressured. Soft tone. Mood/Affect: Patient reports their mood is "down", affect is congruent and constricted. Suicidality/Homicidality: Patient denies having any suicidal or homicidal ideation intent or plan. Perceptions: Patient denies any auditory or visual hallucinations. Though content/process: There is no evidence of any delusional thought content and thought process is linear and goal-directed. Anxious about being in the hospital. Memory and concentration: AOX3, grossly intact for the purposes of this session. Can spell "WORLD" backwards Judgment and insight: Limited IMPRESSIONS: depressive disorder unspecified PLAN: -At this time patient DOES NOT meet criteria for inpatient psychiatric admission however will continue to follow patient while she is on the medical floors to see if she needs inpatient psychiatric hospitalization. -Delirium precautions recommended with patient including - avoiding use of narcotics and OFFICE ADMINISTRATOR sedatives, limit anticholinergic medications when possible, frequent re-orientation, minimize use of restraints, open window shades during the day and close them at night -Would recommend the following medication changes/additions: continue with Aricept 10 mg at bedtime as a cognitive enhancer, continue Zoloft 200 mg daily for mood, discontinued Risperdal and trazodone and added Seroquel 25 mg daily at bedtime +25 mg daily at bedtime when necessary for insomnia/mood stabilization. -Will continue to follow along. continue with treatment of urinary tract infection and hyponatremia which should improve patient's condition. -Please contact with any questions. 06/05/20 13:41
--- NOTE | 2020-06-05 15:53 | P.PN ---
Progress Note - Text Progress Note Date: 06/05/20 Presenting complaint: Abdominal pain History of presenting complaint: This is a 79-year-old patient of Dr. Reynaldo Allen. Chronic stable medical conditions include diabetes, hypertension, depression, protein calorie malnutrition, L1 compression fracture. for 6 weeks for depression and anxiety was at [facility]- mental unit. discharged from on January 27 and came to stay with her son and [id number]-xze. She was admitted here in February of this year with mild pancreatitis and severe constipation. Also had uncontrolled blood pressure. Then admitted from April 25 through April 30 with abdominal pain and found to have acute on chronic gastritis with EGD. Patient was now brought in by the police as a pickup order as apparently patient had not been on psychiatry appointments. Patient states that she is not sure why she needs that. Does not eat much. Has chronic lower back pain. No fever no chills. Weak and tired. Somewhat depressed. Today-sitting up. Eating better. Sodium better. Review of systems: Was done for constitutional, cardiovascular, GI, pulmonary. relevant finding as above Active Medications Acetaminophen (Tylenol Tab) 650 mg PO Q6HR PRN PRN Reason: Mild Pain or Fever > 100.5 Last Admin: 06/05/20 08:13 Dose: 650 mg Documented by: Al Hydroxide/Mg Hydroxide (Maalox) 15 ml PO Q6HR PRN PRN Reason: Indigestion Last Admin: 06/04/20 17:59 Dose: 15 ml Documented by: Calcium Carbonate/Glycine (Tums) 1,000 mg PO Q4HR PRN PRN Reason: Dyspepsia Clopidogrel Bisulfate (Plavix) 75 mg PO DAILY [facility] Last Admin: 06/05/20 08:14 Dose: 75 mg Documented by: Dicyclomine HCl (Bentyl) 10 mg PO QID [facility] Last Admin: 06/05/20 11:59 Dose: 10 mg Documented by: Donepezil HCl (Aricept) 10 mg PO HS [facility] Last Admin: 06/04/20 21:16 Dose: 10 mg Documented by: Enoxaparin Sodium (Lovenox) 40 mg SQ DAILY [facility] Last Admin: 06/05/20 08:14 Dose: 40 mg Documented by: Lisinopril/HCTZ (Zestoretic 20-12.5) 1 each PO BID [facility] Last Admin: 06/05/20 08:15 Dose: 1 each Documented by: Sodium Chloride (Saline 0.9%) 1,000 mls @ 130 mls/hr IV .Q7H42M [facility] Last Admin: 06/05/20 08:17 Dose: 130 mls/hr Documented by: Insulin Aspart (Novolog) 0 unit SQ ACHS [facility]; Protocol Last Admin: 06/05/20 12:00 Dose: 3 unit Documented by: Lactulose (Cephulac) 20 gm PO DAILY PRN PRN Reason: Constipation Linagliptin (Tradjenta) 5 mg PO DAILY [facility] Last Admin: 06/05/20 08:14 Dose: 5 mg Documented by: Magnesium Hydroxide (Milk Of Magnesia) 2,400 mg PO DAILY PRN PRN Reason: Constipation Melatonin (Melatonin) 3 mg PO HS PRN PRN Reason: Insomnia Metoprolol Tartrate (Lopressor) 50 mg PO BID [facility] Last Admin: 06/05/20 08:13 Dose: 50 mg Documented by: Naloxone HCl (Narcan) 0.2 mg IV Q2M PRN PRN Reason: Opioid Reversal Ondansetron HCl (Zofran) 4 mg IVP Q8HR PRN PRN Reason: Nausea And Vomiting Pantoprazole Sodium (Protonix) 40 mg PO AC-BID [facility] Last Admin: 06/05/20 08:14 Dose: 40 mg Documented by: Psyllium Hydrophilic Mucilloid (Metamucil) 6 gm PO BID [facility] Last Admin: 06/05/20 08:15 Dose: 6 gm Documented by: Quetiapine Fumarate (Seroquel) 25 mg PO HS [facility] Quetiapine Fumarate (Seroquel) 25 mg PO HS PRN PRN Reason: Insomnia Repaglinide (Prandin) 1 mg PO AC-TID [facility] Last Admin: 06/05/20 11:59 Dose: 1 mg Documented by: Sertraline HCl (Zoloft) 200 mg PO DAILY [facility] Last Admin: 06/05/20 08:14 Dose: 200 mg Documented by: Physical examination: VITAL SIGNS: 98, 87, 16, 169/75, 98% on room air GENERAL: Laying in bed, comfortable EYES: Pupils equal. Conjunctiva pale. HEENT: External appearance of nose and ears normal, oral cavity grossly normal. NECK: JVD not raised; masses not palpable. HEART: First and second heart sounds are normal; no edema. LUNGS: Respiratory rate normal; clear to auscultation. MUSCULAR schedule: Generalized wasting of muscle loss of subcutaneous fat bony prominences ABDOMEN: Soft, nontender t, no guarding or rigidity, liver spleen not palpable, no masses palpable. PSYCH: [Alert and oriented x3; mood and affect depressed INVESTIGATIONS, reviewed in the clinical context: Sodium 133 potassium 3.7 creatinine 0.65, glucose 197-234 Previous testing White count 3.3 hemoglobin 13.7 platelets 320 sodium 126 creatinine 0.7 to glucose 397 calcium 11 UA positive for leukoesterase, WBC Urine drug screen positive for marijuana Assessment: -Symptomatic hyponatremia causing weakness likely hypoosmolar from decreased solute intake-improved -Patient admitted with pickup order from the [facility] and brought in by the police, apparently not being compliant with her appointments -Chronic gastritis, causing chronic abdominal pain --Severe protein calorie malnutrition with a BMI of 16.2, from decreased oral intake -Diabetes mellitus type 2, uncontrolled with hyperglycemia f -Essential hypertension- -Depression and anxiety not otherwise specified -L1 and compression fracture possibly chronic -Chronic anorexia -Acute UTI from cystitis Plan: Nurse called me to inform that the patient's son was the patient go to [facility] psychiatry [facility]-not [facility]. Social work's been consulted. 3 days of Keflex. Medically stable otherwise to be discharged.
[2020-06-05] MEDS: CEPHALEXIN 250 MG CAP PO SCH ×2 (16:49→21:40)
[2020-06-05 17:18] LABS: Glucose,Whole Blood 190 mg/dL (75-99)
[2020-06-05 20:06] LABS: Glucose,Whole Blood 110 mg/dL (75-99)
[2020-06-05] MEDS: QUEtiapine 25 MG TAB PO SCH (21:40)
[2020-06-05] MEDS: DONEPEZIL 10 MG TAB PO SCH (21:40)
[2020-06-05] MEDS: MAG HYDROX/AL HYDROX/SIMETH 30 ML CUP PO PRN (21:41)
[2020-06-06 06:52] LABS: Glucose,Whole Blood 184 mg/dL (75-99)
[2020-06-06] MEDS: INSULIN ASPART (NovoLOG) 100 UNIT/ML VIAL SQ SCH ×4 (07:52→21:23)
[2020-06-06] MEDS: ENOXAPARIN 40 MG/0.4 ML SYRINGE SQ SCH (07:52)
[2020-06-06] MEDS: PSYLLIUM HUSK 100% 6 GM PACKET PO SCH ×2 (07:53→21:18)
[2020-06-06] MEDS: PANTOPRAZOLE 40 MG TABLET PO SCH ×2 (07:53→16:55)
[2020-06-06] MEDS: METOPROLOL TARTRATE 50 MG TAB PO SCH ×2 (07:53→21:22)
[2020-06-06] MEDS: CEPHALEXIN 250 MG CAP PO SCH ×3 (07:53→21:23)
[2020-06-06] MEDS: LISINOPRIL-HCTZ 20-12.5 MG 1 EACH TAB PO SCH ×2 (07:53→21:22)
[2020-06-06] MEDS: DICYCLOMINE 10 MG CAP PO SCH ×4 (07:54→21:22)
[2020-06-06] MEDS: LINAGLIPTIN 5 MG TABLET PO SCH (07:54)
[2020-06-06] MEDS: REPAGLINIDE 1 MG TAB PO SCH ×3 (07:54→16:55)
[2020-06-06] MEDS: CLOPIDOGREL 75 MG TAB PO SCH (07:54)
[2020-06-06] MEDS: SERTRALINE 100 MG TAB PO SCH (07:54)
[2020-06-06] MEDS: MAG HYDROX/AL HYDROX/SIMETH 30 ML CUP PO PRN (08:00)
[2020-06-06 11:53] LABS: Glucose,Whole Blood 258 mg/dL (75-99)
--- NOTE | 2020-06-06 14:32 | P.PN ---
Progress Note - Text Progress Note Date: 06/06/20 Interval History: Patient was seen today for psychiatric follow-up. Patient appeared to have a brighter affect today and states that she is feeling "good" however did describe feeling overwhelmed with the court proceedings and papers that she is about to receive about her hearing date on Saturday. Patient had several questions about what happened and why she needs to appear in court and leader writer explained the circumstances. Patient understood verbally. She claims that her mood has been feeling better on the medications and reports optimism in the future. She states that she wants to stay alive for her family. She claims that she gets along well with her son at home. She states that she had a improvement in her appetite today. She did state that she had some difficulties with sleep last night however was informed about the extra when necessary Seroquel which she can ask for. At this time patient denies any suicidal or homical ideations, intent or plan. Patient denies any auditory, visual hallucinations and denies any paranoia or delusions. Patient denies any side effects from the medications and has been compliant with meds. Mental Status Exam: General Appearance: Patient appears to be stated age is thin and short in stature, alert, and directable. Fair hygiene and grooming. Behavior: Patient is laying in bed without any agitated behavior. Speech: Patient's speech is fluent and nonpressured. Soft tone. Mood/Affect: Patient reports their mood is "better", affect is congruent Suicidality/Homicidality: Patient denies having any suicidal or homicidal ideation intent or plan. Perceptions: Patient denies any auditory or visual hallucinations. Though content/process: There is no evidence of any delusional thought content and thought process is linear and goal-directed. More future oriented today. Memory and concentration: AOX3, grossly intact for the purposes of this session. Judgment and insight: Limited, improving mildly Assessment depressive disorder unspecified Plan: -At this time patient DOES NOT meet criteria for inpatient psychiatric admi ssion. Patient is suitable for outpatient treatment at this time for her depression. -Delirium precautions recommended with patient including - avoiding use of narcotics and ELECTRICAL EQUIPMENT TECHNICIAN sedatives, limit anticholinergic medications when possible, frequent re-orientation, minimize use of restraints, open window shades during the day and close them at night -Would recommend the following medication changes/additions: continue with Aricept 10 mg at bedtime as a cognitive enhancer, continue Zoloft 200 mg daily for mood, continue with Seroquel 25 mg daily at bedtime +25 mg daily at bedtime when necessary for insomnia/mood stabilization. Added melatonin 3 mg daily at bedtime for insomnia. -Psychiatry will sign off at this time. Patient is currently on a demand and will be served court papers for hearing set for this Saturday regarding treatment order. -Please contact with any questions.
[2020-06-06 16:32] LABS: Glucose,Whole Blood 292 mg/dL (75-99)
[2020-06-06 20:15] LABS: Glucose,Whole Blood 318 mg/dL (75-99)
[2020-06-06] MEDS: DONEPEZIL 10 MG TAB PO SCH (21:22)
[2020-06-06] MEDS: MELATONIN 3 MG TABLET PO SCH (21:23)
[2020-06-06] MEDS: QUEtiapine 25 MG TAB PO SCH (21:23)
[2020-06-06] MEDS: ACETAMINOPHEN TAB 325 MG TAB PO PRN (21:23)
--- NOTE | 2020-06-07 01:25 | P.PN ---
Subjective Progress Note Date: 06/06/20 Principal diagnosis: Symptomatic hyponatremia causing weakness likely hypoosmolar from decreased solute intake-improved This is a 79-year-old patient of Dr. Reynaldo Allen. Chronic stable medical conditions include diabetes, hypertension, depression, protein calorie malnutrition, L1 compression fracture. for 6 weeks for depression and anxiety was at [facility]- mental unit. discharged from on January 27 and came to stay with her son and [id number]. She was admitted here in February of this year with mild pancreatitis and severe constipation. Also had uncontrolled blood pressure. Then admitted from April 25 through April 30 with abdominal pain and found to have acute on chronic gastritis with EGD. Patient was now brought in by the police as a pickup order as apparently patient had not been on psychiatry appointments. Patient states that she is not sure why she needs that. Does not eat much. Has chronic lower back pain. No fever no chills. Weak and tired. Somewhat depressed. Today-sitting up. Eating better. Sodium better. Review of systems: Was done for constitutional, cardiovascular, GI, pulmonary. relevant finding as above Objective - Vital Signs Vital signs: Vital Signs Temp 98.0 F 06/06/20 14:08 Pulse 83 06/06/20 14:08 Resp 15 06/06/20 14:08 BP 137/64 06/06/20 14:08 Pulse Ox 99 06/06/20 14:08 Intake & Output 06/05/20 06/06/20 06/06/20 18:59 06:59 18:59 Weight 37.648 kg Other: Voiding Method Toilet Toilet Toilet # Voids 2 3 3 - Exam GENERAL: Laying in bed, comfortable EYES: Pupils equal. Conjunctiva pale. HEENT: External appearance of nose and ears normal, oral cavity grossly normal. NECK: JVD not raised; masses not palpable. HEART: First and second heart sounds are normal; no edema. LUNGS: Respiratory rate normal; clear to auscultation. MUSCULAR schedule: Generalized wasting of muscle loss of subcutaneous fat bony prominences ABDOMEN: Soft, nontender t, no guarding or rigidity, liver spleen not palpable, no masses palpable. PSYCH: [Alert and oriented x3; mood and affect depressed - Labs CBC & Chem 7: 06/04/20 11:52 06/05/20 07:12 Labs: Abnormal Lab Results - Last 24 Hours (Table) 06/05/20 06/05/20 06/06/20 Range/Units 17:09 20:05 06:50 POC Glucose (mg/dL) 190 H 110 H 184 H (75-99) mg/dL 06/06/20 Range/Units 11:51 POC Glucose (mg/dL) 258 H (75-99) mg/dL Microbiology - Last 24 Hours (Table) 06/04/20 12:10 Urine Culture - Final Urine,Voided 06/04/20 12:42 Blood Culture - Preliminary Blood No Growth after 24 hours Assessment and Plan Assessment: Previous testing White count 3.3 hemoglobin 13.7 platelets 320 sodium 126 creatinine 0.7 to glucose 397 calcium 11 UA positive for leukoesterase, WBC Urine drug screen positive for marijuana Assessment: -Symptomatic hyponatremia causing weakness likely hypoosmolar from decreased solute intake-improved -Patient admitted with pickup order from the [facility] and brought in by the police, apparently not being compliant with her appointments -Chronic gastritis, causing chronic abdominal pain --Severe protein calorie malnutrition with a BMI of 16.2, from decreased oral intake -Diabetes mellitus type 2, uncontrolled with hyperglycemia f -Essential hypertension- -Depression and anxiety not otherwise specified -L1 and compression fracture possibly chronic -Chronic anorexia -Acute UTI from cystitis Plan: Nurse called me to inform that the patient's son was the patient go [facility]. Social work's been consulted. 3 days of Keflex. Medically stable otherwise to be discharged. Time with Patient: Greater than 30
[2020-06-07] MEDS ORDERED: hydrALAZINE HCL 20 MG/ML 1 ML VIAL IVP STA (02:53)
[2020-06-07] MEDS: ACETAMINOPHEN TAB 325 MG TAB PO PRN ×3 (03:16→17:18)
[2020-06-07 06:47] LABS: Glucose,Whole Blood 188 mg/dL (75-99)
[2020-06-07] MEDS: INSULIN ASPART (NovoLOG) 100 UNIT/ML VIAL SQ SCH ×4 (08:18→21:39)
[2020-06-07] MEDS: LINAGLIPTIN 5 MG TABLET PO SCH (08:18)
[2020-06-07] MEDS: ENOXAPARIN 40 MG/0.4 ML SYRINGE SQ SCH (08:18)
[2020-06-07] MEDS: CLOPIDOGREL 75 MG TAB PO SCH (08:18)
[2020-06-07] MEDS: PANTOPRAZOLE 40 MG TABLET PO SCH ×2 (08:18→17:17)
[2020-06-07] MEDS: SERTRALINE 100 MG TAB PO SCH (08:18)
[2020-06-07] MEDS: PSYLLIUM HUSK 100% 6 GM PACKET PO SCH ×2 (08:18→21:39)
[2020-06-07] MEDS: METOPROLOL TARTRATE 50 MG TAB PO SCH ×2 (08:18→21:39)
[2020-06-07] MEDS: DICYCLOMINE 10 MG CAP PO SCH ×4 (08:19→21:39)
[2020-06-07] MEDS: CEPHALEXIN 250 MG CAP PO SCH (08:19)
[2020-06-07] MEDS: LISINOPRIL-HCTZ 20-12.5 MG 1 EACH TAB PO SCH ×2 (08:20→21:41)
[2020-06-07] MEDS: REPAGLINIDE 1 MG TAB PO SCH ×3 (08:20→17:17)
[2020-06-07] MEDS: MAG HYDROX/AL HYDROX/SIMETH 30 ML CUP PO PRN ×2 (09:49→17:49)
[2020-06-07 10:44] LABS: African American GFR (CKD) >90 (>60 ml/min/1.73 sqM); Anion Gap 10 mmol/L; Blood Urea Nitrogen 15 mg/dL (7-17); Calcium 9.2 mg/dL (8.4-10.2); Carbon Dioxide 30 mmol/L (22-30); Chloride 92 mmol/L (98-107); Glucose 240 mg/dL (74-99); Non-African American GFR(CKD) >90 (>60 ml/min/1.73 sqM); Sodium 132 mmol/L (137-145)
[2020-06-07 10:52] LABS: Basophils % (A) 0 %; Eosinophils % (A) 0 %; HCT 37.6 % (34.0-46.0); Lymphocytes # (A) 0.8 k/uL (1.0-4.8); Lymphocytes % (A) 13 %; MCH 29.7 pg (25.0-35.0); MCV 92.9 fL (80.0-100.0); Monocytes # (A) 0.2 k/uL (0-1.0); Monocytes % (A) 4 %; Neutrophils # (A) 5.2 k/uL (1.3-7.7); Neutrophils % (A) 81 %; Platelet Count 300 k/uL (150-450); RBC 4.05 m/uL (3.80-5.40); RDW 13.2 % (11.5-15.5); WBC 6.4 k/uL (3.8-10.6)
[2020-06-07 11:11] LABS: Potassium 2.6 mmol/L (3.5-5.1)
[2020-06-07] MEDS ORDERED: Potassium Replacement Protocol 1 EACH MISC MISCELLANE PRN (11:24)
[2020-06-07 11:45] LABS: Glucose,Whole Blood 288 mg/dL (75-99)
[2020-06-07] MEDS: POTASSIUM CHLORIDE ER 20 MEQ TAB.ER PO SCH ×3 (11:48→13:55)
[2020-06-07 17:06] LABS: Glucose,Whole Blood 242 mg/dL (75-99)
[2020-06-07 21:27] LABS: Glucose,Whole Blood 194 mg/dL (75-99)
[2020-06-07] MEDS: QUEtiapine 25 MG TAB PO SCH (21:39)
[2020-06-07] MEDS: MELATONIN 3 MG TABLET PO SCH (21:39)
[2020-06-07] MEDS: DONEPEZIL 10 MG TAB PO SCH (21:39)
[2020-06-08] MEDS: ACETAMINOPHEN TAB 325 MG TAB PO PRN ×3 (00:43→22:19)
[2020-06-08] MEDS: QUEtiapine 25 MG TAB PO PRN ×2 (02:55→22:20)
[2020-06-08 07:26] LABS: Glucose,Whole Blood 179 mg/dL (75-99)
[2020-06-08] MEDS: ENOXAPARIN 40 MG/0.4 ML SYRINGE SQ SCH (07:50)
[2020-06-08] MEDS: METOPROLOL TARTRATE 50 MG TAB PO SCH ×2 (07:50→21:03)
[2020-06-08] MEDS: PSYLLIUM HUSK 100% 6 GM PACKET PO SCH ×2 (07:50→21:04)
[2020-06-08] MEDS: INSULIN ASPART (NovoLOG) 100 UNIT/ML VIAL SQ SCH ×4 (07:50→21:04)
[2020-06-08] MEDS: LINAGLIPTIN 5 MG TABLET PO SCH (07:50)
[2020-06-08] MEDS: DICYCLOMINE 10 MG CAP PO SCH ×4 (07:50→21:04)
[2020-06-08] MEDS: SERTRALINE 100 MG TAB PO SCH (07:51)
[2020-06-08] MEDS: PANTOPRAZOLE 40 MG TABLET PO SCH ×2 (07:51→16:23)
[2020-06-08] MEDS: REPAGLINIDE 1 MG TAB PO SCH ×3 (07:51→16:23)
[2020-06-08] MEDS: CLOPIDOGREL 75 MG TAB PO SCH (07:52)
[2020-06-08] MEDS: LISINOPRIL-HCTZ 20-12.5 MG 1 EACH TAB PO SCH ×2 (07:52→21:03)
[2020-06-08 11:35] LABS: Glucose,Whole Blood 297 mg/dL (75-99)
[2020-06-08 16:43] LABS: Glucose,Whole Blood 280 mg/dL (75-99)
[2020-06-08 20:34] LABS: Glucose,Whole Blood 191 mg/dL (75-99)
[2020-06-08] MEDS: MELATONIN 3 MG TABLET PO SCH (21:04)
[2020-06-08] MEDS: MAG HYDROX/AL HYDROX/SIMETH 30 ML CUP PO PRN (21:04)
[2020-06-08] MEDS: DONEPEZIL 10 MG TAB PO SCH (21:04)
[2020-06-08] MEDS: QUEtiapine 25 MG TAB PO SCH (21:04)
[2020-06-09] MEDS: HYDROcodone/APAP 5-325MG 1 EACH TAB PO PRN ×3 (02:43→15:49)
[2020-06-09 05:39] LABS: Appearance,Urine Clear (Clear); Bilirubin,Urine Negative (Negative); Blood,Urine Negative (Negative); Color,Urine Colorless; Glucose,Urine (UA) Negative (Negative); Ketones,Urine Negative (Negative); Leukocyte Esterase,Urine Negative (Negative); Nitrite,Urine Negative (Negative); Protein,Urine Negative (Negative); Specific Gravity,Urine 1.008 (1.001-1.035); Urobilinogen,Urine <2.0 mg/dL (<2.0)
[2020-06-09 06:50] LABS: Glucose,Whole Blood 173 mg/dL (75-99)
[2020-06-09] MEDS: INSULIN ASPART (NovoLOG) 100 UNIT/ML VIAL SQ SCH ×3 (08:30→17:28)
[2020-06-09] MEDS: REPAGLINIDE 1 MG TAB PO SCH ×3 (08:30→17:28)
[2020-06-09] MEDS: PANTOPRAZOLE 40 MG TABLET PO SCH ×2 (08:30→17:28)
[2020-06-09] MEDS: METOPROLOL TARTRATE 50 MG TAB PO SCH (08:31)
[2020-06-09] MEDS: LISINOPRIL-HCTZ 20-12.5 MG 1 EACH TAB PO SCH (08:31)
[2020-06-09] MEDS: ENOXAPARIN 40 MG/0.4 ML SYRINGE SQ SCH (08:31)
[2020-06-09] MEDS: DICYCLOMINE 10 MG CAP PO SCH ×3 (08:31→17:28)
[2020-06-09] MEDS: LINAGLIPTIN 5 MG TABLET PO SCH (08:31)
[2020-06-09] MEDS: CLOPIDOGREL 75 MG TAB PO SCH (08:31)
[2020-06-09] MEDS: SERTRALINE 100 MG TAB PO SCH (08:31)
[2020-06-09] MEDS: PSYLLIUM HUSK 100% 6 GM PACKET PO SCH (08:40)
[2020-06-09] MEDS ORDERED: amLODIPine 5 MG TAB PO SCH (11:15)
[2020-06-09] MEDS ORDERED: POTASSIUM CHLORIDE ER 20 MEQ TAB.ER PO STA (11:25)
[2020-06-09 11:55] LABS: Glucose,Whole Blood 249 mg/dL (75-99)
--- NOTE | 2020-06-09 12:57 | P.PN ---
Subjective Progress Note Date: 06/07/20 Principal diagnosis: Symptomatic hyponatremia causing weakness likely hypoosmolar from decreased solute intake-improved This is a 79-year-old patient of Dr. Reynaldo Allen. Chronic stable medical conditions include diabetes, hypertension, depression, protein calorie malnutrition, L1 compression fracture. for 6 weeks for depression and anxiety was at [facility]- mental unit. discharged from on January 27 and came to stay with her son and [id number]. She was admitted here in February of this year with mild pancreatitis and severe constipation. Also had uncontrolled blood pressure. Then admitted from April 25 through April 30 with abdominal pain and found to have acute on chronic gastritis with EGD. Patient was now brought in by the police as a pickup order as apparently patient had not been on psychiatry appointments. Patient states that she is not sure why she needs that. Does not eat much. Has chronic lower back pain. No fever no chills. Weak and tired. Somewhat depressed. Today-sitting up. Eating better. Sodium better. 06/07/20 Patient is currently sitting in the chair comfortably. No complaints of chest pain or shortness of breath. No nausea vomiting abdominal pain or diarrhea. Potassium was 2.6 today. Replace the potassium. Patient is awaiting for inpatient psychiatric facility transfer. Review of systems: Was done for constitutional, cardiovascular, GI, pulmonary. relevant finding as above Objective - Vital Signs Vital signs: Vital Signs Temp 98.0 F 06/07/20 14:49 Pulse 76 06/07/20 14:49 Resp 16 06/07/20 14:49 BP 116/58 06/07/20 14:49 Pulse Ox 100 06/07/20 14:49 Intake & Output 06/07/20 06/07/20 06/08/20 06:59 18:59 06:59 Other: Voiding Method Toilet Toilet # Voids 2 1 # Bowel Movements 1 1 - Exam GENERAL: Laying in bed, comfortable EYES: Pupils equal. Conjunctiva pale. HEENT: External appearance of nose and ears normal, oral cavity grossly normal. NECK: JVD not raised; masses not palpable. HEART: First and second heart sounds are normal; no edema. LUNGS: Respiratory rate normal; clear to auscultation. MUSCULAR schedule: Generalized wasting of muscle loss of subcutaneous fat bony prominences ABDOMEN: Soft, nontender t, no guarding or rigidity, liver spleen not palpable, no masses palpable. PSYCH: [Alert and oriented x3; mood and affect depressed - Labs CBC & Chem 7: 06/07/20 09:50 06/07/20 16:45 Labs: Abnormal Lab Results - Last 24 Hours (Table) 06/07/20 06/07/20 06/07/20 Range/Units 06:45 09:50 09:50 Lymphocytes # 0.8 L (1.0-4.8) k/uL Sodium 132 L (137-145) mmol/L Potassium 2.6 L* (3.5-5.1) mmol/L Chloride 92 L (98-107) mmol/L Creatinine 0.47 L (0.52-1.04) mg/dL Glucose 240 H (74-99) mg/dL POC Glucose (mg/dL) 188 H (75-99) mg/dL 06/07/20 06/07/20 Range/Units 11:33 17:02 Lymphocytes # (1.0-4.8) k/uL Sodium (137-145) mmol/L Potassium (3.5-5.1) mmol/L Chloride (98-107) mmol/L Creatinine (0.52-1.04) mg/dL Glucose (74-99) mg/dL POC Glucose (mg/dL) 288 H 242 H (75-99) mg/dL Microbiology - Last 24 Hours (Table) 06/04/20 12:42 Blood Culture - Preliminary Blood No Growth after 72 hours Assessment and Plan Assessment: Previous testing White count 3.3 hemoglobin 13.7 platelets 320 sodium 126 creatinine 0.7 to glucose 397 calcium 11 UA positive for leukoesterase, WBC Urine drug screen positive for marijuana Assessment: -Symptomatic hyponatremia causing weakness likely hypoosmolar from decreased solute intake-improved -Patient admitted with pickup order from the [facility] and brought in by the police, apparently not being compliant with her appointments -Chronic gastritis, causing chronic abdominal pain --Severe protein calorie malnutrition with a BMI of 16.2, from decreased oral intake -Diabetes mellitus type 2, uncontrolled with hyperglycemia f -Essential hypertension- -Depression and anxiety not otherwise specified -L1 and compression fracture possibly chronic -Chronic anorexia -Acute UTI from cystitis -Severe hypokalemia. Replaced. Plan: We will be continued on Seroquel for as per psychiatric recommendations. Patient completed 3 days of Keflex. Medically stable otherwise to be discharged. Time with Patient: Greater than 30
--- NOTE | 2020-06-09 12:59 | P.PN ---
Subjective Progress Note Date: 06/08/20 Principal diagnosis: Symptomatic hyponatremia causing weakness likely hypoosmolar from decreased solute intake-improved This is a 79-year-old patient of Dr. Reynaldo Allen. Chronic stable medical conditions include diabetes, hypertension, depression, protein calorie malnutrition, L1 compression fracture. for 6 weeks for depression and anxiety was at [facility]- mental unit. discharged from on January 27 and came to stay with her son and [id number]. She was admitted here in February of this year with mild pancreatitis and severe constipation. Also had uncontrolled blood pressure. Then admitted from April 25 through April 30 with abdominal pain and found to have acute on chronic gastritis with EGD. Patient was now brought in by the police as a pickup order as apparently patient had not been on psychiatry appointments. Patient states that she is not sure why she needs that. Does not eat much. Has chronic lower back pain. No fever no chills. Weak and tired. Somewhat depressed. Today-sitting up. Eating better. Sodium better. 06/07/20 Patient is currently sitting in the chair comfortably. No complaints of chest pain or shortness of breath. No nausea vomiting abdominal pain or diarrhea. Potassium was 2.6 today. Replace the potassium. Patient is awaiting for inpatient psychiatric facility transfer. 06/08/2020 Patient is currently sitting in a chair and tolerating oral diet. Potassium level improved to 3.5 today. Blood pressure is better controlled. Will discontinue hydrochlorothiazide due to hyponatremia on admission and hypokalemia. Titrated his medications. Otherwise psychiatrically not recommending inpatient psychiatric unit transfer anymore. Continue the pain management. No chest pain or shortness of breath. No fever no chills. Review of systems: Was done for constitutional, cardiovascular, GI, pulmonary. relevant finding as above Objective - Vital Signs Vital signs: Vital Signs Temp 98.2 F 06/08/20 20:14 Pulse 79 06/08/20 20:14 Resp 18 06/08/20 20:14 BP 149/69 06/08/20 20:14 Pulse Ox 100 06/08/20 20:14 Intake & Output 06/08/20 06/08/20 06/09/20 06:59 18:59 06:59 Intake Total 240 Output Total 475 Balance -235 Weight 37.648 kg Intake: Oral 240 Output: Urine 475 Other: Voiding Method Toilet Toilet # Voids 1 3 - Exam GENERAL: Laying in bed, comfortable EYES: Pupils equal. Conjunctiva pale. HEENT: External appearance of nose and ears normal, oral cavity grossly normal. NECK: JVD not raised; masses not palpable. HEART: First and second heart sounds are normal; no edema. LUNGS: Respiratory rate normal; clear to auscultation. MUSCULAR schedule: Generalized wasting of muscle loss of subcutaneous fat bony prominences ABDOMEN: Soft, nontender t, no guarding or rigidity, liver spleen not palpable, no masses palpable. PSYCH: [Alert and oriented x3; mood and affect depressed - Labs CBC & Chem 7: 06/07/20 09:50 06/07/20 16:45 Labs: Abnormal Lab Results - Last 24 Hours (Table) 06/08/20 06/08/20 06/08/20 Range/Units 07:25 11:33 16:42 POC Glucose (mg/dL) 179 H 297 H 280 H (75-99) mg/dL 06/08/20 Range/Units 20:31 POC Glucose (mg/dL) 191 H (75-99) mg/dL Microbiology - Last 24 Hours (Table) 06/04/20 12:42 Blood Culture - Preliminary Blood No Growth after 96 hours Assessment and Plan Assessment: Previous testing White count 3.3 hemoglobin 13.7 platelets 320 sodium 126 creatinine 0.7 to glucose 397 calcium 11 UA positive for leukoesterase, WBC Urine drug screen positive for marijuana Assessment: -Symptomatic hyponatremia causing weakness likely hypoosmolar from decreased solute intake-improved -Patient admitted with pickup order from the [facility] and brought in by the police, apparently not being compliant with her appointments -Chronic gastritis, causing chronic abdominal pain --Severe protein calorie malnutrition with a BMI of 16.2, from decreased oral intake -Diabetes mellitus type 2, uncontrolled with hyperglycemia f -Essential hypertension- -Depression and anxiety not otherwise specified -L1 and compression fracture possibly chronic -Chronic anorexia -Acute UTI from cystitis -Severe hypokalemia. Replaced. Plan: We will be continued on Seroquel for as per psychiatric recommendations. Patient completed 3 days of Keflex. Will hold hydrochlorothiazide. Medically stable otherwise to be discharged. Time with Patient: Greater than 30
[2020-06-09 14:01] VITALS: PULSE 76
[2020-06-09 14:46] VITALS: BP 133/69; RESP 15; TEMP 98.6
[2020-06-09 16:59] LABS: Glucose,Whole Blood 159 mg/dL (75-99)
[2020-06-10] MEDS ORDERED: lisinopriL 20 MG TAB PO SCH (09:00)
== END 2020-06-09 18:08 | disposition home or self-care (01) | DRG 640 ==
LOC: EC 11:18 → 4SSUR 13:26
PROVIDERS: ADMIT Hospitalist; ATTEND Hospitalist
DX: E87.1 Hypo-osmolality and hyponatremia (principal); E43 Unspecified severe protein-calorie malnutrition; M48.56XA Collapsed vertebra, not elsewhere classified, lumbar region, initial encounter for fracture; Z68.1 Body mass index [BMI] 19.9 or less, adult; N30.90 Cystitis, unspecified without hematuria; E11.42 Type 2 diabetes mellitus with diabetic polyneuropathy; E11.65 Type 2 diabetes mellitus with hyperglycemia; I10 Essential (primary) hypertension; K21.9 Gastro-esophageal reflux disease without esophagitis; K58.9 Irritable bowel syndrome, unspecified; E04.2 Nontoxic multinodular goiter; H53.2 Diplopia; I34.0 Nonrheumatic mitral (valve) insufficiency; F41.9 Anxiety disorder, unspecified; F32.9 Major depressive disorder, single episode, unspecified; G89.29 Other chronic pain; G47.00 Insomnia, unspecified; M41.9 Scoliosis, unspecified; E87.6 Hypokalemia; K29.50 Unspecified chronic gastritis without bleeding; Z71.3 Dietary counseling and surveillance; Z79.899 Other long term (current) drug therapy; Z79.84 Long term (current) use of oral hypoglycemic drugs; Z79.02 Long term (current) use of antithrombotics/antiplatelets; Z87.19 Personal history of other diseases of the digestive system; Z91.81 History of falling; Z87.442 Personal history of urinary calculi; Z91.19 Patient's noncompliance with other medical treatment and regimen; Z85.3 Personal history of malignant neoplasm of breast; Z90.13 Acquired absence of bilateral breasts and nipples; Z90.710 Acquired absence of both cervix and uterus; Z98.890 Other specified postprocedural states; Z90.49 Acquired absence of other specified parts of digestive tract; Z98.1 Arthrodesis status; Z98.42 Cataract extraction status, left eye; Z98.41 Cataract extraction status, right eye; Z87.448 Personal history of other diseases of urinary system; Z88.1 Allergy status to other antibiotic agents; Z88.5 Allergy status to narcotic agent; Z88.0 Allergy status to penicillin; Z88.8 Allergy status to other drugs, medicaments and biological substances; Z82.0 Family history of epilepsy and other diseases of the nervous system; Z83.6 Family history of other diseases of the respiratory system; Z82.49 Family history of ischemic heart disease and other diseases of the circulatory system; Z82.3 Family history of stroke
CPT/HCPCS: 36415; 80048; 80053; 80306; 81001; 81003; 82075; 83930; 84132; 85025; 87040; 87086; 96374; 99284

== ENCOUNTER 2020-09-30 16:38 | Inpatient (IN) | payer MEDICARE ==
[2020-09-30 18:33] LABS: Basophils % (A) 0 %; Eosinophils # (A) 0.1 k/uL (0-0.7); Eosinophils % (A) 1 %; HCT 37.5 % (34.0-46.0); HGB 13.4 gm/dL (11.4-16.0); Lymphocytes # (A) 1.2 k/uL (1.0-4.8); Lymphocytes % (A) 21 %; MCH 32.9 pg (25.0-35.0); MCHC 35.7 g/dL (31.0-37.0); MCV 92.1 fL (80.0-100.0); Mean Platelet Volume 7.7; Monocytes # (A) 0.2 k/uL (0-1.0); Monocytes % (A) 3 %; Neutrophils # (A) 4.3 k/uL (1.3-7.7); Neutrophils % (A) 73 %; Platelet Count 289 k/uL (150-450); RBC 4.07 m/uL (3.80-5.40); RDW 12.2 % (11.5-15.5); WBC 5.9 k/uL (3.8-10.6)
[2020-09-30 18:41] LABS: Appearance,Urine Clear (Clear); Bacteria,Urine Rare /hpf; Bilirubin,Urine Negative (Negative); Blood,Urine Negative (Negative); Color,Urine Yellow; Glucose,Urine (UA) Negative (Negative); Hyaline Casts,Urine 37 /lpf (0-2); Ketones,Urine Negative (Negative); Leukocyte Esterase,Urine Moderate (Negative); Mucus,Urine Rare /hpf; Nitrite,Urine Negative (Negative); PH, Urine 5.5 (5.0-8.0); Protein,Urine Trace (Negative); RBC,Urine 4 /hpf (0-5); Specific Gravity,Urine 1.019 (1.001-1.035); Squamous Epithelial Cell,Urine 1 /hpf (0-4); Urobilinogen,Urine <2.0 mg/dL (<2.0); WBC,Urine 2 /hpf (0-5)
[2020-09-30 18:43] LABS: INR 1.1 (<1.2); Partial Thromboplastin Time 23.4 sec (22.0-30.0); Prothrombin Time 11.1 sec (9.0-12.0)
[2020-09-30 18:47] LABS: Albumin 4.2 g/dL (3.5-5.0); Calcium 9.7 mg/dL (8.4-10.2); Potassium 3.5 mmol/L (3.5-5.1); Total Bilirubin 0.5 mg/dL (0.2-1.3); Total Protein 7.2 g/dL (6.3-8.2)
--- NOTE | 2020-09-30 19:13 | XR ---
EXAMINATION TYPE: XR chest 2V DATE OF EXAM: 09/30/2020 COMPARISON: 04/25/2020 HISTORY: Fall. Pain. TECHNIQUE: FINDINGS: There is some linear density in the right lower lobe consistent with atelectasis. The other lung gill are clear. Heart is normal. There are no hilar masses. Thoracic aorta is atheromatous. T here is no heart failure. Bony thorax appears intact. IMPRESSION: There is some scarring and atelectasis right lower lobe unchanged. Normal heart. No fract ure seen.
--- NOTE | 2020-09-30 19:32 | ED ---
Weakness HPI - General Chief complaint: Weakness Stated complaint: Not eating & confusion Time Seen by Provider: 09/30/20 17:00 Source: patient Mode of arrival: wheelchair Limitations: no limitations - History of Present Illness Initial comments: Patient is an 80-year-old female past medical history of diabetes, hypertension, depression who presents to the emergency department with failure to thrive. Her daughter is at bedside and helps provide history. States that the patient hasn't been eating, drinking or sleeping for the past week. Also reports that she's had increased confusion and multiple falls. Upon evaluation patient is alert and oriented. States that she has been more anxious lately. Reports that she has dysphasia and she hasn't been eating. She is a diabetic and reports that her sugars have been high. She has been taking her insulin and other medications as directed. She does report that she sustained one fall where she hit her head. Did not lose consciousness. She resides with her son who has found it difficult to care for her therefore he had the patient transferred to the hospital for further evaluation. He is the patient's DPOA. Granddaughter does bring paperwork with her which states that the patient has had previous diagnosis of depression with catatonia. She has failed multiple psychiatric inpatient admissions and therefore they recommended emergency guardian, ECT and peg tube placement. Letter was comprised in November of this year. Niece agrees that symptoms have been going on for a period of time however over the past week they have been more significant. The patient denies any unilateral n umbness or weakness. No chest pain or shortness of breath. No fevers or chills. No other alleviating, precipitating or modifying factors - Related Data Home Medications Medication Instructions Recorded Confirmed sitaGLIPtin PHOSPHATE [Januvia] 100 mg PO DAILY 03/10/20 09/30/20 Dicyclomine [Bentyl] 10 mg PO QID PRN 04/13/20 09/30/20 Pantoprazole [Protonix] 40 mg PO DAILY 06/04/20 09/30/20 Doxycycline Hyclate [Doryx] 50 mg PO DAILY 09/30/20 09/30/20 Lisinopril-Hctz 20-12.5 mg 1 tab PO DAILY 09/30/20 09/30/20 [Zestoretic 20-12.5] Metoprolol Tartrate [Lopressor] 50 mg PO DAILY 09/30/20 09/30/20 Sertraline [Zoloft] 50 mg PO DAILY 09/30/20 09/30/20 metFORMIN HCL 1,000 mg PO BID 09/30/20 09/30/20 Allergies Allergy/AdvReac Type Severity Reaction Status Date / Time Penicillins Allergy Itching Verified 09/30/20 18:54 codeine AdvReac Nausea & Verified 09/30/20 18:54 [From Tylenol-Codeine #3] Vomiting erythromycin base AdvReac Nausea & Verified 09/30/20 18:54 Vomiting propoxyphene AdvReac Nausea & Verified 09/30/20 18:54 [From Darvocet-N] Vomiting Review of Systems ROS Statement: Those systems with pertinent positive or pertinent negative responses have been documented in the HPI. ROS Other: All systems not noted in ROS Statement are negative. Past Medical History Past Medical History: Cancer, Diabetes Mellitus, Eye Disorder, GERD/Reflux, Hypertension, Renal Disease Additional Past Medical History / Comment(s): Pt recently admitted to [facility] on 03/12/20 with abdominal distention from severe constipation/mild pancreatitis, mild protein calorie malnutrition. Other hx: NIDDM type II, neuropathy in bilateral hands/lower legs and feet, falls, poor balance, recent L rib pain/abdominal pain/constipation which she treated with laxatives and now has been having loose stools, past IBS, nephrolithiasis with surgery, 1987 L breast cancer with mastectomy,dilopia, low back pain, scoliosis, L1 compression fracture, mitral valve disease/murmur, past L facial droop which resolved, thyroid nodules per past medical record/pt unaware. History of Any Multi-Drug Resistant Organisms: None Reported Past Surgical History: Breast Surgery, Section, Cholecystectomy, Heart Catheterization, Hysterectomy, Orthopedic Surgery Additional Past Surgical History / Comment(s): L mastectomy, bilateral breast biopsies, R breast benign lumpectomy x 2, cervical fusion, lithotripsy, R ureter rerouting, hemorrhoidectomy, BMB, EGDs, colonoscopies, bilateral cataract removals Past Anesthesia/Blood Transfusion Reactions: Postoperative Nausea & Vomiting (PONV) Past Psychological History: Anxiety, Depression Smoking Status: Never smoker Past Alcohol Use History: None Reported Past Drug Use History: None Reported - Past Family History Mother Family Medical History: Dementia, Pneumonia Father Family Medical History: Coronary Artery Disease (CAD), CVA/TIA Additional Family Medical History / Comment(s): Stroke, heart disease General Exam Limitations: no limitations General appearance: alert, in no apparent distress, cachectic Head exam: Present: atraumatic, normocephalic, normal inspection Eye exam: Present: normal appearance, PERRL, EOMI. Absent: scleral icterus, conjunctival injection, periorbital swelling ENT exam: Present: normal exam, mucous membranes moist Neck exam: Present: normal inspection. Absent: tenderness, meningismus, lymphadenopathy Respiratory exam: Present: normal lung sounds bilaterally. Absent: respiratory distress, wheezes, rales, rhonchi, stridor Cardiovascular Exam: Present: regular rate, normal rhythm, normal heart sounds. Absent: systolic murmur, diastolic murmur, rubs, gallop, clicks GI/Abdominal exam: Present: soft, normal bowel sounds. Absent: distended, tenderness, guarding, rebound, rigid Extremities exam: Present: normal inspection, full ROM, normal capillary refill. Absent: tenderness, pedal edema, joint swelling, calf tenderness Back exam: Present: normal inspection Neurological exam: Present: alert, oriented X3, CN II-XII intact Psychiatric exam: Present: normal mood, flat affect Skin exam: Present: warm, dry, intact, normal color. Absent: rash Course Vital Signs 09/30/20 09/30/20 10/01/20 17:00 19:42 01:00 Temperature 97.7 F Pulse Rate 91 80 78 Pulse Rate [ Pulse Oximetery ] Respiratory 16 16 16 Rate Blood Pressure 92/59 116/67 126/74 Blood Pressure [Right Arm] O2 Sat by Pulse 100 99 98 Oximetry 10/01/20 04:15 Temperature Pulse Rate Pulse Rate [ 72 Pulse Oximetery ] Respiratory 16 Rate Blood Pressure Blood Pressure 139/72 [Right Arm] O2 Sat by Pulse 99 Oximetry EKG Findings - EKG Comments: EKG Findings:: EKG demonstrates a normal sinus rhythm with a ventricular rate of 82. [place] interval 112. QRS 88. QTC of 518. Some ST depression in 2, 3 and aVF. No acute ST segment elevations Medical Decision Making - Medical Decision Making Upon arrival patient is placed into room 24. A thorough history and physical exam was performed. Laboratory studies were conducted. Patient did go for a CT of her brain. Laboratory studies are reviewed. Lactic acid 2.7. Urinalysis demonstrates moderate leukocyte esterase and moderate bacteria. CT of the pat ient's brain and cervical spine demonstrate mild cerebral atrophy. No acute intracranial abnormality. Chest x-ray demonstrates scarring and atelectasis of the right lower lobe which is unchanged. Patient was given a dose of Rocephin. Did discuss the case with Dr. Mitchell who accepted admission. I will place psychiatry on consult. Family agreed to this. Patient is awaiting a bed on the floor - Lab Data Result diagrams: 10/01/20 07:10 10/01/20 07:10 Lab Results 09/30/20 09/30/20 09/30/20 Range/Units 18:20 18:20 18:20 WBC 5.9 (3.8-10.6) k/uL RBC 4.07 (3.80-5.40) m/uL Hgb 13.4 (11.4-16.0) gm/dL Hct 37.5 (34.0-46.0) % MCV 92.1 (80.0-100.0) fL MCH 32.9 (25.0-35.0) pg MCHC 35.7 (31.0-37.0) g/dL RDW 12.2 (11.5-15.5) % Plt Count 289 (150-450) k/uL MPV 7.7 Neutrophils % 73 % Lymphocytes % 21 % Monocytes % 3 % Eosinophils % 1 % Basophils % 0 % Neutrophils # 4.3 (1.3-7.7) k/uL Lymphocytes # 1.2 (1.0-4.8) k/uL Monocytes # 0.2 (0-1.0) k/uL Eosinophils # 0.1 (0-0.7) k/uL Basophils # 0.0 (0-0.2) k/uL PT 11.1 (9.0-12.0) sec INR 1.1 (<1.2) APTT 23.4 (22.0-30.0) sec Sodium (137-145) mmol/L Potassium (3.5-5.1) mmol/L Chloride (98-107) mmol/L Carbon Dioxide (22-30) mmol/L Anion Gap mmol/L BUN (7-17) mg/dL Creatinine (0.52-1.04) mg/dL Est GFR (CKD-EPI)AfAm (>60 ml/min/1.73 sqM) Est GFR (CKD-EPI)NonAf (>60 ml/min/1.73 sqM) Glucose (74-99) mg/dL Lactic Ac Sepsis Rflx Plasma Lactic Acid Colin (0.7-2.0) mmol/L Calcium (8.4-10.2) mg/dL Iron (50-170) ug/dL TIBC (228-460) ug/dL % Saturation (12.00-45.00) Ferritin (10.0-291.0) ng/mL Total Bilirubin (0.2-1.3) mg/dL AST (14-36) U/L ALT (4-34) U/L Alkaline Phosphatase (38-126) U/L Troponin I (0.000-0.034) ng/mL Total Protein (6.3-8.2) g/dL Albumin (3.5-5.0) g/dL Vitamin B12 (200.0-944.0) pg/mL Folate ng/mL Urine Color Yellow Urine Appearance Clear (Clear) Urine pH 5.5 (5.0-8.0) Ur Specific [place] 1.019 (1.001-1.035) Urine Protein Trace H (Negative) Urine Glucose (UA) Negative (Negative) Urine Ketones Negative (Negative) Urine Blood Negative (Negative) Urine Nitrite Negative (Negative) Urine Bilirubin Negative (Negative) Urine Urobilinogen <2.0 (<2.0) mg/dL Ur Leukocyte Esterase Moderate H (Negative) Urine RBC 4 (0-5) /hpf Urine WBC 2 (0-5) /hpf Ur Squamous Epith Cells 1 (0-4) /hpf Urine Bacteria Rare H (None) /hpf Hyaline Casts 37 H (0-2) /lpf Urine Mucus Rare H (None) /hpf 09/30/20 09/30/20 09/30/20 Range/Units 18:20 18:20 18:20 WBC (3.8-10.6) k/uL RBC (3.80-5.40) m/uL Hgb (11.4-16.0) gm/dL Hct (34.0-46.0) % MCV (80.0-100.0) fL MCH (25.0-35.0) pg MCHC (31.0-37.0) g/dL RDW (11.5-15.5) % Plt Count (150-450) k/uL MPV Neutrophils % % Lymphocytes % % Monocytes % % Eosinophils % % Basophils % % Neutrophils # (1.3-7.7) k/uL Lymphocytes # (1.0-4.8) k/uL Monocytes # (0-1.0) k/uL Eosinophils # (0-0.7) k/uL Basophils # (0-0.2) k/uL PT (9.0-12.0) sec INR (<1.2) APTT (22.0-30.0) sec Sodium 133 L (137-145) mmol/L Potassium 3.5 (3.5-5.1) mmol/L Chloride 98 (98-107) mmol/L Carbon Dioxide 25 (22-30) mmol/L Anion Gap 10 mmol/L BUN 41 H (7-17) mg/dL Creatinine 0.77 (0.52-1.04) mg/dL Est GFR (CKD-EPI)AfAm 84 (>60 ml/min/1.73 sqM) Est GFR (CKD-EPI)NonAf 73 (>60 ml/min/1.73 sqM) Glucose 257 H (74-99) mg/dL Lactic Ac Sepsis Rflx Plasma Lactic Acid Colin 2.7 H* (0.7-2.0) mmol/L Calcium 9.7 (8.4-10.2) mg/dL Iron (50-170) ug/dL TIBC (228-460) ug/dL % Saturation (12.00-45.00) Ferritin (10.0-291.0) ng/mL Total Bilirubin 0.5 (0.2-1.3) mg/dL AST 21 (14-36) U/L ALT 17 (4-34) U/L Alkaline Phosphatase 39 (38-126) U/L Troponin I <0.012 (0.000-0.034) ng/mL Total Protein 7.2 (6.3-8.2) g/dL Albumin 4.2 (3.5-5.0) g/dL Vitamin B12 (200.0-944.0) pg/mL Folate ng/mL Urine Color Urine Appearance (Clear) Urine pH (5.0-8.0) Ur Specific [place] (1.001-1.035) Urine Protein (Negative) Urine Glucose (UA) (Negative) Urine Ketones (Negative) Urine Blood (Negative) Urine Nitrite (Negative) Urine Bilirubin (Negative) Urine Urobilinogen (<2.0) mg/dL Ur Leukocyte Esterase (Negative) Urine RBC (0-5) /hpf Urine WBC (0-5) /hpf Ur Squamous Epith Cells (0-4) /hpf Urine Bacteria (None) /hpf Hyaline Casts (0-2) /lpf Urine Mucus (None) /hpf 09/30/20 09/30/20 09/30/20 Range/Units 18:20 18:55 21:14 WBC (3.8-10.6) k/uL RBC (3.80-5.40) m/uL Hgb (11.4-16.0) gm/dL Hct (34.0-46.0) % MCV (80.0-100.0) fL MCH (25.0-35.0) pg MCHC (31.0-37.0) g/dL RDW (11.5-15.5) % Plt Count (150-450) k/uL MPV Neutrophils % % Lymphocytes % % Monocytes % % Eosinophils % % Basophils % % Neutrophils # (1.3-7.7) k/uL Lymphocytes # (1.0-4.8) k/uL Monocytes # (0-1.0) k/uL Eosinophils # (0-0.7) k/uL Basophils # (0-0.2) k/uL PT (9.0-12.0) sec INR (<1.2) APTT (22.0-30.0) sec Sodium (137-145) mmol/L Potassium (3.5-5.1) mmol/L Chloride (98-107) mmol/L Carbon Dioxide (22-30) mmol/L Anion Gap mmol/L BUN (7-17) mg/dL Creatinine (0.52-1.04) mg/dL Est GFR (CKD-EPI)AfAm (>60 ml/min/1.73 sqM) Est GFR (CKD-EPI)NonAf (>60 ml/min/1.73 sqM) Glucose (74-99) mg/dL Lactic Ac Sepsis Rflx Y Plasma Lactic Acid Colin 1.0 (0.7-2.0) mmol/L Calcium (8.4-10.2) mg/dL Iron 121 (50-170) ug/dL TIBC 261 (228-460) ug/dL % Saturation 46.36 H (12.00-45.00) Ferritin 114.7 (10.0-291.0) ng/mL Total Bilirubin (0.2-1.3) mg/dL AST (14-36) U/L ALT (4-34) U/L Alkaline Phosphatase (38-126) U/L Troponin I (0.000-0.034) ng/mL Total Protein (6.3-8.2) g/dL Albumin (3.5-5.0) g/dL Vitamin B12 535.0 (200.0-944.0) pg/mL Folate 16.6 ng/mL Urine Color Urine Appearance (Clear) Urine pH (5.0-8.0) Ur Specific [place] (1.001-1.035) Urine Protein (Negative) Urine Glucose (UA) (Negative) Urine Ketones (Negative) Urine Blood (Negative) Urine Nitrite (Negative) Urine Bilirubin (Negative) Urine Urobilinogen (<2.0) mg/dL Ur Leukocyte Esterase (Negative) Urine RBC (0-5) /hpf Urine WBC (0-5) /hpf Ur Squamous Epith Cells (0-4) /hpf Urine Bacteria (None) /hpf Hyaline Casts (0-2) /lpf Urine Mucus (None) /hpf Disposition Clinical Impression: Dehydration, Lactic acid acidosis, Failure to thrive in adult, UTI (urinary tract infection) Disposition: ADMITTED IP TO THIS [facility] Condition: Stable Is patient prescribed a controlled substance at d/c from ED?: No Decision to Admit Reason: Admit from EC Decision Date: 09/30/20 Decision Time: 21:31
--- NOTE | 2020-09-30 19:43 | CT ---
EXAMINATION TYPE: CT brain aneudy patel DATE OF EXAM: 09/30/2020 COMPARISON: April 25, 2020 HISTORY: Altered mental status. CT DLP: 1097.9 mGycm Automated exposure control for dose reduction was used. There is cerebral cortical atrophy appropriate for age. There is no mass effect nor midline shift. Th ere is no sign of intracranial hemorrhage. The calvarium is intact. There is no evidence of cerebral edema. There is straightening of the cervical spine. There is old anterior fusion surgery at C5 and C6 and C 7. There is moderate narrowing of C3-4 and C4-5 disc spaces. There is no compression fracture. There is minimal hypertrophic facet arthropathy. I see no focal bone destruction. The skull base is intact. There is normal aeration of the mastoid sinuses. IMPRESSION: Mild cerebral atrophy appropriate for age. No acute intracranial abnormality. Previous cervical spine fusion surgery. Spondylotic changes. No fracture seen.
[2020-09-30] MEDS ORDERED: NALOXONE 0.4 MG/ML 1 ML VIAL IV PRN (21:31)
[2020-09-30 21:59] LABS: Glucose,Whole Blood 161 mg/dL (75-99)
[2020-10-01] MEDS: MELATONIN 1 MG TAB PO SCH ×2 (04:05→20:11)
[2020-10-01] MEDS: SODIUM CHLORIDE 0.9% 1,000 ML IV SCH ×2 (04:47→15:32)
[2020-10-01 07:54] LABS: Basophils % (A) 1 %; Eosinophils # (A) 0.1 k/uL (0-0.7); Eosinophils % (A) 1 %; HGB 11.9 gm/dL (11.4-16.0); Lymphocytes # (A) 1.4 k/uL (1.0-4.8); Lymphocytes % (A) 28 %; MCH 32.7 pg (25.0-35.0); MCHC 34.9 g/dL (31.0-37.0); MCV 93.6 fL (80.0-100.0); Mean Platelet Volume 7.8; Monocytes # (A) 0.2 k/uL (0-1.0); Monocytes % (A) 4 %; Neutrophils # (A) 3.1 k/uL (1.3-7.7); Neutrophils % (A) 63 %; Platelet Count 233 k/uL (150-450); RBC 3.64 m/uL (3.80-5.40); RDW 12.2 % (11.5-15.5); WBC 4.9 k/uL (3.8-10.6)
[2020-10-01 08:04] LABS: African American GFR (CKD) >90 (>60 ml/min/1.73 sqM); Anion Gap 7 mmol/L; Blood Urea Nitrogen 30 mg/dL (7-17); Carbon Dioxide 29 mmol/L (22-30); Chloride 97 mmol/L (98-107); Glucose 181 mg/dL (74-99); Non-African American GFR(CKD) 85 (>60 ml/min/1.73 sqM); Potassium 3.1 mmol/L (3.5-5.1); Sodium 133 mmol/L (137-145)
--- NOTE | 2020-10-01 12:51 | P.CN ---
Psychiatric Consult - . Consult date: 10/01/20 Consult:: 10/01/20 11:14 IDENTIFYING DATA: Patient is a 80-year-old female who currently lives with her son and [id number] in a house, has 2 kids and for grandchildren collects Social Security and pension. HPI: Patient presented to the hospital for concerns of failure to thrive and brought in by her daughter. Patient apparently according to ER report has been having poor oral intake and poor sleep for the past several weeks. The patients son was claiming that he is finding it more difficult to care for the patient recently according to ER report. Psychiatry is consulted for depression and failure to thrive. Patient had a positive urinalysis for a UTI and showed that her sodium was low at 133. Patient had a CT of her head which showed mild cerebral atrophy. Patient was seen at the bedside and agreeable to speak to promotion writer. Patient was fairly needy and asking several questions to promotion writer and did not want promotion writer to leave. She claims that she has been having trouble with her mouth and tongue. She asked if promotion writer can take a look of her mouth to see if she had any abnormalities. She claims that she is "69 pounds" and has been having a poor appetite because of her pain in her throat. She claims that this is been going on for several days. When asked about her mood she states that she is feeling anxious and mildly depressed. She reports a poor energy level and clean that she's been sleeping fairly well at night. She claims that she is compliant with "some of my medications". She states that her son has been helping her take her meds. She was alert and oriented 3 and knew who the current president was. She was fairly preoccupied with pain and claims that her son "got tired of taking care of me". Patient denies any suicidal or homicidal ideations intent or plan. At this time patient denies any auditory or visual hallucinations. Patient denies using any recreational drugs at this time and denies any alcohol or nicotine products. PAST PSYCHIATRIC HISTORY: Patient states that she has a history of depression and anxiety along with difficulty sleeping. Patient was admitted to the mental health unit last in [place]. She states that she follows up at [facility] [address] however does not know the name of her psychiatrist. She denies any previous suicide attempts. Patient claims that she's taken Risperdal, Aricept, trazodone and Zoloft in the past. PMH: Hypertension, diabetes mellitus, history of breast cancer with a mastectomy 31 years ago, currently in remission. ALLERGIES: as per EMR CHEMICAL DEPENDENCY HISTORY: Denies FAMILY PSYCHIATRIC/SUBSTANCE USE HISTORY: denies SOCIAL HISTORY: She states that she was born and raised in [facility] and completed up to the 12th grade of school. 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 She has 2 kids and 4 grandchildren. She currently lives alone in a house is collects Social Security and pension MENTAL STATUS EXAM: General Appearance: Patient appears to be stated age is thin and short in stature, alert, and directable. Fair hygiene and grooming. Behavior: Patient is laying in bed without any agitated behavior. Fairly needy. Attempts to cooperate. Speech: Patient's speech is fluent and nonpressured. Soft tone. Mood/Affect: Patient reports their mood is "not good", affect is congruent and constricted. Suicidality/Homicidality: Patient denies having any suicidal or homicidal ideation intent or plan. Perceptions: Patient denies any auditory or visual hallucinations. Though content/process: There is no evidence of any delusional thought content and thought process is linear and goal-directed. Somatically preoccupied. Rambles. Memory and concentration: AOX3, grossly intact for the purposes of this session. Can spell "WORLD" backwards Judgment and insight: Limited IMPRESSIONS: Major depressive disorder, mild PLAN: -At this time patient DOES NOT meet criteria for inpatient psychiatric admission however will continue to follow patient while she is on the medical floors to see if she needs inpatient psychiatric hospitalization. -Delirium precautions recommended with patient including - avoiding use of narcotics and MEDICAL INSTRUMENT TECHNICIAN sedatives, limit anticholinergic medications when possible, frequent re-orientation, minimize use of restraints, open window shades during the day and close them at night -Would recommend the following medication changes/additions: Started Zoloft 25 mg daily for mood, restarted Seroquel 25 mg daily at bedtime 12.5 mg daily at bedtime when necessary for insomnia/mood stabilization. -Will continue to follow along. continue with treatment of underlying comorbidities and this should improve patient's condition. -SW to look into possibility of long lines operator placement for patient. -Please contact with any questions. 10/01/20 12:44
[2020-10-01] MEDS ORDERED: DICYCLOMINE 10 MG CAP PO PRN (14:45)
[2020-10-01] MEDS: SERTRALINE 25 MG TAB PO SCH (15:31)
[2020-10-01] MEDS: PANTOPRAZOLE 40 MG TABLET PO SCH (15:31)
[2020-10-01 17:06] LABS: Glucose,Whole Blood 223 mg/dL (75-99)
[2020-10-01] MEDS: QUEtiapine 25 MG TAB PO SCH (20:11)
[2020-10-01 20:20] LABS: Glucose,Whole Blood 202 mg/dL (75-99)
[2020-10-01] MEDS ORDERED: MELATONIN 1 MG TAB PO SCH (21:00)
--- NOTE | 2020-10-01 23:29 | P.HPIM ---
History of Present Illness H&P Date: 10/01/20 Chief Complaint: Not eating drinking History of presenting complaint: This is a 80-year-old patient of Dr. Reynaldo Allen. Chronic stable medical conditions include diabetes, hypertension, depression, protein calorie malnutrition, L1 compression fracture. for 6 weeks for depression and anxiety was at [facility]- mental unit. discharged from on January 27 and came to stay with her son and [id number]. She was admitted here in February of this year with mild pancreatitis and severe constipation. Also had uncontrolled blood pressure. Then admitted from April 25 through April 30 with abdominal pain and found to have acute on chronic gastritis with EGD. Subsequently had admission after pickup 1 over the police were not following up on no psychiatric admissions. Patient now presents with the following statements: As per ER notes: "Patient is an 80-year-old female past medical history of diabetes, hypertension, depression who presents to the emergency department with failure to thrive. Her daughter is at bedside and helps provide history. States that the patient hasn't been eating, drinking or sleeping for the past week. Also reports that she's had increased confusion and multiple falls. Upon evaluation patient is alert and oriented. States that she has been more anxious lately. Reports that she has dysphasia and She hasn't been eating. She is a diabetic and reports that her sugars have been high. She has been taking her insulin and other medications as directed. She does report that she sustained one fall where she hit her head. Did not lose consciousness. She resides with her son who has found it difficult to care for her therefore he had the patient transferred to the hospital for further evaluation. He is the patient's DPOA. Granddaughter does bring paperwork with her which states that the patient has had previous diagnosis of depression with catatonia. She has failed multiple psychiatric inpatient admissions and therefore they recommended emergency guardian, ECT and peg tube placement. Letter was comprised in November of this year. Niece agrees that symptoms have been going on for a period of time however over the past week they have been more significant. The patient denies any unilateral numbness or weakness. No chest pain or shortness of breath. No fevers or chills. No other alleviating, electron beam operator modifying factors". Patient may complaints of weakness diabetes. She states her tongue is sore. Review of systems: GEN.: Tired, weight loss EYES: None HEENT: Sore tongue NECK: None RESPIRATORY: None CARDIOVASCULAR: None GASTROINTESTINAL: As above GENITOURINARY: None MUSCULOSKELETAL: Muscle and joint weakness LYMPHATICS: None HEMATOLOGICAL: None PSYCHIATRY: Depression and anxiety NEUROLOGICAL: None Past medical history to include: Diabetes, hypertension, left breast cancer, anxiety, depression, mild pancreatitis, L1 compression fracture, protein calorie malnutrition Social history: Currently living with her son and [id number]. Does not smoke or drink alcohol. Physical examination: VITAL SIGNS: 97.7, 91, 16, 116/67, 99% room air GENERAL: BMI 13.9, sitting up in bed, awake EYES: Pupils equal. Conjunctiva pale. HEENT: External appearance of nose and ears normal, oral cavity grossly normal. NECK: JVD not raised; masses not palpable. HEART: First and second heart sounds are normal; no edema. LUNGS: Respiratory rate normal; clear to auscultation. MUSCULAR schedule: Generalized wasting of muscle loss of subcutaneous fat bony prominences ABDOMEN: Soft, nontender , no guarding or rigidity, liver spleen not palpable, no masses palpable. PSYCH: [Alert and oriented x3; mood and affect anxious NEUROLOGICAL: Cranial nerves grossly intact; no facial asymmetry, power and sensation grossly intact. LYMPHATICS: No lymph nodes palpable in the axilla and neck INVESTIGATIONS, reviewed in the clinical context: White count 5.9 hemoglobin 13.4 platelets 29 potassium 3.5 creatinine 0.77 lactic acid 2.7 UA positive for leukoesterase, bacteria EKG tracing personally reviewed by me-normal sinus rhythm with nonspecific T- wave changes Chest x-ray film personally reviewed by me-possible right sided chronic scarring Assessment: -Advancing acute on chronic medical debility from decreased oral intake Patient be given nutritional supplements. Consult dietitian -Oral aphthous ulcers Likely from nutritional deficiency. Add multivitamins -Chronic gastritis, Continue PPI --Severe protein calorie malnutrition with a BMI of 13.2, from decreased oral intake Add nutritional supplements. Dietitian consult. -Diabetes mellitus type 2, Oral hypoglycemic. Follow Accu-Cheks -Essential hypertension- Continue with antihypertensives -Depression and anxiety not otherwise specified Consults psychiatry -L1 compression fracture - chronic Pain control with analgesics -Chronic anorexia, multifactorial -Acute UTI from cystitis Treatment with Keflex Additionally: Care was discussed with the patient. Questions answered. Patient is very frail and weak. Related at least tonight stating the hospital to stabilize. High risk of falls. manager market researchwarehouse manager worker consulted Past Medical History Past Medical History: Cancer, Diabetes Mellitus, Eye Disorder, GERD/Reflux, Hypertension, Renal Disease Additional Past Medical History / Comment(s): Pt recently admitted to [facility] on 03/12/20 with abdominal distention from severe constipation/mild pancreatitis, mild protein calorie malnutrition. Other hx: NIDDM type II, neuropathy in bilateral hands/lower legs and feet, falls, poor balance, recent L rib pain/abdominal pain/constipation which she treated with laxatives and now has been having loose stools, past IBS, nephrolithiasis with surgery, 1987 L breast cancer with mastectomy,dilopia, low back pain, scoliosis, L1 compression fracture, mitral valve disease/murmur, past L facial droop which resolved, thyroid nodules per past medical record/pt unaware. History of Any Multi-Drug Resistant Organisms: None Reported Past Surgical History: Breast Surgery, Section, Cholecystectomy, Heart Catheterization, Hysterectomy, Orthopedic Surgery Additional Past Surgical History / Comment(s): L mastectomy, bilateral breast biopsies, R breast benign lumpectomy x 2, cervical fusion, lithotripsy, R ureter rerouting, hemorrhoidectomy, BMB, EGDs, colonoscopies, bilateral cataract removals Past Anesthesia/Blood Transfusion Reactions: Postoperative Nausea & Vomiting (PONV) Past Psychological History: Anxiety, Depression Additional Psychological History / Comment(s): Pt resides with her son and daughter in law. She uses a walker to ambulate. She no longer drives, family takes her to appts. Pt has depression which she states has been increased lately d/t health issues. She denies any thoughts/plans of suicide. Smoking Status: Never smoker Past Alcohol Use History: None Reported Past Drug Use History: None Reported - Past Family History Mother Family Medical History: Dementia, Pneumonia Father Family Medical History: Coronary Artery Disease (CAD), CVA/TIA Additional Family Medical History / Comment(s): Stroke, heart disease Medications and Allergies Home Medications Medication Instructions Recorded Confirmed Type sitaGLIPtin PHOSPHATE [Januvia] 100 mg PO DAILY 03/10/20 09/30/20 History Dicyclomine [Bentyl] 10 mg PO QID PRN 04/13/20 09/30/20 History Pantoprazole [Protonix] 40 mg PO DAILY 06/04/20 09/30/20 History Doxycycline Hyclate [Doryx] 50 mg PO DAILY 09/30/20 09/30/20 History Lisinopril-Hctz 20-12.5 mg 1 tab PO DAILY 09/30/20 09/30/20 History [Zestoretic 20-12.5] Metoprolol Tartrate [Lopressor] 50 mg PO DAILY 09/30/20 09/30/20 History Sertraline [Zoloft] 50 mg PO DAILY 09/30/20 09/30/20 History metFORMIN HCL 1,000 mg PO BID 09/30/20 09/30/20 History Allergies Allergy/AdvReac Type Severity Reaction Status Date / Time Penicillins Allergy Itching Verified 09/30/20 18:54 codeine AdvReac Nausea & Verified 09/30/20 18:54 [From Tylenol-Codeine #3] Vomiting erythromycin base AdvReac Nausea & Verified 09/30/20 18:54 Vomiting propoxyphene AdvReac Nausea & Verified 09/30/20 18:54 [From Darvocet-N] Vomiting Physical Exam Vitals: Vital Signs Temp Pulse Pulse Resp BP BP Pulse Ox 10/01/20 04:15 72 16 139/72 99 10/01/20 01:00 78 16 126/74 98 09/30/20 19:42 80 16 116/67 99 09/30/20 17:00 97.7 F 91 16 92/59 100 Intake and Output 09/30/20 10/01/20 10/01/20 22:59 06:59 14:59 Other: Voiding Method Bedside Commode # Voids 1 Weight 31.298 kg 31.298 kg Results CBC & Chem 7: 10/01/20 07:10 10/01/20 07:10 Labs: Abnormal Lab Results - Last 24 Hours (Table) 09/30/20 09/30/20 09/30/20 Range/Units 18:20 18:20 18:20 RBC (3.80-5.40) m/uL Sodium 133 L (137-145) mmol/L Potassium (3.5-5.1) mmol/L Chloride (98-107) mmol/L BUN 41 H (7-17) mg/dL Glucose 257 H (74-99) mg/dL POC Glucose (mg/dL) (75-99) mg/dL Plasma Lactic Acid Colin 2.7 H* (0.7-2.0) mmol/L Urine Protein Trace H (Negative) Ur Leukocyte Esterase Moderate H (Negative) Urine Bacteria Rare H (None) /hpf Hyaline Casts 37 H (0-2) /lpf Urine Mucus Rare H (None) /hpf 09/30/20 10/01/20 10/01/20 Range/Units 21:57 07:10 07:10 RBC 3.64 L (3.80-5.40) m/uL Sodium 133 L (137-145) mmol/L Potassium 3.1 L (3.5-5.1) mmol/L Chloride 97 L (98-107) mmol/L BUN 30 H (7-17) mg/dL Glucose 181 H (74-99) mg/dL POC Glucose (mg/dL) 161 H (75-99) mg/dL Plasma Lactic Acid Colin (0.7-2.0) mmol/L Urine Protein (Negative) Ur Leukocyte Esterase (Negative) Urine Bacteria (None) /hpf Hyaline Casts (0-2) /lpf Urine Mucus (None) /hpf Thrombosis Risk Factor Assmnt - Choose All That Apply Any of the Below Risk Factors Present?: No Other Risk Factors: No Other congenital or acquired thrombophilia - If yes, enter type in comment: No Thrombosis Risk Factor Assessment Level: Very Low Risk
[2020-10-02] MEDS: SODIUM CHLORIDE 0.9% 1,000 ML IV SCH ×2 (00:29→11:58)
[2020-10-02 07:19] LABS: Glucose,Whole Blood 151 mg/dL (75-99)
[2020-10-02] MEDS: MULTIVITAMINS, THERA LIQUID 237 ML BOTTLE PO SCH (07:44)
[2020-10-02] MEDS: PANTOPRAZOLE 40 MG TABLET PO SCH (07:44)
[2020-10-02] MEDS: SERTRALINE 25 MG TAB PO SCH (07:44)
[2020-10-02] MEDS: CEPHALEXIN 250 MG CAP PO SCH ×3 (07:44→19:55)
[2020-10-02 10:30] LABS: % Iron Saturation 46.36 (12.00-45.00)
[2020-10-02 10:39] LABS: Ferritin 114.7 ng/mL (10.0-291.0)
[2020-10-02 10:49] LABS: Folate, Serum 16.6 ng/mL
[2020-10-02 12:03] LABS: Glucose,Whole Blood 272 mg/dL (75-99)
[2020-10-02] MEDS ORDERED: POTASSIUM CHLORIDE ER 20 MEQ TAB.ER PO STA (13:46)
[2020-10-02 14:44] VITALS: BMI 13.9
[2020-10-02 16:40] LABS: Glucose,Whole Blood 241 mg/dL (75-99)
[2020-10-02] MEDS: MELATONIN 1 MG TAB PO SCH (19:55)
[2020-10-02] MEDS: QUEtiapine 25 MG TAB PO SCH (19:56)
[2020-10-02 20:43] LABS: Glucose,Whole Blood 196 mg/dL (75-99)
[2020-10-03] MEDS: SODIUM CHLORIDE 0.9% 1,000 ML IV SCH ×2 (04:02→19:19)
[2020-10-03 07:02] LABS: Glucose,Whole Blood 147 mg/dL (75-99)
[2020-10-03] MEDS: PANTOPRAZOLE 40 MG TABLET PO SCH (09:16)
[2020-10-03] MEDS: SERTRALINE 25 MG TAB PO SCH (09:16)
[2020-10-03] MEDS: CEPHALEXIN 250 MG CAP PO SCH ×3 (09:16→21:53)
--- NOTE | 2020-10-03 10:00 | P.PN ---
Progress Note - Text Progress Note Date: 10/02/20 Chief Complaint: Not eating drinking History of presenting complaint: This is a 80-year-old patient of Dr. Reynaldo Allen. Chronic stable medical conditions include diabetes, hypertension, depression, protein calorie malnutrition, L1 compression fracture. for 6 weeks for depression and anxiety was at [facility]- mental unit. discharged from on January 27 and came to stay with her son and [id number]. She was admitted here in February of this year with mild pancreatitis and severe constipation. Also had uncontrolled blood pressure. Then admitted from April 25 through April 30 with abdominal pain and found to have acute on chronic gastritis with EGD. Subsequently had admission after pickup 1 over the police were not following up on no psychiatric admissions. Patient now presents with the following statements: As per ER notes: "Patient is an 80-year-old female past medical history of diabetes, hypertension, depression who presents to the emergency department with failure to thrive. Her daughter is at bedside and helps provide history. States that the patient hasn't been eating, drinking or sleeping for the past week. Also reports that she's had increased confusion and multiple falls. Upon evaluation patient is alert and oriented. States that she has been more anxious lately. Reports that she has dysphasia and She hasn't been eating. She is a diabetic and reports that her sugars have been high. She has been taking her insulin and other medications as directed. She does report that she sustained one fall where she hit her head. Did not lose consciousness. She resides with her son who has found it difficult to care for her therefore he had the patient transferred to the hospital for further evaluation. He is the patient's DPOA. Granddaughter does bring paperwork with her which states that the patient has had previous diagnosis of depression with catatonia. She has failed multiple psychiatric inpatient admissions and therefore they recommended emergency guardian, ECT and peg tube placement. Letter was comprised in November of this year. Niece agrees that symptoms have been going on for a period of time however over the past week they have been more significant. The patient denies any unilateral numbness or weakness. No chest pain or shortness of breath. No fevers or chills. No other alleviating, technical aid modifying factors". Patient may complaints of weakness diabetes. She states her tongue is sore. Admitted with advancing acute on chronic medical debility. Severe protein calorie malnutrition. Decreased oral intake. Dehydration. Today-8 some oatmeal. Reluctant to eat. Able to come indicate Review of systems: Was done for constitutional, cardiovascular, GI, pulmonary. relevant finding as above Current medications reviewed in today's electronic records Physical examination: VITAL SIGNS: 98.1, 80, 16, 161/70, 91% room air GENERAL: BMI 13.9, sitting up in bed, awake EYES: Pupils equal. Conjunctiva pale. NECK: JVD not raised; masses not palpable. HEART: First and second heart sounds are normal; no edema. LUNGS: Respiratory rate normal; clear to auscultation. MUSCULAR schedule: Generalized wasting of muscle loss of subcutaneous fat bony prominences ABDOMEN: Soft, nontender , no guarding or rigidity, liver spleen not palpable, no masses palpable. PSYCH: [Alert and oriented x3; mood and affect anxious INVESTIGATIONS, reviewed in the clinical context: October 02: Accu-Cheks 151, 272, 241 White count 5.9 hemoglobin 13.4 platelets 29 potassium 3.5 creatinine 0.77 lactic acid 2.7 UA positive for leukoesterase, bacteria EKG tracing personally reviewed by me-normal sinus rhythm with nonspecific T- wave changes Chest x-ray film personally reviewed by me-possible right sided chronic scarring Assessment: -Advancing acute on chronic medical debility from decreased oral intake Patient be given nutritional supplements. Consult dietitian -Oral aphthous ulcers Likely from nutritional deficiency. Add multivitamins -Chronic gastritis, Continue PPI --Severe protein calorie malnutrition with a BMI of 13.2, from decreased oral intake Add nutritional supplements. Dietitian consult. -Diabetes mellitus type 2, Oral hypoglycemic. Follow Accu-Cheks -Essential hypertension- Continue with antihypertensives -Depression and anxiety not otherwise specified Consults psychiatry -L1 compression fracture - chronic Pain control with analgesics -Chronic anorexia, multifactorial -Acute UTI from cystitis Treatment with Keflex Additionally: Continue current medication treatment plan. manager formsclient manager large law worker consulted. Encourage oral intake. Patient will need at least 2 nights for the stay in the hospital to stabilize. Because of very poor oral intake.
[2020-10-03] MEDS: MULTIVITAMINS, THERA LIQUID 237 ML BOTTLE PO SCH ×2 (10:28→12:30)
[2020-10-03 11:15] LABS: Glucose,Whole Blood 146 mg/dL (75-99)
--- NOTE | 2020-10-03 11:45 | P.PN ---
Progress Note - Text Progress Note Date: 10/03/20 Interval History: Patient was seen today for psychiatric follow-up regarding her depression. Juanjose garcia's nurse states that patient has been fairly paranoid that nurses and staff members were trying to poison her and not treating her well and was refusing to take medications as morning. Patient was seen at the bedside and claims that she is feeling "not good" today when asked to explain more she spoke about feeling depressed and on trusting of other people. She spoke about the oatmeal that was brought to her this morning and states that "it was too hot, why would they give me something so hot". She also was reluctant to take her medicines this morning however with encouragement patient ended up taking them in front of press writer. She continues to be somatically preoccupied and spoke about various pain and discomforts that she has all over her body. She claims that her anxiety is "fine" and states that she was able to sleep well last night. At this time patient denies any suicidal or homical ideations, intent or plan. Patient denies any auditory, visual hallucinations. Patient denies any side effects from the medications and has been compliant with meds. Mental Status Exam: General Appearance: Patient appears to be stated age is thin/frail and short in stature, alert, and directable. Fair hygiene and grooming. Behavior: Patient is laying in bed without any agitated behavior. Fairly uncooperative today. Speech: Patient's speech is fluent and nonpressured. Soft tone. Mood/Affect: Patient reports their mood is "not good", affect is congruent and constricted. Suicidality/Homicidality: Patient denies having any suicidal or homicidal ideation intent or plan. Perceptions: Patient denies any auditory or visual hallucinations. Though content/process: Fairly concrete, poverty of content. sHe endorsed paranoia towards staff members. Somatically preoccupied. Memory and concentration: AOX3, grossly intact for the purposes of this session Judgment and insight: poor Assessment Major depressive disorder, with psychotic features Plan: -At this time patient DOES NOT meet criteria for inpatient psychiatric admission however will continue to follow patient while she is on the medical floors to see if she needs inpatient geriatric psychiatric hospitalization. -Delirium precautions recommended with patient including - avoiding use of narcotics and SHEET ROCK HANGER sedatives, limit anticholinergic medications when possible, frequent re-orientation, minimize use of restraints, open window shades during the day and close them at night -Would recommend the following medication changes/additions: Increased Zoloft 50 mg daily for mood, increased Seroquel 50 mg daily at bedtime for insomnia/mood stabilization. d/c melatonin at this time. -Will continue to follow along. continue with treatment of underlying comorbidities and this should improve patient's condition. -SW to look into possibility of sanitary engineer placement for patient. -Please contact with any questions.
[2020-10-03] MEDS ORDERED: SERTRALINE 25 MG TAB PO ONE (12:00)
[2020-10-03] MEDS ORDERED: METOPROLOL TARTRATE 25 MG TAB PO SCH (12:00)
[2020-10-03 16:54] LABS: Glucose,Whole Blood 147 mg/dL (75-99)
[2020-10-03] MEDS: METOPROLOL TARTRATE 50 MG TAB PO SCH ×2 (18:37→19:45)
[2020-10-03 20:03] LABS: Glucose,Whole Blood 127 mg/dL (75-99)
[2020-10-03] MEDS ORDERED: QUEtiapine 25 MG TAB PO SCH (21:00)
[2020-10-04] MEDS: CEPHALEXIN 250 MG CAP PO SCH ×4 (03:10→21:25)
[2020-10-04] MEDS: SODIUM CHLORIDE 0.9% 1,000 ML IV SCH ×2 (04:15→15:37)
[2020-10-04 07:28] LABS: Glucose,Whole Blood 104 mg/dL (75-99)
[2020-10-04] MEDS: PANTOPRAZOLE 40 MG TABLET PO SCH (08:21)
[2020-10-04] MEDS: METOPROLOL TARTRATE 50 MG TAB PO SCH ×2 (08:21→20:28)
[2020-10-04] MEDS: MULTIVITAMINS, THERA LIQUID 237 ML BOTTLE PO SCH ×2 (08:21→08:22)
[2020-10-04] MEDS ORDERED: SERTRALINE 50 MG TAB PO SCH (09:00)
--- NOTE | 2020-10-04 10:29 | P.PN ---
Progress Note - Text Progress Note Date: 10/03/20 Chief Complaint: Not eating drinking History of presenting complaint: This is a 80-year-old patient of Dr. Reynaldo Allen. Chronic stable medical conditions include diabetes, hypertension, depression, protein calorie malnutrition, L1 compression fracture. for 6 weeks for depression and anxiety was at [facility]- mental unit. discharged from on January 27 and came to stay with her son and [id number]-vj-cce. She was admitted here in February of this year with mild pancreatitis and severe constipation. Also had uncontrolled blood pressure. Then admitted from April 25 through April 30 with abdominal pain and found to have acute on chronic gastritis with EGD. Subsequently had admission after pickup 1 over the police were not following up on no psychiatric admissions. Patient now presents with the following statements: As per ER notes: "Patient is an 80-year-old female past medical history of diabetes, hypertension, depression who presents to the emergency department with failure to thrive. Her daughter is at bedside and helps provide history. States that the patient hasn't been eating, drinking or sleeping for the past week. Also reports that she's had increased confusion and multiple falls. Upon evaluation patient is alert and oriented. States that she has been more anxious lately. Reports that she has dysphasia and She hasn't been eating. She is a diabetic and reports that her sugars have been high. She has been taking her insulin and other medications as directed. She does report that she sustained one fall where she hit her head. Did not lose consciousness. She resides with her son who has found it difficult to care for her therefore he had the patient transferred to the hospital for further evaluation. He is the patient's DPOA. Granddaughter does bring paperwork with her which states that the patient has had previous diagnosis of depression with catatonia. She has failed multiple psychiatric inpatient admissions and therefore they recommended emergency guardian, ECT and peg tube placement. Letter was comprised in November of this year. Niece agrees that symptoms have been going on for a period of time however over the past week they have been more significant. The patient denies any unilateral numbness or weakness. No chest pain or shortness of breath. No fevers or chills. No other alleviating, mailroom personnel modifying factors". Patient may complaints of weakness diabetes. She states her tongue is sore. Admitted with advancing acute on chronic medical debility. Severe protein calorie malnutrition. Decreased oral intake. Dehydration. Today-eating selectively. Did walk with therapist in the hallway. Answering questions. Oral source improving initially had not taking her medicines in the morning. After reassured her she did ask to take the medicines Review of systems: Was done for constitutional, cardiovascular, GI, pulmonary. relevant finding as above Current medications reviewed in today's electronic records Physical examination: VITAL SIGNS: 97.5, 87, 17, 174/85, 98% room air GENERAL: BMI 13.9, sitting up in bed, awake EYES: Pupils equal. Conjunctiva pale. NECK: JVD not raised; masses not palpable. HEART: First and second heart sounds are normal; no edema. LUNGS: Respiratory rate normal; clear to auscultation. MUSCULAR schedule: Generalized wasting of muscle loss of subcutaneous fat bony prominences ABDOMEN: Soft, nontender , no guarding or rigidity, liver spleen not palpable, no masses palpable. PSYCH: [Alert and oriented x3; mood and affect anxious INVESTIGATIONS, reviewed in the clinical context: October 03,: Accu-Cheks 147, 146, 147 October 02: Accu-Cheks 151, 272, 241 White count 5.9 hemoglobin 13.4 platelets 29 potassium 3.5 creatinine 0.77 lactic acid 2.7 UA positive for leukoesterase, bacteria EKG tracing personally reviewed by me-normal sinus rhythm with nonspecific T- wave changes Chest x-ray film personally reviewed by me-possible right sided chronic scarring Assessment: -Advancing acute on chronic medical debility from decreased oral intake Patient be given nutritional supplements. Consult dietitian -Oral aphthous ulcers Likely from nutritional deficiency. Add multivitamins. Improving -Chronic gastritis, Continue PPI --Severe protein calorie malnutrition with a BMI of 13.2, from decreased oral intake Add nutritional supplements. Dietitian consult. -Diabetes mellitus type 2, Oral hypoglycemic. Follow Accu-Cheks. Improved -Essential hypertension- Continue with antihypertensives -Depression and anxiety not otherwise specified Consults psychiatry -L1 compression fracture - chronic Pain control with analgesics -Chronic anorexia, multifactorial -Acute UTI from cystitis Treatment with Keflex Additionally: Discussed with social worker assistant. Continue current medication treatment plan. Discharge planning.
[2020-10-04 12:03] LABS: Glucose,Whole Blood 89 mg/dL (75-99)
[2020-10-04] MEDS ORDERED: MELATONIN 1 MG TAB PO PRN (12:46)
--- NOTE | 2020-10-04 12:51 | P.PN ---
Progress Note - Text Progress Note Date: 10/04/20 Interval History: Patient was seen today for psychiatric follow-up regarding her depression and poor oral intake. Patient's nurse states that patient has been mildly better in terms of her mood and affect however did state that patient continues to struggle to eat food and has been struggling to also take her medications however did take them this morning and last night. Patient was seen at the bedside today and appears to have a improvement in her affect. She appears to be brighter and claims that she feels "a little bit better". She states that she is still dealing with anxiety and depression. She claims that she is trying to be more optimistic about her future. She spoke significantly about her son how she has been living with him for the past 8 months and finds that it has been a burden for him. She continues to be somatically preoccupied and spoke about various sensations and problems with her body and claims that her lips were "too dry". She states that she was not able to sleep well last night. At this time patient denies any suicidal or homical ideations, intent or plan. Patient denies any auditory, visual hallucinations. Patient denies any side effects from the medications and has been compliant with meds. Mental Status Exam: General Appearance: Patient appears to be stated age is thin/frail and short in stature, alert, and directable. Fair hygiene and grooming. Behavior: Patient is laying in bed without any agitated behavior. Mildly more cooperative today. Speech: Patient's speech is fluent and nonpressured. Soft tone. Mood/Affect: Patient reports their mood is "a little bit better", affect is congruent Suicidality/Homicidality: Patient denies having any suicidal or homicidal ideation intent or plan. Perceptions: Patient denies any auditory or visual hallucinations. Though content/process: Fairly concrete, poverty of content. He did not endorse any paranoia today. Somatically preoccupied. Memory and concentration: AOX3, grossly intact for the purposes of this session Judgment and insight: poor, improving mildly Assessment Major depressive disorder, with psychotic features Plan: -At this time patient DOES NOT meet criteria for inpatient psychiatric admission. -Delirium precautions recommended with patient including - avoiding use of narcotics and VIDEOGAME TESTER sedatives, limit anticholinergic medications when possible, frequent re-orientation, minimize use of restraints, open window shades during the day and close them at night -Would recommend the following medication changes/additions: Increased Zoloft 75 mg daily for mood, increased Seroquel 50 mg daily at bedtime for insomnia/mood stabilization. Restarted melatonin 2 mg daily at bedtime when necessary for insomnia. -Will continue to follow along. continue with treatment of underlying comorbidities and this should improve patient's condition. Continue with encouragement of food and liquids. -SW to look into [facility] placement for patient. -Please contact with any questions.
[2020-10-04] MEDS ORDERED: ACETAMINOPHEN TAB 500 MG TAB PO PRN (15:50)
[2020-10-04 18:37] LABS: Glucose,Whole Blood 85 mg/dL (75-99)
[2020-10-04 19:20] VITALS: TEMP 97.4
[2020-10-04 20:49] LABS: Glucose,Whole Blood 171 mg/dL (75-99)
[2020-10-04] MEDS ORDERED: QUEtiapine 50 MG TAB PO SCH (21:00)
--- NOTE | 2020-10-04 23:07 | P.PN ---
Progress Note - Text Progress Note Date: 10/04/20 Chief Complaint: Not eating drinking History of presenting complaint: This is a 80-year-old patient of Dr. Reynaldo Allen. Chronic stable medical conditions include diabetes, hypertension, depression, protein calorie malnutrition, L1 compression fracture. for 6 weeks for depression and anxiety was at [facility]- mental unit. discharged from on January 27 and came to stay with her son and [id number]. She was admitted here in February of this year with mild pancreatitis and severe constipation. Also had uncontrolled blood pressure. Then admitted from April 25 through April 30 with abdominal pain and found to have acute on chronic gastritis with EGD. Subsequently had admission after pickup 1 over the police were not following up on no psychiatric admissions. Patient now presents with the following statements: As per ER notes: "Patient is an 80-year-old female past medical history of diabetes, hypertension, depression who presents to the emergency department with failure to thrive. Her daughter is at bedside and helps provide history. States that the patient hasn't been eating, drinking or sleeping for the past week. Also reports that she's had increased confusion and multiple falls. Upon evaluation patient is alert and oriented. States that she has been more anxious lately. Reports that she has dysphasia and She hasn't been eating. She is a diabetic and reports that her sugars have been high. She has been taking her insulin and other medications as directed. She does report that she sustained one fall where she hit her head. Did not lose consciousness. She resides with her son who has found it difficult to care for her therefore he had the patient transferred to the hospital for further evaluation. He is the patient's DPOA. Granddaughter does bring paperwork with her which states that the patient has had previous diagnosis of depression with catatonia. She has failed multiple psychiatric inpatient admissions and therefore they recommended emergency guardian, ECT and peg tube placement. Letter was comprised in November of this year. Niece agrees that symptoms have been going on for a period of time however over the past week they have been more significant. The patient denies any unilateral numbness or weakness. No chest pain or shortness of breath. No fevers or chills. No other alleviating, paver layer modifying factors". Patient may complaints of weakness diabetes. She states her tongue is sore. Admitted with advancing acute on chronic medical debility. Severe protein calorie malnutrition. Decreased oral intake. Dehydration. Seen by PT OT. Did walk in the hallway with walker. Today-very selective about eating. Refusing food. Sitting up in bed. Otherwise comfortable. Review of systems: Was done for constitutional, cardiovascular, GI, pulmonary. relevant finding as above Active Medications Acetaminophen (Acetaminophen Tab 500 Mg Tab) 500 mg PO Q6HR PRN PRN Reason: Fever and/ or Pain Cephalexin (Cephalexin 250 Mg Cap) 250 mg PO TID [facility] Last Admin: 10/04/20 21:25 Dose: 250 mg Documented by: Dicyclomine HCl (Dicyclomine 10 Mg Cap) 10 mg PO QID PRN PRN Reason: abdominal pain Last Admin: 10/01/20 15:31 Dose: 10 mg Documented by: Sodium Chloride (Saline 0.9%) 1,000 mls @ 75 mls/hr IV .[id number] [facility] Last Admin: 10/04/20 15:37 Dose: 75 mls/hr Documented by: Iron/Minerals/Multivitamins (Multivitamins, Thera Liquid 237 Ml Bottle) 15 ml PO DAILY [facility] Last Admin: 10/04/20 08:22 Dose: Not Given Documented by: Melatonin (Melatonin 1 Mg Tab) 2 mg PO HS PRN PRN Reason: Insomnia Metoprolol Tartrate (Metoprolol Tartrate 50 Mg Tab) 50 mg PO BID [facility] Last Admin: 10/04/20 20:28 Dose: 50 mg Documented by: Naloxone HCl (Naloxone 0.4 Mg/Ml 1 Ml Vial) 0.2 mg IV Q2M PRN PRN Reason: Opioid Reversal Pantoprazole Sodium (Pantoprazole 40 Mg Tablet) 40 mg PO AC-BRKFST [facility] Last Admin: 10/04/20 08:21 Dose: 40 mg Documented by: Quetiapine Fumarate (Quetiapine 50 Mg Tab) 50 mg PO HS [facility] Last Admin: 10/04/20 20:28 Dose: 50 mg Documented by: Sertraline HCl (Sertraline 50 Mg Tab) 75 mg PO DAILY [facility] Physical examination: VITAL SIGNS: 97.1, 68, 18, 128.70, 100% room air GENERAL: BMI 13.9, sitting up in bed, awake EYES: Pupils equal. Conjunctiva pale. NECK: JVD not raised; masses not palpable. HEART: First and second heart sounds are normal; no edema. LUNGS: Respiratory rate normal; clear to auscultation. MUSCULAR schedule: Generalized wasting of muscle loss of subcutaneous fat bony prominences ABDOMEN: Soft, nontender , no guarding or rigidity, liver spleen not palpable, no masses palpable. PSYCH: [Alert and oriented x3; mood and affect anxious INVESTIGATIONS, reviewed in the clinical context: October 04: [id number], 89, 85 October 03,: Accu-Cheks 147, 146, 147 October 02: Accu-Cheks 151, 272, 241 White count 5.9 hemoglobin 13.4 platelets 29 potassium 3.5 creatinine 0.77 lactic acid 2.7 UA positive for leukoesterase, bacteria EKG tracing personally reviewed by me-normal sinus rhythm with nonspecific T- wave changes Chest x-ray film personally reviewed by me-possible right sided chronic scarring Assessment: -Advancing acute on chronic medical debility from decreased oral intake Patient be given nutritional supplements. Consult dietitian -Oral aphthous ulcers Likely from nutritional deficiency. Add multivitamins. Improving -Chronic gastritis, Continue PPI --Severe protein calorie malnutrition with a BMI of 13.2, from decreased oral intake Add nutritional supplements. Dietitian consult. -Diabetes mellitus type 2, Oral hypoglycemic. Follow Accu-Cheks. Improved -Essential hypertension- Continue with antihypertensives -Major depressive disorder, mild Seen by Dr. Pimentel. Started on Zoloft and Seroquel. If does not eat will probably need inpatient psychiatry treatment for the same.. -L1 compression fracture - chronic Pain control with analgesics -Chronic anorexia, multifactorial -Acute UTI from cystitis Treatment with Keflex Additionally: Continue current medical treatment plan. Patient encouraged to eat.
[2020-10-05 05:45] LABS: HCT 32.7 % (34.0-46.0); HGB 11.8 gm/dL (11.4-16.0); MCH 33.4 pg (25.0-35.0); MCHC 36.2 g/dL (31.0-37.0); MCV 92.4 fL (80.0-100.0); Platelet Count 211 k/uL (150-450); RBC 3.54 m/uL (3.80-5.40); RDW 12.2 % (11.5-15.5); WBC 5.3 k/uL (3.8-10.6)
[2020-10-05 07:11] LABS: Glucose,Whole Blood 106 mg/dL (75-99)
[2020-10-05 07:49] VITALS: BP 133/62; PULSE 69; RESP 14
[2020-10-05] MEDS: CEPHALEXIN 250 MG CAP PO SCH (08:05)
[2020-10-05] MEDS: MULTIVITAMINS, THERA LIQUID 237 ML BOTTLE PO SCH (08:06)
[2020-10-05] MEDS: METOPROLOL TARTRATE 50 MG TAB PO SCH (08:06)
[2020-10-05] MEDS: PANTOPRAZOLE 40 MG TABLET PO SCH (08:06)
[2020-10-05] MEDS ORDERED: SERTRALINE 50 MG TAB PO SCH (09:00)
[2020-10-05 11:24] LABS: African American GFR (CKD) 99.8 (60.0-200.0); Anion Gap 11.8 mmol/L (4.00-12.00); BUN/Creat Ratio 21.67 Ratio (12.00-20.00); Calcium 7.6 mg/dL (8.7-10.3); Carbon Dioxide 23.2 mmol/L (21.6-31.8); Non-African American GFR(CKD) 86.1 (60.0-200.0)
[2020-10-05 11:35] LABS: Glucose,Whole Blood 135 mg/dL (75-99)
--- NOTE | 2020-10-05 11:46 | P.PN ---
Progress Note - Text Progress Note Date: 10/05/20 Interval History: Patient was seen today for psychiatric follow-up regarding her depression. Juanjose garcia's nurse states that patient has been mildly better today in terms of her mood however continues to struggle with poor oral intake. Nurse states that patient was able to sleep throughout most of the night. Patient was seen sitting in her chair today and appears to have a improvement in her affect. She appears to be brighter when speaking to investment underwriter. She claims that she was able to sleep better throughout the night however complained of ongoing noises in the hospital which were disruptive. She claims that she is doing better in terms of her depression and anxiety however continues to be somatically preoccupied. She claims that "I'm not ready to go outside" referring to being discharged onto the streets however patient was reassured that the child support case officer is looking for placement for her. At this time patient denies any suicidal or homical ideations, intent or plan. Patient denies any auditory, visual hallucinations. Patient denies any side effects from the medications and has been compliant with meds. Mental Status Exam: General Appearance: Patient appears to be stated age is thin/frail and short in stature, alert, and directable. Fair hygiene and grooming. Behavior: Patient is laying in bed without any agitated behavior. Mildly more cooperative today. Speech: Patient's speech is fluent and nonpressured. Soft tone. Mood/Affect: Patient reports their mood is "better", affect is congruent and brighter affect Suicidality/Homicidality: Patient denies having any suicidal or homicidal ideation intent or plan. Perceptions: Patient denies any auditory or visual hallucinations. Though content/process: Fairly concrete, poverty of content. she did not endorse any paranoia today. Somatically preoccupied. Memory and concentration: AOX3, grossly intact for the purposes of this session Judgment and insight: Chronically poor, improving mildly Assessment Major depressive disorder, with psychotic features Plan: -At this time patient DOES NOT meet criteria for inpatient psychiatric admission. -Delirium precautions recommended with patient including - avoiding use of narcotics and CLAIMS SPECIALIST sedatives, limit anticholinergic medications when possible, frequent re-orientation, minimize use of restraints, open window shades during the day and close them at night -Would recommend the following medication changes/additions: Continue with Zoloft 75 mg daily for mood for tomorrow then will be increased to 100 mg starting Saturday. Continue with Seroquel 50 mg daily at bedtime for insomnia/mood stabilization. Continue with melatonin 2 mg daily at bedtime when necessary for insomnia. -continue with treatment of underlying comorbidities and this should improve patient's condition. Continue with encouragement of food and liquids. -SW to look into detention placement for patient. -Psychiatry will sign off at this time. -Please contact with any questions.
--- NOTE | 2020-10-05 14:12 | P.DS ---
Providers Date of admission: 10/03/20 09:59 Expected date of discharge: 10/05/20 Attending physician: Yeison Mitchell Consults: 09/30/20 21:33 Consult Physician Urgent Consulting Provider: Prince Pimentel Consult Reason/Comments: depression, failure to thrive Do you want consulting provider notified?: Yes Primary care physician: [facility] Course: Chief Complaint: Not eating drinking History of presenting complaint: This is a 80-year-old patient of Dr. Reynaldo Allen. Chronic stable medical conditions include diabetes, hypertension, depression, protein calorie malnutrition, L1 compression fracture. for 6 weeks for depression and anxiety was at [facility]- mental unit. discharged from on January 27 and came to stay with her son and [id number]. She was admitted here in February of this year with mild pancreatitis and severe constipation. Also had uncontrolled blood pressure. Then admitted from April 25 through April 30 with abdominal pain and found to have acute on chronic gastritis with EGD. Subsequently had admission after pickup 1 over the police were not following up on no psychiatric admissions. Patient now presents with the following statements: As per ER notes: "Patient is an 80-year-old female past medical history of diabetes, hypertension, depression who presents to the emergency department with failure to thrive. Her daughter is at bedside and helps provide history. States that the patient hasn't been eating, drinking or sleeping for the past week. Also reports that she's had increased confusion and multiple falls. Upon evaluation patient is alert and oriented. States that she has been more anxious lately. Reports that she has dysphasia and She hasn't been eating. She is a diabetic and reports that her sugars have been high. She has been taking her insulin and other medications as directed. She does report that she sustained one fall where she hit her head. Did not lose consciousness. She resides with her son who has found it difficult to care for her therefore he had the patient transferred to the hospital for further evaluation. He is the patient's DPOA. Granddaughter does bring paperwork with her which states that the patient has had previous diagnosis of depression with catatonia. She has failed multiple psychiatric inpatient admissions and therefore they recommended emergency guardian, ECT and peg tube placement. Letter was comprised in November of this year. Niece agrees that symptoms have been going on for a period of time however over the past week they have been more significant. The patient denies any unilateral numbness or weakness. No chest pain or shortness of breath. No fevers or chills. No other alleviating, assembly detailer modifying factors". Patient may complaints of weakness . She states her tongue is sore. Admitted with advancing acute on chronic medical debility. Severe protein calorie malnutrition. Decreased oral intake. Dehydration. Seen by PT OT. Did walk in the hallway with walker. Seen by psychiatrist. Zoloft increased to 75 mg. We will increase 200 mg by Saturday. Seroquel 50 mg at night. Patient does eat with repeated request. Today-sitting up in a chair. Comfortable. Encouraged oral intake. Has against stopped eating. Per psychiatrist Zoloft further increased.. Discussed with bag worker. DC to ECF. Discussion and discharge planning more than 35 minutes Bus Info Consultant: Dr. Pimentel from psychiatry Physical examination: VITAL SIGNS: 97.4, 16, 14, 133/62, 99% room air GENERAL: BMI 13.9, sitting up in a chair, awake EYES: Pupils equal. Conjunctiva pale. NECK: JVD not raised; masses not palpable. HEART: First and second heart sounds are normal; no edema. LUNGS: Respiratory rate normal; clear to auscultation. MUSCULAR schedule: Generalized wasting of muscle loss of subcutaneous fat bony prominences ABDOMEN: Soft, nontender , no guarding or rigidity, liver spleen not palpable, no masses palpable. PSYCH: [Alert and oriented x3; mood and affect anxious INVESTIGATIONS, reviewed in the clinical context: October 05: Accu-Cheks 106, 136 October 04: [id number], 89, 85 October 03,: Accu-Cheks 147, 146, 147 October 02: Accu-Cheks 151, 272, 241 White count 5.9 hemoglobin 13.4 platelets 29 potassium 3.5 creatinine 0.77 lactic acid 2.7 UA positive for leukoesterase, bacteria EKG tracing personally reviewed by me-normal sinus rhythm with nonspecific T- wave changes Chest x-ray film personally reviewed by me-possible right sided chronic scarring Coronavirus PCR-negative Assessment: -Advancing acute on chronic medical debility from decreased oral intake Patient be given nutritional supplements. Consult dietitian -Oral aphthous ulcers Likely from nutritional deficiency. Add multivitamins. Improving -Chronic gastritis, Continue PPI --Severe protein calorie malnutrition with a BMI of 13.2, from decreased oral intake Add nutritional supplements. Dietitian consult. -Diabetes mellitus type 2, Oral hypoglycemic. Follow Accu-Cheks. Improved -Essential hypertension- Continue with antihypertensives -Major depressive disorder, mild Seen by Dr. Pimentel. Started on Zoloft and Seroquel. .. -L1 compression fracture - chronic Pain control with analgesics -Chronic anorexia, multifactorial -Acute UTI from cystitis Treatment with Keflex Disposition: [facility] Patient Condition at Discharge: Stable Plan - Discharge Summary New Discharge Prescriptions: No Action sitaGLIPtin PHOSPHATE [Januvia] 100 mg PO DAILY Dicyclomine [Bentyl] 10 mg PO QID PRN PRN Reason: abdominal pain Pantoprazole [Protonix] 40 mg PO DAILY Metoprolol Tartrate [Lopressor] 50 mg PO DAILY Lisinopril-Hctz 20-12.5 mg [Zestoretic 20-12.5] 1 tab PO DAILY Sertraline [Zoloft] 50 mg PO DAILY Doxycycline Hyclate [Doryx] 50 mg PO DAILY metFORMIN HCL 1,000 mg PO BID Discharge Medication List sitaGLIPtin PHOSPHATE [Januvia] 100 mg PO DAILY 03/10/20 [History] Dicyclomine [Bentyl] 10 mg PO QID PRN 04/13/20 [History] Pantoprazole [Protonix] 40 mg PO DAILY 06/04/20 [History] Doxycycline Hyclate [Doryx] 50 mg PO DAILY 09/30/20 [History] Lisinopril-Hctz 20-12.5 mg [Zestoretic 20-12.5] 1 tab PO DAILY 09/30/20 [History] Metoprolol Tartrate [Lopressor] 50 mg PO DAILY 09/30/20 [History] Sertraline [Zoloft] 50 mg PO DAILY 09/30/20 [History] metFORMIN HCL 1,000 mg PO BID 09/30/20 [History] Follow up Appointment(s)/Referral(s): Reynaldo Putnam MD [Primary Care Provider] - 1-2 days
[2020-10-06] MEDS ORDERED: SERTRALINE 25 MG TAB PO ONE (09:00)
[2020-10-07] MEDS ORDERED: SERTRALINE 100 MG TAB PO SCH (09:00)
== END 2020-10-05 15:30 | DRG 640 ==
LOC: EC 16:38 → 5NMEDONC 21:36 → OBSVTOIN 10-03 09:59 → 5NMEDONC 10-03 22:07
PROVIDERS: ADMIT Hospitalist; ATTEND Hospitalist
DX: E86.0 Dehydration (principal); E43 Unspecified severe protein-calorie malnutrition; F32.3 Major depressive disorder, single episode, severe with psychotic features; J98.11 Atelectasis; M48.56XA Collapsed vertebra, not elsewhere classified, lumbar region, initial encounter for fracture; N30.00 Acute cystitis without hematuria; Z68.1 Body mass index [BMI] 19.9 or less, adult; E11.40 Type 2 diabetes mellitus with diabetic neuropathy, unspecified; E11.65 Type 2 diabetes mellitus with hyperglycemia; Z79.84 Long term (current) use of oral hypoglycemic drugs; E87.2 Acidosis; R62.7 Adult failure to thrive; Z20.828 Contact with and (suspected) exposure to other viral communicable diseases; F41.9 Anxiety disorder, unspecified; I05.9 Rheumatic mitral valve disease, unspecified; I10 Essential (primary) hypertension; K12.0 Recurrent oral aphthae; G47.00 Insomnia, unspecified; K29.50 Unspecified chronic gastritis without bleeding; K58.9 Irritable bowel syndrome, unspecified; M41.9 Scoliosis, unspecified; R29.6 Repeated falls; R47.02 Dysphasia; Z79.899 Other long term (current) drug therapy; Z82.3 Family history of stroke; Z82.49 Family history of ischemic heart disease and other diseases of the circulatory system; Z83.6 Family history of other diseases of the respiratory system; Z82.0 Family history of epilepsy and other diseases of the nervous system; Z85.3 Personal history of malignant neoplasm of breast; Z87.442 Personal history of urinary calculi; Z90.12 Acquired absence of left breast and nipple; Z90.710 Acquired absence of both cervix and uterus; Z91.81 History of falling; E87.1 Hypo-osmolality and hyponatremia; R63.0 Anorexia; Z71.3 Dietary counseling and surveillance; Z88.1 Allergy status to other antibiotic agents; Z88.5 Allergy status to narcotic agent; Z88.0 Allergy status to penicillin; Z98.42 Cataract extraction status, left eye; Z98.41 Cataract extraction status, right eye
CPT/HCPCS: 36415; 70450; 71046; 72125; 80048; 80053; 81001; 82607; 82728; 82746; 83540; 83550; 83605; 84484; 85025; 85027; 85610; 85730; 87635; 93005; 96365; 99285